=== PATIENT | female | born 1965 | race Caucasian/White ===

== ENCOUNTER 2019-03-03 09:45 | Inpatient (IN) ==
[2019-03-03] MEDS ORDERED: ACETAMINOPHEN 1,000 MG/100 ML VIAL IV STA (09:51)
[2019-03-03] MEDS ORDERED: SODIUM CHLORIDE 0.9% 1000ML 1,000 ML IV SCH (10:00)
[2019-03-03 10:19] LABS: Mean Corpuscular Hgb Conc 33.3 g/dL (32-36); Mean Corpuscular Volume 96.8 fL (80-100); Mean Platelet Volume 9.8 fL (7.4-10.4); Platelet Count 191 K/uL (130-400); RDW Coefficient of Variation 13.1 % (11.5-14.5); RDW Standard Deviation 46.7 fL (36.4-46.3); Red Blood Count 3.72 M/uL (4.2-5.4); White Blood Count 16.94 K/uL (4.8-10.8)
[2019-03-03 10:31] LABS: INR 1.3 (0.9-1.1); Partial Thromboplastin Ratio 1.2; Partial Thromboplastin Time 32.2 Seconds (21.0-31.0); Prothrombin Time 12.7 Seconds (9.0-12.0)
[2019-03-03 10:36] LABS: Alanine Aminotransferase 17 U/L (12-78); Albumin Level 2.4 gm/dl (3.4-5.0); Aspartate Aminotransferase 14 U/L (15-37); BUN Creatinine Ratio 18.4 (10-20); Blood Urea Nitrogen 23 mg/dl (7-18); Calcium 7.7 mg/dl (8.5-10.1); Carbon Dioxide 23 mmol/L (21-32); Chloride 109 mmol/L (98-107); Est GFR (African American) 55.4; Est GFR (Non-African American) 47.8; Glucose 107 mg/dl (70-99); Potassium 3.4 mmol/L (3.5-5.1); Sodium 139 mmol/L (136-145)
[2019-03-03 10:39] LABS: Albumin Globulin Ratio 0.6 (0.9-2); Alkaline Phosphatase 67 U/L (45-117); Bilirubin,Total 0.6 mg/dl (0.2-1); Globulin 3.9 gm/dl (2.5-4.0); Total Protein 6.3 gm/dl (6.4-8.2)
--- NOTE | 2019-03-03 10:41 | XRay Report ---
XR chest 1V portable HISTORY: Sepsis COMPARISON: None. FINDINGS: There are low lung volumes. The heart is mildly enlarged. Mild central pulmonary vascular c ongestion without overt edema. No focal lung consolidations to suggest pneumonia. No pleural effusion s. No pneumothorax. Linear density within the right midlung zone may represent atelectasis. IMPRESSION: Cardiomegaly with mild central pulmonary vascular congestion. Electronically signed by: Jayson Adams M.D. 03/03/2019 10:40 AM
[2019-03-03 10:47] LABS: Basophils # (auto) 0.01 K/uL (0-0.2); Basophils % (auto) 0.1 %; Immature Granulocytes # (auto) 0.08 K/uL (0.00-0.02); Immature Granulocytes % (auto) 0.5 %; Lymphocytes # (auto) 0.92 K/uL (1.2-3.4); Lymphocytes % (auto) 5.4 %; Monocytes # (auto) 1.12 K/uL (0.11-0.59); Monocytes % (auto) 6.6 %; Neutrophils # (auto) 14.81 K/uL (1.4-6.5); Neutrophils % (auto) 87.4 %; Toxic Vacuolation 1+
--- NOTE | 2019-03-03 11:15 | CT Scan Report ---
CT SCAN OF THE ABDOMEN AND PELVIS WITHOUT IV CONTRAST CLINICAL HISTORY: Upper abdominal pain. COMPARISON STUDY: No priors. TECHNIQUE: CT scan of the abdomen and pelvis is performed from the lung bases to the proximal femora. Images are reviewed in the axial, sagittal, and coronal planes. IV contrast was not administered for this examination as per the referring clinician. The examination is degraded by streak artifact fro m the arms which cannot elevated above the abdomen as well as by motion. A dose lowering technique wa s utilized adhering to the principles of ALARA. CT DOSE: 1046.34 mGycm FINDINGS: Lung bases: The heart is normal in size and without pericardial effusion. There are trace pleural eff usions with bibasilar atelectasis. There is a small hiatal hernia. Liver: Evaluation of the liver is significantly degraded by streak artifact. The unenhanced liver is normal in size, contour, and attenuation. There is no intrahepatic biliary ductal dilatation. Gallbladder: There are large calcified gallstones, with no CT evidence of acute cholecystitis. Spleen: Normal in size and attenuation. Pancreas: The unenhanced pancreas is mildly atrophic and grossly unremarkable. Adrenal glands: Unremarkable. Kidneys: The unenhanced kidneys demonstrate mild cortical atrophy. There is a 15 mm obstructing calcu kerry in the right proximal ureter just below the ureteropelvic junction. This is seen on image #194 an d is located at the level of L2. This causes mild right hydronephrosis. There is mild associated righ t-sided perinephric and periureteric stranding. A 2.2 cm calculus/cluster of calculi is seen in the r ight renal pelvis on image #184. There are numerous additional nonobstructing calculi throughout the right kidney. No left renal calculi are clearly identified and there is no left-sided hydronephrosis. There is no evidence of contour deforming renal mass lesion. Abdominal vasculature: The abdominal aorta is normal in course and caliber. Bowel: There is no bowel obstruction. The appendix is normal as visualized. Peritoneum: There is no intraperitoneal free air or abdominal ascites. There is a large complex fat-c ontaining umbilical/periumbilical hernia. Lymphadenopathy: None. Pelvic viscera: The bladder, uterus, and adnexa are normal as visualized. Skeletal structures: The skeletal structures are osteopenic. Mild lumbosacral spondylosis is observed . No lytic or blastic lesions are seen. There are healed right-sided rib fractures. Sclerotic degener ative change is noted in the sacroiliac joints. IMPRESSION: 1. There is a 15 mm obstructing calculus in the right proximal ureter located just below the ureterop elvic junction. This causes mild right hydronephrosis. 2. There are numerous additional nonobstructing right renal calculi as above. 3. There is mild right-sided perinephric and periureteric stranding. This may be related to obstructi on/hydronephrosis. Correlate clinically and with urinalysis for evidence of superimposed infection. 4. No left renal calculi are identified. 5. Cholelithiasis without CT evidence of acute cholecystitis. 6. Trace pleural effusions. 7. Additional findings as above. Electronically signed by: Alen Ang M.D. 03/03/2019 11:14 AM
[2019-03-03 11:36] LABS: Appearance Urine Turbid (Clear); Bacteria Urine Automated 4+ (Negative); Blood Urine 1+ (Negative); Color Urine Dark Yellow; Epithelial Cell Urine Auto >30 /lpf (0-5); Glucose Urine UA Negative (Negative); Ketones Urine 1+ (Negative); Leukocyte Esterase Urine 3+ (Negative); Nitrite Urine Negative (Negative); RBC Urine Automated 0-4 /hpf (0-4); Specific Gravity Urine 1.023 (1.000-1.030); Urobilinogen Urine Negative (Negative); WBC Urine Automated >30 /hpf (0-5); pH Urine 8.5 (4.5-7.5)
[2019-03-03 11:45] LABS: Protein Urine 3+ (Negative)
[2019-03-03] MEDS ORDERED: AZTREONAM 2,000 MG in DEXTROSE 5% 100 ML IV SCH (11:45)
[2019-03-03 11:53] LABS: Ictotest Urine Negative (Negative)
[2019-03-03 11:56] LABS: Bilirubin Urine Negative (Negative)
--- NOTE | 2019-03-03 12:05 | Urology Consultation ---
Date of Consultation March 03, 2019 Assessment & Plan (1) Obstructive uropathy: (2) Sepsis: 54yo F with hx of cerebral palsy and schizophrenia presents with 15mm obstructing Right prox ureteral stone, sepsis. Of note she also has a large 2.2cm cluster of calculi to right renal pelvis and multiple other small stones to right kidney. No family members at bedside, pt is unable to sign consent due to cognitive status, presumed consent. Attempting to reach next of kin via [facility]. Will proceed emergent given potentially fatality if left untreated. Findings reviewed with Dr. Plummer. Will proceed to OR for cysto, right Retrograde pyelogram and right stent placement. Risks and benefits are unable to be reviewed given patient cognitive status. OR notified. Preoperative CXR and EKG completed. Covered with Azactam IV in ED. Attending: Emergent consent. Discussed with Sister Tiera Hurst. Will proceed to OR for stent on right. History of Present Illness Reason for Consultation: septic stone Requesting Physician: Dr Kong Attending Physician: Dr Kong History of Present Illness 54yo F with hx of cerebral palsy and schizophrenia presents from [facility] after complaining of upper abdominal pain x3days, then developed fever of 103F per [facility] staff. Tachycardic and hypotensive upon admission as well. We were consulted by ED physician urgently given febrile illness and CT imaging findings. She has a 15mm obs Right proximal ureter below UPJ with mild hydro, perinephric stranding. She is obtunded on exam, unable to give any information. Garbled speech, no family present at bedside. Leukocytosis 16.94 upon admission, Cr 1.27. Baseline cognition - garbled speech, essentially non-verbal and does not walk. Allergies Allergy/AdvReac Type Severity Reaction Status Date / Time Penicillins AdvReac Intermediate Unknown Unverified 03/03/19 12:37 codeine AdvReac Mild Unknown Unverified 03/03/19 12:37 Home Medications Home Medications Medication Instructions Recorded Confirmed Type acetaminophen 650 mg PO DIRECTED PRN MDD 03/03/19 03/03/19 History 3gm/24h acetaminophen 650 mg PO Q8H PRN MDD 3gm/24h 03/03/19 03/03/19 History aripiprazole 20 mg PO HS 03/03/19 03/03/19 History aripiprazole 400 mg IM MONTHLY 03/03/19 03/03/19 History bisacodyl [Dulcolax (bisacodyl)] 10 mg RI DIRECTED PRN 03/03/19 03/03/19 History cholecalciferol (vitamin D3) 1,000 unit PO DAILY 03/03/19 03/03/19 History [Vitamin D3] clotrimazole 1 applic TOPICAL BID 03/03/19 03/03/19 History guaifenesin 200 mg PO Q8H PRN 03/03/19 03/03/19 History ipratropium-albuterol 3 ml INHALATION Q8H PRN 03/03/19 03/03/19 History levothyroxine [Synthroid] 100 mcg PO QAM 03/03/19 03/03/19 History magnesium hydroxide [Milk of 15 ml PO HS PRN 03/03/19 03/03/19 History Magnesia] medroxyprogesterone 150 mg IM .EVERY 90 DAYS 03/03/19 03/03/19 History miconazole nitrate [Antifungal 1 applic TOPICAL BID 03/03/19 03/03/19 History Cream (miconazole)] multivitamin with minerals 1 tab PO QAM 03/03/19 03/03/19 History ondansetron HCl 4 mg PO Q6H PRN 03/03/19 03/03/19 History oxybutynin chloride 10 mg PO HS 03/03/19 03/03/19 History pantoprazole [Protonix] 20 mg PO QAM 03/03/19 03/03/19 History perphenazine 4 mg PO Q12H 03/03/19 03/03/19 History perphenazine 8 mg PO Q12H 03/03/19 03/03/19 History ranitidine HCl 150 mg PO HS 03/03/19 03/03/19 History simvastatin 20 mg PO HS 03/03/19 03/03/19 History sodium phosphates [Enema] 118 ml RI QAM PRN 03/03/19 03/03/19 History temazepam 22.5 mg PO HS 03/03/19 03/03/19 History Patient History Medical History Cerebral palsy (Chronic) Schizophrenia (Chronic) Social History Current Living Situation: Jail Feels Safe at Home: Yes Smoking Status: Never smoker Review of Systems Review of Systems: Unobtainable due to cognitive status Physical Exam Physical Exam: A&Ox O RR - labored, rapid generalized edema NC intact abd soft Results & Data Vital Signs (Past 12 Hours) Vital Signs Temp Pulse Pulse Resp BP BP Pulse Ox 03/03/19 11:55 36.9 C 92 H 18 104/69 96 03/03/19 11:04 101 H 20 102/55 L 97 03/03/19 10:30 107 H 22 99/62 L 95 03/03/19 10:10 36.9 C 121 H 22 129/66 95 (1) Sepsis Sepsis type: sepsis due to unspecified organism Qualified Code(s): A41.9 - Sepsis, unspecified organism
[2019-03-03] MEDS ORDERED: FUROSEMIDE 40 MG/4 ML VIAL IV ONE (12:12)
[2019-03-03] MEDS ORDERED: LIDOCAINE HCL 2% 2 ML VIAL/AMP(20MG/ML) INFIL ONE (12:13)
[2019-03-03] MEDS ORDERED: DEXAMETHASONE SOD INJ 4 MG/ML VIAL ONE (12:13)
[2019-03-03] MEDS ORDERED: ONDANSETRON INJ 2 MG/ML 2 ML VIAL ONE (12:13)
[2019-03-03] MEDS ORDERED: PROPOFOL IV EMULSION 10 MG/ML 20 ML VIAL IV ONE (12:13)
[2019-03-03] MEDS ORDERED: FUROSEMIDE 20 MG in SYRINGE 0 ML IV STA (12:13)
[2019-03-03] MEDS ORDERED: fentaNYL citrate 100 MCG/2 ML VIAL ONE (12:13)
[2019-03-03] MEDS ORDERED: MIDAZOLAM HCL 1 MG/ML 2ML VIAL ONE (12:13)
--- NOTE | 2019-03-03 12:27 | History & Physical Report ---
Date of Service March 03, 2019 Assessment & Plan (1) Sepsis: tachycardia, fever, leukocytosis likely due to urosepsis 2/2 obstruction uropathy. Plan for emergent urological procedure. continue with IV abx aztreonam . follow up blood and urine cultures case discussed with patient's family member Present on Admission?: Yes (2) Obstructive uropathy: Urology consulted for emergent procedure due to 15mm obstructive calculi with hydronephrosis Present on Admission?: Yes (3) Pyelonephritis: continue IV antibiotics, pain control and supportive therapy Present on Admission?: Yes (4) Tachycardia: 2/2 sepsis; monitor on telemetry Present on Admission?: Yes (5) Upper abdominal pain: h/o Cholelithiasis continue with pain control Present on Admission?: Yes (6) Schizophrenia: continue with current outpatient medications Present on Admission?: Yes (7) Pulmonary vascular congestion: caution with IV fluid hydration. monitor pulse oximetry and respiratory status closely. gentle lasix IV as tolerated by Blood pressure. continue oxygen supplement to keep pulse Ox > 90% Present on Admission?: Yes History of Present Illness Chief Complaint: fever, Tachycardia, abdominal pain Primary Care Provider: [facility] Patient is nonverbal and unable to give any history. Most of the history is obtained from chart review and ER records and nursing information. In summary, patient is a 54y/o Female PmHX Schizophrenia ( nonverbal), Cerebral palsy who was brought to the ED for evaluation of fever (Tmax 103 prior to ED visit), tachycardia and abdominal pain. Patient was found to have a Tmax of 36.9C and HR 92, BP 104/[address] scan of abd/ pelvis showed 15mm obstructing calculi at the right proximal ureter below the ureteropelvic junction, mild right hydronephrosis and mild right perinephric stranding with santhosh-ureteric stranding. Chest xray showed cardiomegaly and central pulmonary vascular congestion. LABS significant for WBC 16.9, Hgb 12, K- 3.4 and BUN / CR - 23/ 1.27. She was given Aztreonam 1gm IV due to PCN allergy. Urology was consulted and plan for emergent lithotripsy / possible stent placement. Allergies Allergy/AdvReac Type Severity Reaction Status Date / Time Penicillins AdvReac Intermediate Unknown Unverified 03/03/19 12:37 codeine AdvReac Mild Unknown Unverified 03/03/19 12:37 Home Medications Home Medications Medication Instructions Recorded Confirmed Type acetaminophen 650 mg PO DIRECTED PRN MDD 03/03/19 03/03/19 History 3gm/24h acetaminophen 650 mg PO Q8H PRN MDD 3gm/24h 03/03/19 03/03/19 History aripiprazole 20 mg PO HS 03/03/19 03/03/19 History aripiprazole 400 mg IM MONTHLY 03/03/19 03/03/19 History bisacodyl [Dulcolax (bisacodyl)] 10 mg [place] DIRECTED PRN 03/03/19 03/03/19 History cholecalciferol (vitamin D3) 1,000 unit PO DAILY 03/03/19 03/03/19 History [Vitamin D3] clotrimazole 1 applic TOPICAL BID 03/03/19 03/03/19 History guaifenesin 200 mg PO Q8H PRN 03/03/19 03/03/19 History ipratropium-albuterol 3 ml INHALATION Q8H PRN 03/03/19 03/03/19 History levothyroxine [Synthroid] 100 mcg PO QAM 03/03/19 03/03/19 History magnesium hydroxide [Milk of 15 ml PO HS PRN 03/03/19 03/03/19 History Magnesia] medroxyprogesterone 150 mg IM .EVERY 90 DAYS 03/03/19 03/03/19 History miconazole nitrate [Antifungal 1 applic TOPICAL BID 03/03/19 03/03/19 History Cream (miconazole)] multivitamin with minerals 1 tab PO QAM 03/03/19 03/03/19 History ondansetron HCl 4 mg PO Q6H PRN 03/03/19 03/03/19 History oxybutynin chloride 10 mg PO HS 03/03/19 03/03/19 History pantoprazole [Protonix] 20 mg PO QAM 03/03/19 03/03/19 History perphenazine 4 mg PO Q12H 03/03/19 03/03/19 History perphenazine 8 mg PO Q12H 03/03/19 03/03/19 History ranitidine HCl 150 mg PO HS 03/03/19 03/03/19 History simvastatin 20 mg PO HS 03/03/19 03/03/19 History sodium phosphates [Enema] 118 ml [place] QAM PRN 03/03/19 03/03/19 History temazepam 22.5 mg PO HS 03/03/19 03/03/19 History Past Med/Surg History Medical History Cerebral palsy (Chronic) Schizophrenia (Chronic) Social History Current Living Situation: [facility] Feels Safe at Home: Yes Smoking Status: Never smoker Review of Systems Review of Systems: Unobtainable due to mental health condition and Unobtainable due to cognitive status Physical Exam Constitutional: + altered mental status and + behavioral limitations non cooperative, non verbal, appear comfortable, but difficult to arouse. Moans and groans to pinching and sternal rub Eyes: PERRL and EOM intact bilaterally ENMT: external ear and nose normal, oropharynx normal Neck: supple Respiratory: normal respiratory effort, lungs clear to auscultation poor inspiratory effort Cardiovascular: Rate/Rhythm: regular rate Heart Sounds: normal S1 and normal S2 Extremities: + pedal edema and + edema Gastrointestinal (Abdomen): Inspection/Auscultation: + abdomen distended and normal bowel sounds Percussion/Palpation: + abdomen tender and abdomen soft Musculoskeletal: no movement of lower extremities Skin: no rashes, warm and dry Neurologic: + confused Speech / Cognition: + abnormal speech Motor/Sensory: + abnormal movement Cranial Nerves: PERRL non responsive / nonverbal Psychiatric: bizaare affect / schizophrenic Genitourinary: bronson catheter in place with concentrate urine Results & Data Vital Signs (Past 12 Hours) Vital Signs Temp Pulse Pulse Resp BP BP Pulse Ox 03/03/19 11:55 36.9 C 92 H 18 104/69 96 03/03/19 11:04 101 H 20 102/55 L 97 03/03/19 10:30 107 H 22 99/62 L 95 03/03/19 10:10 36.9 C 121 H 22 129/66 95 Laboratory Results 03/03/19 10:02 03/03/19 10:[address] SCAN OF THE ABDOMEN AND PELVIS WITHOUT IV CONTRAST CLINICAL HISTORY: Upper abdominal pain. COMPARISON STUDY: No priors. TECHNIQUE: CT scan of the abdomen and pelvis is performed from the lung bases to the proximal femora. Images are reviewed in the axial, sagittal, and coronal planes. IV contrast was not administered for this examination as per the referring clinician. The examination is degraded by streak artifact from the arms which cannot elevated above the abdomen as well as by motion. A dose lowering technique was utilized adhering to the principles of ALARA. CT DOSE: 1046.34 mGycm FINDINGS: Lung bases: The heart is normal in size and without pericardial effusion. There are trace pleural effusions with bibasilar atelectasis. There is a small hiatal hernia. Liver: Evaluation of the liver is significantly degraded by streak artifact. The unenhanced liver is normal in size, contour, and attenuation. There is no intrahepatic biliary ductal dilatation. Gallbladder: There are large calcified gallstones, with no CT evidence of acute cholecystitis. Spleen: Normal in size and attenuation. Pancreas: The unenhanced pancreas is mildly atrophic and grossly unremarkable. Adrenal glands: Unremarkable. Kidneys: The unenhanced kidneys demonstrate mild cortical atrophy. There is a 15 mm obstructing calculus in the right proximal ureter just below the ureteropelvic junction. This is seen on image #194 and is located at the level of L2. This causes mild right hydronephrosis. There is mild associated right- sided perinephric and periureteric stranding. A 2.2 cm calculus/cluster of calculi is seen in the right renal pelvis on image #184. There are numerous additional nonobstructing calculi throughout the right kidney. No left renal calculi are clearly identified and there is no left-sided hydronephrosis. There is no evidence of contour deforming renal mass lesion. Abdominal vasculature: The abdominal aorta is normal in course and caliber. Bowel: There is no bowel obstruction. The appendix is normal as visualized. Peritoneum: There is no intraperitoneal free air or abdominal ascites. There is a large complex fat-containing umbilical/periumbilical hernia. Lymphadenopathy: None. Pelvic viscera: The bladder, uterus, and adnexa are normal as visualized. Skeletal structures: The skeletal structures are osteopenic. Mild lumbosacral spondylosis is observed. No lytic or blastic lesions are seen. There are healed right-sided rib fractures. Sclerotic degenerative change is noted in the s acroiliac joints. IMPRESSION: 1. There is a 15 mm obstructing calculus in the right proximal ureter located just below the ureteropelvic junction. This causes mild right hydronephrosis. 2. There are numerous additional nonobstructing right renal calculi as above. 3. There is mild right-sided perinephric and periureteric stranding. This may be related to obstruction/hydronephrosis. Correlate clinically and with urinalysis for evidence of superimposed infection. 4. No left renal calculi are identified. 5. Cholelithiasis without CT evidence of acute cholecystitis. 6. Trace pleural effusions. 7. Additional findings as above Medications Administered lasix/ aztreonam, IV fluids Code Status & VTE Plan VTE Prophylaxis Plan VTE Prophylaxis will be ordered: Yes PG Care Time/CCT Total # of Minutes Spent Total Time Spent with Patient: Total time spent is greater than 50% in coordination of care (as documented) at patient's floor/unit and/or counseling patient: (1) Sepsis Sepsis type: sepsis due to unspecified organism Qualified Code(s): A41.9 - Sepsis, unspecified organism
--- NOTE | 2019-03-03 12:38 | Anesthesiology Consultation ---
Date of Service March 03, 2019 Assessment & Plan Chart Review Chart Review: Acceptable Risk for Surgery Consults Requested none History Surgery Operation Date: 03/03/19 12:15 Proposed Procedures p Cystoscopy, Right Retrograde, Right Stent Placement - Quincy Plummer II, DO Height/Weight Weight: 93.7 kg Allergies Allergy/AdvReac Type Severity Reaction Status Date / Time Penicillins AdvReac Intermediate Unknown Unverified 03/03/19 12:37 codeine AdvReac Mild Unknown Unverified 03/03/19 12:37 Medications Home Medications Medication Instructions Recorded Confirmed Last Taken acetaminophen 650 mg PO DIRECTED PRN MDD 03/03/19 03/03/19 02/25/19 05:24 3gm/24h acetaminophen 650 mg PO Q8H PRN MDD 3gm/24h 03/03/19 03/03/19 Unknown aripiprazole 20 mg PO HS 03/03/19 03/03/19 03/02/19 20:00 aripiprazole 400 mg IM MONTHLY 03/03/19 03/03/19 02/28/19 08:00 bisacodyl [Dulcolax (bisacodyl)] 10 mg CO DIRECTED PRN 03/03/19 03/03/19 Unknown cholecalciferol (vitamin D3) 1,000 unit PO DAILY 03/03/19 03/03/19 03/03/19 08:00 [Vitamin D3] clotrimazole 1 applic TOPICAL BID 03/03/19 03/03/19 03/02/19 09:00 guaifenesin 200 mg PO Q8H PRN 03/03/19 03/03/19 Unknown ipratropium-albuterol 3 ml INHALATION Q8H PRN 03/03/19 03/03/19 Unknown levothyroxine [Synthroid] 100 mcg PO QAM 03/03/19 03/03/19 03/03/19 08:00 magnesium hydroxide [Milk of 15 ml PO HS PRN 03/03/19 03/03/19 Unknown Magnesia] medroxyprogesterone 150 mg IM .EVERY 90 DAYS 03/03/19 03/03/19 Unknown miconazole nitrate [Antifungal 1 applic TOPICAL BID 03/03/19 03/03/19 03/02/19 09:00 Cream (miconazole)] multivitamin with minerals 1 tab PO QAM 0703/03/19 03/03/19 08:00 ondansetron HCl 4 mg PO Q6H PRN 03/03/19 03/03/19 03/02/19 11:38 oxybutynin chloride 10 mg PO HS 03/03/19 03/03/19 03/02/19 21:00 pantoprazole [Protonix] 20 mg PO QAM 03/03/19 03/03/19 03/03/19 07:00 perphenazine 4 mg PO Q12H 03/03/19 03/03/19 03/03/19 09:00 perphenazine 8 mg PO Q12H 03/03/19 03/03/19 03/03/19 09:00 ranitidine HCl 150 mg PO 03/03/19 03/03/19 03/02/19 21:00 simvastatin 20 mg PO 03/03/19 03/03/19 03/02/19 21:00 sodium phosphates [Enema] 118 ml CO QAM PRN 03/03/19 03/03/19 Unknown temazepam 22.5 mg PO 03/03/19 03/03/19 03/02/19 20:00 Active Medications Generic Name Dose Route Start Last Admin Trade Name Freq PRN Reason Stop Dose Admin Aztreonam 2,000 mg/ Dextrose 110 mls @ 100 mls/hr 03/03/19 11:45 03/03/19 11:54 IV 03/05/19 11:44 100 mls/hr Q8H NOE Administration Protocol Past Medical History Medical History Cerebral palsy (Chronic) Schizophrenia (Chronic) Social History Smoking Status: Never smoker Physical Exam Vital Signs Last Vital Signs Temp 36.9 C 03/03/19 11:55 Pulse 118 H 03/03/19 12:27 Resp 20 03/03/19 12:27 BP 112/67 03/03/19 12:27 Pulse Ox 93 03/03/19 12:27 Testing Laboratory Results 03/03/19 10:02 03/03/19 10:02 PT 12.7 Seconds (9.0-12.0) H 03/03/19 10:02 INR 1.3 (0.9-1.1) H 03/03/19 10:02 APTT 32.2 Seconds (21.0-31.0) H 03/03/19 10:02 Urine Color Dark Yellow 03/03/19 11:18 Urine Appearance Turbid (Clear) A 03/03/19 11:18 Urine pH 8.5 (4.5-7.5) H 03/03/19 11:18 Ur Specific [place] 1.023 (1.000-1.030) 03/03/19 11:18 Urine Protein 3+ (Negative) H 03/03/19 11:18 Urine Glucose (UA) Negative (Negative) 03/03/19 11:18 Urine Ketones 1+ (Negative) H 03/03/19 11:18 Urine Nitrite Negative (Negative) 03/03/19 11:18 Ur Leukocyte Esterase 3+ (Negative) H 03/03/19 11:18 Urine WBC (Auto) >30 /hpf (0-5) H 03/03/19 11:18 Urine RBC (Auto) 0-4 /hpf (0-4) 03/03/19 11:18 U Hyaline Cast (Auto) 10-30 /lpf (0-5) H 03/03/19 11:18 U Epithel Cells (Auto) >30 /lpf (0-5) H 03/03/19 11:18 Urine Bacteria (Auto) 4+ (Negative) H 03/03/19 11:18
[2019-03-03] MEDS ORDERED: HYDROmorphone INJ 2 MG/ML SYR/VIAL IV PRN (12:43)
[2019-03-03] MEDS ORDERED: ATROPINE SULFATE 0.1 MG/ML 10ML SYR IV PRN (12:43)
[2019-03-03] MEDS ORDERED: fentaNYL citrate 100 MCG/2 ML VIAL IV PRN (12:43)
[2019-03-03] MEDS ORDERED: ePHEDrine sulfate 50 MG/ML AMP IV PRN (12:43)
[2019-03-03] MEDS ORDERED: IOTHALAMATE MEGLUMINE II 17.2% 250 ML VIAL ONE (12:57)
--- NOTE | 2019-03-03 13:37 | Operative Report ---
Post Operative Report Pre & Post Diagnosis Sepsis, Lethargy, Obstructing Right Stone Same Operation Date: 03/03/19 12:15 <No data on this case meets the specified criteria> Procedure Operation Date: 03/03/19 12:15 Actual Procedures p Cystoscopy, Right Retrograde pyelogram, urine aspiration, and Right Stent Placement(Right) - Quincy Plummer II, DO Surgeon Quincy Plummer, II, DO Process Operator None Estimated Blood Loss 1 Findings Consistent with Post-Op Diagnosis Large purulent discharge from right renal pelvis. Severely obstructed stone. Specimens 1 Purulent Urine Right Kidney Drains 6 Fr Multilength. Anesthesia Type MAC Complications none Disposition Disposition: Recovery Room Indications Patient with obstructing stone and sepsis with lethargy, tachycardia, and hypotension and fever. Risks and benefits discussed with family on phone. Emergent stent placement. Description of Procedure Patient was consented and brought back to the operating room. Patient was placed under anesthesia in the supine position and moved to the dorsal lithotomy position. Patient was prepped and draped in the regular sterile fashion. A time out was completed. A 30degree Cystoscope was placed into the bladder and the entire bladder was examined. The UO's were identified. The right was cannulized with a catheter and advanced. This proved difficult to bypass the stone. A wire was placed and the catheter was able to enter the pelvis. An aspiration found extremely thick and purulent urine/fluid. This was sent for analysis. A retrograde pyelogram was completed. A wire was then placed. With the wire in place, a 6 Fr Double J stent was placed. It was confirmed with fluoroscopy. With the stent in place, the bladder was emptied. The scope was removed. The patient was cleaned, aroused from anesthesia, and transferred to the pacu in stable condition having tolerated the procedure well with no complications. I was present and participated in all aspects of the procedure. The patient will be monitored in the PACU until transferred. Will be monitored closely. I attest to the content of the Intraoperative Record and any orders documented therein. Any exceptions are noted below.
--- NOTE | 2019-03-03 13:41 | Fluoroscopy Report ---
FL retrograde includes kub CLINICAL HISTORY: RIGHT CYSTO STENT COMPARISON STUDY: CT of the abdomen and pelvis March 03, 2019. FLUOROSCOPY TIME: 1 minute and 33 seconds. FLUOROSCOPIC IMAGES: 2. FINDINGS: These images demonstrate placement of a right ureteral stent. Stent appears appropriately p ositioned. Calculi within the right kidney are noted as well as suspected calculi within the right re nal pelvis and a possible right ureteropelvic junction calculus. IMPRESSION: Fluoroscopic images demonstrating placement of a right ureteral stent. Electronically signed by: Ousmane Mcmillan M.D. 03/03/2019 1:39 PM
--- NOTE | 2019-03-03 13:54 | Communication Note ---
Date of Service: March 03, 2019 HAI, Sister Tiera Hurst [phone]
--- NOTE | 2019-03-03 14:15 | Anesthesiology Progress Note ---
Date of Service March 03, 2019 Anesthesia Post Procedure Vital Signs Vital Signs: Temp Pulse Pulse Resp BP BP BP 03/03/19 14:00 98 H 14 110/67 03/03/19 13:50 101 H 16 103/55 L 03/03/19 13:41 36.0 C L 108 H 20 103/53 L 03/03/19 12:48 36.3 C L 105 H 20 107/67 03/03/19 12:27 118 H 20 112/67 03/03/19 11:55 36.9 C 92 H 18 104/69 03/03/19 11:04 101 H 20 102/55 L 03/03/19 10:30 107 H 22 99/62 L 03/03/19 10:10 36.9 C 121 H 22 129/66 Pulse Ox 03/03/19 14:00 99 03/03/19 13:50 96 03/03/19 13:41 95 03/03/19 12:48 94 03/03/19 12:27 93 03/03/19 11:55 96 03/03/19 11:04 97 03/03/19 10:30 95 03/03/19 10:10 95 Transfer of Care Handoff Completed per policy Notes Mental Status: alert / awake / arousable and participated in evaluation Patient Amnestic to Procedure: Yes Nausea / Vomiting: adequately controlled Pain: adequately controlled Airway Patency, RR, SpO2: stable & adequate BP & HR: stable & adequate Hydration State: stable & adequate Anesthetic Complications: no major complications apparent
[2019-03-03] MEDS ORDERED: LORazepam 2 MG/4 ML VIAL ONE (15:03)
[2019-03-03] MEDS ORDERED: RACEPINEPHRINE 2.25% NEBU SOLN 0.5 ML VIAL NEB STA (15:07)
[2019-03-03] MEDS ORDERED: LORazepam 0.5 MG/1 ML VIAL IV STA ×2 (15:07→15:20)
--- NOTE | 2019-03-03 16:13 | Anesthesiology Progress Note ---
Date of Service March 03, 2019 Subjective After signout from PACU but prior to physical transfer from unit, patient became tachycardic to 170s, hypertensive, and agitated. On arrival, she was moderately tachypneic with mildly stridorous breath sounds. She was somewhat septic appearing and in mild respiratory distress. Critical Care medicine had been consulted as well and was at bedside. The patient was given a treatment with racemic epinephrine and BiPap was initiated, as well as a bolus of crystalloid. She was also treated with a small dose of ativan given her history of schizophrenia and prison benzodiazepine use. The patient did improve significantly, she was sleepy, breathing comfortably with good air movement on BiPAP. She was still moderately tachycardic in the 140s and BPs in the 90-100s/50-60s. The ICU has decieded to accept the patient overnight for management of sepsis 2ndary to UTI. The case was discussed fully with the ICU physician account assistant, who has been in close contact with the attending. Physical Exam Vital Signs: Last Vital Signs Temp 36.3 C L 03/03/19 15:45 Pulse 143 H 03/03/19 15:55 Resp 24 03/03/19 15:55 BP 103/60 03/03/19 15:55 Pulse Ox 97 03/03/19 15:55 Results & Data Medications Administered Aztreonam 2,000 mg/ Dextrose 110 mls @ 100 mls/hr IV Q[facility]H [facility]; Protocol Stop: 03/05/19 11:44 Last Infusion: 03/03/19 12:56 Dose: 0 mls/hr Documented by: [id number] Admin: 03/03/19 11:54 Dose: 100 mls/hr Documented by: [id number]
--- NOTE | 2019-03-03 16:39 | Emergency Department Note ---
Entered by Rosa Sweet acting as a scribe for Alex Kong MD History of Present Illness General Chief complaint: Tachycardia Source: EMS Limitations: altered mental status History of Present Illness Provider complaint: tachycardia Onset (ago): hour(s) (today) Location: chest Quality: + other (tachycardia) Associated symptoms: + fever/chills (febrile at 103) and + other (abdominal pain) The patient is a 54 year old female who presents to the Emergency Department with complaints of tachycardia today. Per EMS, the patient is from [facility] and was febrile at 103 today and was tachycardic. EMS states that the patient has a history of cerebral palsy and schizophrenia. Per nursing staff, the patient has had right upper quadrant abdominal pain and has not eaten for 3 days. Limited HPI secondary to AMS. Home Medications Home Medications Medication Instructions Recorded Confirmed Type acetaminophen 650 mg PO DIRECTED PRN MDD 03/03/19 03/03/19 History 3gm/24h acetaminophen 650 mg PO Q8H PRN MDD 3gm/24h 03/03/19 03/03/19 History aripiprazole 20 mg PO HS 03/03/19 03/03/19 History aripiprazole 400 mg IM MONTHLY 03/03/19 03/03/19 History bisacodyl [Dulcolax (bisacodyl)] 10 mg MO DIRECTED PRN 03/03/19 03/03/19 History cholecalciferol (vitamin D3) 1,000 unit PO DAILY 03/03/19 03/03/19 History [Vitamin D3] clotrimazole 1 applic TOPICAL BID 03/03/19 03/03/19 History guaifenesin 200 mg PO Q8H PRN 03/03/19 03/03/19 History ipratropium-albuterol 3 ml INHALATION Q8H PRN 03/03/19 03/03/19 History levothyroxine [Synthroid] 100 mcg PO QAM 03/03/19 03/03/19 History magnesium hydroxide [Milk of 15 ml PO HS PRN 03/03/19 03/03/19 History Magnesia] medroxyprogesterone 150 mg IM .EVERY 90 DAYS 03/03/19 03/03/19 History miconazole nitrate [Antifungal 1 applic TOPICAL BID 03/03/19 03/03/19 History Cream (miconazole)] multivitamin with minerals 1 tab PO QAM 03/03/19 03/03/19 History ondansetron HCl 4 mg PO Q6H PRN 03/03/19 03/03/19 History oxybutynin chloride 10 mg PO HS 03/03/19 03/03/19 History pantoprazole [Protonix] 20 mg PO QAM 03/03/19 03/03/19 History perphenazine 4 mg PO Q12H 03/03/19 03/03/19 History perphenazine 8 mg PO Q12H 03/03/19 03/03/19 History ranitidine HCl 150 mg PO HS 03/03/19 03/03/19 History simvastatin 20 mg PO HS 03/03/19 03/03/19 History sodium phosphates [Enema] 118 ml MO QAM PRN 03/03/19 03/03/19 History temazepam 22.5 mg PO HS 03/03/19 03/03/19 History Allergies Allergy/AdvReac Type Severity Reaction Status Date / Time Penicillins AdvReac Intermediate Unknown Unverified 03/03/19 12:37 codeine AdvReac Mild Unknown Unverified 03/03/19 12:37 Past Med/Surg History Medical History Cerebral palsy (Chronic) Schizophrenia (Chronic) Social History Current Living Situation: Correction Feels Safe at Home: Yes Smoking Status: Never smoker Review of Systems Limited ROS secondary to AMS. Physical Exam Vital Signs Vital Signs - 24 hr 03/03/19 10:10 03/03/19 10:30 03/03/19 11:04 Temperature 36.9 C Temperature Source Oral Sepsis Recent Fever Within 48 Hours Yes Sepsis Action Taken by Nursing Physician Notified Pulse Rate 121 H Pulse Rate [Apical] 107 H 101 H Pulse Rhythm [Apical] Pulse Strength [Apical] Respiratory Rate 22 22 20 Respiratory Effort / Characteristics Respiratory Depth Normal Respiratory Pattern Blood Pressure 129/66 Blood Pressure [Left Arm] 99/62 L 102/55 L Blood Pressure [Right Arm] Blood Pressure Mean 87 Blood Pressure Mean [Left Arm] 74 70 Blood Pressure Mean [Right Arm] Blood Pressure Position Lying Blood Pressure Position [Left Arm] Blood Pressure Position [Right Arm] Pulse Oximetry 95 95 97 Oxygen Delivery Method Nasal Cannula Nasal Cannula Nasal Cannula Oxygen Flow Rate 2 2 2 Fraction of Inspired Oxygen SaO2/FiO2 Ratio 03/03/19 11:55 03/03/19 12:27 03/03/19 12:48 Temperature 36.9 C 36.3 C L Temperature Source Oral Oral Sepsis Recent Fever Within 48 Hours Sepsis Action Taken by Nursing Pulse Rate Pulse Rate [Apical] 92 H 118 H 105 H Pulse Rhythm [Apical] Regular Regular Pulse Strength [Apical] Normal Respiratory Rate 18 20 20 Respiratory Effort / Characteristics Non-Labored Spontaneous Respiratory Depth Normal Respiratory Pattern Regular Blood Pressure Blood Pressure [Left Arm] 104/69 112/67 107/67 Blood Pressure [Right Arm] Blood Pressure Mean Blood Pressure Mean [Left Arm] 80 82 80 Blood Pressure Mean [Right Arm] Blood Pressure Position Blood Pressure Position [Left Arm] Sitting Blood Pressure Position [Right Arm] Pulse Oximetry 96 93 94 Oxygen Delivery Method Nasal Cannula Nasal Cannula Room Air Oxygen Flow Rate 2 2 Fraction of Inspired Oxygen SaO2/FiO2 Ratio 03/03/19 13:41 03/03/19 13:50 03/03/19 14:00 Temperature 36.0 C L Temperature Source Temporal Artery Scan Sepsis Recent Fever Within 48 Hours Sepsis Action Taken by Nursing Pulse Rate Pulse Rate [Apical] 108 H 101 H 98 H Pulse Rhythm [Apical] Regular Regular Regular Pulse Strength [Apical] Respiratory Rate 20 16 14 Respiratory Effort / Characteristics Non-Labored Non-Labored Non-Labored Respiratory Depth Normal Normal Normal Respiratory Pattern Regular Regular Regular Blood Pressure Blood Pressure [Left Arm] Blood Pressure [Right Arm] 103/53 L 103/55 L 110/67 Blood Pressure Mean Blood Pressure Mean [Left Arm] Blood Pressure Mean [Right Arm] 69 71 81 Blood Pressure Position Blood Pressure Position [Left Arm] Blood Pressure Position [Right Arm] Semi-fowlers Semi-fowlers Semi-fowlers Pulse Oximetry 95 96 99 Oxygen Delivery Method Oxymask Oxymask Oxymask Oxygen Flow Rate 5 5 5 Fraction of Inspired Oxygen SaO2/FiO2 Ratio 03/03/19 14:15 03/03/19 14:30 03/03/19 14:45 Temperature 36.4 C L Temperature Source Temporal Artery Scan Sepsis Recent Fever Within 48 Hours Sepsis Action Taken by Nursing Pulse Rate Pulse Rate [Apical] 95 H 95 H 119 H Pulse Rhythm [Apical] Regular Regular Regular Pulse Strength [Apical] Respiratory Rate 14 14 20 Respiratory Effort / Characteristics Non-Labored Non-Labored Non-Labored Respiratory Depth Normal Normal Normal Respiratory Pattern Regular Regular Regular Blood Pressure Blood Pressure [Left Arm] Blood Pressure [Right Arm] 91/59 L 98/59 L 110/90 Blood Pressure Mean Blood Pressure Mean [Left Arm] Blood Pressure Mean [Right Arm] 69 72 96 Blood Pressure Position Blood Pressure Position [Left Arm] Blood Pressure Position [Right Arm] Semi-fowlers Semi-fowlers Semi-fowlers Pulse Oximetry 98 96 96 Oxygen Delivery Method Oxymask Room Air Room Air Oxygen Flow Rate 2 Fraction of Inspired Oxygen SaO2/FiO2 Ratio 03/03/19 14:55 03/03/19 15:05 03/03/19 15:15 Temperature Temperature Source Sepsis Recent Fever Within 48 Hours Sepsis Action Taken by Nursing Pulse Rate Pulse Rate [Apical] 153 H 174 H 156 H Pulse Rhythm [Apical] Regular Regular Regular Pulse Strength [Apical] Respiratory Rate 23 24 32 H Respiratory Effort / Characteristics Non-Labored Spontaneous Non-Labored Respiratory Depth Normal Normal Normal Respiratory Pattern Regular Regular Regular Blood Pressure Blood Pressure [Left Arm] Blood Pressure [Right Arm] 140/118 H Blood Pressure Mean Blood Pressure Mean [Left Arm] Blood Pressure Mean [Right Arm] 125 Blood Pressure Position Blood Pressure Position [Left Arm] Blood Pressure Position [Right Arm] Semi-fowlers Semi-fowlers Semi-fowlers Pulse Oximetry 93 94 100 Oxygen Delivery Method Oxymask Oxymask Nebulizer Oxygen Flow Rate 10 15 10 Fraction of Inspired Oxygen SaO2/FiO2 Ratio 03/03/19 15:20 03/03/19 15:25 03/03/19 15:35 Temperature Temperature Source Sepsis Recent Fever Within 48 Hours Sepsis Action Taken by Nursing Pulse Rate 176 H Pulse Rate [Apical] 178 H 155 H Pulse Rhythm [Apical] Regular Regular Pulse Strength [Apical] Respiratory Rate 28 H 25 H 24 Respiratory Effort / Characteristics Spontaneous Non-Labored Non-Labored Respiratory Depth Deep Normal Normal Respiratory Pattern Tachypnea Regular Regular Blood Pressure Blood Pressure [Left Arm] Blood Pressure [Right Arm] 106/77 117/64 Blood Pressure Mean Blood Pressure Mean [Left Arm] Blood Pressure Mean [Right Arm] 86 81 Blood Pressure Position Blood Pressure Position [Left Arm] Blood Pressure Position [Right Arm] Semi-fowlers Semi-fowlers Pulse Oximetry 99 99 100 Oxygen Delivery Method BiPAP BiPAP Oxygen Flow Rate 10 Fraction of Inspired Oxygen 50 50 SaO2/FiO2 Ratio 200 03/03/19 15:45 Temperature 36.3 C L Temperature Source Temporal Artery Scan Sepsis Recent Fever Within 48 Hours Sepsis Action Taken by Nursing Pulse Rate Pulse Rate [Apical] 146 H Pulse Rhythm [Apical] Regular Pulse Strength [Apical] Respiratory Rate 24 Respiratory Effort / Characteristics Non-Labored Respiratory Depth Normal Respiratory Pattern Regular Blood Pressure Blood Pressure [Left Arm] Blood Pressure [Right Arm] 109/61 Blood Pressure Mean Blood Pressure Mean [Left Arm] Blood Pressure Mean [Right Arm] 77 Blood Pressure Position Blood Pressure Position [Left Arm] Blood Pressure Position [Right Arm] Semi-fowlers Pulse Oximetry 98 Oxygen Delivery Method BiPAP Oxygen Flow Rate Fraction of Inspired Oxygen 40 SaO2/FiO2 Ratio 245 Constitutional: Vital signs reviewed. Eyes: Pupils are equal round reactive to light. Conjunctiva are noninjected. ENT: Pharynx is clear without erythema or exudate. Mucous membranes are dry. Neck supple without meningeal signs. Respiratory: Clear to auscultation bilaterally. Breath sounds are equal bilatera lly. Cardiovascular: Regular rate and tachycardic rhythm. No rubs or gallops. GI: Soft, nondistended. Bilateral upper abdominal tenderness. No guarding. Bowel sounds are present. Musculoskeletal: No peripheral edema. No lower extremity tenderness. Integumentary: No cyanosis. Neurological: The patient follows some commands, does not answer questions. Psychiatric: Unable to assess. Course 0946: The patient was evaluated in room A10. A history and physical were performed. 1108: I checked on the patient. She was sleeping. She is still tachycardic. Her blood pressure is stable. 1144: I discussed the test results with the patient but she was very drowsy and did not appear to understand what I was saying. 1147: I discussed the patient's case with [facility] who will come see the patient. 1149: I discussed the patient's case with Dr. Aviles-Sheri who will evaluate the patient for further management. Consultations Consultation #1: [facility] Time: 11:47 Consultation #2: Dr. Aviles-Sheri Time: 11:49 Administered Medications Aztreonam 2,000 mg/ Dextrose 110 mls @ 100 mls/hr IV Q8H [facility]; Protocol Stop: 03/05/19 11:44 Last Infusion: 03/03/19 12:56 Dose: 0 mls/hr Documented by: [id number] Admin: 03/03/19 11:54 Dose: 100 mls/hr Documented by: [id number] Discontinued Medications Epinephrine (Raccemic Epinephrine 2.25% 0.5ml) 0.5 ml NEB NOW STA Stop: 03/03/19 15:08 Last Admin: 03/03/19 15:05 Dose: 0.5 ml Documented by: [id number] Furosemide (Lasix) Confirm Administered Dose 40 mg IV .STK-MED ONE Stop: 03/03/19 12:13 Last Admin: 03/03/19 12:13 Dose: 20 mg Documented by: [id number] Acetaminophen (Ofirmev) 1,000 mg in 100 mls @ 400 mls/hr IV NOW STA Stop: 03/03/19 10:05 Last Infusion: 03/03/19 10:55 Dose: 0 mls/hr Documented by: [id number] Admin: 03/03/19 10:24 Dose: 400 mls/hr Documented by: [id number] Sodium Chloride (Nss 1000ml) 1,000 mls @ 999 mls/hr IV .Q1H1M NOE Stop: 03/03/19 10:30 Last Infusion: 03/03/19 11:19 Dose: 0 mls/hr Documented by: [id number] Admin: 03/03/19 10:25 Dose: 999 mls/hr Documented by: [id number] Furosemide 20 mg/ Syringe 2 mls @ 4 mls/min IV ONE STA Stop: 03/03/19 12:14 Last Admin: 03/03/19 12:53 Dose: Not Given Documented by: [id number] Lorazepam (Ativan) 0.5 mg in 1 mls @ 1 mls/min IV NOW STA Stop: 03/03/19 15:08 Last Admin: 03/03/19 15:05 Dose: 0.5 mls/min Documented by: [id number] Lorazepam (Ativan) 0.5 mg in 1 mls @ 1 mls/min IV NOW STA Stop: 03/03/19 15:21 Last Admin: 03/03/19 15:22 Dose: 1 mls/min Documented by: [id number] Iothalamate Meglumine (Cysto-Conray Ii) Confirm Administered Dose 250 ml .ROUTE .IQR Consulting-Kerecis ONE Stop: 03/03/19 12:58 Last Admin: 03/03/19 13:34 Dose: 20 ml Documented by: [id number] Medical Decision Making Differential Diagnosis Differentials include sepsis, pneumonia, UTI, septic shock, cholangitis, c holecystitis, and pancreatitis. Medical Records Attestation: I reviewed the patient's medical records. I did perform a limited focused review of portions of the patient's old chart on the electronic medical record. The patient has had no prior visits. Home Medications Current Medication List: was personally reviewed by me Laboratory Data Attestation: I reviewed the patient's lab results. Result diagrams: 03/03/19 10:02 03/03/19 10:02 Lab Results 03/03/19 03/03/19 03/03/19 Range/Units 10:02 10:02 10:02 WBC 16.94 H (4.8-10.8) K/uL RBC 3.72 L (4.2-5.4) M/uL Hgb 12.0 (12.0-16.0) g/dL Hct 36.0 L (37-47) % MCV 96.8 (80-100) fL MCH 32.3 (25-34) pg MCHC 33.3 (32-36) g/dL RDW Std Deviation 46.7 H (36.4-46.3) fL RDW Coeff of Roberto 13.1 (11.5-14.5) % Plt Count 191 (130-400) K/uL MPV 9.8 (7.4-10.4) fL Immature Gran % (Auto) 0.5 % Neut % (Auto) 87.4 % Lymph % (Auto) 5.4 % Bennett % (Auto) 6.6 % Eos % (Auto) 0.0 % Baso % (Auto) 0.1 % Immature Gran # (Auto) 0.08 H (0.00-0.02) K/uL Neut # (Auto) 14.81 H (1.4-6.5) K/uL Lymph # (Auto) 0.92 L (1.2-3.4) K/uL Bennett # (Auto) 1.12 H (0.11-0.59) K/uL Eos # (Auto) 0.00 (0-0.5) K/uL Baso # (Auto) 0.01 (0-0.2) K/uL Toxic Vacuolation 1+ PT 12.7 H (9.0-12.0) Seconds INR 1.3 H (0.9-1.1) APTT 32.2 H (21.0-31.0) Seconds PTT Ratio 1.2 Sodium 139 (136-145) mmol/L Potassium 3.4 L (3.5-5.1) mmol/L Chloride 109 H (98-107) mmol/L Carbon Dioxide 23 (21-32) mmol/L Anion Gap 7.0 (3-11) BUN 23 H (7-18) mg/dl Creatinine 1.27 H (0.6-1.2) mg/dl Est Cr Clr Drug Dosing Not Reportable Est GFR ( Amer) 55.4 Est GFR (Non-Af Amer) 47.8 BUN/Creatinine Ratio 18.4 (10-20) Glucose 107 H (70-99) mg/dl POC Lactic Acid Merlin (0.90-1.70) mmol/L Calcium 7.7 L (8.5-10.1) mg/dl Total Bilirubin 0.6 (0.2-1) mg/dl AST 14 L (15-37) U/L ALT 17 (12-78) U/L Alkaline Phosphatase 67 (45-117) U/L Total Protein 6.3 L (6.4-8.2) gm/dl Albumin 2.4 L (3.4-5.0) gm/dl Globulin 3.9 (2.5-4.0) gm/dl Albumin/Globulin Ratio 0.6 L (0.9-2) Lipase 35 L (73-393) U/L Urine Color Urine Appearance (Clear) Urine pH (4.5-7.5) Ur Specific [place] (1.000-1.030) Urine Protein (Negative) Urine Glucose (UA) (Negative) Urine Ketones (Negative) Urine Blood (Negative) Urine Nitrite (Negative) Urine Bilirubin (Negative) Urine Urobilinogen (Negative) Ur Leukocyte Esterase (Negative) Urine WBC (Auto) (0-5) /hpf Urine RBC (Auto) (0-4) /hpf U Hyaline Cast (Auto) (0-5) /lpf U Epithel Cells (Auto) (0-5) /lpf Urine Bacteria (Auto) (Negative) Ur Renal Epithelial Cell Urine Crystals Other Crystals (None Prsent) Granular Casts (0) /lpf Urine Yeast POC Ur Test (NEG) 03/03/19 03/03/19 03/03/19 Range/Units 10:10 11:18 12:42 WBC (4.8-10.8) K/uL RBC (4.2-5.4) M/uL Hgb (12.0-16.0) g/dL Hct (37-47) % MCV (80-100) fL MCH (25-34) pg MCHC (32-36) g/dL RDW Std Deviation (36.4-46.3) fL RDW Coeff of Roberto (11.5-14.5) % Plt Count (130-400) K/uL MPV (7.4-10.4) fL Immature Gran % (Auto) % Neut % (Auto) % Lymph % (Auto) % Bennett % (Auto) % Eos % (Auto) % Baso % (Auto) % Immature Gran # (Auto) (0.00-0.02) K/uL Neut # (Auto) (1.4-6.5) K/uL Lymph # (Auto) (1.2-3.4) K/uL Bennett # (Auto) (0.11-0.59) K/uL Eos # (Auto) (0-0.5) K/uL Baso # (Auto) (0-0.2) K/uL Toxic Vacuolation PT (9.0-12.0) Seconds INR (0.9-1.1) APTT (21.0-31.0) Seconds PTT Ratio Sodium (136-145) mmol/L Potassium (3.5-5.1) mmol/L Chloride (98-107) mmol/L Carbon Dioxide (21-32) mmol/L Anion Gap (3-11) BUN (7-18) mg/dl Creatinine (0.6-1.2) mg/dl Est Cr Clr Drug Dosing Est GFR ( Amer) Est GFR (Non-Af Amer) BUN/Creatinine Ratio (10-20) Glucose (70-99) mg/dl POC Lactic Acid Merlin 0.81 L (0.90-1.70) mmol/L Calcium (8.5-10.1) mg/dl Total Bilirubin (0.2-1) mg/dl AST (15-37) U/L ALT (12-78) U/L Alkaline Phosphatase (45-117) U/L Total Protein (6.4-8.2) gm/dl Albumin (3.4-5.0) gm/dl Globulin (2.5-4.0) gm/dl Albumin/Globulin Ratio (0.9-2) Lipase (73-393) U/L Urine Color Dark Yellow Urine Appearance Turbid A (Clear) Urine pH 8.5 H (4.5-7.5) Ur Specific [place] 1.023 (1.000-1.030) Urine Protein 3+ H (Negative) Urine Glucose (UA) Negative (Negative) Urine Ketones 1+ H (Negative) Urine Blood 1+ H (Negative) Urine Nitrite Negative (Negative) Urine Bilirubin Negative (Negative) Urine Urobilinogen Negative (Negative) Ur Leukocyte Esterase 3+ H (Negative) Urine WBC (Auto) >30 H (0-5) /hpf Urine RBC (Auto) 0-4 (0-4) /hpf U Hyaline Cast (Auto) 10-30 H (0-5) /lpf U Epithel Cells (Auto) >30 H (0-5) /lpf Urine Bacteria (Auto) 4+ H (Negative) Ur Renal Epithelial Cell Not Reportable Urine Crystals Not Reportable Other Crystals Sulfa A (None Prsent) Granular Casts 1-5 H (0) /lpf Urine Yeast Not Reportable POC Ur Test NEG (NEG) Imaging Data Radiologist's Impression: Radiology results as stated below per my review and the radiologist's interpretation: XR chest 1V portable HISTORY: Sepsis COMPARISON: None. FINDINGS: There are low lung volumes. The heart is mildly enlarged. Mild central pulmonary vascular congestion without overt edema. No focal lung consolidations to suggest pneumonia. No pleural effusions. No pneumothorax. Linear density within the right midlung zone may represent atelectasis. IMPRESSION: Cardiomegaly with mild central pulmonary vascular congestion. Electronically signed by: Jayson Adams M.D. 03/03/2019 10:[address] SCAN OF THE ABDOMEN AND PELVIS WITHOUT IV CONTRAST CLINICAL HISTORY: Upper abdominal pain. COMPARISON STUDY: No priors. TECHNIQUE: CT scan of the abdomen and pelvis is performed from the lung bases to the proximal femora. Images are reviewed in the axial, sagittal, and coronal planes. IV contrast was not administered for this examination as per the referring clinician. The examination is degraded by streak artifact from the arms which cannot elevated above the abdomen as well as by motion. A dose lowering technique was utilized adhering to the principles of ALARA. CT DOSE: 1046.34 mGycm FINDINGS: Lung bases: The heart is normal in size and without pericardial effusion. There are trace pleural effusions with bibasilar atelectasis. There is a small hiatal hernia. Liver: Evaluation of the liver is significantly degraded by streak artifact. The unenhanced liver is normal in size, contour, and attenuation. There is no intrahepatic biliary ductal dilatation. Gallbladder: There are large calcified gallstones, with no CT evidence of acute cholecystitis. Spleen: Normal in size and attenuation. Pancreas: The unenhanced pancreas is mildly atrophic and grossly unremarkable. Adrenal glands: Unremarkable. Kidneys: The unenhanced kidneys demonstrate mild cortical atrophy. There is a 15 mm obstructing calculus in the right proximal ureter just below the ureteropelvic junction. This is seen on image #194 and is located at the level of L2. This causes mild right hydronephrosis. There is mild associated right-ziggy ed perinephric and periureteric stranding. A 2.2 cm calculus/cluster of calculi is seen in the right renal pelvis on image #184. There are numerous additional nonobstructing calculi throughout the right kidney. No left renal calculi are clearly identified and there is no left-sided hydronephrosis. There is no evidence of contour deforming renal mass lesion. Abdominal vasculature: The abdominal aorta is normal in course and caliber. Bowel: There is no bowel obstruction. The appendix is normal as visualized. Peritoneum: There is no intraperitoneal free air or abdominal ascites. There is a large complex fat-containing umbilical/periumbilical hernia. Lymphadenopathy: None. Pelvic viscera: The bladder, uterus, and adnexa are normal as visualized. Skeletal structures: The skeletal structures are osteopenic. Mild lumbosacral spondylosis is observed. No lytic or blastic lesions are seen. There are healed right-sided rib fractures. Sclerotic degenerative change is noted in the sacroiliac joints. IMPRESSION: 1. There is a 15 mm obstructing calculus in the right proximal ureter located just below the ureteropelvic junction. This causes mild right hydronephrosis. 2. There are numerous additional nonobstructing right renal calculi as above. 3. There is mild right-sided perinephric and periureteric stranding. This may be related to obstruction/hydronephrosis. Correlate clinically and with urinalysis for evidence of superimposed infection. 4. No left renal calculi are identified. 5. Cholelithiasis without CT evidence of acute cholecystitis. 6. Trace pleural effusions. 7. Additional findings as above. Electronically signed by: Alen Ang M.D. 03/03/2019 11:14 AM Blood Pressure Blood Pressure Findings: Normal blood pressure MDM Narrative I did evaluate the patient as noted above. I did obtain history from the nurse and die assembler due to the patient's condition. She is altered and tachycardic. According to paramedics she was hypotensive prior to arrival but responded to IV fluids. I did give her an additional liter of normal saline IV as she remains hypotensive here. The patient was placed on a continuous monitor technician. I did order and personally reviewed the images of the patient's chest x-ray as described above. She has cardiomegaly without mile pulmonary edema. I did order a urine analysis. She does have evidence of infection. A urine culture was sent. Blood cultures were obtained. I did order and review the patient's blood work as noted in the electronic medical record. Lactic acid is elevated. Her white count is almost 17,000. Creatinine is 1.2. Potassium is 3.4. I did order a CT of the abdomen and pelvis. I did review the images myself as well as the radiology report as described above. Patient has a 15 mm right proximal ureteral stone with hydronephrosis and perinephric stranding. The patient has urosepsis and obstructive uropathy. I did treat her with IV daptomycin and aztreonam. Her blood pressure improved significantly but she remains tachycardic. I did discuss the case with the urologic service. She was taken to the OR for stent. I also discussed case with the hospitalist and rn case management. Impression & Plan Sepsis, Obstructive uropathy, Pyelonephritis, Hypotension, Tachycardia, Upper abdominal pain, Altered mental status Critical Care Time Critical Care Time: Yes Total Critical Care Time: 35 I have personally spent approximately 35 minutes of critical care time in the direct management of this patient. This includes bedside care, interpretation of diagnostic studies, and testing, discussion with consultants, patient, and family members, and other required patient management activities. This approximate 35 minutes is in excess of all separately billable procedures. Discharge Plan Visit Data *Final* Discharge Date/Time: 03/03/19 12:32 Chief Complaint: Tachycardia Other Complaint: Shortness of Breath/Dyspnea ED Provider: Alex Kong Discharge Problem: Sepsis, Obstructive uropathy, Pyelonephritis, Hypotension, Tachycardia, Upper abdominal pain, Altered mental status Patient Disposition: Still a Patient Discharge Instructions Interventions: ED Discharge Assessment Last Done: 03/03/19 12:32 Discharge Problem: Sepsis Qualifiers: Sepsis type: sepsis due to unspecified organism Qualified Code(s): A41.9 - Sepsis, unspecified organism Hypotension Qualifiers: Hypotension type: unspecified hypotension type Qualified Code(s): I95.9 - Hypotension, unspecified Altered mental status Qualifiers: Altered mental status type: unspecified Qualified Code(s): R41.82 - Altered mental status, unspecified The scribe's documentation has been prepared under my direction and personally reviewed by me in its entirety. I confirm that the note above accurately reflects all work, treatment, procedures, and medical decision making performed by me.
--- NOTE | 2019-03-03 17:26 | Critical Care Consultation ---
Date of Consultation March 03, 2019 Assessment & Plan (1) Admitted to intensive care unit: Reason Critically Ill: Requiring BiPAP for respiratory support and management of urosepsis 2/2 obstruction uropathy. PLAN: NEURO -Schizophrenia- cont outpt medication regimen. Family working to obtain perphenazine from group home as we do not carry here. CARDIO Tachy- likely 2/2 sepsis. Cont monitor tele PULM -Acute Resp Failure- breathing comfortably with good air movement on Oxymask now. Weaned off BiPAP GI -mild upper abd pain- CT Abd- Cholelithiasis without CT evidence of acute cholecystitis. Will cont with current prn pain regimen -NPO, will advance likely tomorrow as wean of BiPAP RENAL/ -s/p cysto, right Retrograde pyelogram and right stent placement for 15mm obstructive calculi with hydronephrosis -tachycardia, fever, leukocytosis likely due to urosepsis 2/2 obstruction uropathy. Will cont IV aztreonam -Cr stable ID -Pyelonephritis- continue IV Aztreonam (PCN Allergy). Cx pending -Cont trend fever curve. Afebrile at present HEME -Stable H/H. Cont trend -No other acute concerns ENDO -Hyperglycemia ICU Protocol -Hypothyroidism- cont levothyroxine 100 mcg LINES: PIV x2, Sanchez DVT Prophylaxis: SCD's Full Code DISPO: ICU Supervising Physician Co-Signing Physician Notes Dr. Eason was resident physician during care of patient. I separately evaluated patient for casey portions of the history and the exam. I was present during the critical portion of medical decision making, and I discussed the case with the resident. I generally agree with the findings and plan. Hemodynamic instabilities status post stent placement for pyelonephritis with retained stone. I have personally spent 40 minutes of critical care time in the direct management of this patient. This is a life/limb threatening event. This includes time spent evaluating patient, direct bedside care, chart review, placing orders, interpretation of diagnostic studies, discussion with consultants, patient, and/or family members regarding treatment decisions, as well as other required patient management activities. This time is exclusive of all separately billable procedures, and teaching time and separate from and in addition to any other critical care service time. History of Present Illness Attending Physician: Tiffanie Aviles MD 54cy/o F with PMH Schizophrenia (nonverbal), Cerebral Palsy who was brought to the ED for evaluation of fever (Tmax 103 [employer]), tachycardia and abdominal pain. Patient was found to have a Tmax of 36.9C and HR 92, BP 104/[address] scan of abd/ pelvis showed 15mm obstructing calculi at the right proximal ureter below the ureteropelvic junction, mild right hydronephrosis and mild right perinephric stranding with santhosh-ureteric stranding. Of note she also has a large 2.2cm cluster of calculi to right renal pelvis and multiple other small stones to right kidney. Pt was given Aztreonam 1gm IV due to PCN allergy. Urology was consulted proceeded to OR for cysto, right Retrograde pyelogram and right stent placement. After procedure in the PACU, patient became tachycardic to 170s, hypertensive, and agitated. Noted to be moderately tachypneic with mildly stridorous breath sounds. ICU team was consulted and pt was given a treatment with racemic epinephrine and BiPAP was initiated, as well as a bolus of crystalloid. She was also treated with a small dose of ativan given her history of schizophrenia and fpc benzodiazepine use. Afterwards, pt noted to improve significantly, she was sleepy, breathing comfortably with good air movement on BiPAP. She was still moderately tachycardic in the 140s and BPs in the 90-100s/50-60s. Pt transferred to ICU for further management. Allergies Allergy/AdvReac Type Severity Reaction Status Date / Time Penicillins AdvReac Intermediate Unknown Unverified 03/03/19 12:37 codeine AdvReac Mild Unknown Unverified 03/03/19 12:37 Home Medications Home Medications Medication Instructions Recorded Confirmed Type acetaminophen 650 mg PO DIRECTED PRN MDD 03/03/19 03/03/19 History 3gm/24h acetaminophen 650 mg PO Q8H PRN MDD 3gm/24h 03/03/19 03/03/19 History aripiprazole 20 mg PO HS 03/03/19 03/03/19 History aripiprazole 400 mg IM MONTHLY 03/03/19 03/03/19 History bisacodyl [Dulcolax (bisacodyl)] 10 mg [place] DIRECTED PRN 03/03/19 03/03/19 History cholecalciferol (vitamin D3) 1,000 unit PO DAILY 03/03/19 03/03/19 History [Vitamin D3] clotrimazole 1 applic TOPICAL BID 03/03/19 03/03/19 History guaifenesin 200 mg PO Q8H PRN 03/03/19 03/03/19 History ipratropium-albuterol 3 ml INHALATION Q8H PRN 03/03/19 03/03/19 History levothyroxine [Synthroid] 100 mcg PO QAM 03/03/19 03/03/19 History magnesium hydroxide [Milk of 15 ml PO HS PRN 03/03/19 03/03/19 History Magnesia] medroxyprogesterone 150 mg IM .EVERY 90 DAYS 03/03/19 03/03/19 History miconazole nitrate [Antifungal 1 applic TOPICAL BID 03/03/19 03/03/19 History Cream (miconazole)] multivitamin with minerals 1 tab PO QAM 03/03/19 03/03/19 History ondansetron HCl 4 mg PO Q6H PRN 03/03/19 03/03/19 History oxybutynin chloride 10 mg PO HS 03/03/19 03/03/19 History pantoprazole [Protonix] 20 mg PO QAM 03/03/19 03/03/19 History perphenazine 4 mg PO Q12H 03/03/19 03/03/19 History perphenazine 8 mg PO Q12H 03/03/19 03/03/19 History ranitidine HCl 150 mg PO HS 03/03/19 03/03/19 History simvastatin 20 mg PO HS 03/03/19 03/03/19 History sodium phosphates [Enema] 118 ml [place] QAM PRN 03/03/19 03/03/19 History temazepam 22.5 mg PO HS 03/03/19 03/03/19 History Patient History Medical History Cerebral palsy (Chronic) Schizophrenia (Chronic) Social History Preferred Language: Turkmen Communication Ability: Effective Communication Ability Comment: Hard of hearing Hospice Care Consultant Required: No Current Living Situation: Half-Way Current Living Situation Comment: Joe Feels Safe at Home: Yes Smoking Status: Never smoker Do You Dip or Chew Tobacco: No Second Hand Exposure: No Tobacco Cessation Education Requested by Patient: No Hx Alcohol Use: No Hx Substance Use: No Review of Systems Review of Systems: A 10 pt ROS was reviewed and is unremarkable except as noted in HPI and below. Physical Exam Constitutional: + obese and + behavioral limitations Nonverbal. Appears comfortable. ENMT: external ear and nose normal, oropharynx normal Respiratory: normal respiratory effort, lungs clear to auscultation On BiPAP Cardiovascular: RRR, no murmur, no edema Gastrointestinal (Abdomen): normal bowel sounds, soft, nontender, no hepatosplenomegaly Distended abd Psychiatric: Schizophrenic Results & Data Vital Signs (Past 12 Hours) Vital Signs Temp Pulse Pulse Resp BP BP BP 03/03/19 16:54 36.7 C 130 H 24 89/50 L 03/03/19 16:10 143 H 24 100/57 L 03/03/19 15:55 143 H 24 103/60 03/03/19 15:45 36.3 C L 146 H 24 109/61 03/03/19 15:35 155 H 24 117/64 03/03/19 15:25 178 H 25 H 106/77 03/03/19 15:20 176 H 28 H 03/03/19 15:15 156 H 32 H 03/03/19 15:05 174 H 24 140/118 H 03/03/19 14:55 153 H 23 03/03/19 14:45 119 H 20 110/90 03/03/19 14:30 95 H 14 98/59 L 03/03/19 14:15 36.4 C L 95 H 14 91/59 L 03/03/19 14:00 98 H 14 110/67 03/03/19 13:50 101 H 16 103/55 L 03/03/19 13:41 36.0 C L 108 H 20 103/53 L 03/03/19 12:48 36.3 C L 105 H 20 107/67 03/03/19 12:27 118 H 20 112/67 03/03/19 11:55 36.9 C 92 H 18 104/69 03/03/19 11:04 101 H 20 102/55 L 03/03/19 10:30 107 H 22 99/62 L 03/03/19 10:10 36.9 C 121 H 22 129/66 Pulse Ox 03/03/19 16:54 97 03/03/19 16:10 97 03/03/19 15:55 97 03/03/19 15:45 98 03/03/19 15:35 100 03/03/19 15:25 99 03/03/19 15:20 99 03/03/19 15:15 100 03/03/19 15:05 94 03/03/19 14:55 93 03/03/19 14:45 96 03/03/19 14:30 96 03/03/19 14:15 98 03/03/19 14:00 99 03/03/19 13:50 96 03/03/19 13:41 95 03/03/19 12:48 94 03/03/19 12:27 93 03/03/19 11:55 96 03/03/19 11:04 97 03/03/19 10:30 95 03/03/19 10:10 95 Laboratory Results Laboratory Results - last 24 hr 03/03/19 03/03/19 03/03/19 10:02 10:02 10:02 WBC 16.94 H RBC 3.72 L Hgb 12.0 Hct 36.0 L MCV 96.8 MCH 32.3 MCHC 33.3 RDW Std Deviation 46.7 H RDW Coeff of Roberto 13.1 Plt Count 191 MPV 9.8 Immature Gran % (Auto) 0.5 Neut % (Auto) 87.4 Lymph % (Auto) 5.4 Lane % (Auto) 6.6 Eos % (Auto) 0.0 Baso % (Auto) 0.1 Immature Gran # (Auto) 0.08 H Neut # (Auto) 14.81 H Lymph # (Auto) 0.[address] # (Auto) 1.12 H Eos # (Auto) 0.00 Baso # (Auto) 0.01 Toxic Vacuolation 1+ PT 12.7 H INR 1.3 H APTT 32.2 H PTT Ratio 1.2 Sodium 139 Potassium 3.4 L Chloride 109 H Carbon Dioxide 23 Anion Gap 7.0 BUN 23 H Creatinine 1.27 H Est Cr Clr Drug Dosing Not Reportable Est GFR ( Amer) 55.4 Est GFR (Non-Af Amer) 47.8 BUN/Creatinine Ratio 18.4 Glucose 107 H POC Lactic Acid Merlin Calcium 7.7 L Total Bilirubin 0.6 AST 14 L ALT 17 Alkaline Phosphatase 67 Total Protein 6.3 L Albumin 2.4 L Globulin 3.9 Albumin/Globulin Ratio 0.6 L Lipase 35 L Urine Color Urine Appearance Urine pH Ur Specific [place] Urine Protein Urine Glucose (UA) Urine Ketones Urine Blood Urine Nitrite Urine Bilirubin Urine Urobilinogen Ur Leukocyte Esterase Urine WBC (Auto) Urine RBC (Auto) U Hyaline Cast (Auto) U Epithel Cells (Auto) Urine Bacteria (Auto) Ur Renal Epithelial Cell Urine Crystals Other Crystals Granular Casts Urine Yeast POC Ur Test 03/03/19 03/03/19 03/03/19 10:10 11:18 12:42 WBC RBC Hgb Hct MCV MCH MCHC RDW Std Deviation RDW Coeff of Roberto Plt Count MPV Immature Gran % (Auto) Neut % (Auto) Lymph % (Auto) Lane % (Auto) Eos % (Auto) Baso % (Auto) Immature Gran # (Auto) Neut # (Auto) Lymph # (Auto) Lane # (Auto) Eos # (Auto) Baso # (Auto) Toxic Vacuolation PT INR APTT PTT Ratio Sodium Potassium Chloride Carbon Dioxide Anion Gap BUN Creatinine Est Cr Clr Drug Dosing Est GFR ( Amer) Est GFR (Non-Af Amer) BUN/Creatinine Ratio Glucose POC Lactic Acid Merlin 0.81 L Calcium Total Bilirubin AST ALT Alkaline Phosphatase Total Protein Albumin Globulin Albumin/Globulin Ratio Lipase Urine Color Dark Yellow Urine Appearance Turbid A Urine pH 8.5 H Ur Specific [place] 1.023 Urine Protein 3+ H Urine Glucose (UA) Negative Urine Ketones 1+ H Urine Blood 1+ H Urine Nitrite Negative Urine Bilirubin Negative Urine Urobilinogen Negative Ur Leukocyte Esterase 3+ H Urine WBC (Auto) >30 H Urine RBC (Auto) 0-4 U Hyaline Cast (Auto) 10-30 H U Epithel Cells (Auto) >30 H Urine Bacteria (Auto) 4+ H Ur Renal Epithelial Cell Not Reportable Urine Crystals Not Reportable Other Crystals Sulfa A Granular Casts 1-5 H Urine Yeast Not Reportable POC Ur Test NEG Medications Administered Current Inpatient Medications Acetaminophen (Tylenol) 650 mg PO DIRECTED PRN PRN Reason: Pain Stop: 04/02/19 17:37 Acetaminophen (Tylenol) 650 mg PO Q8H PRN PRN Reason: Fever Stop: 04/02/19 17:37 Acetaminophen (Tylenol) 650 mg PO DIRECTED PRN PRN Reason: Pain Stop: 04/02/19 17:37 Acetaminophen (Tylenol) 650 mg PO Q4H PRN PRN Reason: Pain or Fever Stop: 04/02/19 17:37 Al Hydrox/Mg Hydrox/Simethicone (Maalox) 15 ml PO Q4H PRN PRN Reason: Dyspepsia Stop: 04/02/19 17:37 Albuterol (Duoneb) 3 ml INH Q8R PRN PRN Reason: wheezing or sob Stop: 04/02/19 17:37 Aripiprazole (Abilify Maintena Kit) 400 mg IM MONTHLY NOE Stop: 04/02/19 17:37 Aripiprazole (Abilify) 20 mg PO HS NOE Stop: 04/02/19 20:59 Bisacodyl (Dulcolax) 10 mg [place] DIRECTED PRN PRN Reason: Constipation Stop: 04/02/19 17:37 Clotrimazole (Lotrimin 1%) 1 appln TOP BID NOE Stop: 04/02/19 20:59 Guaifenesin (Robitussin Sugar Free Syrup) 200 mg PO Q8H PRN PRN Reason: Cough Stop: 04/02/19 17:37 Daptomycin / Syringe 0 mls @ 1 mls/min IV Q24H STA; Protocol Stop: 03/03/19 11:36 Aztreonam 2,000 mg/ Dextrose 110 mls @ 100 mls/hr IV Q8H NOE; Protocol Stop: 03/05/19 11:44 Last Infusion: 03/03/19 12:56 Dose: Infused Documented by: Parenteral Electrolytes (Normosol-R) 1,000 mls @ 100 mls/hr IV .Q10H NOE Stop: 04/02/19 17:37 Potassium Chloride/Sodium Chloride (Normal Saline W/20 Meq Kcl) 20 meq in 1,000 mls @ 125 mls/hr IV .Q8H NOE Stop: 04/02/19 17:37 Levothyroxine Sodium (Synthroid) 100 mcg PO QAM NOE Stop: 04/03/19 08:59 Magnesium Hydroxide (Milk Of Magnesia) 15 ml PO HS PRN PRN Reason: constipation Stop: 04/02/19 17:37 Medroxyprogesterone Acetate (Depo-Provera Contraceptive) 150 mg IM .EVERY 90 DAYS NOE Stop: 04/02/19 17:37 Miconazole Nitrate (Monistat Derm) 1 appln TOP BID [facility] Stop: 04/02/19 20:59 Miscellaneous (Icu Protocol For Hyperglycemia) 1 ea N/A PRN PRN; Protocol PRN Reason: Hyperglycemia Protocol Stop: 03/05/19 17:37 Morphine Sulfate (Morphine Sulfate) 2 mg IV Q4H PRN PRN Reason: Chest Pain Stop: 03/17/19 17:37 Non-Formulary Medication (Multivitamin With Minerals) 1 tab PO QAM [facility] Stop: 04/03/19 08:59 Non-Formulary Medication (Perphenazine) 4 mg PO Q12H [facility] Stop: 04/02/19 17:37 Non-Formulary Medication (Perphenazine) 8 mg PO Q12H [facility] Stop: 04/02/19 17:37 Non-Formulary Medication (Multivitamin With Minerals) 1 tab PO QAM [facility] Stop: 04/03/19 08:59 Non-Formulary Medication (Perphenazine) 4 mg PO Q12H [facility] Stop: 04/02/19 17:37 Non-Formulary Medication (Perphenazine) 8 mg PO Q12H [facility] Stop: 04/02/19 17:37 Ondansetron HCl (Zofran Tab) 4 mg PO Q6H PRN PRN Reason: Nausea And Vomiting Stop: 04/02/19 17:37 Ondansetron HCl (Zofran) 4 mg IV Q6H PRN PRN Reason: Nausea Stop: 04/02/19 17:37 Oxybutynin Chloride (Ditropan Xl) 10 mg PO HS [facility] Stop: 04/02/19 20:59 Pantoprazole Sodium (Protonix) 20 mg PO QAM [facility] Stop: 04/03/19 08:59 Ranitidine HCl (Zantac) 150 mg PO HS [facility] Stop: 04/02/19 20:59 Sodium Biphosphate/Sodium Phosphate (Fleet Enema) 118 ml [place] QAM PRN PRN Reason: Constipation Stop: 04/02/19 17:37 Temazepam (Restoril) 22.5 mg PO HS [facility] Stop: 04/02/19 20:59 Vitamin D (Vitamin D3) 1,000 units PO DAILY [facility] Stop: 04/03/19 08:59 PG Care Time/CCT Total # of Minutes Spent Total Time Spent: 40 Total Time Spent with Patient: Total time spent is greater than 50% in coordination of care (as documented) at patient's floor/unit and/or counseling patient: Critical Care Time: Yes Total Critical Care Time: 40
[2019-03-03] MEDS ORDERED: MAGNESIUM HYDROXIDE SUSP 30 ML UDC PO PRN ×2 (17:38)
[2019-03-03] MEDS ORDERED: ONDANSETRON 4 MG TAB PO PRN ×2 (17:38)
[2019-03-03] MEDS ORDERED: SOD PHOSPHATE/SOD BIPHOSPHATE ENEMA 132 ML BTL PR PRN ×2 (17:38→17:49)
[2019-03-03] MEDS ORDERED: ALBUT/IPRATROP 3MG/0.5MG NEB 3 ML VIAL INH PRN ×2 (17:38)
[2019-03-03] MEDS ORDERED: BISACODYL 10 MG SUPP PR PRN ×2 (17:38)
[2019-03-03] MEDS ORDERED: ACETAMINOPHEN 325 MG TAB PO PRN ×5 (17:38)
[2019-03-03] MEDS ORDERED: MEDROXYPROGESTERONE ACETATE 150 MG/ML VIAL IM SCH (17:38)
[2019-03-03] MEDS ORDERED: ARIPIPRAZOLE 400 MG KIT IM SCH (17:38)
[2019-03-03] MEDS ORDERED: PERPHENAZINE 4 MG PO SCH (17:38)
[2019-03-03] MEDS ORDERED: guaiFENesin SUGAR FREE 100 MG/5 ML UDC PO PRN ×2 (17:38)
[2019-03-03] MEDS ORDERED: ONDANSETRON INJ 2 MG/ML 2 ML VIAL IV PRN (17:38)
[2019-03-03] MEDS ORDERED: MoRPHine SULFATE 2 MG/ML CARP IV PRN (17:38)
[2019-03-03] MEDS ORDERED: ICU PROTOCOL FOR HYPERGLYCEMIA PRN (17:38)
[2019-03-03] MEDS ORDERED: NSS + 20MEQ KCL 20 MEQ/1,000 ML BAG IV SCH (17:38)
[2019-03-03] MEDS ORDERED: PERPHENAZINE 8 MG PO SCH ×2 (17:38)
[2019-03-03] MEDS ORDERED: ALUMINUM/MAGNESIUM SUSP 30 ML UDC PO PRN (17:38)
[2019-03-03] MEDS: NORMOSOL-R 1,000 ML IV SCH (18:16)
[2019-03-03] MEDS ORDERED: METOPROLOL TARTRATE 1 MG/ML VIAL IV ONE (18:36)
[2019-03-03] MEDS ORDERED: METOPROLOL TARTRATE 1 MG/ML VIAL IV STA (18:37)
[2019-03-03] MEDS ORDERED: ACETAMINOPHEN 65 ML IV PRN (19:45)
[2019-03-03] MEDS ORDERED: DAPTOmycin 400 MG in SYRINGE 0 ML IV SCH (20:00)
[2019-03-03] MEDS: AZTREONAM 2,000 MG in DEXTROSE 5% 100 ML IV SCH (20:43)
[2019-03-03] MEDS ORDERED: OXYBUTYNIN CHLORIDE XL 5 MG TABCR PO SCH ×2 (21:00)
[2019-03-03] MEDS ORDERED: PERPHENAZINE 2 MG TABLET PO SCH (21:00)
[2019-03-03] MEDS ORDERED: ARIPiprazole 10 MG TAB PO SCH ×2 (21:00)
[2019-03-03] MEDS ORDERED: MICONAZOLE NITRATE 2% CR 30 GM TUBE TOP SCH (21:00)
[2019-03-03] MEDS ORDERED: CLOTRIMAZOLE 1% CR 15 GM TUBE TOP SCH (21:00)
[2019-03-03] MEDS ORDERED: TEMAZEPAM 7.5 MG CAPSULE PO SCH ×2 (21:00)
[2019-03-03] MEDS: CLOTRIMAZOLE 1% CR 15 GM TUBE TOP SCH (21:40)
[2019-03-03] MEDS: MICONAZOLE NITRATE 2% CR 30 GM TUBE TOP SCH (21:40)
[2019-03-03] MEDS: PERPHENAZINE 4 MG PO SCH (21:42)
[2019-03-03] MEDS: PERPHENAZINE 8 MG PO SCH (21:43)
[2019-03-04] MEDS: AZTREONAM 2,000 MG in DEXTROSE 5% 100 ML IV SCH ×3 (03:52→20:43)
[2019-03-04] MEDS: NORMOSOL-R 1,000 ML IV SCH (05:16)
[2019-03-04] MEDS ORDERED: LEVOTHYROXINE SODIUM 100 MCG TABLET PO SCH ×2 (06:30→09:00)
--- NOTE | 2019-03-04 07:41 | Critical Care Progress Note ---
Date of Service March 04, 2019 Assessment & Plan (1) Admitted to intensive care unit: Reason Critically Ill: Requiring BiPAP for respiratory support and management of urosepsis 2/2 obstruction uropathy. PLAN: NEURO -Schizophrenia- cont outpt medication regimen. Family working to obtain perp henazine from intermediate as we do not carry here. -Cerebral palsy: Will attempt to elucidate exact ambulatory status, patient is chronically bedridden less indication for systemic DVT prophylaxis CARDIO Tachy- likely 2/2 sepsis. Improved PULM -Acute Resp Failure- breathing comfortably with good air movement on Oxymask now. Weaned off BiPAP GI -mild upper abd pain- CT Abd- Cholelithiasis without CT evidence of acute cholecystitis. Will cont with current prn pain regimen -Clear liquids advance diet as tolerated RENAL/ -s/p cysto, right Retrograde pyelogram and right stent placement for 15mm obstructive calculi with hydronephrosis -tachycardia, fever, leukocytosis likely due to urosepsis 2/2 obstruction uropathy. Will cont IV aztreonam -Cr stable ID -Pyelonephritis- continue IV Aztreonam (PCN Allergy). Cx pending -I suspect patient will be able to be de-escalated from aztreonam in the next 24 hours HEME -Stable H/H. Cont trend - ENDO -Hyperglycemia ICU Protocol -Hypothyroidism- cont levothyroxine 100 mcg LINES: PIV x2, Sanchez DVT Prophylaxis: SCD's Full Code DISPO: Critical care needs have largely improved, stable for downgrade out of ICU today Supervising Physician Co-Signing Physician Notes Dr. Eason was resident physician during care of patient. I separately evaluated patient for casey portions of the history and the exam. I was present during the critical portion of medical decision making, and I discussed the case with the resident. I generally agree with the findings and plan. Patient was discussed in multidisciplinary round Lactic acid to confirm that she is not hypoperfused I suspect her baseline is borderline low, lactic acid negative Repeat blood cultures Subjective Subjective history not obtainable due to verbal/cognitive status. Responds to painful stimuli. Review of Systems Review of Systems: All systems reviewed & are unremarkable except as noted in HPI & below Physical Exam Constitutional: + obese and + behavioral limitations ENMT: external ear and nose normal, oropharynx normal Respiratory: normal respiratory effort, lungs clear to auscultation Cardiovascular: RRR, no murmur, no edema Gastrointestinal (Abdomen): normal bowel sounds, soft, nontender, no hepatosplenomegaly distended abd Psychiatric: schizophrenic Results & Data Vital Signs (Past 12 Hours) Vital Signs Temp Pulse Resp BP Pulse Ox Pulse Ox 03/04/19 06:00 78 16 93/49 L 96 03/04/19 04:00 36.8 C 79 12 94/58 L 94 03/04/19 02:00 78 H 88/47 L 97 03/04/19 00:00 36.8 C 85 15 92/52 L 98 03/03/19 22:00 94 H 17 82/50 L 95 03/03/19 20:00 38.2 C H 122 H 20 82/50 L 97 97 Laboratory Results Laboratory Results - last 24 hr 03/03/19 03/03/19 03/04/19 17:45 20:46 06:05 WBC RBC Hgb Hct MCV MCH MCHC RDW Std Deviation RDW Coeff of Roberto Plt Count MPV Immature Gran % (Auto) Neut % (Auto) Lymph % (Auto) [place] % (Auto) Eos % (Auto) Baso % (Auto) Immature Gran # (Auto) Neut # (Auto) Lymph # (Auto) [place] # (Auto) Eos # (Auto) Baso # (Auto) Absolute Nucleated RBC Nucleated RBC % (auto) Neutrophils % (Manual) Band Neutrophils % Lymphocytes % (Manual) Prolymphocyte % Reactive Lymphs % (Man) Monocytes % (Manual) Eosinophils % (Manual) Basophils % (Manual) Metamyelocytes % (Man) Myelocytes % (Man) Promyelocytes % (Man) Blast Cells % (Manual) Plasma Cell % (Manual) Other Cells % Nucleated RBC % Neutrophils # (Manual) Band Neutrophils # Total Absolute Neuts Lymphocytes # (Manual) Prolymphocyte # Reactive Lymphs # Total Abs Lymphocytes Monocytes # (Manual) Eosinophils # (Manual) Basophils # (Manual) Metamyelocytes # (Man) Myelocytes # (Manual) Promyelocytes # (Man) Blast Cells # (Man) Plasma Cell # (Manual) Other Cells # Nucleated RBCs # (Man) Hypersegmented Neuts Hyposegmented Neuts Hypogranular Neuts Large Granular Lymphs # Lrg Granular Lymphs Hairy Cells Smudge Cells Toxic Granulation Toxic Vacuolation Dohle Bodies Galen Rods Platelet Estimate Hypogranular Platelets Clumped Platelets Giant Platelets Platelet Satelliting RBC Morphology Polychromasia Hypochromasia Poikilocytosis Basophilic Stippling Anisocytosis Microcytosis Macrocytosis Spherocytes Pappenheimer Bodies Sickle Cells Target Cells Tear Drop Cells Ovalocytes Stomatocytes [place]-Uncertain Bodies Echinocytes Acanthocytes (Spur) Rouleaux RBC Agglutinates Schistocytes RBC Morph Comment Sezary Cell ABG pH ABG pCO2 ABG pO2 ABG HCO3 ABG O2 Saturation ABG Base Excess Dany Test Barometric Pressure Oxygen Given Sodium Potassium Chloride Carbon Dioxide Anion Gap BUN Creatinine Est Cr Clr Drug Dosing Est GFR ( Amer) Est GFR (Non-Af Amer) BUN/Creatinine Ratio Glucose POC Glucose 119 H 115 H Lactate Calcium Total Bilirubin AST ALT Alkaline Phosphatase Total Protein Albumin Globulin Albumin/Globulin Ratio Specimen Hemolysis Nasal Screen MRSA (PCR) Negative 03/04/19 03/04/19 03/04/19 07:11 07:11 08:26 WBC Cancelled 20.52 H RBC Cancelled 3.51 L Hgb Cancelled 11.7 L Hct Cancelled 35.0 L MCV Cancelled 99.7 MCH Cancelled 33.3 MCHC Cancelled 33.4 RDW Std Deviation Cancelled 48.7 H RDW Coeff of Roberto Cancelled 13.6 Plt Count Cancelled 156 MPV Cancelled 10.0 Immature Gran % (Auto) Cancelled 0.9 Neut % (Auto) Cancelled 85.8 Lymph % (Auto) Cancelled 6.8 [place] % (Auto) Cancelled 6.3 Eos % (Auto) Cancelled 0.1 Baso % (Auto) Cancelled 0.1 Immature Gran # (Auto) Cancelled 0.18 H Neut # (Auto) Cancelled 17.61 H Lymph # (Auto) Cancelled 1.39 [place] # (Auto) Cancelled 1.30 H Eos # (Auto) Cancelled 0.02 Baso # (Auto) Cancelled 0.02 Absolute Nucleated RBC Cancelled Nucleated RBC % (auto) Cancelled Neutrophils % (Manual) Cancelled Band Neutrophils % Cancelled Lymphocytes % (Manual) Cancelled Prolymphocyte % Cancelled Reactive Lymphs % (Man) Cancelled Monocytes % (Manual) Cancelled Eosinophils % (Manual) Cancelled Basophils % (Manual) Cancelled Metamyelocytes % (Man) Cancelled Myelocytes % (Man) Cancelled Promyelocytes % (Man) Cancelled Blast Cells % (Manual) Cancelled Plasma Cell % (Manual) Cancelled Other Cells % Cancelled Nucleated RBC % Cancelled Neutrophils # (Manual) Cancelled Band Neutrophils # Cancelled Total Absolute Neuts Cancelled Lymphocytes # (Manual) Cancelled Prolymphocyte # Cancelled Reactive Lymphs # Cancelled Total Abs Lymphocytes Cancelled Monocytes # (Manual) Cancelled Eosinophils # (Manual) Cancelled Basophils # (Manual) Cancelled Metamyelocytes # (Man) Cancelled Myelocytes # (Manual) Cancelled Promyelocytes # (Man) Cancelled Blast Cells # (Man) Cancelled Plasma Cell # (Manual) Cancelled Other Cells # Cancelled Nucleated RBCs # (Man) Cancelled Hypersegmented Neuts Cancelled Hyposegmented Neuts Cancelled Hypogranular Neuts Cancelled Large Granular Lymphs Cancelled # Lrg Granular Lymphs Cancelled Hairy Cells Cancelled Smudge Cells Cancelled Toxic Granulation Cancelled Toxic Vacuolation Cancelled Dohle Bodies Cancelled Galen Rods Cancelled Platelet Estimate Cancelled Hypogranular Platelets Cancelled Clumped Platelets Cancelled Giant Platelets Cancelled Platelet Satelliting Cancelled RBC Morphology Cancelled Polychromasia Cancelled Hypochromasia Cancelled Poikilocytosis Cancelled Basophilic Stippling Cancelled Anisocytosis Cancelled Microcytosis Cancelled Macrocytosis Cancelled Spherocytes Cancelled Pappenheimer Bodies Cancelled Sickle Cells Cancelled Target Cells Cancelled Tear Drop Cells Cancelled Ovalocytes Cancelled Stomatocytes Cancelled [place]-Uncertain Bodies Cancelled Echinocytes Cancelled Acanthocytes (Spur) Cancelled Rouleaux Cancelled RBC Agglutinates Cancelled Schistocytes Cancelled RBC Morph Comment Cancelled Sezary Cell Cancelled ABG pH ABG pCO2 ABG pO2 ABG HCO3 ABG O2 Saturation ABG Base Excess Dany Test Barometric Pressure Oxygen Given Sodium 141 Potassium 4.2 D Chloride 109 H Carbon Dioxide 26 Anion Gap 6.0 BUN 27 H Creatinine 1.37 H Est Cr Clr Drug Dosing Not Reportable Est GFR ( Amer) 50.6 Est GFR (Non-Af Amer) 43.6 BUN/Creatinine Ratio 19.7 Glucose 100 H POC Glucose Lactate Calcium 8.0 L Total Bilirubin 0.3 AST 26 ALT 24 Alkaline Phosphatase 60 Total Protein 6.2 L Albumin 2.2 L Globulin 4.0 Albumin/Globulin Ratio 0.6 L Specimen Hemolysis Nasal Screen MRSA (PCR) 03/04/19 03/04/19 09:32 10:12 WBC RBC Hgb Hct MCV MCH MCHC RDW Std Deviation RDW Coeff of Roberto Plt Count MPV Immature Gran % (Auto) Neut % (Auto) Lymph % (Auto) [place] % (Auto) Eos % (Auto) Baso % (Auto) Immature Gran # (Auto) Neut # (Auto) Lymph # (Auto) [place] # (Auto) Eos # (Auto) Baso # (Auto) Absolute Nucleated RBC Nucleated RBC % (auto) Neutrophils % (Manual) Band Neutrophils % Lymphocytes % (Manual) Prolymphocyte % Reactive Lymphs % (Man) Monocytes % (Manual) Eosinophils % (Manual) Basophils % (Manual) Metamyelocytes % (Man) Myelocytes % (Man) Promyelocytes % (Man) Blast Cells % (Manual) Plasma Cell % (Manual) Other Cells % Nucleated RBC % Neutrophils # (Manual) Band Neutrophils # Total Absolute Neuts Lymphocytes # (Manual) Prolymphocyte # Reactive Lymphs # Total Abs Lymphocytes Monocytes # (Manual) Eosinophils # (Manual) Basophils # (Manual) Metamyelocytes # (Man) Myelocytes # (Manual) Promyelocytes # (Man) Blast Cells # (Man) Plasma Cell # (Manual) Other Cells # Nucleated RBCs # (Man) Hypersegmented Neuts Hyposegmented Neuts Hypogranular Neuts Large Granular Lymphs # Lrg Granular Lymphs Hairy Cells Smudge Cells Toxic Granulation Toxic Vacuolation Dohle Bodies Galen Rods Platelet Estimate Hypogranular Platelets Clumped Platelets Giant Platelets Platelet Satelliting RBC Morphology Polychromasia Hypochromasia Poikilocytosis Basophilic Stippling Anisocytosis Microcytosis Macrocytosis Spherocytes Pappenheimer Bodies Sickle Cells Target Cells Tear Drop Cells Ovalocytes Stomatocytes [place]-Uncertain Bodies Echinocytes Acanthocytes (Spur) Rouleaux RBC Agglutinates Schistocytes RBC Morph Comment Sezary Cell ABG pH 7.38 ABG pCO2 40 ABG pO2 82 ABG HCO3 23 ABG O2 Saturation 96.1 H ABG Base Excess -2.2 Dany Test Pos Barometric Pressure 729.4 Oxygen Given RA Sodium Potassium Chloride Carbon Dioxide Anion Gap BUN Creatinine Est Cr Clr Drug Dosing Est GFR ( Amer) Est GFR (Non-Af Amer) BUN/Creatinine Ratio Glucose POC Glucose Lactate 1.7 Calcium Total Bilirubin AST ALT Alkaline Phosphatase Total Protein Albumin Globulin Albumin/Globulin Ratio Specimen Hemolysis Nasal Screen MRSA (PCR) Medications Administered Current Inpatient Medications Acetaminophen (Tylenol) 650 mg PO Q4H PRN PRN Reason: Pain or Fever Stop: 04/02/19 17:37 Al Hydrox/Mg Hydrox/Simethicone (Maalox) 15 ml PO Q4H PRN PRN Reason: Dyspepsia Stop: 04/02/19 17:37 Albuterol (Duoneb) 3 ml INH Q8R PRN PRN Reason: wheezing or sob Stop: 04/02/19 17:37 Aripiprazole (Abilify) 20 mg PO HS NOE Stop: 04/02/19 20:59 Last Admin: 03/03/19 21:42 Dose: 20 mg Documented by: Bisacodyl (Dulcolax) 10 mg MT UD PRN PRN Reason: Constipation Stop: 04/02/19 17:37 Clotrimazole (Lotrimin 1%) 1 appln TOP BID NOE Stop: 04/02/19 20:59 Last Admin: 03/04/19 09:31 Dose: 1 appln Documented by: Guaifenesin (Robitussin Sugar Free Syrup) 200 mg PO Q8H PRN PRN Reason: Cough Stop: 04/02/19 17:37 Acetaminophen (Ofirmev) 65 mls @ 200 mls/hr IV Q4H PRN; Protocol PRN Reason: Pain or Fever Stop: 04/02/19 19:44 Last Infusion: 03/03/19 21:00 Dose: Infused Documented by: Aztreonam 2,000 mg/ Dextrose 110 mls @ 100 mls/hr IV Q8H NOE; Protocol Stop: 03/05/19 11:59 Last Infusion: 03/04/19 13:15 Dose: Infused Documented by: Ciprofloxacin (Cipro) 400 mg in 200 mls @ 100 mls/hr IV Q12H NOE; Protocol Stop: 03/18/19 14:14 Last Infusion: 03/04/19 18:31 Dose: Infused Documented by: Levothyroxine Sodium (Synthroid) 100 mcg PO DAILYBB NOE Stop: 04/03/19 06:29 Last Admin: 03/04/19 11:49 Dose: 100 mcg Documented by: Magnesium Hydroxide (Milk Of Magnesia) 30 ml PO UD PRN PRN Reason: constipation Stop: 04/02/19 17:37 Medroxyprogesterone Acetate (Depo-Provera Contraceptive) 150 mg IM Q90D [facility] Stop: 04/09/19 08:59 Miconazole Nitrate (Monistat Derm) 1 appln TOP BID NOE Stop: 04/02/19 20:59 Last Admin: 03/04/19 09:32 Dose: 1 appln Documented by: Miscellaneous (Icu Protocol For Hyperglycemia) 1 ea N/A PRN PRN; Protocol PRN Reason: Hyperglycemia Protocol Stop: 03/05/19 17:37 Multivitamins/Minerals (Multivitamin W/ Minerals Tab) 1 tab PO QAM [facility] Stop: 04/03/19 08:59 Last Admin: 03/04/19 11:51 Dose: 1 tab Documented by: Perphenazine 8 Mg: Non-Formulary Patient's Own Med 1 ea PO Q12H [facility]; Protocol Stop: 04/02/19 20:59 Last Admin: 03/04/19 11:49 Dose: 8 mg Documented by: Perphenazine 4 Mg: Non-Formulary Patient's Own Med 1 ea PO Q12H [facility]; Protocol Stop: 04/02/19 20:59 Last Admin: 03/04/19 11:50 Dose: 4 mg Documented by: Ondansetron HCl (Zofran Tab) 4 mg PO Q6H PRN PRN Reason: Nausea And Vomiting Stop: 04/02/19 17:37 Ondansetron HCl (Zofran) 4 mg IV Q6H PRN PRN Reason: Nausea Stop: 04/02/19 17:37 Oxybutynin Chloride (Ditropan Xl) [address] [facility] Stop: 04/02/19 20:59 Last Admin: 03/03/19 21:41 Dose: 10 mg Documented by: Pantoprazole Sodium (Protonix) 40 mg PO QAM NOE; Protocol Stop: 04/03/19 08:59 Last Admin: 03/04/19 11:51 Dose: 40 mg Documented by: Ranitidine HCl (Zantac) [address] [facility] Stop: 04/02/19 20:59 Last Admin: 03/03/19 21:44 Dose: 150 mg Documented by: Sodium Biphosphate/Sodium Phosphate (Fleet Enema) 118 ml MT QAM PRN PRN Reason: Constipation Stop: 04/02/19 17:48 Temazepam (Restoril) 22.5 mg PO HS NOE Stop: 04/02/19 20:59 Last Admin: 03/03/19 22:01 Dose: Not Given Documented by: Vitamin D (Vitamin D3) 1,000 units PO DAILY NOE Stop: 04/03/19 08:59 Last Admin: 03/04/19 11:51 Dose: 1,000 units Documented by:
[2019-03-04 08:00] LABS: Alanine Aminotransferase 24 U/L (12-78); Albumin Globulin Ratio 0.6 (0.9-2); Albumin Level 2.2 gm/dl (3.4-5.0); Alkaline Phosphatase 60 U/L (45-117); Aspartate Aminotransferase 26 U/L (15-37); BUN Creatinine Ratio 19.7 (10-20); Bilirubin,Total 0.3 mg/dl (0.2-1); Blood Urea Nitrogen 27 mg/dl (7-18); Carbon Dioxide 26 mmol/L (21-32); Chloride 109 mmol/L (98-107); Est GFR (African American) 50.6; Est GFR (Non-African American) 43.6; Glucose 100 mg/dl (70-99); Sodium 141 mmol/L (136-145); Total Protein 6.2 gm/dl (6.4-8.2)
[2019-03-04 08:06] LABS: Potassium 4.2 mmol/L (3.5-5.1)
--- NOTE | 2019-03-04 08:10 | Anesthesiology Progress Note ---
Date of Service March 04, 2019 Anesthesia Post Procedure Vital Signs Vital Signs: Temp Pulse Pulse Resp BP BP BP 03/04/19 06:00 78 16 93/49 L 03/04/19 04:00 36.8 C 79 12 94/58 L 03/04/19 02:00 78 H 88/47 L 03/04/19 00:00 36.8 C 85 15 92/52 L 03/03/19 22:00 94 H 17 82/50 L 03/03/19 20:00 38.2 C H 122 H 20 82/50 L 03/03/19 19:03 110 H 20 03/03/19 19:00 106 H 23 03/03/19 18:45 85 19 03/03/19 18:44 134 H 87/55 L 03/03/19 18:30 136 H 24 03/03/19 18:15 132 H 16 03/03/19 18:01 127 H 18 87/55 L 03/03/19 18:00 127 H 17 03/03/19 17:45 134 H 17 03/03/19 17:30 134 H 18 03/03/19 17:15 134 H 19 03/03/19 17:00 128 H 20 96/58 L 03/03/19 16:54 36.7 C 130 H 24 89/50 L 03/03/19 16:10 143 H 24 100/57 L 03/03/19 15:55 143 H 24 103/60 03/03/19 15:45 36.3 C L 146 H 24 109/61 03/03/19 15:35 155 H 24 117/64 03/03/19 15:25 178 H 25 H 106/77 03/03/19 15:20 176 H 28 H 03/03/19 15:15 156 H 32 H 03/03/19 15:05 174 H 24 140/118 H 03/03/19 14:55 153 H 23 03/03/19 14:45 119 H 20 110/90 03/03/19 14:30 95 H 14 98/59 L 03/03/19 14:15 36.4 C L 95 H 14 91/59 L 03/03/19 14:00 98 H 14 110/67 03/03/19 13:50 101 H 16 103/55 L 03/03/19 13:41 36.0 C L 108 H 20 103/53 L 03/03/19 12:48 36.3 C L 105 H 20 107/67 03/03/19 12:27 118 H 20 112/67 03/03/19 11:55 36.9 C 92 H 18 104/69 03/03/19 11:04 101 H 20 102/55 L 03/03/19 10:30 107 H 22 99/62 L 03/03/19 10:10 36.9 C 121 H 22 129/66 Pulse Ox Pulse Ox 03/04/19 06:00 96 03/04/19 04:00 94 03/04/19 02:00 97 03/04/19 00:00 98 03/03/19 22:00 95 03/03/19 20:00 97 97 03/03/19 19:03 99 03/03/19 19:00 100 03/03/19 18:45 80 L 03/03/19 18:44 03/03/19 18:30 100 03/03/19 18:15 100 03/03/19 18:01 100 03/03/19 18:00 99 03/03/19 17:45 97 03/03/19 17:30 98 03/03/19 17:15 98 03/03/19 17:00 98 03/03/19 16:54 97 03/03/19 16:10 97 03/03/19 15:55 97 03/03/19 15:45 98 03/03/19 15:35 100 03/03/19 15:25 99 03/03/19 15:20 99 03/03/19 15:15 100 03/03/19 15:05 94 03/03/19 14:55 93 03/03/19 14:45 96 03/03/19 14:30 96 03/03/19 14:15 98 03/03/19 14:00 99 03/03/19 13:50 96 03/03/19 13:41 95 03/03/19 12:48 94 03/03/19 12:27 93 03/03/19 11:55 96 03/03/19 11:04 97 03/03/19 10:30 95 03/03/19 10:10 95 Notes Mental Status: alert / awake / arousable and participated in evaluation Nausea / Vomiting: adequately controlled Pain: adequately controlled Airway Patency, RR, SpO2: stable & adequate BP & HR: stable & adequate Hydration State: stable & adequate
[2019-03-04 08:41] LABS: Basophils # (auto) 0.02 K/uL (0-0.2); Basophils % (auto) 0.1 %; Eosinophils # (auto) 0.02 K/uL (0-0.5); Eosinophils % (auto) 0.1 %; Hemoglobin 11.7 g/dL (12.0-16.0); Immature Granulocytes # (auto) 0.18 K/uL (0.00-0.02); Immature Granulocytes % (auto) 0.9 %; Lymphocytes # (auto) 1.39 K/uL (1.2-3.4); Lymphocytes % (auto) 6.8 %; Mean Corpuscular Hgb Conc 33.4 g/dL (32-36); Mean Corpuscular Volume 99.7 fL (80-100); Monocytes % (auto) 6.3 %; Neutrophils # (auto) 17.61 K/uL (1.4-6.5); Neutrophils % (auto) 85.8 %; Platelet Count 156 K/uL (130-400); RDW Coefficient of Variation 13.6 % (11.5-14.5); RDW Standard Deviation 48.7 fL (36.4-46.3); Red Blood Count 3.51 M/uL (4.2-5.4); White Blood Count 20.52 K/uL (4.8-10.8)
[2019-03-04] MEDS ORDERED: CEROVITE ADV FORMULA TAB PO SCH (09:00)
[2019-03-04] MEDS ORDERED: MULTIVITAMIN WITH MINERALS PO SCH (09:00)
[2019-03-04] MEDS ORDERED: PANTOprazole 40 MG TAB PO SCH ×2 (09:00)
[2019-03-04] MEDS ORDERED: CHOLECALCIFEROL 1,000 UNITS TAB PO SCH ×2 (09:00)
--- NOTE | 2019-03-04 09:02 | Family Medicine Progress Note ---
Date of Service March 04, 2019 Assessment & Plan (1) Pyelonephritis: Cary Yin is a 54-year-old female with a past medical history of nonverbal schizophrenia and cerebral palsy who presented with high fever to 103 F and he was found to have a 2.2 cm cluster of nephrolithiases on CTA and is now as/P cystoscopy and retrograde pyelogram with stent placement. She was tachycardic with reported stridor following procedure and was transferred to the ICU for further care. Septic pyelonephritis 2/2 obstructive uropathy On presentation was tachycardic, mildly hypotensive, and febrile with leukocytosis s/p cystoscopy/retrograde pyelogram/right ureteral stent placement Treated empirically with aztreonam due to penicillin allergy Blood cultures positive for gram-negative bacilli, pending speciation Residual urine cultures pending Leukocytosis uptrending Continue IV aztreonam pending culture sensitivities - Concerned for possible proteus/b-lactam resistant GNR, will add short term double coverage pending sensitivites and speciation. +Cipro 400mg IV Q12H and reassess in AM Sepsis Suspect urosepsis, improving Mildly hypotensive (93/49) disease, no tachycardia today 5.1 L and, 701 mL out Continue Normosol 100 cc/h ESTELLE 2/2 urosepsis Baseline creatinine appears normal, increased to 1.37 from 1.27 today Antibiotic and fluid treatment as above Acute respiratory failure/stridor, improved No stridor appreciated this morning. Lungs CTAB SPO2 > 94% on room air today Schizophrenia Previously well controlled on perphenazine which is not on formulary Family attempting to bring home meds for verification Continue [employer] aripiprazole 20 mg nightly ? Aripiprazole 400 mg IM monthly. Will clarify last dose with outpatient records. Temazepam 22.5 mg p.o. nightly scheduled DVT prophylaxis: SCDs Dispo: Downgrade from ICU today CODE STATUS: Full code (2) Sepsis: (3) Schizophrenia: (4) Admitted to intensive care unit: Supervising Physician Co-Signing Physician Notes I personally examined the patient and verified all casey points of history and exam, discussed case, and agree with decision making with Dr Bautista. No meaningful HPI review of systems obtainable. Patient is verbal but very incoherent. Nursing notes that she is doing better overall. Vitals noted, in general she is awake and alert difficult to gauge mentation but does not appear to be in distress does appear fatigued. HEENT normocephalic atraumatic mucous members moist. Breathing unlabored no accessory muscle use good effort. Skin shows no rashes no pallor or icterus. Neuro shows no focal deficits. Urinary tract infection/pyelonephritis/stone/sepsis/bacteremiaclinically seems overall to be improved. Definitely stable for transfer out of the ICU, it is a little worrisome that her white count went up, she is growing 2 different strains of gram-negative's and comes from a long-term care facility. She is currently on aztreonam, its uncertain if she got better due to opening up the obstruction and allowing the pus to drain versus if the antibiotics are actually helping. Until we have final sensitivities, we will double cover for gram negatives given the severity of her illness/bacteremia. Once cultures are final we can streamline antibiotics appropriately. Subjective Patient seen at bedside. Objective history not obtainable due to verbal/co gnitive status. Patient extremely somnolent, responds transiently to vigorous/painful stimuli. Review of Systems Review of Systems: Unobtainable due to cognitive status Physical Exam Physical Exam: General: Somnolent. Arouses transiently to vigorous/painful stimuli but is nonverbal. HEENT: Atraumatic, normocephalic. Pulm: CTAB A&P. -wheezes, -rales, -rhonchi. Symmetrical chest rise. No increase work of breathing. No respiratory distress. Cardiac: RRR, -mrg. Radial pulses intact and symmetrical. Abdominal: Nontender, nondistended, soft. BS present. Results & Data Vital Signs (Past 12 Hours) Vital Signs Temp Pulse Resp BP Pulse Ox 03/04/19 06:00 78 16 93/49 L 96 03/04/19 04:00 36.8 C 79 12 94/58 L 94 03/04/19 02:00 78 H 88/47 L 97 03/04/19 00:00 36.8 C 85 15 92/52 L 98 03/03/19 22:00 94 H 17 82/50 L 95 PG Care Time/CCT Total # of Minutes Spent Total Time Spent with Patient: Total time spent is greater than 50% in coordination of care (as documented) at patient's floor/unit and/or counseling patient: Resident Activity Tracking Resident Involvement: Resident Care Provided Care Provided: Adult Hospital Medicine (1) Sepsis Sepsis type: sepsis due to unspecified organism Qualified Code(s): A41.9 - Sepsis, unspecified organism
[2019-03-04] MEDS: CLOTRIMAZOLE 1% CR 15 GM TUBE TOP SCH (09:31)
[2019-03-04] MEDS: MICONAZOLE NITRATE 2% CR 30 GM TUBE TOP SCH (09:32)
[2019-03-04 10:28] LABS: Base Excess ABG -2.2 mEq/L (-9-1.8); HCO3 ABG 23 mmol/L (19-24); Oxygen Saturation ABG 96.1 % (90-95); PCO2 ABG 40 mmHg (35-46); PO2 ABG 82 mm/Hg (80-95); pH ABG 7.38 (7.35-7.45)
[2019-03-04 10:31] LABS: Allen Test Pos (Pos)
--- NOTE | 2019-03-04 11:29 | Urology Progress Note ---
Date of Service March 04, 2019 Assessment & Plan (1) Pyelonephritis: (2) Obstructive uropathy: 54yo F with hx of CP and schizophrenia, resides at [facility]; POD #1 s/p emergent right ureteral stent placement for sepsis in context of obstructing 15mm obs right prox ureteral stone. Unable to assess pt's tolerability of stent due to pt's obtunded state. Kidney UC&S prelim gram neg bacilli. Continue Aztreonam IV until sensitivities available. Stone management will be determined once patient clinically stable. No further intervention at this time. Will continue to monitor peripherally while inpatient. Subjective 54yo F POD #1 s/p emergent Right ureteral stent placement due to obstructing stone in the setting of sepsis. Subjectively unable to obtain any information from patient due to cognitive status. Obtunded on exam. Few garbled words with short period of eye contact with physical stimulation. No response to verbal stimulation. Unable to follow commands. No family members at bedside at this time. Urine draining clear yellow. Afebrile, remains hypotensive with sbp 80-90s. Review of Systems Review of Systems: Unobtainable due to cognitive status Physical Exam Physical Exam: obtunded skin is warm, pink NSR on library monitor bronson - urine draining clear yellow Results & Data Vital Signs (Past 12 Hours) Vital Signs Temp Pulse Resp BP Pulse Ox 03/04/19 06:00 78 16 93/49 L 96 03/04/19 04:00 36.8 C 79 12 94/58 L 94 03/04/19 02:00 78 H 88/47 L 97 03/04/19 00:00 36.8 C 85 15 92/52 L 98 Laboratory Results Laboratory Results - last 48 hr 03/03/19 03/03/19 03/03/19 10:02 10:02 10:02 WBC 16.94 H RBC 3.72 L Hgb 12.0 Hct 36.0 L MCV 96.8 MCH 32.3 MCHC 33.3 RDW Std Deviation 46.7 H RDW Coeff of Roberto 13.1 Plt Count 191 MPV 9.8 Immature Gran % (Auto) 0.5 Neut % (Auto) 87.4 Lymph % (Auto) 5.4 Grundy % (Auto) 6.6 Eos % (Auto) 0.0 Baso % (Auto) 0.1 Immature Gran # (Auto) 0.08 H Neut # (Auto) 14.81 H Lymph # (Auto) 0.92 L Grundy # (Auto) 1.12 H Eos # (Auto) 0.00 Baso # (Auto) 0.01 Absolute Nucleated RBC Nucleated RBC % (auto) Neutrophils % (Manual) Band Neutrophils % Lymphocytes % (Manual) Prolymphocyte % Reactive Lymphs % (Man) Monocytes % (Manual) Eosinophils % (Manual) Basophils % (Manual) Metamyelocytes % (Man) Myelocytes % (Man) Promyelocytes % (Man) Blast Cells % (Manual) Plasma Cell % (Manual) Other Cells % Nucleated RBC % Neutrophils # (Manual) Band Neutrophils # Total Absolute Neuts Lymphocytes # (Manual) Prolymphocyte # Reactive Lymphs # Total Abs Lymphocytes Monocytes # (Manual) Eosinophils # (Manual) Basophils # (Manual) Metamyelocytes # (Man) Myelocytes # (Manual) Promyelocytes # (Man) Blast Cells # (Man) Plasma Cell # (Manual) Other Cells # Nucleated RBCs # (Man) Hypersegmented Neuts Hyposegmented Neuts Hypogranular Neuts Large Granular Lymphs # Lrg Granular Lymphs Hairy Cells Smudge Cells Toxic Granulation Toxic Vacuolation 1+ Dohle Bodies Galen Rods Platelet Estimate Hypogranular Platelets Clumped Platelets Giant Platelets Platelet Satelliting RBC Morphology Polychromasia Hypochromasia Poikilocytosis Basophilic Stippling Anisocytosis Microcytosis Macrocytosis Spherocytes Pappenheimer Bodies Sickle Cells Target Cells Tear Drop Cells Ovalocytes Stomatocytes [place] Bodies Echinocytes Acanthocytes (Spur) Rouleaux RBC Agglutinates Schistocytes RBC Morph Comment Sezary Cell PT 12.7 H INR 1.3 H APTT 32.2 H PTT Ratio 1.2 ABG pH ABG pCO2 ABG pO2 ABG HCO3 ABG O2 Saturation ABG Base Excess Dany Test Barometric Pressure Oxygen Given Sodium 139 Potassium 3.4 L Chloride 109 H Carbon Dioxide 23 Anion Gap 7.0 BUN 23 H Creatinine 1.27 H Est Cr Clr Drug Dosing Not Reportable Est GFR ( Amer) 55.4 Est GFR (Non-Af Amer) 47.8 BUN/Creatinine Ratio 18.4 Glucose 107 H POC Glucose POC Lactic Acid Merlin Lactate Calcium 7.7 L Total Bilirubin 0.6 AST 14 L ALT 17 Alkaline Phosphatase 67 Total Protein 6.3 L Albumin 2.4 L Globulin 3.9 Albumin/Globulin Ratio 0.6 L Lipase 35 L Specimen Hemolysis Urine Color Urine Appearance Urine pH Ur Specific [place] Urine Protein Urine Glucose (UA) Urine Ketones Urine Blood Urine Nitrite Urine Bilirubin Urine Urobilinogen Ur Leukocyte Esterase Urine WBC (Auto) Urine RBC (Auto) U Hyaline Cast (Auto) U Epithel Cells (Auto) Urine Bacteria (Auto) Ur Renal Epithelial Cell Urine Crystals Other Crystals Granular Casts Urine Yeast POC Ur Test Nasal Screen MRSA (PCR) 03/03/19 03/03/19 03/03/19 10:10 11:18 12:42 WBC RBC Hgb Hct MCV MCH MCHC RDW Std Deviation RDW Coeff of Roberto Plt Count MPV Immature Gran % (Auto) Neut % (Auto) Lymph % (Auto) [place] % (Auto) Eos % (Auto) Baso % (Auto) Immature Gran # (Auto) Neut # (Auto) Lymph # (Auto) [place] # (Auto) Eos # (Auto) Baso # (Auto) Absolute Nucleated RBC Nucleated RBC % (auto) Neutrophils % (Manual) Band Neutrophils % Lymphocytes % (Manual) Prolymphocyte % Reactive Lymphs % (Man) Monocytes % (Manual) Eosinophils % (Manual) Basophils % (Manual) Metamyelocytes % (Man) Myelocytes % (Man) Promyelocytes % (Man) Blast Cells % (Manual) Plasma Cell % (Manual) Other Cells % Nucleated RBC % Neutrophils # (Manual) Band Neutrophils # Total Absolute Neuts Lymphocytes # (Manual) Prolymphocyte # Reactive Lymphs # Total Abs Lymphocytes Monocytes # (Manual) Eosinophils # (Manual) Basophils # (Manual) Metamyelocytes # (Man) Myelocytes # (Manual) Promyelocytes # (Man) Blast Cells # (Man) Plasma Cell # (Manual) Other Cells # Nucleated RBCs # (Man) Hypersegmented Neuts Hyposegmented Neuts Hypogranular Neuts Large Granular Lymphs # Lrg Granular Lymphs Hairy Cells Smudge Cells Toxic Granulation Toxic Vacuolation Dohle Bodies Galen Rods Platelet Estimate Hypogranular Platelets Clumped Platelets Giant Platelets Platelet Satelliting RBC Morphology Polychromasia Hypochromasia Poikilocytosis Basophilic Stippling Anisocytosis Microcytosis Macrocytosis Spherocytes Pappenheimer Bodies Sickle Cells Target Cells Tear Drop Cells Ovalocytes Stomatocytes [place] Bodies Echinocytes Acanthocytes (Spur) Rouleaux RBC Agglutinates Schistocytes RBC Morph Comment Sezary Cell PT INR APTT PTT Ratio ABG pH ABG pCO2 ABG pO2 ABG HCO3 ABG O2 Saturation ABG Base Excess Dany Test Barometric Pressure Oxygen Given Sodium Potassium Chloride Carbon Dioxide Anion Gap BUN Creatinine Est Cr Clr Drug Dosing Est GFR ( Amer) Est GFR (Non-Af Amer) BUN/Creatinine Ratio Glucose POC Glucose POC Lactic Acid Merlin 0.81 L Lactate Calcium Total Bilirubin AST ALT Alkaline Phosphatase Total Protein Albumin Globulin Albumin/Globulin Ratio Lipase Specimen Hemolysis Urine Color Dark Yellow Urine Appearance Turbid A Urine pH 8.5 H Ur Specific [place] 1.023 Urine Protein 3+ H Urine Glucose (UA) Negative Urine Ketones 1+ H Urine Blood 1+ H Urine Nitrite Negative Urine Bilirubin Negative Urine Urobilinogen Negative Ur Leukocyte Esterase 3+ H Urine WBC (Auto) >30 H Urine RBC (Auto) 0-4 U Hyaline Cast (Auto) 10-30 H U Epithel Cells (Auto) >30 H Urine Bacteria (Auto) 4+ H Ur Renal Epithelial Cell Not Reportable Urine Crystals Not Reportable Other Crystals Sulfa A Granular Casts 1-5 H Urine Yeast Not Reportable POC Ur Test NEG Nasal Screen MRSA (PCR) 03/03/19 03/03/19 03/04/19 17:45 20:46 06:05 WBC RBC Hgb Hct MCV MCH MCHC RDW Std Deviation RDW Coeff of Roberto Plt Count MPV Immature Gran % (Auto) Neut % (Auto) Lymph % (Auto) [place] % (Auto) Eos % (Auto) Baso % (Auto) Immature Gran # (Auto) Neut # (Auto) Lymph # (Auto) [place] # (Auto) Eos # (Auto) Baso # (Auto) Absolute Nucleated RBC Nucleated RBC % (auto) Neutrophils % (Manual) Band Neutrophils % Lymphocytes % (Manual) Prolymphocyte % Reactive Lymphs % (Man) Monocytes % (Manual) Eosinophils % (Manual) Basophils % (Manual) Metamyelocytes % (Man) Myelocytes % (Man) Promyelocytes % (Man) Blast Cells % (Manual) Plasma Cell % (Manual) Other Cells % Nucleated RBC % Neutrophils # (Manual) Band Neutrophils # Total Absolute Neuts Lymphocytes # (Manual) Prolymphocyte # Reactive Lymphs # Total Abs Lymphocytes Monocytes # (Manual) Eosinophils # (Manual) Basophils # (Manual) Metamyelocytes # (Man) Myelocytes # (Manual) Promyelocytes # (Man) Blast Cells # (Man) Plasma Cell # (Manual) Other Cells # Nucleated RBCs # (Man) Hypersegmented Neuts Hyposegmented Neuts Hypogranular Neuts Large Granular Lymphs # Lrg Granular Lymphs Hairy Cells Smudge Cells Toxic Granulation Toxic Vacuolation Dohle Bodies Galen Rods Platelet Estimate Hypogranular Platelets Clumped Platelets Giant Platelets Platelet Satelliting RBC Morphology Polychromasia Hypochromasia Poikilocytosis Basophilic Stippling Anisocytosis Microcytosis Macrocytosis Spherocytes Pappenheimer Bodies Sickle Cells Target Cells Tear Drop Cells Ovalocytes Stomatocytes [place] Bodies Echinocytes Acanthocytes (Spur) Rouleaux RBC Agglutinates Schistocytes RBC Morph Comment Sezary Cell PT INR APTT PTT Ratio ABG pH ABG pCO2 ABG pO2 ABG HCO3 ABG O2 Saturation ABG Base Excess Dany Test Barometric Pressure Oxygen Given Sodium Potassium Chloride Carbon Dioxide Anion Gap BUN Creatinine Est Cr Clr Drug Dosing Est GFR ( Amer) Est GFR (Non-Af Amer) BUN/Creatinine Ratio Glucose POC Glucose 119 H 115 H POC Lactic Acid Merlin Lactate Calcium Total Bilirubin AST ALT Alkaline Phosphatase Total Protein Albumin Globulin Albumin/Globulin Ratio Lipase Specimen Hemolysis Urine Color Urine Appearance Urine pH Ur Specific [place] Urine Protein Urine Glucose (UA) Urine Ketones Urine Blood Urine Nitrite Urine Bilirubin Urine Urobilinogen Ur Leukocyte Esterase Urine WBC (Auto) Urine RBC (Auto) U Hyaline Cast (Auto) U Epithel Cells (Auto) Urine Bacteria (Auto) Ur Renal Epithelial Cell Urine Crystals Other Crystals Granular Casts Urine Yeast POC Ur Test Nasal Screen MRSA (PCR) Negative 03/04/19 03/04/19 03/04/19 07:11 07:11 08:26 WBC Cancelled 20.52 H RBC Cancelled 3.51 L Hgb Cancelled 11.7 L Hct Cancelled 35.0 L MCV Cancelled 99.7 MCH Cancelled 33.3 MCHC Cancelled 33.4 RDW Std Deviation Cancelled 48.7 H RDW Coeff of Roberto Cancelled 13.6 Plt Count Cancelled 156 MPV Cancelled 10.0 Immature Gran % (Auto) Cancelled 0.9 Neut % (Auto) Cancelled 85.8 Lymph % (Auto) Cancelled 6.8 [place] % (Auto) Cancelled 6.3 Eos % (Auto) Cancelled 0.1 Baso % (Auto) Cancelled 0.1 Immature Gran # (Auto) Cancelled 0.18 H Neut # (Auto) Cancelled 17.61 H Lymph # (Auto) Cancelled 1.39 [place] # (Auto) Cancelled 1.30 H Eos # (Auto) Cancelled 0.02 Baso # (Auto) Cancelled 0.02 Absolute Nucleated RBC Cancelled Nucleated RBC % (auto) Cancelled Neutrophils % (Manual) Cancelled Band Neutrophils % Cancelled Lymphocytes % (Manual) Cancelled Prolymphocyte % Cancelled Reactive Lymphs % (Man) Cancelled Monocytes % (Manual) Cancelled Eosinophils % (Manual) Cancelled Basophils % (Manual) Cancelled Metamyelocytes % (Man) Cancelled Myelocytes % (Man) Cancelled Promyelocytes % (Man) Cancelled Blast Cells % (Manual) Cancelled Plasma Cell % (Manual) Cancelled Other Cells % Cancelled Nucleated RBC % Cancelled Neutrophils # (Manual) Cancelled Band Neutrophils # Cancelled Total Absolute Neuts Cancelled Lymphocytes # (Manual) Cancelled Prolymphocyte # Cancelled Reactive Lymphs # Cancelled Total Abs Lymphocytes Cancelled Monocytes # (Manual) Cancelled Eosinophils # (Manual) Cancelled Basophils # (Manual) Cancelled Metamyelocytes # (Man) Cancelled Myelocytes # (Manual) Cancelled Promyelocytes # (Man) Cancelled Blast Cells # (Man) Cancelled Plasma Cell # (Manual) Cancelled Other Cells # Cancelled Nucleated RBCs # (Man) Cancelled Hypersegmented Neuts Cancelled Hyposegmented Neuts Cancelled Hypogranular Neuts Cancelled Large Granular Lymphs Cancelled # Lrg Granular Lymphs Cancelled Hairy Cells Cancelled Smudge Cells Cancelled Toxic Granulation Cancelled Toxic Vacuolation Cancelled Dohle Bodies Cancelled Galen Rods Cancelled Platelet Estimate Cancelled Hypogranular Platelets Cancelled Clumped Platelets Cancelled Giant Platelets Cancelled Platelet Satelliting Cancelled RBC Morphology Cancelled Polychromasia Cancelled Hypochromasia Cancelled Poikilocytosis Cancelled Basophilic Stippling Cancelled Anisocytosis Cancelled Microcytosis Cancelled Macrocytosis Cancelled Spherocytes Cancelled Pappenheimer Bodies Cancelled Sickle Cells Cancelled Target Cells Cancelled Tear Drop Cells Cancelled Ovalocytes Cancelled Stomatocytes Cancelled [place] Bodies Cancelled Echinocytes Cancelled Acanthocytes (Spur) Cancelled Rouleaux Cancelled RBC Agglutinates Cancelled Schistocytes Cancelled RBC Morph Comment Cancelled Sezary Cell Cancelled PT INR APTT PTT Ratio ABG pH ABG pCO2 ABG pO2 ABG HCO3 ABG O2 Saturation ABG Base Excess Dany Test Barometric Pressure Oxygen Given Sodium 141 Potassium 4.2 D Chloride 109 H Carbon Dioxide 26 Anion Gap 6.0 BUN 27 H Creatinine 1.37 H Est Cr Clr Drug Dosing Not Reportable Est GFR ( Amer) 50.6 Est GFR (Non-Af Amer) 43.6 BUN/Creatinine Ratio 19.7 Glucose 100 H POC Glucose POC Lactic Acid Merlin Lactate Calcium 8.0 L Total Bilirubin 0.3 AST 26 ALT 24 Alkaline Phosphatase 60 Total Protein 6.2 L Albumin 2.2 L Globulin 4.0 Albumin/Globulin Ratio 0.6 L Lipase Specimen Hemolysis Urine Color Urine Appearance Urine pH Ur Specific [place] Urine Protein Urine Glucose (UA) Urine Ketones Urine Blood Urine Nitrite Urine Bilirubin Urine Urobilinogen Ur Leukocyte Esterase Urine WBC (Auto) Urine RBC (Auto) U Hyaline Cast (Auto) U Epithel Cells (Auto) Urine Bacteria (Auto) Ur Renal Epithelial Cell Urine Crystals Other Crystals Granular Casts Urine Yeast POC Ur Test Nasal Screen MRSA (PCR) 03/04/19 03/04/19 09:32 10:12 WBC RBC Hgb Hct MCV MCH MCHC RDW Std Deviation RDW Coeff of Roberto Plt Count MPV Immature Gran % (Auto) Neut % (Auto) Lymph % (Auto) [place] % (Auto) Eos % (Auto) Baso % (Auto) Immature Gran # (Auto) Neut # (Auto) Lymph # (Auto) [place] # (Auto) Eos # (Auto) Baso # (Auto) Absolute Nucleated RBC Nucleated RBC % (auto) Neutrophils % (Manual) Band Neutrophils % Lymphocytes % (Manual) Prolymphocyte % Reactive Lymphs % (Man) Monocytes % (Manual) Eosinophils % (Manual) Basophils % (Manual) Metamyelocytes % (Man) Myelocytes % (Man) Promyelocytes % (Man) Blast Cells % (Manual) Plasma Cell % (Manual) Other Cells % Nucleated RBC % Neutrophils # (Manual) Band Neutrophils # Total Absolute Neuts Lymphocytes # (Manual) Prolymphocyte # Reactive Lymphs # Total Abs Lymphocytes Monocytes # (Manual) Eosinophils # (Manual) Basophils # (Manual) Metamyelocytes # (Man) Myelocytes # (Manual) Promyelocytes # (Man) Blast Cells # (Man) Plasma Cell # (Manual) Other Cells # Nucleated RBCs # (Man) Hypersegmented Neuts Hyposegmented Neuts Hypogranular Neuts Large Granular Lymphs # Lrg Granular Lymphs Hairy Cells Smudge Cells Toxic Granulation Toxic Vacuolation Dohle Bodies Galen Rods Platelet Estimate Hypogranular Platelets Clumped Platelets Giant Platelets Platelet Satelliting RBC Morphology Polychromasia Hypochromasia Poikilocytosis Basophilic Stippling Anisocytosis Microcytosis Macrocytosis Spherocytes Pappenheimer Bodies Sickle Cells Target Cells Tear Drop Cells Ovalocytes Stomatocytes [place] Bodies Echinocytes Acanthocytes (Spur) Rouleaux RBC Agglutinates Schistocytes RBC Morph Comment Sezary Cell PT INR APTT PTT Ratio ABG pH 7.38 ABG pCO2 40 ABG pO2 82 ABG HCO3 23 ABG O2 Saturation 96.1 H ABG Base Excess -2.2 Dany Test Pos Barometric Pressure 729.4 Oxygen Given RA Sodium Potassium Chloride Carbon Dioxide Anion Gap BUN Creatinine Est Cr Clr Drug Dosing Est GFR ( Amer) Est GFR (Non-Af Amer) BUN/Creatinine Ratio Glucose POC Glucose POC Lactic Acid Merlin Lactate 1.7 Calcium Total Bilirubin AST ALT Alkaline Phosphatase Total Protein Albumin Globulin Albumin/Globulin Ratio Lipase Specimen Hemolysis Urine Color Urine Appearance Urine pH Ur Specific [place] Urine Protein Urine Glucose (UA) Urine Ketones Urine Blood Urine Nitrite Urine Bilirubin Urine Urobilinogen Ur Leukocyte Esterase Urine WBC (Auto) Urine RBC (Auto) U Hyaline Cast (Auto) U Epithel Cells (Auto) Urine Bacteria (Auto) Ur Renal Epithelial Cell Urine Crystals Other Crystals Granular Casts Urine Yeast POC Ur Test Nasal Screen MRSA (PCR)
[2019-03-04] MEDS: PERPHENAZINE 8 MG PO SCH ×2 (11:49→20:52)
[2019-03-04] MEDS: PERPHENAZINE 4 MG PO SCH ×2 (11:50→20:51)
[2019-03-04] MEDS: CIPROFLOXACIN 400 MG/200 ML BAG IV SCH (16:31)
[2019-03-04] MEDS ORDERED: PERPHENAZINE 2 MG TABLET PO SCH ×2 (19:45)
[2019-03-04] MEDS: ARIPiprazole 10 MG TAB PO SCH (20:50)
[2019-03-04] MEDS: CLOTRIMAZOLE 1% CR 15 GM TUBE EXT SCH (20:51)
[2019-03-04] MEDS: TEMAZEPAM 7.5 MG CAPSULE PO SCH (21:03)
[2019-03-05] MEDS: AZTREONAM 2,000 MG in DEXTROSE 5% 100 ML IV SCH (04:38)
[2019-03-05] MEDS: CIPROFLOXACIN 400 MG/200 ML BAG IV SCH (04:38)
[2019-03-05] MEDS: LEVOTHYROXINE SODIUM 100 MCG TABLET PO SCH (05:41)
[2019-03-05] MEDS ORDERED: cefTRIAXone SODIUM 1,000 MG in DEXTROSE 5% 50 ML IV SCH (08:15)
[2019-03-05 08:16] LABS: Basophils # (auto) 0.03 K/uL (0-0.2); Basophils % (auto) 0.2 %; Eosinophils # (auto) 0.19 K/uL (0-0.5); Eosinophils % (auto) 1.2 %; Hematocrit (blood only) 32.4 % (37-47); Hemoglobin 10.8 g/dL (12.0-16.0); Immature Granulocytes # (auto) 0.17 K/uL (0.00-0.02); Immature Granulocytes % (auto) 1.1 %; Lymphocytes # (auto) 1.19 K/uL (1.2-3.4); Lymphocytes % (auto) 7.4 %; Mean Corpuscular Hgb Conc 33.3 g/dL (32-36); Mean Corpuscular Volume 96.7 fL (80-100); Mean Platelet Volume 10.2 fL (7.4-10.4); Monocytes # (auto) 1.23 K/uL (0.11-0.59); Monocytes % (auto) 7.7 %; Neutrophils # (auto) 13.25 K/uL (1.4-6.5); Neutrophils % (auto) 82.4 %; Platelet Count 184 K/uL (130-400); RDW Coefficient of Variation 13.6 % (11.5-14.5); RDW Standard Deviation 48.1 fL (36.4-46.3); Red Blood Count 3.35 M/uL (4.2-5.4); White Blood Count 16.06 K/uL (4.8-10.8)
[2019-03-05 08:31] LABS: BUN Creatinine Ratio 26.6 (10-20); Blood Urea Nitrogen 21 mg/dl (7-18); Calcium 8.5 mg/dl (8.5-10.1); Carbon Dioxide 26 mmol/L (21-32); Chloride 110 mmol/L (98-107); Est GFR (African American) 98.4; Est GFR (Non-African American) 84.9; Glucose 91 mg/dl (70-99); Potassium 3.2 mmol/L (3.5-5.1); Sodium 142 mmol/L (136-145)
[2019-03-05] MEDS: CLOTRIMAZOLE 1% CR 15 GM TUBE EXT SCH ×2 (09:01→20:56)
[2019-03-05] MEDS: PANTOprazole 40 MG TAB PO SCH (09:01)
[2019-03-05] MEDS: PERPHENAZINE 8 MG PO SCH ×2 (09:02→20:58)
[2019-03-05] MEDS: PERPHENAZINE 4 MG PO SCH ×2 (09:02→20:59)
[2019-03-05] MEDS: cefTRIAXone SODIUM 2,000 MG in DEXTROSE 5% 50 ML IV SCH (09:19)
--- NOTE | 2019-03-05 14:23 | Family Medicine Progress Note ---
Date of Service March 05, 2019 Assessment & Plan (1) Pyelonephritis: Cary Yin is a 54-year-old female with a past medical history of nonverbal schizophrenia and cerebral palsy who presented with high fever to 103 F and he was found to have a 2.2 cm cluster of nephrolithiases on CTA and is now as/P cystoscopy and retrograde pyelogram with stent placement. She was tachycardic with reported stridor following procedure and was transferred to the ICU for further care. Septic pyelonephritis 2/2 obstructive uropathy On presentation was tachycardic, mildly hypotensive, and febrile with leukocytosis s/p cystoscopy/retrograde pyelogram/right ureteral stent placement Treated empirically with aztreonam due to penicillin allergy Leukocytosis now downtrending, 16.06 today - BC positive for proteus, repeat cultures negative at 24 hours - UC positive for proteus cipro resistant. Discontinue aztreonam and cipro - + Rocephin 2g IV Q24H. Will require 2 weeks of therapy for gram negative bacteremia. Anticipate placement of ultrasound guided peripheral line vs Mid line. Sepsis Suspect urosepsis, improving Bp improving, no tachycardia today - tolerating good PO, IVFM discontinued ESTELLE 2/2 urosepsis Baseline creatinine appears normal, increased to 1.37 and has since normalized Antibiotic and fluid treatment as above Acute respiratory failure/stridor, improved No stridor appreciated this morning. Lungs CTAB SPO2 > 94% on 2LNC. - If continuing to have increased O2 requirements CT-C tomorrow. Schizophrenia Previously well controlled on perphenazine which is not on formulary 4mg/8mg perphenazine home dosing, home med brought and verified Continue [employer] aripiprazole 20 mg nightly ? Aripiprazole 400 mg IM monthly. Will clarify last dose with outpatient records. Temazepam 22.5 mg p.o. nightly scheduled DVT prophylaxis: SCDs Dispo: Downgrade from ICU today CODE STATUS: Full code Supervising Physician Co-Signing Physician Notes I personally examined the patient and verified all casey points of history and exam, discussed case, and agree with decision making with Dr Bautista. No meaningful HPI review of systems obtainable. however she is more awake and conversive and seems to at least understand that she has an infection and is getting better. Vitals noted, in general she is awake and alert difficult to gauge mentation but does not appear to be in distress does appear fatigued, much more alert and interactive than yesterday. HEENT normocephalic atraumatic mucous members moist. Breathing unlabored no accessory muscle use good effort no r/r/w. Skin shows no rashes no pallor or icterus. Neuro shows no focal deficits. Urinary tract infection/pyelonephritis/stone/sepsis/bacteremiaclinically seems overall to be improved. sensitivities noted - change to rocephin. continue supportive care. likely to need 14 days total, but can have IV rocephin at SNF once better overall status hypoxia - uncertain etiology but improving. givne this, most likely realted to sepsis and overall severity of illness. nonspecific findings, reassuring exam - ?even a degree of DAVI/OHS exacerbated by sepsis mediated weakness? if fails to improve then chest CT but if ongoing improvement continue to wean O2 and follow metabolic encephlopathy present on admission - improving. unclear baseline mentation but is showing good and clear day to day improvemeent dispo - is bed hold at [facility]. anticipate return there in ?24-48hrs to finish course of IV rocephin if ongoing improvement. Subjective Cary is awake, alert, and eating breakfast at time of visit this morning. She has limited communication, but is able to gesture and indicate basic needs/wants an answer very simple language questions. Indicates that she is in some discomfort in her back and abdomen, but that is not getting in the way of her moving or eating. Denies other symptoms. Review of Systems Review of Systems: Unobtainable due to cognitive status Physical Exam Physical Exam: General: Responds to name. Is not able to verbalize date or place. Eating breakfast, no acute distress. HEENT: Atraumatic, normocephalic. Pulm: CTAB A&P. -wheezes, -rales, -rhonchi. Symmetrical chest rise. No increase work of breathing. No respiratory distress. Cardiac: RRR, -mrg. Radial pulses intact and symmetrical. Abdominal: Nontender, nondistended, soft. BS present. Results & Data Vital Signs (Past 12 Hours) Vital Signs Temp Pulse Pulse Resp BP BP BP 03/05/19 12:06 36.8 C 81 18 108/64 03/05/19 08:00 86 03/05/19 07:19 37.3 C 82 20 113/72 03/05/19 04:50 37.7 C H 88 18 101/69 Pulse Ox 03/05/19 12:06 96 03/05/19 08:00 03/05/19 07:19 95 03/05/19 04:50 96 PG Care Time/CCT Total # of Minutes Spent Total Time Spent with Patient: Total time spent is greater than 50% in coordination of care (as documented) at patient's floor/unit and/or counseling patient: Resident Activity Tracking Resident Involvement: Resident Care Provided Care Provided: Adult Hospital Medicine
[2019-03-05] MEDS: ACETAMINOPHEN 325 MG TAB PO PRN (16:54)
[2019-03-05] MEDS ORDERED: POTASSIUM CHLORIDE 10 MEQ TABCR PO ONE (18:30)
[2019-03-05] MEDS: ARIPiprazole 10 MG TAB PO SCH (20:57)
[2019-03-05] MEDS: TEMAZEPAM 7.5 MG CAPSULE PO SCH (21:04)
[2019-03-06] MEDS ORDERED: PROMETHAZINE HCL 6.25 MG in SODIUM CHLORIDE 0.9% 50 ML IV PRN (00:26)
[2019-03-06] MEDS: LEVOTHYROXINE SODIUM 100 MCG TABLET PO SCH (06:27)
[2019-03-06] MEDS: cefTRIAXone SODIUM 2,000 MG in DEXTROSE 5% 50 ML IV SCH (08:26)
[2019-03-06] MEDS: PANTOprazole 40 MG TAB PO SCH (08:31)
[2019-03-06 08:34] LABS: Basophils # (auto) 0.03 K/uL (0-0.2); Basophils % (auto) 0.3 %; Eosinophils # (auto) 0.13 K/uL (0-0.5); Eosinophils % (auto) 1.2 %; Hematocrit (blood only) 31.6 % (37-47); Hemoglobin 10.5 g/dL (12.0-16.0); Immature Granulocytes # (auto) 0.07 K/uL (0.00-0.02); Immature Granulocytes % (auto) 0.6 %; Lymphocytes % (auto) 12.7 %; Mean Corpuscular Hgb Conc 33.2 g/dL (32-36); Mean Corpuscular Volume 97.8 fL (80-100); Mean Platelet Volume 9.8 fL (7.4-10.4); Monocytes # (auto) 0.83 K/uL (0.11-0.59); Monocytes % (auto) 7.5 %; Neutrophils # (auto) 8.58 K/uL (1.4-6.5); Neutrophils % (auto) 77.7 %; Platelet Count 206 K/uL (130-400); RDW Coefficient of Variation 13.9 % (11.5-14.5); RDW Standard Deviation 49.8 fL (36.4-46.3); Red Blood Count 3.23 M/uL (4.2-5.4); White Blood Count 11.04 K/uL (4.8-10.8)
[2019-03-06] MEDS: PERPHENAZINE 8 MG PO SCH ×2 (08:34→20:09)
[2019-03-06] MEDS: PERPHENAZINE 4 MG PO SCH ×2 (08:34→20:09)
[2019-03-06] MEDS: CLOTRIMAZOLE 1% CR 15 GM TUBE EXT SCH ×2 (08:35→20:08)
[2019-03-06 08:57] LABS: BUN Creatinine Ratio 21.9 (10-20); Blood Urea Nitrogen 15 mg/dl (7-18); Calcium 8.6 mg/dl (8.5-10.1); Carbon Dioxide 29 mmol/L (21-32); Chloride 112 mmol/L (98-107); Est GFR (African American) 113.8; Est GFR (Non-African American) 98.2; Glucose 90 mg/dl (70-99); Potassium 3.2 mmol/L (3.5-5.1); Sodium 145 mmol/L (136-145)
[2019-03-06] MEDS ORDERED: POTASSIUM CHLORIDE 20 MEQ TABCR PO SCH (09:00)
[2019-03-06] MEDS: TEMAZEPAM 7.5 MG CAPSULE PO SCH (20:07)
[2019-03-06] MEDS: ACETAMINOPHEN 325 MG TAB PO PRN (20:07)
[2019-03-06] MEDS: ARIPiprazole 10 MG TAB PO SCH (20:10)
[2019-03-06] MEDS: POTASSIUM CHLORIDE 20 MEQ TABCR PO SCH (20:11)
[2019-03-07 06:22] LABS: Basophils # (auto) 0.04 K/uL (0-0.2); Basophils % (auto) 0.3 %; Eosinophils # (auto) 0.15 K/uL (0-0.5); Eosinophils % (auto) 1.3 %; Hematocrit (blood only) 34.1 % (37-47); Hemoglobin 11.4 g/dL (12.0-16.0); Immature Granulocytes # (auto) 0.12 K/uL (0.00-0.02); Lymphocytes # (auto) 1.47 K/uL (1.2-3.4); Lymphocytes % (auto) 12.6 %; Mean Corpuscular Hgb Conc 33.4 g/dL (32-36); Mean Corpuscular Volume 96.1 fL (80-100); Mean Platelet Volume 9.5 fL (7.4-10.4); Monocytes # (auto) 1.02 K/uL (0.11-0.59); Monocytes % (auto) 8.7 %; Neutrophils # (auto) 8.88 K/uL (1.4-6.5); Neutrophils % (auto) 76.1 %; Platelet Count 254 K/uL (130-400); RDW Standard Deviation 49.4 fL (36.4-46.3); Red Blood Count 3.55 M/uL (4.2-5.4); White Blood Count 11.68 K/uL (4.8-10.8)
[2019-03-07] MEDS: LEVOTHYROXINE SODIUM 100 MCG TABLET PO SCH (06:24)
[2019-03-07 06:52] LABS: Blood Urea Nitrogen 11 mg/dl (7-18); Carbon Dioxide 30 mmol/L (21-32); Chloride 109 mmol/L (98-107); Est GFR (African American) 119.8; Est GFR (Non-African American) 103.3; Glucose 86 mg/dl (70-99); Potassium 3.2 mmol/L (3.5-5.1); Sodium 144 mmol/L (136-145)
[2019-03-07] MEDS: POTASSIUM CHLORIDE 20 MEQ TABCR PO SCH (08:03)
[2019-03-07] MEDS: PANTOprazole 40 MG TAB PO SCH (08:03)
[2019-03-07] MEDS: CLOTRIMAZOLE 1% CR 15 GM TUBE EXT SCH (08:04)
[2019-03-07] MEDS: PERPHENAZINE 8 MG PO SCH (08:04)
[2019-03-07] MEDS: PERPHENAZINE 4 MG PO SCH (08:05)
[2019-03-07] MEDS: cefTRIAXone SODIUM 2,000 MG in DEXTROSE 5% 50 ML IV SCH (08:16)
--- NOTE | 2019-03-07 09:28 | Family Medicine Progress Note ---
Date of Service March 06, 2019 Assessment & Plan (1) Obstructive uropathy: Cary Yin is a 54-year-old female with a past medical history of nonverbal schizophrenia and cerebral palsy who presented with high fever to 103 F and he was found to have a 2.2 cm cluster of nephrolithiases on CTA and is now as/P cystoscopy and retrograde pyelogram with stent placement. She was tachycardic with reported stridor following procedure and was transferred to the ICU for further care. Septic pyelonephritis 2/2 obstructive uropathy On presentation was tachycardic, mildly hypotensive, and febrile with leukocytosis s/p cystoscopy/retrograde pyelogram/right ureteral stent placement Treated empirically with aztreonam due to penicillin allergy Leukocytosis now downtrending, 16.06 today - BC positive for proteus, repeat cultures negative at 24 hours - UC positive for proteus cipro resistant. Discontinue aztreonam and cipro - + Rocephin 2g IV Q24H. Will require 2 weeks of therapy for gram negative bacteremia. US peripheral placed. - Bronson removed, OK per uro. 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 Sepsis Suspect urosepsis, improving Bp improving, no tachycardia today - tolerating good PO, IVFM discontinued ESTELLE 2/2 urosepsis Baseline creatinine appears normal, increased to 1.37 and has since normalized Antibiotic and fluid treatment as above Acute respiratory failure/stridor, improved No stridor appreciated this morning. Lungs CTAB off supplemantal oxygen - Weaned to room air. Tolerating well. 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 Not due until ~03/10 Temazepam 22.5 mg p.o. nightly scheduled DVT prophylaxis: SCDs Dispo: To [facility] once O2 requirements stable and able to void CODE STATUS: Full code Supervising Physician Co-Signing Physician Notes I personally examined the patient and verified all casey points of history and ex am, discussed case, and agree with decision making with Dr Bautista. Urinary tract infection/pyelonephritis/stone/sepsis/bacteremiaclinically seems overall to be improved. sensitivities noted - continue on rocephin. continue supportive care. likely to need 14 days total, but can have IV rocephin at SNF once better overall status hypoxia - uncertain etiology. Improved. Off nasal cannula metabolic encephlopathy present on admission - improved dispo - is bed hold [facility]. anticipate return there in ?24-48hrs to finish course of IV rocephin if ongoing improvement. Subjective Cary is awake, alert, and laying in bed at time of visit. She has limited communication, but is able to gesture and indicate basic needs/wants an answer very simple language questions. Endorses some abdominal discomfort/nausea with medications, but no pain today. Is curious about the smelter charger pack, but voices no other questions or concerns. Review of Systems Review of Systems: Unobtainable due to cognitive status Physical Exam Physical Exam: General: Responds to name. Is not able to verbalize date or place. NAD, laying in bed. HEENT: Atraumatic, normocephalic. Pulm: CTAB A&P. -wheezes, -rales, -rhonchi. Symmetrical chest rise. No increase work of breathing. No respiratory distress. Cardiac: RRR, -mrg. Radial pulses intact and symmetrical. Abdominal: Obese, Nontender to palpation, nondistended, soft. BS present. Results & Data Vital Signs (Past 12 Hours) Vital Signs Temp Pulse Pulse Resp BP BP Pulse Ox 03/07/19 07:24 84 03/07/19 07:18 36.7 C 83 18 145/79 H 95 03/07/19 03:37 36.7 C 84 22 93/55 L 97 03/07/19 00:44 81 03/06/19 23:12 36.9 C 72 20 107/60 90 PG Care Time/CCT Total # of Minutes Spent Total Time Spent with Patient: Total time spent is greater than 50% in coordination of care (as documented) at patient's floor/unit and/or counseling patient: Resident Activity Tracking Resident Involvement: Resident Care Provided Care Provided: Adult Hospital Medicine
[2019-03-07] MEDS ORDERED: POTASSIUM CHLORIDE 10 MEQ TABCR PO ONE (12:00)
--- NOTE | 2019-03-07 13:39 | Discharge Summary ---
Date of Service March 07, 2019 Admission HPI Per Admitting Provider Patient is nonverbal and unable to give any history. Most of the history is obtained from chart review and ER records and nursing information. In summary, patient is a 54y/o Female PmHX Schizophrenia ( nonverbal), Cerebral palsy who was brought to the ED for evaluation of fever (Tmax 103 prior to ED visit), tachycardia and abdominal pain. Patient was found to have a Tmax of 36.9C and HR 92, BP 104/[address] scan of abd/ pelvis showed 15mm obstructing calculi at the right proximal ureter below the ureteropelvic junction, mild right hydronephrosis and mild right perinephric stranding with santhosh-ureteric stranding. Chest xray showed cardiomegaly and central pulmonary vascular congestion. LABS significant for WBC 16.9, Hgb 12, K- 3.4 and BUN / CR - 23/ 1.27. She was given Aztreonam 1gm IV due to PCN allergy. Urology was consulted and plan for emergent lithotripsy / possible stent placement. Admission Exam Per Admitting Provider Constitutional: + altered mental status and + behavioral limitations non cooperative, non verbal, appear comfortable, but difficult to arouse. Moans and groans to pinching and sternal rub Eyes: PERRL and EOM intact bilaterally ENMT: external ear and nose normal, oropharynx normal Neck: supple Respiratory: normal respiratory effort, lungs clear to auscultation poor inspiratory effort Cardiovascular: Rate/Rhythm: regular rate Heart Sounds: normal S1 and normal S2 Extremities: + pedal edema and + edema Gastrointestinal (Abdomen): Inspection/Auscultation: + abdomen distended and normal bowel sounds Percussion/Palpation: + abdomen tender and abdomen soft Musculoskeletal: no movement of lower extremities Skin: no rashes, warm and dry Neurologic: + confused Speech / Cognition: + abnormal speech Motor/Sensory: + abnormal movement Cranial Nerves: PERRL non responsive / nonverbal Psychiatric: bizaare affect / schizophrenic Genitourinary: bronson catheter in place with concentrate urine Principal Diagnosis R obstructive ureteral calculus with septic obstructive uropathy/pyelonephritis Discharge Exam General: Responds to name. Is not able to verbalize date. Verbalizes place (hospital). NAD, laying in bed. Skin: No ulcers, pressure wounds, bruising, or lesions present. HEENT: Atraumatic, normocephalic. Pulm: CTAB A&P. -wheezes, -rales, -rhonchi. Symmetrical chest rise. No increase work of breathing. No respiratory distress. Cardiac: RRR, -mrg. Radial pulses intact and symmetrical. Abdominal: Nontender to palpation, nondistended, soft. BS present. Discharge Data Allergies Allergy/AdvReac Type Severity Reaction Status Date / Time Penicillins AdvReac Intermediate Unknown Unverified 03/03/19 12:37 codeine AdvReac Mild Unknown Unverified 03/03/19 12:37 Consultations 03/03/19 11:56 ED Decision to Admit Stat 03/03/19 17:38 Consult Case Management - Discharge Planning Routine Consult Slot Operations Manager Routine Consult Urology Routine Consult Urology Routine Procedures Performed Operation Date: 03/03/19 12:15 Actual Procedures p Cystoscopy, Right Retrograde, Right Stent Placement(Right) - Quincy Plummer II, DO Ordered Studies 03/03/19 [place] retrograde includes kub Routine 03/03/19 09:51 CT abd pelvis wo con Stat Hospital Course (1) Obstructive uropathy: Cary Yin is a 54-year-old female with a past medical history of seminonverbal schizophrenia and cerebral palsy who presented with high fever to 103 F and he was found to have a 2.2 cm cluster of nephrolithiases on CTA for which she underwent cystoscopy and retrograde pyelogram with stent placement. She was tachycardic with reported stridor following procedure and was transferred transiently to the ICU. To do after discharge: 1. Complete 11 doses of ceftriaxone for 14-day total course 2. Complete 3 days of calcium chloride 20MeQ repletion twice daily 3. Recheck BMP (potassium) in 1 week 4. Recheck CBC with differential in 1-2 weeks 5. Follow-up with urology for stone management in 1-2 weeks Septic pyelonephritis secondary to obstructive uropathy On presentation Cary was tachycardic, mildly hypotensive, and febrile with leukocytosis. CT showed nephrolithiasis and an obstructing ureteral stone as noted below. She was treated empirically with aztreonam with due to penicillin allergy. Urology was consulted with stone management as noted below. Urine cultures were sent following purulent drainage after stent placement. She remained febrile and adjunct ciprofloxacin was added pending final cultures. Urine cultures returned positive for ciprofloxacin resistant Proteus and aztreonam/Cipro were discontinued and Rocephin 2 g IV every 24 hours was started. Her leukocytosis down trended, and her vital signs normalized. An ultrasound-guided peripheral IV was placed and she was discharged back to [facility] to complete a total 2-week course of Rocephin IV with follow-up to her primary care doctor and urology. Obstructive uropathy 2/2 right ureteral calculi On presentation Cary was septic as noted above. CT showed a 2.2 cm cluster of stones with an obstructing ureteral stone. Urology was consulted and performed an emergent cystoscopy with retrograde pyelogram and stent placement. Purulent urine was returned and sent for culture. She was treated with antibiotics as noted above and recovered well. Her Bronson was removed and she was able to void without pain. She was discharged to complete antibiotics as noted above with follow-up to urology for further stone management once clinically stable and her pyelonephritis had improved. Acute hypoxic respiratory failure Following admission and cystoscopy as noted above had a increased oxygen requirement to 2 L. There were also postprocedural concerns for wheezing/stridorous airway sounds so she was transferred to the ICU. She did not require pressors and was clinically stable, she was downgraded and weaned to room air over the next day. She is tolerating room air for 36 hours with adequate saturation by time of discharge. ESTELLE 2/2 urosepsis On admission Cary had a increase in her creatinine from a normal baseline to 1.37 which normalized following fluid therapy, antibiotic therapy, and stone management as noted above. Hypokalemia Following admission Cary's potassium fell from normal to 3.2 in the setting of poor oral intake. Her magnesium was normal. She was repleted with oral potassium, but remained hypokalemic. Oral repletion of potassium was increased, and she was discharged to complete an additional 20Meqs of potassium chloride twice daily for 3 days (6 doses). She should have a BMP recheck in about 1 week. Schizophrenia Cary has a history of schizophrenia treated with aripiprazole, perphenazine, and temazepam. Her prior to admission doses of these medications were continued. She did experience any hallucinations during admission, and was not found to be responding to any internal stimuli. (2) Pyelonephritis: Total Time Total Time Spent Total Time Spent (In Minutes): 30 Discharge Plan Discharge Items Patient Disposition: Transfer Snf Fac Reason For Visit: FEVER,SEPSIS,NEPHROLITHIASIS Discharge Diagnosis: Septic pyelonephritis secondary to obstructive nephrolithiasis Discharge Goals: Therapeutic intervention Activity: Resume your previous activity Non-emergency contact: Primary Care Provider Call non-emergency contact if: you have any medication questions, your symptoms worsen, your pain is not controlled, your pain is worsening, your pain is unusual for you, your pain is concerning for you, you have a fever and your temperature is above 100.5 Follow-up/Referrals: [facility] [Primary Care Provider] - Diet: Regular Addtl Provider Instructions: Cary was seen in the hospital for high fever and was found to have a cluster of nephrolithiases (kidney stones) on imaging. She had a procedure called a cystoscopy performed and a stent was placed to help alleviate urinary obstruction. She was found to have a UTI extending up to the kidney called pyelonephritis and has been placed on antibiotics. She will have follow-up with urology for further management of her stone after antibiotic treatment and clinical improvement. Cary has been prescribed an antibiotic, Rocephin. Please give Rocephin (ceftriaxone) 2 g IV every 24 hours for 11 days to complete a total 14-day course of treatment. A ultrasound-guided peripheral line has been placed through which she may receive this antibiotic. This line should be removed once the antibiotic course is completed. Cary has not had other medication changes. A follow-up appointment will be arranged for Cary with her primary care provider at [facility] once she is transferred back to their care. An appointment is being scheduled for Cary with urology for both follow-up 1-2 weeks and evaluation for further stone management. You should receive a call to confirm this appointment. If you do not receive a call, or need to change this appointment, please call [facility] at [phone]. Schedule a followup with PCP in 1-2 weeks. Please recheck a complete blood count with differential and a BMP at that time. If Cary develops any new or worsening symptoms, including inability to void/pass urine, worsening abdominal pain, bloody urine, worsening back or abdominal pain, fevers, chills, night sweats, confusion, lightheadedness, dizziness, rash, shortness of breath, wheezing, throat swelling, or other symptoms please contact her primary care physician at [facility] for evaluation, or call 911 for transport to the emergency department if you are very concerned. Prescriptions: New ceftriaxone 2 gram recon soln 2 gm IV DAILY 11 Days Qty: 11 RF: 0 potassium chloride 20 mEq tablet extended release 20 meq PO BID 3 Days Qty: 6 RF: 0 Continued acetaminophen 325 mg Tablet 650 mg PO Q8H MDD 3gm/24h PRN (Reason: Fever) RF: 0 acetaminophen 325 mg Tablet 650 mg PO DIRECTED MDD 3gm/24h PRN (Reason: Pain) RF: 0 ipratropium-albuterol 0.5 mg-3 mg(2.5 mg base)/3 mL Solution For Nebulization 3 ml INHALATION Q8H PRN (Reason: wheezing or sob) RF: 0 oxybutynin chloride 10 mg Tablet Extended Release 24hr 10 mg PO HS RF: 0 miconazole nitrate [Antifungal Cream (miconazole)] 2 % Cream 1 applic TOPICAL BID RF: 0 ondansetron HCl 4 mg Tablet 4 mg PO Q6H PRN (Reason: Nausea And Vomiting) RF: 0 guaifenesin 100 mg/5 mL Liquid 200 mg PO Q8H PRN (Reason: Cough) RF: 0 pantoprazole [Protonix] 20 mg Tablet,Delayed Release (Dr/Ec) 20 mg PO QAM RF: 0 levothyroxine [Synthroid] 100 mcg Tablet 100 mcg PO QAM RF: 0 magnesium hydroxide [Milk of Magnesia] 400 mg/5 mL Suspension 15 ml PO HS PRN (Reason: constipation ) RF: 0 ranitidine HCl 75 mg Tablet 150 mg PO HS RF: 0 bisacodyl [Dulcolax (bisacodyl)] 10 mg Suppository 10 mg AR DIRECTED PRN (Reason: Constipation) RF: 0 simvastatin 20 mg Tablet 20 mg PO HS RF: 0 perphenazine 4 mg Tablet 4 mg PO Q12H RF: 0 Enema 19-7 gram/118 mL Enema 118 ml AR QAM PRN (Reason: Constipation) RF: 0 multivitamin with minerals Tablet 1 tab PO QAM RF: 0 perphenazine 8 mg Tablet 8 mg PO Q12H RF: 0 clotrimazole 1 % Cream 1 applic TOPICAL BID RF: 0 medroxyprogesterone 150 mg/mL Suspension 150 mg IM .EVERY 90 DAYS RF: 0 aripiprazole 20 mg Tablet 20 mg PO HS RF: 0 temazepam 22.5 mg Capsule 22.5 mg PO HS RF: 0 cholecalciferol (vitamin D3) [Vitamin D3] 1,000 unit Tablet 1,000 unit PO DAILY RF: 0 aripiprazole 400 mg Suspension,Extended Rel Recon 400 mg IM MONTHLY RF: 0 Stand-Alone Forms: [facility] Discharge Orders: Discharge Order (Routine); Ordered 03/07/19 Ordered By: Pravin Bautista Skilled Items Patient informed of condition?: Yes DNR: No Discharge Level of Care: Skilled Communicable Disease: No Discharge Prognosis: Improving Admission Data Admit Date/Time: 03/03/19 15:54 Attending Provider: Shayne San Admit Provider: Tiffanie Aviles Primary Care Provider: [facility] Other Providers: Quincy Plummer II ; Tiffanie Aviles ; Armadno Casas Service: Telemetry Medical Other Interventions: Discharge Summary Assessment (RN) Last Done: 03/07/19 12:54 DC Date/Time DO NOT enter until pt leaves facility: 03/07/19 17:27 Supervising Physician Co-Signing Physician Notes I personally examined the patient and verified all casey points of history and exam, discussed case, and agree with decision making with Dr Bautista. Urinary tract infection/pyelonephritis/stone/sepsis/bacteremiaclinically seems overall to be improved. sensitivities noted - continue on rocephin. continue supportive care. will complete 14 days at SNF. hypoxia - uncertain etiology. resolved metabolic encephlopathy present on admission - improved dispo -will be discharged today.. Resident Activity Tracking Resident Involvement: Resident Care Provided Care Provided: Adult Hospital Medicine
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
[2019-03-10] MEDS ORDERED: MEDROXYPROGESTERONE ACETATE 150 MG/ML VIAL IM SCH (09:00)
[2019-03-10] MEDS ORDERED: ARIPIPRAZOLE 400 MG KIT IM SCH (09:00)
[2019-03-30] MEDS ORDERED: ARIPIPRAZOLE 400 MG KIT IM SCH (09:00)
== END 2019-03-07 17:27 | DRG 853 ==
LOC: ED 09:45 → ASU 12:32 → SUATTDRO 15:54 → 1E 15:54 → 2N 03-04 19:36
DX: Z88.5 Allergy status to narcotic agent; A41.9 Sepsis, unspecified organism; G80.9 Cerebral palsy, unspecified; Z88.0 Allergy status to penicillin; N13.9 Obstructive and reflux uropathy, unspecified; N20.1 Calculus of ureter; N17.9 Acute kidney failure, unspecified; F20.9 Schizophrenia, unspecified; J96.00 Acute respiratory failure, unspecified whether with hypoxia or hypercapnia; G93.41 Metabolic encephalopathy

== ENCOUNTER 2020-07-19 16:28 | Inpatient (IN) ==
[2020-07-19] MEDS ORDERED: SODIUM CHLORIDE 0.9% 1000ML 500 ML IV ONE (17:12)
[2020-07-19] MEDS ORDERED: SODIUM CHLORIDE 0.9% 1000ML 1,000 ML IV STA (17:12)
[2020-07-19 18:14] LABS: Basophils # (auto) 0.03 K/uL (0-0.2); Basophils % (auto) 0.4 %; Eosinophils # (auto) 0.24 K/uL (0-0.5); Eosinophils % (auto) 3.6 %; Hemoglobin 12.5 g/dL (12.0-16.0); Immature Granulocytes # (auto) 0.01 K/uL (0.00-0.02); Immature Granulocytes % (auto) 0.1 %; Lymphocytes # (auto) 2.15 K/uL (1.2-3.4); Lymphocytes % (auto) 32.1 %; Mean Corpuscular Hgb Conc 32.9 g/dL (32-36); Mean Corpuscular Volume 97.2 fL (80-100); Mean Platelet Volume 9.8 fL (7.4-10.4); Monocytes # (auto) 0.46 K/uL (0.11-0.59); Monocytes % (auto) 6.9 %; Neutrophils % (auto) 56.9 %; Platelet Count 322 K/uL (130-400); RDW Standard Deviation 48.5 fL (36.4-46.3); Red Blood Count 3.91 M/uL (4.2-5.4); White Blood Count 6.69 K/uL (4.8-10.8)
[2020-07-19 18:33] LABS: Albumin Level 2.9 gm/dl (3.4-5.0); BUN Creatinine Ratio 26.5 (10-20); Calcium 9.2 mg/dl (8.5-10.1); Creatinine Clr Calc Pharmacy 124.3 ml/min; Est GFR (African American) 126.3; Potassium 3.4 mmol/L (3.5-5.1)
[2020-07-19 18:36] LABS: Albumin Globulin Ratio 0.6 (0.9-2); Bilirubin,Total 0.2 mg/dl (0.2-1); Globulin 4.6 gm/dl (2.5-4.0); Total Protein 7.5 gm/dl (6.4-8.2)
--- NOTE | 2020-07-19 18:54 | CT Scan Report ---
CT SCAN OF THE ABDOMEN AND PELVIS WITHOUT CONTRAST CLINICAL HISTORY: Vomiting. History of kidney stones. Nonverbal patient. COMPARISON STUDY: 11/29/2019 TECHNIQUE: CT scan of the abdomen and pelvis was performed from the lung bases to the proximal femurs . Images are reviewed in the axial, sagittal, and coronal planes. IV contrast was not administered fo r this examination. A dose lowering technique was utilized adhering to the principles of ALARA. CT DOSE: 1176.44 mGy.cm FINDINGS: Lower chest: There are groundglass pulmonary opacities within the right middle lobe. The findings are suspicious for a pneumonitis. Correlation with Covid testing is recommended. Liver: The unenhanced liver is normal in size, contour, and attenuation. There is no intrahepatic akash iary ductal dilatation. Gallbladder: Cholelithiasis Spleen: Normal in size and attenuation. Pancreas: Unremarkable. Adrenal glands: Unremarkable. Kidneys: There are multiple bilateral renal calculi including staghorn calculi on the right. There is mild left-sided hydronephrosis. There is a 4 mm proximal left ureteral calculus. Bowel: There are no transition zones to indicate bowel obstruction. There is a moderate amount stool within the rectum. There is no evidence of acute diverticulitis. There is no evidence of acute append icitis. Peritoneum: There is no intraperitoneal free air or abdominal ascites. There is a moderate fat-contai norm umbilical hernia Vasculature: The abdominal aorta is normal in course and caliber. Adenopathy: None. Pelvic viscera: There is a small left-sided bladder calculus. Skeletal structures: No destructive osseous lesions are seen. IMPRESSION: 1. Right middle lobe airspace opacity suspicious for pneumonia. Correlation with Covid 19 testing is recommended 2. No evidence of bowel obstruction. No evidence of free air 3. Bilateral nephrolithiasis including right renal staghorn calculi 4. 4 mm proximal left ureteral calculus with secondary obstructive changes 5. Small left-sided bladder calculus 6. Cholelithiasis ACT 112: Negative or not required by law. Electronically signed by: Fausto Pederson M.D. 07/19/2020 6:53 PM
--- NOTE | 2020-07-19 19:31 | Emergency Department Note ---
Impression & Plan Ureterolithiasis, Staghorn calculus, Vomiting, Right middle lobe pneumonia ED Provider Note INFORMANT: Patient ED PROVIDER(S): Santana Garcia MD CHIEF COMPLAINT: Vomiting PLAN: Disposition: Admit Condition: Good MEDICAL DECISION MAKING: Patient presented for evaluation of vomiting and known history of kidney stone. She underwent a work-up which revealed an unremarkable CBC and chemistry panel. The scan a.m. and pelvis was performed and this showed a right-sided pneumonia as well as the left sided obstructing ureteral stone. The staghorn was unchanged from prior. Urinalysis is concerning for infection. The patient is difficult to examine and interview as she has significant disability. Given the findings treatment in the hospital was felt to be warranted. Broad-spectrum antibiotics were administered. She did receive fluids. The patient's case was discussed with Dr. Lu of urology. He will consult on the patient as she is not septic at this point no emergent intervention was recommended. I did discuss the case with Dr. [facility] Patient was evaluated in the ER and admitted. Triage Nursing notes reviewed and agree them. Additional history obtained from nursing solar panel installation supervisor at [facility]. Prior medical records reviewed regarding prior urology treatment. Vital Signs: reviewed and remarkable for no significant abnormalities Differential diagnosis: Renal colic, UTI, appendicitis, diverticulitis, mesenteric ischemia, aortic pathology, infections, inflammatory bowel disease, PUD, biliary pathology, as well as other pathologies. Diagnostics interpreted by me: Cardiac Monitoring: Cardiac monitoring ordered by me: The patient was placed on continuous cardiac monitoring and observed. It revealed a normal sinus rhythm at 88 beats per minute without ectopy or evidence of dysrhythmia. Imaging studies: CT scan of the abdomen pelvis as noted above. I refer to the EMR for further details Consultation(s): Allergy and internal medicine HPI: The patient is a 55 year old female with CP and developmental disability who presents to the Emergency Room with reports of intermittent vomiting. The patient apparently has had a known staghorn calculus that was to have a repeat CT scan performed but due to Covid issues this could not be completed. The nursing solar panel installation supervisor noted that the patient has been having intermittent vomiting over the last week. There has not been any reports of fever. The patient is minimally verbal due to her disabilities and therefore the history is limited. ROS: Limited secondary to disability PAST MEDICAL HISTORY:See Below, kidney stones, schizophrenia, cerebral palsy PAST SURGICAL HISTORY:See Below, FAMILY HISTORY:See Below SOCIAL HISTORY:See Below, resides at [facility] HOME MEDICATIONS:See Below ALLERGIES:See Below VITALS:See Below PHYSICAL EXAMINATION: GENERAL: Awake, alert, nontalk appearing, in no distress HENT: Normocephalic, atraumatic. Oropharynx unremarkable. EYES: Normal conjunctiva. Sclera non-icteric. NECK: Inspection normal. Non-tender. Supple. No nuchal rigidity. FROM. No masses. RESPIRATORY: Clear to auscultation. No wheezes. No rales. Normal respiratory effort. CARDIAC: Normal rate. Normal rhythm. No murmurs. No rubs. Extremities warm and well perfused. Pulses equal. No JVD. GI: Soft, non-distended. Mild left flank tenderness to palpation. No rebound or guarding. No masses. RECTAL: Deferred. MUSCULOSKELETAL: Atraumatic. Chest examination reveals no tenderness. The back is symmetrical on inspection without obvious abnormality. There is left CVA tenderness to palpation. No joint edema. LOWER EXTREMITIES: Calves are equal size bilaterally and non-tender. No edema. No discoloration. NEURO: Normal sensorium. No sensory or motor deficits noted. SKIN: No rash or jaundice noted. Santana Garcia MD Past Med/Surg History Medical History (Updated 07/19/20 @ 19:29 by Santana Garcia MD) Cerebral palsy Depression GERD (gastroesophageal reflux disease) Hyperlipidemia Hypokalemia Hypotension Hypothyroidism Insomnia Intermittent explosive disorder Kidney stone Obstructive uropathy Schizophrenia non-verbal Sepsis urosepsis 02/2019 s/p abx/cysto+ stent at [facility] Urinary incontinence Surgical History History of cystoscopy S/P ureteral stent placement cysto + right RPG + stent: 03/03/19: MAC sedation Social History Smoking Status: Unknown if ever smoked Second Hand Exposure: No; Hx Alcohol Use: No Hx Substance Use: No Preferred Language: Bahraini Communication Ability: Impaired Cis Coordinator Required: No Current Living Situation: Intermediate Current Living Situation Comment: [facility] Feels Safe at Home: Yes Assistive Devices: Glasses Allergies Allergies Allergy/AdvReac Type Severity Reaction Status Date / Time Penicillins Allergy Intermediate Unknown Verified 07/19/20 21:15 codeine Allergy Mild Unknown Verified 07/19/20 21:15 Home Meds Home Medications Medication Instructions Recorded Confirmed Enema 118 ml MT QAM PRN 03/03/19 07/19/20 acetaminophen 650 mg PO Q8H PRN MDD 3 GMS 03/03/19 07/19/20 APAP/24 HOURS bisacodyl [Dulcolax (bisacodyl)] 10 mg MT DIRECTED PRN 03/03/19 07/19/20 ondansetron HCl 4 mg PO Q6H PRN 03/03/19 07/19/20 magnesium hydroxide [Milk of 30 ml PO DAILY PRN 07/19/20 07/19/20 Magnesia] omeprazole 20 mg PO QAM 07/19/20 07/19/20 Results & Data (ED) Vital Signs Vital Signs - 24 hr 07/19/20 16:43 07/19/20 17:58 07/19/20 19:08 Temperature 36.8 C Temperature Source Oral Pulse Rate 85 91 H Pulse Rate [Right Finger] 87 Pulse Rate from SpO2 Sensor 90 Respiratory Rate 16 19 Respiratory Effort / Characteristics Respiratory Depth Respiratory Pattern Blood Pressure 141/94 H 109/83 Blood Pressure [Right Arm] 109/83 Blood Pressure Mean 109 99 Blood Pressure Mean [Right Arm] 91 Blood Pressure Position [Right Arm] Pulse Oximetry 98 98 97 Oxygen Delivery Method Room Air Room Air Room Air Sepsis Recent Fever Within 48 Hours No Sepsis New/Unexplained Change in Mental Status Yes Sepsis Action Taken by Nursing No Action Required 07/19/20 20:51 07/19/20 21:36 Temperature Temperature Source Pulse Rate Pulse Rate [Right Finger] 84 89 Pulse Rate from SpO2 Sensor Respiratory Rate 20 16 Respiratory Effort / Characteristics Non-Labored Spontaneous Non-Labored Spontaneous Respiratory Depth Normal Normal Respiratory Pattern Regular Regular Blood Pressure Blood Pressure [Right Arm] 133/98 151/93 H Blood Pressure Mean Blood Pressure Mean [Right Arm] 109 112 Blood Pressure Position [Right Arm] Lying Lying Pulse Oximetry 99 98 Oxygen Delivery Method Room Air Room Air Sepsis Recent Fever Within 48 Hours Sepsis New/Unexplained Change in Mental Status Sepsis Action Taken by Nursing Laboratory Data Result diagrams: 07/19/20 17:53 07/19/20 17:53 Lab Results 07/19/20 07/19/2007/19/20 Range/Units 17:53 17:53 19:38 WBC 6.69 (4.8-10.8) K/uL RBC 3.91 L (4.2-5.4) M/uL Hgb 12.5 (12.0-16.0) g/dL Hct 38.0 (37-47) % MCV 97.2 (80-100) fL MCH 32.0 (25-34) pg MCHC 32.9 (32-36) g/dL RDW Std Deviation 48.5 H (36.4-46.3) fL RDW Coeff of Roberto 14.0 (11.5-14.5) % Plt Count 322 (130-400) K/uL MPV 9.8 (7.4-10.4) fL Immature Gran % (Auto) 0.1 % Neut % (Auto) 56.9 % Lymph % (Auto) 32.1 % [place] % (Auto) 6.9 % Eos % (Auto) 3.6 % Baso % (Auto) 0.4 % Neut # (Auto) 3.80 (1.4-6.5) K/uL Lymph # (Auto) 2.15 (1.2-3.4) K/uL [place] # (Auto) 0.46 (0.11-0.59) K/uL Eos # (Auto) 0.24 (0-0.5) K/uL Baso # (Auto) 0.03 (0-0.2) K/uL Immature Gran # (Auto) 0.01 (0.00-0.02) K/uL Sodium 142 (136-145) mmol/L Potassium 3.4 L (3.5-5.1) mmol/L Chloride 108 H (98-107) mmol/L Carbon Dioxide 29 (21-32) mmol/L Anion Gap 5.0 (3-11) BUN 13 (7-18) mg/dl Creatinine 0.50 L (0.6-1.2) mg/dl Est Cr Clr Drug Dosing 124.3 ml/min Est GFR ( Amer) 126.3 Est GFR (Non-Af Amer) 109.0 BUN/Creatinine Ratio 26.5 H (10-20) Glucose 97 (70-99) mg/dl Calcium 9.2 (8.5-10.1) mg/dl Total Bilirubin 0.2 (0.2-1) mg/dl AST 26 (15-37) U/L ALT 27 (12-78) U/L Alkaline Phosphatase 64 (45-117) U/L Total Protein 7.5 (6.4-8.2) gm/dl Albumin 2.9 L (3.4-5.0) gm/dl Globulin 4.6 H (2.5-4.0) gm/dl Albumin/Globulin Ratio 0.6 L (0.9-2) Lipase 130 (73-393) U/L Urine Color Yellow Urine Appearance Slightly Cloudy (Clear) Urine pH 6.0 (4.5-7.5) Ur Specific [place] 1.025 (1.000-1.030) Urine Protein Trace H (Negative) Urine Glucose (UA) Negative (Negative) Urine Ketones Trace H (Negative) Urine Blood 1+ H (Negative) Urine Nitrite Positive A (Negative) Urine Bilirubin Negative (Negative) Urine Urobilinogen Negative (Negative) Ur Leukocyte Esterase 2+ H (Negative) Urine RBC 10-30 H (0-4) /hpf Urine WBC >30 H (0-5) /hpf Ur Epithelial Cells 5-10 H (0-5) /lpf Urine Bacteria 4+ H (Negative) Urine Mucus Present A (None Prsent) COVID-19 Eval Order SARS-CoV-2, RNA, NAAT (NEGATIVE) 07/19/20 07/19/20 Range/Units 19:42 19:42 WBC (4.8-10.8) K/uL RBC (4.2-5.4) M/uL Hgb (12.0-16.0) g/dL Hct (37-47) % MCV (80-100) fL MCH (25-34) pg MCHC (32-36) g/dL RDW Std Deviation (36.4-46.3) fL RDW Coeff of Roberto (11.5-14.5) % Plt Count (130-400) K/uL MPV (7.4-10.4) fL Immature Gran % (Auto) % Neut % (Auto) % Lymph % (Auto) % [place] % (Auto) % Eos % (Auto) % Baso % (Auto) % Neut # (Auto) (1.4-6.5) K/uL Lymph # (Auto) (1.2-3.4) K/uL [place] # (Auto) (0.11-0.59) K/uL Eos # (Auto) (0-0.5) K/uL Baso # (Auto) (0-0.2) K/uL Immature Gran # (Auto) (0.00-0.02) K/uL Sodium (136-145) mmol/L Potassium (3.5-5.1) mmol/L Chloride (98-107) mmol/L Carbon Dioxide (21-32) mmol/L Anion Gap (3-11) BUN (7-18) mg/dl Creatinine (0.6-1.2) mg/dl Est Cr Clr Drug Dosing ml/min Est GFR ( Amer) Est GFR (Non-Af Amer) BUN/Creatinine Ratio (10-20) Glucose (70-99) mg/dl Calcium (8.5-10.1) mg/dl Total Bilirubin (0.2-1) mg/dl AST (15-37) U/L ALT (12-78) U/L Alkaline Phosphatase (45-117) U/L Total Protein (6.4-8.2) gm/dl Albumin (3.4-5.0) gm/dl Globulin (2.5-4.0) gm/dl Albumin/Globulin Ratio (0.9-2) Lipase (73-393) U/L Urine Color Urine Appearance (Clear) Urine pH (4.5-7.5) Ur Specific [place] (1.000-1.030) Urine Protein (Negative) Urine Glucose (UA) (Negative) Urine Ketones (Negative) Urine Blood (Negative) Urine Nitrite (Negative) Urine Bilirubin (Negative) Urine Urobilinogen (Negative) Ur Leukocyte Esterase (Negative) Urine RBC (0-4) /hpf Urine WBC (0-5) /hpf Ur Epithelial Cells (0-5) /lpf Urine Bacteria (Negative) Urine Mucus (None Prsent) COVID-19 Eval Order Covid19 IDNow [facility] SARS-CoV-2, RNA, NAAT NEGATIVE (NEGATIVE) Administered Medications Sodium Chloride (Nss 1000ml) 1,000 mls @ 125 mls/hr IV .Q8H STA Stop: 11/26/20 01:11 Last Admin: 07/19/20 18:22 Dose: 125 mls/hr Documented by: [id number] Vancomycin HCl 1,500 mg/ (Sodium Chloride) 530 mls @ 200 mls/hr IV NOW ONE Stop: 07/19/20 23:46 Last Admin: 07/19/20 21:33 Dose: 200 mls/hr Documented by: [id number] Miscellaneous Information (Vancomycin Consult Active) 1 ea N/A UD PRN PRN Reason: Consult Stop: 08/18/20 21:07 Last Admin: 07/19/20 21:22 Dose: 1 ea Documented by: [id number] Discontinued Medications Sodium Chloride (Nss 1000ml) 500 mls @ 999 mls/hr IV .Q31M ONE Stop: 07/19/20 17:42 Last Infusion: 07/19/20 18:22 Dose: 0 mls/hr Documented by: [id number] Admin: 07/19/20 17:55 Dose: 999 mls/hr Documented by: [id number] Cefepime HCl (Maxipime) 2,000 mg in 20 mls @ 5 mls/min IV NOW STA; Protocol Stop: 07/19/20 21:11 Last Admin: 07/19/20 21:21 Dose: 5 mls/min Documented by: [id number] Discharge Plan Visit Data Chief Complaint: GI Assessment Stated Complaint: PT SENT FOR EVAL, STAFF DIDN'T GIVE EMS A REPORT ED Provider: Santana Garcia Discharge Problem: Ureterolithiasis, Staghorn calculus, Vomiting, Right middle lobe pneumonia Forms Stand Alone Forms: [facility] Prescriptions Prescriptions: No Action acetaminophen 325 mg Tablet 650 mg PO Q8H MDD 3 GMS APAP/24 HOURS PRN (Reason: Fever Or Pain) RF: 0 ondansetron HCl 4 mg Tablet 4 mg PO Q6H PRN (Reason: Nausea And Vomiting) RF: 0 bisacodyl [Dulcolax (bisacodyl)] 10 mg Suppository 10 mg MT DIRECTED PRN (Reason: Constipation) RF: 0 Enema 19-7 gram/118 mL Enema 118 ml MT QAM PRN (Reason: Constipation) RF: 0 omeprazole 20 mg capsule,delayed release(DR/EC) 20 mg PO QAM RF: 0 magnesium hydroxide [Milk of Magnesia] 400 mg/5 mL Suspension 30 ml PO DAILY PRN (Reason: Constipation) RF: 0
[2020-07-19 19:52] LABS: Appearance Urine Slightly Cloudy (Clear); Bilirubin Urine Negative (Negative); Blood Urine 1+ (Negative); Color Urine Yellow; Glucose Urine UA Negative (Negative); Ketones Urine Trace (Negative); Leukocyte Esterase Urine 2+ (Negative); Nitrite Urine Positive (Negative); Protein Urine Trace (Negative); Specific Gravity Urine 1.025 (1.000-1.030); Urobilinogen Urine Negative (Negative)
[2020-07-19 20:07] LABS: Bacteria Urine 4+ (Negative); Mucus Urine Present (None Prsent); WBC Urine >30 /hpf (0-5)
[2020-07-19] MEDS ORDERED: SODIUM CHLORIDE 0.9% 1000ML 1,000 ML IV ONE (21:03)
[2020-07-19] MEDS ORDERED: VANCOMYCIN HCL 1,500 MG in SODIUM CHLORIDE 0.9% 500 ML IV ONE (21:08)
[2020-07-19] MEDS ORDERED: CEFEPIME 2,000 MG/20 ML VIAL IV STA (21:08)
[2020-07-19] MEDS ORDERED: VANCOMYCIN CONSULT ACTIVE PRN (21:08)
--- NOTE | 2020-07-19 23:48 | History & Physical Report ---
Date of Service July 19, 2020 Assessment & Plan (1) Left ureteral calculus: 4 mm proximal left ureteral calculus with obstructive signs- N.p.o. Follow urine culture and sensitivity Cefepime 1 g IV every 12 hours NSS plus KCl 20 mEq at 100 mils per hour Consult urology Present on Admission?: Yes (2) Right middle lobe pneumonia: Continue vancomycin IV and cefepime IV as begun in the ED Present on Admission?: Yes (3) Schizophrenia: At baseline is nonverbal, unable to contribute to HPI or ROS, or related symptomatology Present on Admission?: Yes (4) Obstructive uropathy: As noted above Present on Admission?: Yes (5) Vomiting: Treat symptomatically with Zofran IV Present on Admission?: Yes (6) GERD (gastroesophageal reflux disease): Omeprazole 20 mg p.o. every morning or substitute pantoprazole 40 mg p.o. every morning Present on Admission?: Yes History of Present Illness Chief Complaint: The patient was sent to the emergency department from [facility] due to concern regarding intractable vomiting. Primary Care Provider: Eli Diaz The patient is a 55-year-old female resident of [facility], with past medical history including staghorn calculus, schizophrenia, obstructive uropathy, GERD, constipation and history of confusion. The patient was not able to contribute to her HPI or review of systems due to her underlying disability. She presented as a transfer due to intractable vomiting. Work-up in the emergency department included a urinalysis suggestive of UTI. CT abdomen and pelvis with a right middle lobe pneumonia, and 4 mm proximal left ureteral calculus with obstruction. In the emergency department the patient received vancomycin IV, cefepime IV and normal saline 1 L bolus, then 500 mL bolus and then normal saline at high 25 mils per hour. Allergies Allergy/AdvReac Type Severity Reaction Status Date / Time Penicillins Allergy Intermediate Unknown Verified 07/19/20 21:15 codeine Allergy Mild Unknown Verified 07/19/20 21:15 Home Medications Medication Instructions Recorded Confirmed Type Enema 118 ml WI QAM PRN 03/03/19 07/19/20 History acetaminophen 650 mg PO Q8H PRN MDD 3 GMS 03/03/19 07/19/20 History APAP/24 HOURS bisacodyl [Dulcolax (bisacodyl)] 10 mg WI DIRECTED PRN 03/03/19 07/19/20 History ondansetron HCl 4 mg PO Q6H PRN 03/03/19 07/19/20 History magnesium hydroxide [Milk of 30 ml PO DAILY PRN 07/19/20 07/19/20 History Magnesia] omeprazole 20 mg PO QAM 07/19/20 07/19/20 History Past Med/Surg History Medical History (Updated 07/20/20 @ 03:32 by Damian Kirkland MD) Cerebral palsy Depression GERD (gastroesophageal reflux disease) Hyperlipidemia Hypokalemia Hypotension Hypothyroidism Insomnia Intermittent explosive disorder Kidney stone Obstructive uropathy Schizophrenia non-verbal Sepsis urosepsis 02/2019 s/p abx/cysto+ stent at [facility] Urinary incontinence Surgical History History of cystoscopy S/P ureteral stent placement cysto + right RPG + stent: 03/03/19: MAC sedation Social History Smoking Status: Unknown if ever smoked Second Hand Exposure: No; Hx Alcohol Use: No Hx Substance Use: No Preferred Language: Serbian Communication Ability: Impaired Returns Supervisor Required: No Beliefs That Will Affect Care: None Current Living Situation: [facility] Current Living Situation Comment: [facility] Other Information That Helps Us Care for You: No Feels Safe at Home: Declines to Answer Assistive Devices: Glasses Review of Systems Review of Systems: Unobtainable due to mental health condition and Unobtainable due to cognitive status Physical Exam Physical Exam: The patient is awake, with baseline unresponsiveness, well developed and well nourished, normocephalic and atraumatic, lying in bed and in no acute distress. HEENT--PERRL, EOMI, mucous membranes and oropharynx dry. Neck--supple. No JVD. No bruits. Thyroid normal, trachea midline, no adenopathy. Heart--normal S1 and S2. No murmurs, rubs or gallops. Lungs--clear bilaterally, no respiratory distress, no accessory muscle use. Abdomen--normal bowel sounds and soft. Nontender. Nondistended. Extremities--no cyanosis or clubbing. No edema. Dermatologic--normal skin turgor, normal color, no abnormal lymph nodes, no rash. Neurologic--cranial nerves II through XII grossly intact. Rheumatologic--normal range of motion. Psychiatric--noted to be at baseline responsiveness Results & Data Results & Data ([facility]) Vital Signs (Past 12 Hours) Vital Signs Temp Pulse Pulse Resp BP BP Pulse Ox 07/19/20 23:38 93 H 20 151/99 H 99 07/19/20 21:36 89 16 151/93 H 98 07/19/20 20:51 84 20 133/98 99 07/19/20 19:08 91 H 87 19 109/83 109/83 97 07/19/20 17:58 98 07/19/20 16:43 98.2 F 85 16 141/94 H 98 Laboratory Results Laboratory Results WBC 6.69 K/uL (4.8-10.8) 07/19/20 17:53 RBC 3.91 M/uL (4.2-5.4) L 07/19/20 17:53 Hgb 12.5 g/dL (12.0-16.0) 07/19/20 17:53 Hct 38.0 % (37-47) 07/19/20 17:53 MCV 97.2 fL (80-100) 07/19/20 17:53 MCH 32.0 pg (25-34) 07/19/20 17:53 MCHC 32.9 g/dL (32-36) 07/19/20 17:53 RDW Std Deviation 48.5 fL (36.4-46.3) H 07/19/20 17:53 RDW Coeff of Roberto 14.0 % (11.5-14.5) 07/19/20 17:53 Plt Count 322 K/uL (130-400) 07/19/20 17:53 MPV 9.8 fL (7.4-10.4) 07/19/20 17:53 Immature Gran % (Auto) 0.1 % 07/19/20 17:53 Neut % (Auto) 56.9 % 07/19/20 17:53 Lymph % (Auto) 32.1 % 07/19/20 17:53 [place] % (Auto) 6.9 % 07/19/20 17:53 Eos % (Auto) 3.6 % 07/19/20 17:53 Baso % (Auto) 0.4 % 07/19/20 17:53 Neut # (Auto) 3.80 K/uL (1.4-6.5) 07/19/20 17:53 Lymph # (Auto) 2.15 K/uL (1.2-3.4) 07/19/20 17:53 [place] # (Auto) 0.46 K/uL (0.11-0.59) 07/19/20 17:53 Eos # (Auto) 0.24 K/uL (0-0.5) 07/19/20 17:53 Baso # (Auto) 0.03 K/uL (0-0.2) 07/19/20 17:53 Immature Gran # (Auto) 0.01 K/uL (0.00-0.02) 07/19/20 17:53 Sodium 142 mmol/L (136-145) 07/19/20 17:53 Potassium 3.4 mmol/L (3.5-5.1) L 07/19/20 17:53 Chloride 108 mmol/L (98-107) H 07/19/20 17:53 Carbon Dioxide 29 mmol/L (21-32) 07/19/20 17:53 Anion Gap 5.0 (3-11) 07/19/20 17:53 BUN 13 mg/dl (7-18) 07/19/20 17:53 Creatinine 0.50 mg/dl (0.6-1.2) L 07/19/20 17:53 Est Cr Clr Drug Dosing 124.3 ml/min 07/19/20 17:53 Est GFR ( Amer) 126.3 07/19/20 17:53 Est GFR (Non-Af Amer) 109.0 07/19/20 17:53 BUN/Creatinine Ratio 26.5 (10-20) H 07/19/20 17:53 Glucose 97 mg/dl (70-99) 07/19/20 17:53 Calcium 9.2 mg/dl (8.5-10.1) 07/19/20 17:53 Total Bilirubin 0.2 mg/dl (0.2-1) 07/19/20 17:53 AST 26 U/L (15-37) 07/19/20 17:53 ALT 27 U/L (12-78) 07/19/20 17:53 Alkaline Phosphatase 64 U/L (45-117) 07/19/20 17:53 Total Protein 7.5 gm/dl (6.4-8.2) 07/19/20 17:53 Albumin 2.9 gm/dl (3.4-5.0) L 07/19/20 17:53 Globulin 4.6 gm/dl (2.5-4.0) H 07/19/20 17:53 Albumin/Globulin Ratio 0.6 (0.9-2) L 07/19/20 17:53 Lipase 130 U/L (73-393) 07/19/20 17:53 Urine Color Yellow 07/19/20 19:38 Urine Appearance Slightly Cloudy (Clear) 07/19/20 19:38 Urine pH 6.0 (4.5-7.5) 07/19/20 19:38 Ur Specific [place] 1.025 (1.000-1.030) 07/19/20 19:38 Urine Protein Trace (Negative) H 07/19/20 19:38 Urine Glucose (UA) Negative (Negative) 07/19/20 19:38 Urine Ketones Trace (Negative) H 07/19/20 19:38 Urine Blood 1+ (Negative) H 07/19/20 19:38 Urine Nitrite Positive (Negative) A 07/19/20 19:38 Urine Bilirubin Negative (Negative) 07/19/20 19:38 Urine Urobilinogen Negative (Negative) 07/19/20 19:38 Ur Leukocyte Esterase 2+ (Negative) H 07/19/20 19:38 Urine RBC 10-30 /hpf (0-4) H 07/19/20 19:38 Urine WBC >30 /hpf (0-5) H 07/19/20 19:38 Ur Epithelial Cells 5-10 /lpf (0-5) H 07/19/20 19:38 Urine Bacteria 4+ (Negative) H 07/19/20 19:38 Urine Mucus Present (None Prsent) A 07/19/20 19:38 COVID-19 Eval [facility] 07/19/20 19:42 SARS-CoV-2, RNA, NAAT NEGATIVE (NEGATIVE) 07/19/20 19:42 Diagnostic Findings [facility], [phone] CT Scan Report Patient: KIN CRAIG AAdmit Date: 07/19/20#: [id number]: [id number] DRAcct ID:[id number]: HEARTHSIDEBirth Date: 1965City Zip: [place], [place] [address]Sfv: 55Location: EDSex: FRoom/Bed:Att Phy:Diagnosis: PT SENT FOR EVAL, STAFF DIDN'T GIVE EMS A REPORTPri Phy: Joe NittanyService Date: 07/19/20Fam Phy:Interpreting Phy: Fausto Pederson MDAdmit Phy: Ordering Phy: Santana Garcia MD cc: ~ CT SCAN OF THE ABDOMEN AND PELVIS WITHOUT CONTRAST CLINICAL HISTORY: Vomiting. History of kidney stones. Nonverbal patient. COMPARISON STUDY: 11/29/2019 TECHNIQUE: CT scan of the abdomen and pelvis was performed from the lung bases to the proximal femurs. Images are reviewed in the axial, sagittal, and coronal planes. IV contrast was not administered for this examination. A dose lowering technique was utilized adhering to the principles of ALARA. CT DOSE: 1176.44 mGy.cm FINDINGS: Lower chest: There are groundglass pulmonary opacities within the right middle lobe. The findings are suspicious for a pneumonitis. Correlation with Covid testing is recommended. Liver: The unenhanced liver is normal in size, contour, and attenuation. There is no intrahepatic biliary ductal dilatation. Gallbladder: Cholelithiasis Spleen: Normal in size and attenuation. Pancreas: Unremarkable. Adrenal glands: Unremarkable. Kidneys: There are multiple bilateral renal calculi including staghorn calculi on the right. There is mild left-sided hydronephrosis. There is a 4 mm proximal left ureteral calculus. Bowel: There are no transition zones to indicate bowel obstruction. There is a moderate amount stool within the rectum. There is no evidence of acute diverticulitis. There is no evidence of acute appendicitis. Peritoneum: There is no intraperitoneal free air or abdominal ascites. There is a moderate fat-containing umbilical hernia Vasculature: The abdominal aorta is normal in course and caliber. Adenopathy: None. Pelvic viscera: There is a small left-sided bladder calculus. Skeletal structures: No destructive osseous lesions are seen. IMPRESSION: 1. Right middle lobe airspace opacity suspicious for pneumonia. Correlation with Covid 19 testing is recommended 2. No evidence of bowel obstruction. No evidence of free air 3. Bilateral nephrolithiasis including right renal staghorn calculi 4. 4 mm proximal left ureteral calculus with secondary obstructive changes 5. Small left-sided bladder calculus 6. Cholelithiasis ACT 112: Negative or not required by law. Electronically signed by: Fausto Pederson M.D. 07/19/2020 6:53 PM Dictated: 07/19/201847Transcribed: 07/19/201847 Code Status & VTE Plan Code Status Full code VTE Prophylaxis Plan VTE Prophylaxis will be ordered: Yes PG Care Time/CCT Total # of Minutes Spent Total Time Spent with Patient: Total time spent is greater than 50% in coordination of care (as documented) at patient's floor/unit and/or counseling patient: Coding Level of Care Code 61260 Initial Inpt Care Lvl 2 Diagnoses Left ureteral calculus N20.1 Right middle lobe pneumonia J18.9 Schizophrenia F20.9 Schizophrenia type: unspecified Obstructive uropathy N13.9 Vomiting R11.10 GERD (gastroesophageal reflux disease) K21.9 (1) Schizophrenia Schizophrenia type: unspecified Qualified Code(s): F20.9 - Schizophrenia, unspecified
[2020-07-20] MEDS ORDERED: VANCOMYCIN CONSULT ACTIVE PRN (01:01)
[2020-07-20] MEDS ORDERED: CEFEPIME 1,000 MG in SYRINGE 0 ML IV SCH (01:01)
[2020-07-20] MEDS ORDERED: ACETAMINOPHEN 325 MG TAB PO PRN (01:01)
[2020-07-20] MEDS ORDERED: KETOROLAC TROMETHAMINE 15 MG/ML VIAL IV PRN (01:09)
[2020-07-20] MEDS: HYDROmorphone INJ 0.5 MG/0.5 ML SYR IV PRN ×4 (01:28→16:53)
[2020-07-20] MEDS: NSS + 20MEQ KCL 20 MEQ/1,000 ML BAG IV SCH ×3 (01:29→22:01)
[2020-07-20] MEDS: ACETAMINOPHEN 1,000 MG/100 ML VIAL IV PRN ×3 (02:56→23:46)
[2020-07-20] MEDS: VANCOMYCIN HCL 1,000 MG in SODIUM CHLORIDE 0.9% 250 ML IV SCH ×3 (04:57→22:02)
[2020-07-20] MEDS: CEFEPIME 2,000 MG in SYRINGE 0 ML IV SCH ×2 (08:04→20:31)
[2020-07-20 09:05] LABS: Hematocrit (blood only) 35.4 % (37-47); Hemoglobin 11.6 g/dL (12.0-16.0); Mean Corpuscular Hemoglobin 31.9 pg (25-34); Mean Corpuscular Hgb Conc 32.8 g/dL (32-36); Mean Corpuscular Volume 97.3 fL (80-100); Mean Platelet Volume 9.4 fL (7.4-10.4); Platelet Count 256 K/uL (130-400); RDW Standard Deviation 49.5 fL (36.4-46.3); Red Blood Count 3.64 M/uL (4.2-5.4); White Blood Count 6.72 K/uL (4.8-10.8)
[2020-07-20 09:49] LABS: BUN Creatinine Ratio 28.2 (10-20); Calcium 8.8 mg/dl (8.5-10.1); Creatinine Clr Calc Pharmacy 168.1 ml/min; Est GFR (African American) 139.4; Est GFR (Non-African American) 120.3; Potassium 3.3 mmol/L (3.5-5.1)
[2020-07-20 10:20] LABS: Folate (Folic Acid) 9.7 ng/ml (>5.38)
--- NOTE | 2020-07-20 10:58 | Pharmacy Report ---
Pharmacy Abx Dose Short Note - Date of Service July 20, 2020 - Assessment & Plan Assessment * Ms Yin is a 55 year old F receiving Vancomycin/Cefepime for treatment of PNA/UTI. * PMH is significant for obstructive uropathy, cerebral palsy. Pt is a resident at a ex[facility] supervisor care facility. Plan Vancomycin * Vancomycin 1500mg IV x1 dose in ED, then * Vanc 1000mg IV q8h * Patient's estimated p'kinetic parameters (based on CrCl 124mL/min): * Vd ~ 0.7L/kg Ke ~ 0.107/hr t1/2 ~ 6.5hr * Trough level ordered prior to the 4th overall dose. Cefepime 2gm IV q12h Pharmacy will continue to follow and will adjust dose/frequency as necessary. Thank you.
[2020-07-20] MEDS ORDERED: POTASSIUM ACETATE 10 MEQ in 0.9 % SODIUM CHLORIDE 100 ML IV SCH (11:30)
--- NOTE | 2020-07-20 11:30 | Urology Consultation ---
Date of Consultation July 20, 2020 Assessment & Plan (1) Nephrolithiasis: Assessment Bilateral renal stones and a 4 mm left ureterovesical junction stone. Currently the patient seems comfortable Showing no signs of sepsis We will check a KUB in the morning Stone is small enough to pass on its own We will make n.p.o. after midnight in case she needs to have a stent placed I did speak with the patient's sister who is able to sign consents for her I did talk to her about cystoscopy and stent placement if needed Consent is in the chart Sister did give verbal consent History of Present Illness Attending Physician: Ori Hurd History of Present Illness Patient is a 55-year-old white female with a history of cerebral palsy who is nonverbal who was sent to the emergency room from the home she lives in with nausea and vomiting. I am unable to get any history from the patient. She does have a history of nephrolithiasis having a ureteroscopy done in 2019. In the emergency room she had a CT scan done showing a 4 mm proximal left ureteral pelvic junction stone. Currently she is not complaining of any pain. She has had no fevers since she has been here. She has no signs of sepsis. She is on antibiotics currently for pneumonia. Allergies Allergy/AdvReac Type Severity Reaction Status Date / Time Penicillins Allergy Intermediate Unknown Verified 07/19/20 21:15 codeine Allergy Mild Unknown Verified 07/19/20 21:15 Home Medications Medication Instructions Recorded Confirmed Type Enema 118 ml DC QAM PRN 03/03/19 07/19/20 History acetaminophen 650 mg PO Q8H PRN MDD 3 GMS 03/03/19 07/19/20 History APAP/24 HOURS bisacodyl [Dulcolax (bisacodyl)] 10 mg DC DIRECTED PRN 03/03/19 07/19/20 History ondansetron HCl 4 mg PO Q6H PRN 03/03/19 07/19/20 History magnesium hydroxide [Milk of 30 ml PO DAILY PRN 07/19/20 07/19/20 History Magnesia] omeprazole 20 mg PO QAM 07/19/20 07/19/20 History Patient History Medical History (Updated 07/20/20 @ 11:36 by David Toth MD) Cerebral palsy Depression GERD (gastroesophageal reflux disease) Hyperlipidemia Hypokalemia Hypotension Hypothyroidism Insomnia Intermittent explosive disorder Kidney stone Nephrolithiasis Obstructive uropathy Schizophrenia non-verbal Sepsis urosepsis 02/2019 s/p abx/cysto+ stent at [facility] Urinary incontinence Surgical History History of cystoscopy S/P ureteral stent placement cysto + right RPG + stent: 03/03/19: MAC sedation Social History Smoking Status: Unknown if ever smoked Second Hand Exposure: No; Hx Alcohol Use: No Hx Substance Use: No Preferred Language: Arabic Communication Ability: Impaired 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: No Beliefs That Will Affect Care: None Current Living Situation: Group Home Current Living Situation Comment: [facility] Other Information That Helps Us Care for You: No Feels Safe at Home: Declines to Answer Assistive Devices: Glasses Physical Exam Physical Exam: Patient currently resting in bed in no acute distress Temperature 36.5 C Respiratory rate 18 Pulse a 67 Blood pressure 136/84 Lungs are clear to auscultation Cardiac shows regular rate and rhythm without murmur Abdomen soft nontender there is no masses or hepatosplenomegaly Extremities are without clubbing cyanosis or edema Back she has no flank tenderness Results & Data ([facility]) Vital Signs (Past 12 Hours) Vital Signs Temp Pulse Pulse Resp BP BP Pulse Ox 07/20/20 07:37 36.5 C 67 18 136/84 100 07/20/20 03:16 97 07/20/20 00:51 96 07/20/20 00:50 36.6 C 86 16 118/74 88 L 07/20/20 00:43 91 H 16 125/90 97 07/19/20 23:38 93 H 20 151/99 H 99 Laboratory Results Laboratory Results - last 24 hr 07/19/20 07/19/20 07/19/20 17:53 17:53 19:38 WBC 6.69 RBC 3.91 L Hgb 12.5 Hct 38.0 MCV 97.2 MCH 32.0 MCHC 32.9 RDW Std Deviation 48.5 H RDW Coeff of Roberto 14.0 Plt Count 322 MPV 9.8 Immature Gran % (Auto) 0.1 Neut % (Auto) 56.9 Lymph % (Auto) 32.1 [place] % (Auto) 6.9 Eos % (Auto) 3.6 Baso % (Auto) 0.4 Neut # (Auto) 3.80 Lymph # (Auto) 2.15 [place] # (Auto) 0.46 Eos # (Auto) 0.24 Baso # (Auto) 0.03 Immature Gran # (Auto) 0.01 Sodium 142 Potassium 3.4 L Chloride 108 H Carbon Dioxide 29 Anion Gap 5.0 BUN 13 Creatinine 0.50 L Est Cr Clr Drug Dosing 124.3 Est GFR ( Amer) 126.3 Est GFR (Non-Af Amer) 109.0 BUN/Creatinine Ratio 26.5 H Glucose 97 Calcium 9.2 Magnesium Total Bilirubin 0.2 AST 26 ALT 27 Alkaline Phosphatase 64 Total Protein 7.5 Albumin 2.9 L Globulin 4.6 H Albumin/Globulin Ratio 0.6 L Lipase 130 Vitamin B12 Folate Urine Color Yellow Urine Appearance Slightly Cloudy Urine pH 6.0 Ur Specific [place] 1.025 Urine Protein Trace H Urine Glucose (UA) Negative Urine Ketones Trace H Urine Blood 1+ H Urine Nitrite Positive A Urine Bilirubin Negative Urine Urobilinogen Negative Ur Leukocyte Esterase 2+ H Urine RBC 10-30 H Urine WBC >30 H Ur Epithelial Cells 5-10 H Urine Bacteria 4+ H Urine Mucus Present A Nasal Screen MRSA (PCR) COVID-19 Eval Order SARS-CoV-2, RNA, NAAT 07/19/20 07/19/20 07/20/20 19:42 19:42 05:13 WBC RBC Hgb Hct MCV MCH MCHC RDW Std Deviation RDW Coeff of Roberto Plt Count MPV Immature Gran % (Auto) Neut % (Auto) Lymph % (Auto) [place] % (Auto) Eos % (Auto) Baso % (Auto) Neut # (Auto) Lymph # (Auto) [place] # (Auto) Eos # (Auto) Baso # (Auto) Immature Gran # (Auto) Sodium Potassium Chloride Carbon Dioxide Anion Gap BUN Creatinine Est Cr Clr Drug Dosing Est GFR ( Amer) Est GFR (Non-Af Amer) BUN/Creatinine Ratio Glucose Calcium Magnesium Total Bilirubin AST ALT Alkaline Phosphatase Total Protein Albumin Globulin Albumin/Globulin Ratio Lipase Vitamin B12 Folate Urine Color Urine Appearance Urine pH Ur Specific [place] Urine Protein Urine Glucose (UA) Urine Ketones Urine Blood Urine Nitrite Urine Bilirubin Urine Urobilinogen Ur Leukocyte Esterase Urine RBC Urine WBC Ur Epithelial Cells Urine Bacteria Urine Mucus Nasal Screen MRSA (PCR) Negative COVID-19 Eval [facility] SARS-CoV-2, RNA, NAAT NEGATIVE 07/20/20 07/20/20 07/20/20 08:53 08:53 08:53 WBC 6.72 RBC 3.64 L Hgb 11.6 L Hct 35.4 L MCV 97.3 MCH 31.9 MCHC 32.8 RDW Std Deviation 49.5 H RDW Coeff of Roberto 14.0 Plt Count 256 MPV 9.4 Immature Gran % (Auto) Neut % (Auto) Lymph % (Auto) [place] % (Auto) Eos % (Auto) Baso % (Auto) Neut # (Auto) Lymph # (Auto) [place] # (Auto) Eos # (Auto) Baso # (Auto) Immature Gran # (Auto) Sodium 143 Potassium 3.3 L Chloride 113 H Carbon Dioxide 27 Anion Gap 3.0 BUN 10 Creatinine 0.37 L Est Cr Clr Drug Dosing 168.1 Est GFR ( Amer) 139.4 Est GFR (Non-Af Amer) 120.3 BUN/Creatinine Ratio 28.2 H Glucose 87 Calcium 8.8 Magnesium Total Bilirubin AST ALT Alkaline Phosphatase Total Protein Albumin Globulin Albumin/Globulin Ratio Lipase Vitamin B12 576 Folate 9.70 Urine Color Urine Appearance Urine pH Ur Specific [place] Urine Protein Urine Glucose (UA) Urine Ketones Urine Blood Urine Nitrite Urine Bilirubin Urine Urobilinogen Ur Leukocyte Esterase Urine RBC Urine WBC Ur Epithelial Cells Urine Bacteria Urine Mucus Nasal Screen MRSA (PCR) COVID-19 Eval Order SARS-CoV-2, RNA, NAAT 07/20/20 08:53 WBC RBC Hgb Hct MCV MCH MCHC RDW Std Deviation RDW Coeff of Roberto Plt Count MPV Immature Gran % (Auto) Neut % (Auto) Lymph % (Auto) [place] % (Auto) Eos % (Auto) Baso % (Auto) Neut # (Auto) Lymph # (Auto) [place] # (Auto) Eos # (Auto) Baso # (Auto) Immature Gran # (Auto) Sodium Potassium Chloride Carbon Dioxide Anion Gap BUN Creatinine Est Cr Clr Drug Dosing Est GFR ( Amer) Est GFR (Non-Af Amer) BUN/Creatinine Ratio Glucose Calcium Magnesium 1.9 Total Bilirubin AST ALT Alkaline Phosphatase Total Protein Albumin Globulin Albumin/Globulin Ratio Lipase Vitamin B12 Folate Urine Color Urine Appearance Urine pH Ur Specific [place] Urine Protein Urine Glucose (UA) Urine Ketones Urine Blood Urine Nitrite Urine Bilirubin Urine Urobilinogen Ur Leukocyte Esterase Urine RBC Urine WBC Ur Epithelial Cells Urine Bacteria Urine Mucus Nasal Screen MRSA (PCR) COVID-19 Eval Order SARS-CoV-2, RNA, NAAT Diagnostic Findings I reviewed her CAT scan she has bilateral renal stones and a 4 mm stone at the left ureteral pelvic junction PG Care Time/CCT Total # of Minutes Spent Total Time Spent with Patient: Total time spent is greater than 50% in coordination of care (as documented) at patient's floor/unit and/or counseling patient: Coding Level of Care Code 42980 Inpt Consult Level 3 Diagnoses Nephrolithiasis N20.0
--- NOTE | 2020-07-20 11:50 | Hospitalist Progress Note ---
Date of Service July 20, 2020 Assessment & Plan (1) Left ureteral calculus: * 4 mm proximal left ureteral calculus with obstructive signs- * N.p.o. for possible OR with Urology -- if no intervention, could order diet * Follow urine cx/s -- UA with positive nitrite, 2+ leuk esterase, 10-30 RBC, >30 WBC, 5-10 epi, 4+ bacteria * Continue cefepime IV for now * NSS + 20K @ 100cc/hr as patient * Urology consulted -- appreciate assistance * Continue supportive treatment and replace electrolytes as needed (2) Right middle lobe pneumonia: * See on CTA/P * Continue vancomycin IV and cefepime IV as begun in the ED * COVID 19 NEGATIVE * Supplemental O2 as needed -- 100% on 2L NC and will wean as tolerated * CXR in AM (3) Schizophrenia: * At baseline is nonverbal, unable to contribute to HPI or ROS, or related symptomatology * Not on any medications EDUCATION RN (4) Obstructive uropathy: * As noted above (5) Vomiting: * Treat symptomatically with Zofran IV (6) GERD (gastroesophageal reflux disease): * Utilizing protonix 40mg while inpatient (7) Hypokalemia: * K 3.4 and ordered IV replacement. Repeat 3.3 and will order additional replacement and repeat as needed * Mag 1.9 * BMP in AM Of note, recent Lyme testing with IgG positive no IgM. Unclear if ever with history of Lyme and will reach out to [facility] to see if she has ever been treated. If not, would treat with Doxy x30 days Dispo: awaiting Urology consultation -- may be able to pass stone by herself. Continue to treat for pneumonia. Patient from [facility]. CM following Admission and Anticipated Discharge Date Admission Date: July 19, 2020 Supervising Physician Co-Signing Physician Notes Attending Attestation- Chart reviewed, care plan d/w JARVIS Lopez. I agree w/ the casey components of her documentation. Ms Lopez and I discussed recent lyme testing. Lyme IgG SCREEN was positive. However, on western blot, both the IgG and IgM total antibodies were negative. 4 IgG bands likely old from previous infection. No Rx needed. Ori Hurd MD Subjective Patient evaluated this morning. Appears uncomfortable and states she has a hard time hearing. Will ask nursing to obtain language board for easier communication. Denies pain at this time or shortness of breath, chest pain, or nausea. No other issues reported at this time. Awaiting urology consultation regarding stone treatment today but if no intervention will feed. Review of Systems Review of Systems: All systems reviewed & are unremarkable except as noted in HPI & below and Unobtainable due to mental health condition Physical Exam Constitutional: WD/WN, vitals as above no acute distress and + uncomfortable Eyes: + anicteric sclerae and PERRL Neck: normal visual inspection and trachea midline Respiratory: normal respiratory effort, lungs clear to auscultation no labored breathing Auscultation: + diminished lung sounds and + crackles (RML); no rales and no wheezes Cardiovascular: RRR, no murmur, no edema Gastrointestinal (Abdomen): normal bowel sounds, soft, nontender, no hepatosplenomegaly Musculoskeletal: pain with movement -- patient states she is unable to move by herself at baseline Skin: warm, dry Neurologic: patellar DTR's 2+ bilat, sensation intact Psychiatric: Orientation: alert Genitourinary: no CVA tenderness appreciated Results & Data Results & Data ([facility]) Vital Signs (Past 12 Hours) Vital Signs Temp Pulse Pulse Resp BP BP Pulse Ox 07/20/20 07:37 36.5 C 67 18 136/84 100 07/20/20 03:16 97 07/20/20 00:51 96 07/20/20 00:50 36.6 C 86 16 118/74 88 L 07/20/20 00:43 91 H 16 125/90 97 Laboratory Results 07/20/20 07/20/20 07/20/20 Range/Units 08:53 08:53 08:53 WBC (4.8-10.8) K/uL RBC (4.2-5.4) M/uL Hgb (12.0-16.0) g/dL Hct (37-47) % MCV (80-100) fL MCH (25-34) pg MCHC (32-36) g/dL RDW Std Deviation (36.4-46.3) fL RDW Coeff of Roberto (11.5-14.5) % Plt Count (130-400) K/uL MPV (7.4-10.4) fL Immature Gran % (Auto) % Neut % (Auto) % Lymph % (Auto) % [place] % (Auto) % Eos % (Auto) % Baso % (Auto) % Neut # (Auto) (1.4-6.5) K/uL Lymph # (Auto) (1.2-3.4) K/uL [place] # (Auto) (0.11-0.59) K/uL Eos # (Auto) (0-0.5) K/uL Baso # (Auto) (0-0.2) K/uL Immature Gran # (Auto) (0.00-0.02) K/uL Sodium 143 (136-145) mmol/L Potassium 3.3 L (3.5-5.1) mmol/L Chloride 113 H (98-107) mmol/L Carbon Dioxide 27 (21-32) mmol/L Anion Gap 3.0 (3-11) BUN 10 (7-18) mg/dl Creatinine 0.37 L (0.6-1.2) mg/dl Est Cr Clr Drug Dosing 168.1 ml/min Est GFR ( Amer) 139.4 Est GFR (Non-Af Amer) 120.3 BUN/Creatinine Ratio 28.2 H (10-20) Glucose 87 (70-99) mg/dl Calcium 8.8 (8.5-10.1) mg/dl Magnesium 1.9 (1.8-2.4) mg/dl Total Bilirubin (0.2-1) mg/dl AST (15-37) U/L ALT (12-78) U/L Alkaline Phosphatase (45-117) U/L Total Protein (6.4-8.2) gm/dl Albumin (3.4-5.0) gm/dl Globulin (2.5-4.0) gm/dl Albumin/Globulin Ratio (0.9-2) Lipase (73-393) U/L Vitamin B12 576 (193-986) pg/ml Folate 9.70 (>5.38) ng/ml Urine Color Urine Appearance (Clear) Urine pH (4.5-7.5) Ur Specific [place] (1.000-1.030) Urine Protein (Negative) Urine Glucose (UA) (Negative) Urine Ketones (Negative) Urine Blood (Negative) Urine Nitrite (Negative) Urine Bilirubin (Negative) Urine Urobilinogen (Negative) Ur Leukocyte Esterase (Negative) Urine RBC (0-4) /hpf Urine WBC (0-5) /hpf Ur Epithelial Cells (0-5) /lpf Urine Bacteria (Negative) Urine Mucus (None Prsent) Nasal Screen MRSA (PCR) (Negative) COVID-19 Eval Order SARS-CoV-2, RNA, NAAT (NEGATIVE) 07/20/20 07/20/20 07/19/20 Range/Units 08:53 05:13 19:42 WBC 6.72 (4.8-10.8) K/uL RBC 3.64 L (4.2-5.4) M/uL Hgb 11.6 L (12.0-16.0) g/dL Hct 35.4 L (37-47) % MCV 97.3 (80-100) fL MCH 31.9 (25-34) pg MCHC 32.8 (32-36) g/dL RDW Std Deviation 49.5 H (36.4-46.3) fL RDW Coeff of Roberto 14.0 (11.5-14.5) % Plt Count 256 (130-400) K/uL MPV 9.4 (7.4-10.4) fL Immature Gran % (Auto) % Neut % (Auto) % Lymph % (Auto) % [place] % (Auto) % Eos % (Auto) % Baso % (Auto) % Neut # (Auto) (1.4-6.5) K/uL Lymph # (Auto) (1.2-3.4) K/uL [place] # (Auto) (0.11-0.59) K/uL Eos # (Auto) (0-0.5) K/uL Baso # (Auto) (0-0.2) K/uL Immature Gran # (Auto) (0.00-0.02) K/uL Sodium (136-145) mmol/L Potassium (3.5-5.1) mmol/L Chloride (98-107) mmol/L Carbon Dioxide (21-32) mmol/L Anion Gap (3-11) BUN (7-18) mg/dl Creatinine (0.6-1.2) mg/dl Est Cr Clr Drug Dosing ml/min Est GFR ( Amer) Est GFR (Non-Af Amer) BUN/Creatinine Ratio (10-20) Glucose (70-99) mg/dl Calcium (8.5-10.1) mg/dl Magnesium (1.8-2.4) mg/dl Total Bilirubin (0.2-1) mg/dl AST (15-37) U/L ALT (12-78) U/L Alkaline Phosphatase (45-117) U/L Total Protein (6.4-8.2) gm/dl Albumin (3.4-5.0) gm/dl Globulin (2.5-4.0) gm/dl Albumin/Globulin Ratio (0.9-2) Lipase (73-393) U/L Vitamin B12 (193-986) pg/ml Folate (>5.38) ng/ml Urine Color Urine Appearance (Clear) Urine pH (4.5-7.5) Ur Specific [place] (1.000-1.030) Urine Protein (Negative) Urine Glucose (UA) (Negative) Urine Ketones (Negative) Urine Blood (Negative) Urine Nitrite (Negative) Urine Bilirubin (Negative) Urine Urobilinogen (Negative) Ur Leukocyte Esterase (Negative) Urine RBC (0-4) /hpf Urine WBC (0-5) /hpf Ur Epithelial Cells (0-5) /lpf Urine Bacteria (Negative) Urine Mucus (None Prsent) Nasal Screen MRSA (PCR) Negative (Negative) COVID-19 Eval Order SARS-CoV-2, RNA, NAAT NEGATIVE (NEGATIVE) 07/19/20 07/19/20 07/19/20 Range/Units 19:42 19:38 17:53 WBC (4.8-10.8) K/uL RBC (4.2-5.4) M/uL Hgb (12.0-16.0) g/dL Hct (37-47) % MCV (80-100) fL MCH (25-34) pg MCHC (32-36) g/dL RDW Std Deviation (36.4-46.3) fL RDW Coeff of Roberto (11.5-14.5) % Plt Count (130-400) K/uL MPV (7.4-10.4) fL Immature Gran % (Auto) % Neut % (Auto) % Lymph % (Auto) % [place] % (Auto) % Eos % (Auto) % Baso % (Auto) % Neut # (Auto) (1.4-6.5) K/uL Lymph # (Auto) (1.2-3.4) K/uL [place] # (Auto) (0.11-0.59) K/uL Eos # (Auto) (0-0.5) K/uL Baso # (Auto) (0-0.2) K/uL Immature Gran # (Auto) (0.00-0.02) K/uL Sodium 142 (136-145) mmol/L Potassium 3.4 L (3.5-5.1) mmol/L Chloride 108 H (98-107) mmol/L Carbon Dioxide 29 (21-32) mmol/L Anion Gap 5.0 (3-11) BUN 13 (7-18) mg/dl Creatinine 0.50 L (0.6-1.2) mg/dl Est Cr Clr Drug Dosing 124.3 ml/min Est GFR ( Amer) 126.3 Est GFR (Non-Af Amer) 109.0 BUN/Creatinine Ratio 26.5 H (10-20) Glucose 97 (70-99) mg/dl Calcium 9.2 (8.5-10.1) mg/dl Magnesium (1.8-2.4) mg/dl Total Bilirubin 0.2 (0.2-1) mg/dl AST 26 (15-37) U/L ALT 27 (12-78) U/L Alkaline Phosphatase 64 (45-117) U/L Total Protein 7.5 (6.4-8.2) gm/dl Albumin 2.9 L (3.4-5.0) gm/dl Globulin 4.6 H (2.5-4.0) gm/dl Albumin/Globulin Ratio 0.6 L (0.9-2) Lipase 130 (73-393) U/L Vitamin B12 (193-986) pg/ml Folate (>5.38) ng/ml Urine Color Yellow Urine Appearance Slightly Cloudy (Clear) Urine pH 6.0 (4.5-7.5) Ur Specific [place] 1.025 (1.000-1.030) Urine Protein Trace H (Negative) Urine Glucose (UA) Negative (Negative) Urine Ketones Trace H (Negative) Urine Blood 1+ H (Negative) Urine Nitrite Positive A (Negative) Urine Bilirubin Negative (Negative) Urine Urobilinogen Negative (Negative) Ur Leukocyte Esterase 2+ H (Negative) Urine RBC 10-30 H (0-4) /hpf Urine WBC >30 H (0-5) /hpf Ur Epithelial Cells 5-10 H (0-5) /lpf Urine Bacteria 4+ H (Negative) Urine Mucus Present A (None Prsent) Nasal Screen MRSA (PCR) (Negative) COVID-19 Eval [facility] SARS-CoV-2, RNA, NAAT (NEGATIVE) 07/19/20 Range/Units 17:53 WBC 6.69 (4.8-10.8) K/uL RBC 3.91 L (4.2-5.4) M/uL Hgb 12.5 (12.0-16.0) g/dL Hct 38.0 (37-47) % MCV 97.2 (80-100) fL MCH 32.0 (25-34) pg MCHC 32.9 (32-36) g/dL RDW Std Deviation 48.5 H (36.4-46.3) fL RDW Coeff of Roberto 14.0 (11.5-14.5) % Plt Count 322 (130-400) K/uL MPV 9.8 (7.4-10.4) fL Immature Gran % (Auto) 0.1 % Neut % (Auto) 56.9 % Lymph % (Auto) 32.1 % [place] % (Auto) 6.9 % Eos % (Auto) 3.6 % Baso % (Auto) 0.4 % Neut # (Auto) 3.80 (1.4-6.5) K/uL Lymph # (Auto) 2.15 (1.2-3.4) K/uL [place] # (Auto) 0.46 (0.11-0.59) K/uL Eos # (Auto) 0.24 (0-0.5) K/uL Baso # (Auto) 0.03 (0-0.2) K/uL Immature Gran # (Auto) 0.01 (0.00-0.02) K/uL Sodium (136-145) mmol/L Potassium (3.5-5.1) mmol/L Chloride (98-107) mmol/L Carbon Dioxide (21-32) mmol/L Anion Gap (3-11) BUN (7-18) mg/dl Creatinine (0.6-1.2) mg/dl Est Cr Clr Drug Dosing ml/min Est GFR ( Amer) Est GFR (Non-Af Amer) BUN/Creatinine Ratio (10-20) Glucose (70-99) mg/dl Calcium (8.5-10.1) mg/dl Magnesium (1.8-2.4) mg/dl Total Bilirubin (0.2-1) mg/dl AST (15-37) U/L ALT (12-78) U/L Alkaline Phosphatase (45-117) U/L Total Protein (6.4-8.2) gm/dl Albumin (3.4-5.0) gm/dl Globulin (2.5-4.0) gm/dl Albumin/Globulin Ratio (0.9-2) Lipase (73-393) U/L Vitamin B12 (193-986) pg/ml Folate (>5.38) ng/ml Urine Color Urine Appearance (Clear) Urine pH (4.5-7.5) Ur Specific [place] (1.000-1.030) Urine Protein (Negative) Urine Glucose (UA) (Negative) Urine Ketones (Negative) Urine Blood (Negative) Urine Nitrite (Negative) Urine Bilirubin (Negative) Urine Urobilinogen (Negative) Ur Leukocyte Esterase (Negative) Urine RBC (0-4) /hpf Urine WBC (0-5) /hpf Ur Epithelial Cells (0-5) /lpf Urine Bacteria (Negative) Urine Mucus (None Prsent) Nasal Screen MRSA (PCR) (Negative) COVID-19 Eval Order SARS-CoV-2, RNA, NAAT (NEGATIVE) Diagnostic Findings CT Abdomen/Pelvis IMPRESSION: 1. Right middle lobe airspace opacity suspicious for pneumonia. Correlation with Covid 19 testing is recommended 2. No evidence of bowel obstruction. No evidence of free air 3. Bilateral nephrolithiasis including right renal staghorn calculi 4. 4 mm proximal left ureteral calculus with secondary obstructive changes 5. Small left-sided bladder calculus 6. Cholelithiasis PG Care Time/CCT Total # of Minutes Spent Total Time Spent with Patient: Total time spent is greater than 50% in coordination of care (as documented) at patient's floor/unit and/or counseling patient: Coding Level of Care Code 55079 Subseq Hosp Care Lvl 2 Diagnoses Left ureteral calculus N20.1 Right middle lobe pneumonia J18.9 Schizophrenia F20.9 Schizophrenia type: unspecified Obstructive uropathy N13.9 Vomiting R11.10 GERD (gastroesophageal reflux disease) K21.9 Hypokalemia E87.6 (1) Schizophrenia Schizophrenia type: unspecified Qualified Code(s): F20.9 - Schizophrenia, unspecified
[2020-07-20] MEDS: POTASSIUM CHLORIDE / WTR 10 MEQ/100 ML PLCT IV SCH ×2 (13:10→14:19)
[2020-07-20] MEDS: PANTOprazole 40 MG TAB PO SCH (13:17)
[2020-07-20] MEDS ORDERED: DOXYCYCLINE HYCLATE 100 MG in DEXTROSE 5% 100 ML IV SCH (14:15)
[2020-07-20] MEDS: ONDANSETRON INJ 2 MG/ML 2 ML VIAL IV PRN ×2 (16:53→23:43)
[2020-07-20] MEDS ORDERED: PROMETHAZINE HCL 6.25 MG in SODIUM CHLORIDE 0.9% 50 ML IV PRN (18:25)
[2020-07-20] MEDS ORDERED: VANCOMYCIN TROUGH ONE (21:30)
[2020-07-21] MEDS: HYDROmorphone INJ 0.5 MG/0.5 ML SYR IV PRN ×3 (02:43→12:45)
--- NOTE | 2020-07-21 04:42 | Urology Progress Note ---
Date of Service July 21, 2020 Assessment & Plan (1) Nephrolithiasis: Assessment Left ureteral calculus Since the patient continues to have persistent symptoms will need to go to the OR today for a cystoscopy and left ureteral stent placement I have discussed the procedure risks and benefits with the patient's sister who has given her consent verbally for the procedure. Admission and Anticipated Discharge Date Admission Date: July 19, 2020 Subjective Patient currently resting in bed Had several episodes of vomiting earlier this morning He was medicated with Dilaudid for flank pain Vital signs Temp 36.5/pulse 98/respiratory rate 16/blood pressure 130/81 KUB is pending Results & Data ([facility]) Vital Signs (Past 12 Hours) Vital Signs Temp Pulse Pulse Resp BP Pulse Ox Pulse Ox 07/21/20 02:35 98 H 97 07/20/20 23:12 36.5 C 90 16 130/81 98 07/20/20 20:45 86 99 PG Care Time/CCT Total # of Minutes Spent Total Time Spent with Patient: Total time spent is greater than 50% in coordination of care (as documented) at patient's floor/unit and/or counseling patient: Coding Level of Care Code 12873 Subseq Hosp Care Lvl 1 Diagnoses Nephrolithiasis N20.0
[2020-07-21] MEDS: VANCOMYCIN HCL 1,000 MG in SODIUM CHLORIDE 0.9% 250 ML IV SCH (06:10)
[2020-07-21] MEDS: NSS + 20MEQ KCL 20 MEQ/1,000 ML BAG IV SCH ×2 (07:14→19:41)
[2020-07-21 07:42] LABS: Basophils # (auto) 0.04 K/uL (0-0.2); Basophils % (auto) 0.6 %; Eosinophils # (auto) 0.27 K/uL (0-0.5); Eosinophils % (auto) 3.9 %; Hematocrit (blood only) 35.2 % (37-47); Hemoglobin 11.4 g/dL (12.0-16.0); Immature Granulocytes # (auto) 0.01 K/uL (0.00-0.02); Immature Granulocytes % (auto) 0.1 %; Lymphocytes # (auto) 1.52 K/uL (1.2-3.4); Lymphocytes % (auto) 21.9 %; Mean Corpuscular Hemoglobin 31.7 pg (25-34); Mean Corpuscular Hgb Conc 32.4 g/dL (32-36); Mean Corpuscular Volume 97.8 fL (80-100); Mean Platelet Volume 9.4 fL (7.4-10.4); Monocytes # (auto) 0.54 K/uL (0.11-0.59); Monocytes % (auto) 7.8 %; Neutrophils # (auto) 4.55 K/uL (1.4-6.5); Neutrophils % (auto) 65.7 %; Platelet Count 274 K/uL (130-400); RDW Coefficient of Variation 13.9 % (11.5-14.5); RDW Standard Deviation 49.4 fL (36.4-46.3); White Blood Count 6.93 K/uL (4.8-10.8)
--- NOTE | 2020-07-21 07:54 | Hospitalist Progress Note ---
Date of Service July 21, 2020 Assessment & Plan (1) Left ureteral calculus: * 4 mm proximal left ureteral calculus with obstructive signs- * Follow urine cx/s -- UA with positive nitrite, 2+ leuk esterase, 10-30 RBC, >30 WBC, 5-10 epi, 4+ bacteria * Continue cefepime IV for now. Cx with pin-point growth, re-incubating -- follow * NSS + 20K @ 100cc/hr * Zofran, Phenergan for nausea * Urology consulted -- appreciate assistance * KUB with no change in 4mm stone proximal L ureter, b/l nephrolithiasis (hx struvite and urate stones 2019) * US Renal with mild L hydro, extensive nephrolithiasis * CXR with faint opacity RML -- atelectasis vs pneumonia. Continue incentive * NPO for OR today with Urology for persistent symptoms (2) Right middle lobe pneumonia: * See on CTA/P * Continue vancomycin IV and cefepime IV as begun in the ED * COVID 19 NEGATIVE * Supplemental O2 as needed -- 97% on RA * CXR with atelectasis vs pneumonia. Continue cefepime as above given negative nasal swab for MRSA. 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 Unclear if ever with history of Lyme and will reach out to [facility] to see if she has ever been treated * --> positive on screening but NEGATIVE on WESTERN BLOT Hypothyroidism * Hx noted although not on supplementation. TSH elevated 7.940 although T4 wnl 1.16 -- likely reactive but would have patient recheck outpatient given elevated levels in the past Vitamin D deficiency * Hx of but not on supplementations * Vit D level low low at 26.8 and will give 50,000 weekly for 4 weeks and have patient repeat levels outpatient Dispo: OR today for stone Continue to treat for pneumonia. Patient from [facility]. CM following -- will need repeat COVID testing prior to discharge Admission and Anticipated Discharge Date Admission Date: July 19, 2020 Subjective Patient evaluated this morning. Several episodes of emesis last night (150 + 500cc) after consuming apple juice. Nothing since this morning reported. Patient does mention something about a condition that causes her to vomit and also conveyed similar to nursing staff. Pain to abdomen, left sided primarily but denies need for pain medication at this time. Plans for OR this morning with Urology for treatment of L calculi. Review of Systems Review of Systems: All systems reviewed & are unremarkable except as noted in HPI & below Physical Exam Constitutional: WD/WN, vitals as above no acute distress and + uncomfortable using Rezee board for communication, non-verbal at baseline per records Eyes: + anicteric sclerae and PERRL ENMT: mmm, no erythema no thrush noted hard of hearing -- utilizing white board Neck: normal visual inspection and trachea midline Respiratory: normal respiratory effort, lungs clear to auscultation no labored breathing Auscultation: + diminished lung sounds and + crackles (RML); no rales and no wheezes Cardiovascular: RRR, no murmur, no edema Gastrointestinal (Abdomen): normal bowel sounds, soft, nontender, no hepatosplenomegaly Musculoskeletal: Head/Neck/Chest: normocephalic and head atraumatic Skin: warm, dry Neurologic: patellar DTR's 2+ bilat, sensation intact Psychiatric: Orientation: alert Genitourinary: bronson draining clear yellow urine Results & Data Results & Data ([facility]) Vital Signs (Past 12 Hours) Vital Signs Temp Pulse Pulse Resp BP Pulse Ox Pulse Ox 07/21/20 07:38 36.9 C 78 16 138/84 98 07/21/20 02:35 98 H 97 07/20/20 23:12 36.5 C 90 16 130/81 98 07/20/20 20:45 86 99 Laboratory Results 07/21/20 07/21/20 07/21/20 Range/Units 07:11 07:11 07:11 WBC 6.93 (4.8-10.8) K/uL RBC 3.60 L (4.2-5.4) M/uL Hgb 11.4 L (12.0-16.0) g/dL Hct 35.2 L (37-47) % MCV 97.8 (80-100) fL MCH 31.7 (25-34) pg MCHC 32.4 (32-36) g/dL RDW Std Deviation 49.4 H (36.4-46.3) fL RDW Coeff of Roberto 13.9 (11.5-14.5) % Plt Count 274 (130-400) K/uL MPV 9.4 (7.4-10.4) fL Immature Gran % (Auto) 0.1 % Neut % (Auto) 65.7 % Lymph % (Auto) 21.9 % Gray % (Auto) 7.8 % Eos % (Auto) 3.9 % Baso % (Auto) 0.6 % Neut # (Auto) 4.55 (1.4-6.5) K/uL Lymph # (Auto) 1.52 (1.2-3.4) K/uL Gray # (Auto) 0.54 (0.11-0.59) K/uL Eos # (Auto) 0.27 (0-0.5) K/uL Baso # (Auto) 0.04 (0-0.2) K/uL Immature Gran # (Auto) 0.01 (0.00-0.02) K/uL Sodium (136-145) mmol/L Potassium (3.5-5.1) mmol/L Chloride (98-107) mmol/L Carbon Dioxide (21-32) mmol/L Anion Gap (3-11) BUN (7-18) mg/dl Creatinine (0.6-1.2) mg/dl Est Cr Clr Drug Dosing ml/min Est GFR ( Amer) Est GFR (Non-Af Amer) BUN/Creatinine Ratio (10-20) Glucose (70-99) mg/dl Calcium (8.5-10.1) mg/dl Magnesium (1.8-2.4) mg/dl Vitamin B12 (193-986) pg/ml 25-OH Vitamin D Total Pending Folate (>5.38) ng/ml TSH PTH Intact Pending Vancomycin Trough (See Comment) mcg/ml 07/21/20 07/20/20 07/20/20 Range/Units 07:11 21:47 08:53 WBC (4.8-10.8) K/uL RBC (4.2-5.4) M/uL Hgb (12.0-16.0) g/dL Hct (37-47) % MCV (80-100) fL MCH (25-34) pg MCHC (32-36) g/dL RDW Std Deviation (36.4-46.3) fL RDW Coeff of Roberto (11.5-14.5) % Plt Count (130-400) K/uL MPV (7.4-10.4) fL Immature Gran % (Auto) % Neut % (Auto) % Lymph % (Auto) % Gray % (Auto) % Eos % (Auto) % Baso % (Auto) % Neut # (Auto) (1.4-6.5) K/uL Lymph # (Auto) (1.2-3.4) K/uL Gray # (Auto) (0.11-0.59) K/uL Eos # (Auto) (0-0.5) K/uL Baso # (Auto) (0-0.2) K/uL Immature Gran # (Auto) (0.00-0.02) K/uL Sodium Pending (136-145) mmol/L Potassium Pending (3.5-5.1) mmol/L Chloride Pending (98-107) mmol/L Carbon Dioxide Pending (21-32) mmol/L Anion Gap Pending (3-11) BUN Pending (7-18) mg/dl Creatinine Pending (0.6-1.2) mg/dl Est Cr Clr Drug Dosing Pending ml/min Est GFR ( Amer) Pending Est GFR (Non-Af Amer) Pending BUN/Creatinine Ratio Pending (10-20) Glucose Pending (70-99) mg/dl Calcium Pending (8.5-10.1) mg/dl Magnesium 1.9 (1.8-2.4) mg/dl Vitamin B12 (193-986) pg/ml 25-OH Vitamin D Total Folate (>5.38) ng/ml TSH Pending PTH Intact Vancomycin Trough 22.8 (See Comment) mcg/ml 07/20/20 07/20/20 07/20/20 Range/Units 08:53 08:53 08:53 WBC 6.72 (4.8-10.8) K/uL RBC 3.64 L (4.2-5.4) M/uL Hgb 11.6 L (12.0-16.0) g/dL Hct 35.4 L (37-47) % MCV 97.3 (80-100) fL MCH 31.9 (25-34) pg MCHC 32.8 (32-36) g/dL RDW Std Deviation 49.5 H (36.4-46.3) fL RDW Coeff of Roberto 14.0 (11.5-14.5) % Plt Count 256 (130-400) K/uL MPV 9.4 (7.4-10.4) fL Immature Gran % (Auto) % Neut % (Auto) % Lymph % (Auto) % Gray % (Auto) % Eos % (Auto) % Baso % (Auto) % Neut # (Auto) (1.4-6.5) K/uL Lymph # (Auto) (1.2-3.4) K/uL Gray # (Auto) (0.11-0.59) K/uL Eos # (Auto) (0-0.5) K/uL Baso # (Auto) (0-0.2) K/uL Immature Gran # (Auto) (0.00-0.02) K/uL Sodium 143 (136-145) mmol/L Potassium 3.3 L (3.5-5.1) mmol/L Chloride 113 H (98-107) mmol/L Carbon Dioxide 27 (21-32) mmol/L Anion Gap 3.0 (3-11) BUN 10 (7-18) mg/dl Creatinine 0.37 L (0.6-1.2) mg/dl Est Cr Clr Drug Dosing 168.1 ml/min Est GFR ( Amer) 139.4 Est GFR (Non-Af Amer) 120.3 BUN/Creatinine Ratio 28.2 H (10-20) Glucose 87 (70-99) mg/dl Calcium 8.8 (8.5-10.1) mg/dl Magnesium (1.8-2.4) mg/dl Vitamin B12 576 (193-986) pg/ml 25-OH Vitamin D Total Folate 9.70 (>5.38) ng/ml TSH PTH Intact Vancomycin Trough (See Comment) mcg/ml Diagnostic Findings Renal US IMPRESSION: 1. No significant change in mild left hydronephrosis. Proximal left ureteral calculus on CT of July 19, 2020 not visualized on this exam although may be occult by sonography. 2. Extensive right-sided nephrolithiasis. Several left renal calculi. CXR IMPRESSION: Faint patchy airspace opacity within the right middle lobe which may represent atelectasis or pneumonia. KUB IMPRESSION: No change in the 4 mm stone within the proximal left ureter and bilateral n ephrolithiasis. PG Care Time/CCT Total # of Minutes Spent Total Time Spent with Patient: Total time spent is greater than 50% in coordination of care (as documented) at patient's floor/unit and/or counseling patient: Coding Level of Care Code 24060 Subseq Hosp Care Lvl 3 Diagnoses Left ureteral calculus N20.1 Right middle lobe pneumonia J18.9 Schizophrenia F20.9 Schizophrenia type: unspecified Obstructive uropathy N13.9 Vomiting R11.10 GERD (gastroesophageal reflux disease) K21.9 Hypokalemia E87.6 (1) Schizophrenia Schizophrenia type: unspecified Qualified Code(s): F20.9 - Schizophrenia, unspecified
[2020-07-21 08:05] LABS: BUN Creatinine Ratio 15.2 (10-20); Calcium 8.4 mg/dl (8.5-10.1); Creatinine Clr Calc Pharmacy 172.8 ml/min; Est GFR (African American) 140.7; Est GFR (Non-African American) 121.4; Potassium 3.6 mmol/L (3.5-5.1)
[2020-07-21 08:28] LABS: Thyroid Stimulating Hormone 7.94 uIu/ml (0.300-4.500)
--- NOTE | 2020-07-21 08:50 | Ultrasound Report ---
RENAL ULTRASOUND CLINICAL HISTORY: Obstruction. COMPARISON STUDY: CT of the abdomen and pelvis July 19, 2020. TECHNIQUE: Sonography of the kidneys and the urinary bladder was performed. FINDINGS: Right kidney measures 10.9 cm maximal dimension and the left measures 12.7 cm. Extensive ri ght-sided renal calculi are noted with staghorn configuration. Several left renal calculi are noted. There is mild left hydronephrosis. This is similar to prior CT. Ureteral calculus shown on CT of [facility] 2019 is not visualized although this may be occult given technique. Bladder is collapsed, co ntaining a Sanchez catheter. IMPRESSION: 1. No significant change in mild left hydronephrosis. Proximal left ureteral calculus on CT of [facility] 2019 not visualized on this exam although may be occult by sonography. 2. Extensive right-sided nephrolithiasis. Several left renal calculi. ACT 112: Negative or not required by law. Electronically signed by: Ousmane Mcmillan M.D. 07/21/2020 8:48 AM
[2020-07-21] MEDS ORDERED: ERGOCALCIFEROL 50,000 UNITS 1250 MCG CAP PO SCH (09:00)
[2020-07-21 09:04] LABS: T4 Free Thyroxine 1.16 ng/dl (0.8-1.6)
--- NOTE | 2020-07-21 09:04 | XRay Report ---
XR chest 2V PA/lateral HISTORY: Shortness of breath. COMPARISON: Chest 11/29/2019. FINDINGS: There are low lung volumes. The heart remains mildly enlarged. No pleural effusions. No pne umothorax. Best seen on the lateral view there is suggestion of a faint patchy airspace opacity withi n the right middle lobe. This may represent atelectasis or pneumonia. Mild diffuse interstitial thick ening, unchanged. This is likely chronic. IMPRESSION: Faint patchy airspace opacity within the right middle lobe which may represent atelectasis or pneumon ia. ACT 112: Negative or not required by law. Electronically signed by: Jayson Adams M.D. 07/21/2020 9:03 AM
--- NOTE | 2020-07-21 09:12 | XRay Report ---
KUB HISTORY: Follow-up left ureteral calculi. COMPARISON: Abdomen and pelvis CT 07/19/2020. FINDINGS: The bowel gas pattern is unremarkable. There are no dilated loops of small bowel to suggest an obstruction. No change in the 4 mm stone within the proximal left ureter at the level of the L3 transverse process. Bilateral nephrolithiasis is again noted. No pneumoperitoneum or pneumatosis. Cho lelithiasis. IMPRESSION: No change in the 4 mm stone within the proximal left ureter and bilateral nephrolithiasis. ACT 112: Negative or not required by law. Electronically signed by: Jayson Adams M.D. 07/21/2020 9:11 AM
[2020-07-21] MEDS ORDERED: LIDOCAINE HCL 2% 2 ML VIAL/AMP(20MG/ML) INFIL ONE (09:54)
[2020-07-21] MEDS ORDERED: KETOROLAC 30 MG/ML VIAL ONE (09:54)
[2020-07-21] MEDS ORDERED: ONDANSETRON INJ 2 MG/ML 2 ML VIAL ONE (09:54)
[2020-07-21] MEDS ORDERED: PROPOFOL IV EMULSION 10 MG/ML 20 ML VIAL IV ONE (09:54)
[2020-07-21] MEDS: CEFEPIME 2,000 MG in SYRINGE 0 ML IV SCH (09:59)
--- NOTE | 2020-07-21 10:24 | History & Physical Bridge Note ---
Date of Service July 21, 2020 History & Physical Bridge Note I have examined the patient, reviewed the History & Physical and in the interval since the performance of the History & Physical I have noted the following changes of clinical significance: no changes noted No considerable change in stone on KUB Plan for cystoscopy with left stent.
--- NOTE | 2020-07-21 10:44 | Anesthesiology Consultation ---
Date of Service July 21, 2020 Covid 19 negative on 07/19/20. Assessment & Plan (1) Encounter for pre-operative examination: Chart Review Chart Review: Acceptable Risk for Surgery and Patient NOT seen in Pre Admission Testing Consults Requested none History Surgery Operation Date: 07/21/20 08:50 Proposed Procedures p Cystoscopy, Left Stent Insertion - Quincy Plummer, Height/Weight Height: 5 ft 5 in Weight: 69.5 kg Allergies Allergy/AdvReac Type Severity Reaction Status Date / Time Penicillins Allergy Intermediate Unknown Verified 07/19/20 21:15 codeine Allergy Mild Unknown Verified 07/19/20 21:15 Medications Home Medications Medication Instructions Recorded Confirmed Last Taken Enema 118 ml IN QAM PRN 03/03/19 07/19/20 Unknown acetaminophen 650 mg PO Q8H PRN MDD 3 GMS 03/03/19 07/19/20 07/14/20 APAP/24 HOURS FOR PAIN bisacodyl [Dulcolax (bisacodyl)] 10 mg IN DIRECTED PRN 03/03/19 07/19/20 07/07/20 ondansetron HCl 4 mg PO Q6H PRN 03/03/19 07/19/20 03/26/19 magnesium hydroxide [Milk of 30 ml PO DAILY PRN 07/19/20 07/19/20 07/08/20 Magnesia] omeprazole 20 mg PO QAM 07/19/20 07/19/20 07/19/20 05:00 Active Medications Generic Name Dose Route Start Last Admin Trade Name Freq PRN Reason Stop Dose Admin Hydromorphone HCl 0.5 mg 07/20/20 01:11 07/21/20 06:18 Hydromorphone Inj 0.5 Mg/0.5 Ml Syr IV 08/03/20 01:10 0.5 mg Q3H PRN Administration Pain Potassium Chloride/Sodium Chloride 20 meq in 1,000 mls @ 100 mls/hr 07/20/20 01:01 07/21/20 07:14 Normal Saline W/20 Meq Kcl IV 08/19/20 01:00 100 mls/hr .Q10H NOE Administration Acetaminophen 1,000 mg in 100 mls @ 400 mls/hr 07/20/20 01:08 07/21/20 00:01 Ofirmev IV 07/23/20 01:07 Infused Q8H PRN Infusion As Needed for Fever or Pain Cefepime HCl 2,000 mg/ Syringe 20 mls @ 5 mls/min 07/20/20 09:00 07/21/20 09:59 IV 07/30/20 08:59 5 mls/min Q12H NOE Administration Ondansetron HCl 4 mg 07/20/20 01:01 07/20/20 23:43 Ondansetron Inj 2 Mg/Ml 2 Ml Vial IV 08/19/20 01:00 4 mg Q6H PRN Administration Nausea Pantoprazole Sodium 40 mg 07/20/20 12:15 07/20/20 13:17 Pantoprazole 40 Mg Tab PO 08/19/20 12:14 40 mg QAM NOE Administration NPO Last Intake of Fluids Comment: patient is nonverbal, per nurse on floor, NPO since midnight Past Medical History Medical History Cerebral palsy Depression GERD (gastroesophageal reflux disease) Hyperlipidemia Hypokalemia Hypotension Hypothyroidism Insomnia Intermittent explosive disorder Kidney stone Nephrolithiasis Obstructive uropathy Schizophrenia non-verbal Sepsis urosepsis 02/2019 s/p abx/cysto+ stent at [facility] Urinary incontinence Past Surgical History Surgical History History of cystoscopy S/P ureteral stent placement cysto + right RPG + stent: 03/03/19: MAC sedation Social History Smoking Status: Unknown if ever smoked Hx Alcohol Use: No Hx Substance Use: No substance use type: does not use Physical Exam Vital Signs Last Vital Signs Temp 36.8 C 07/21/20 10:33 Pulse 95 H 07/21/20 10:33 Resp 18 07/21/20 10:33 BP 122/86 07/21/20 10:33 Pulse Ox 97 07/21/20 10:33 Testing Laboratory Results 07/21/20 07:11 07/21/20 07:11 Urine Color Yellow 07/19/20 19:38 Urine Appearance Slightly Cloudy (Clear) 07/19/20 19:38 Urine pH 6.0 (4.5-7.5) 07/19/20 19:38 Ur Specific [place] 1.025 (1.000-1.030) 07/19/20 19:38 Urine Protein Trace (Negative) H 07/19/20 19:38 Urine Glucose (UA) Negative (Negative) 07/19/20 19:38 Urine Ketones Trace (Negative) H 07/19/20 19:38 Urine Nitrite Positive (Negative) A 07/19/20 19:38 Ur Leukocyte Esterase 2+ (Negative) H 07/19/20 19:38 Urine RBC 10-30 /hpf (0-4) H 07/19/20 19:38 Urine WBC >30 /hpf (0-5) H 07/19/20 19:38 Ur Epithelial Cells 5-10 /lpf (0-5) H 07/19/20 19:38 07/19/20 19:38 Urine Culture - Preliminary Urine,Straight Cath Gram negative bacilli Gram negative bacilli#2
[2020-07-21] MEDS ORDERED: ONDANSETRON INJ 2 MG/ML 2 ML VIAL IV PRN (10:47)
[2020-07-21] MEDS ORDERED: ePHEDrine sulfate 50 MG/ML AMP IV PRN (10:47)
[2020-07-21] MEDS ORDERED: PHENYLEPHRINE 100MCG/ML 5ML SYR IV PRN (10:47)
[2020-07-21] MEDS ORDERED: LABETALOL HCL IV 5 MG/ML 20ML IV PRN (10:47)
[2020-07-21] MEDS ORDERED: ATROPINE SULFATE 0.1 MG/ML 10ML SYR IV PRN (10:47)
[2020-07-21] MEDS ORDERED: fentaNYL citrate 100 MCG/2 ML VIAL IV PRN (10:47)
[2020-07-21] MEDS: PANTOprazole 40 MG TAB PO SCH (11:01)
[2020-07-21] MEDS ORDERED: fentaNYL citrate 100 MCG/2 ML VIAL ONE (11:08)
--- NOTE | 2020-07-21 11:44 | Operative Report ---
PG Post Operative Report Pre & Post Diagnosis Operation Date: 07/21/20 11:15 Pre-Op Diagnosis: LEFT URETERAL CALCULUS W/ OBSTRUCTION Post-Op Diagnosis: LEFT URETERAL CALCULUS W/ OBSTRUCTION I identified the patient and participated in the time-out.: Yes Procedure Operation Date: 07/21/20 11:15 Actual Procedures p Cystoscopy, Left Stent Insertion, Retrograde Pyelogram(Left) - Quincy Plumemr DO Surgeon Quincy Plummer, II, DO Parts Sales Manager None Estimated Blood Loss 1 Findings Consistent with Post-Op Diagnosis Stent placed in good position. Blood in vaginal vault and external genitalia . Specimens None Drains 6 Fr Multilength 16 Fr Bronson Anesthesia Type MAC Complications none Disposition Disposition: Recovery Room Indications Patient with obstruction. Risks and benefits discussed at length. Description of Procedure Patient was consented and brought back to the operating room. Patient was placed under anesthesia in the supine position and moved to the dorsal lithotomy position. Patient was prepped and draped in the regular sterile fashion. A time out was completed. A 30degree Cystoscope was placed into the bladder and the entire bladder was examined. The UO's were identified. The UO was cannulized with a catheter and a retrograde pyelogram was completed. A wire was then placed. With the wire in place, a 6 Fr Double J stent was placed. It was confirmed with fluoroscopy. With the stent in place, the bladder was emptied. The scope was removed. A 16 Fr bronson was placed. The patient was cleaned, aroused from anesthesia, and transferred to the pacu in stable condition having tolerated the procedure well with no complications. I was present and participated in all aspects of the procedure. The patient will be monitored in the PACU until transferred. I attest to the content of the Intraoperative Record and any orders documented therein. Any exceptions are noted below.
--- NOTE | 2020-07-21 12:04 | Anesthesiology Progress Note ---
Date of Service July 21, 2020 Anesthesia Post Procedure Vital Signs Vital Signs: Temp Pulse Pulse Pulse Resp BP Pulse Ox 07/21/20 12:00 36.4 C L 80 16 153/81 H 99 07/21/20 11:51 36.4 C L 92 H 16 163/91 H 93 07/21/20 10:33 36.8 C 95 H 18 122/86 97 07/21/20 07:38 36.9 C 78 16 138/84 98 07/21/20 02:35 98 H 07/20/20 23:12 36.5 C 90 16 130/81 98 07/20/20 20:45 86 07/20/20 15:30 36.5 C 78 16 131/84 98 Pulse Ox 07/21/20 12:00 07/21/20 11:51 07/21/20 10:33 07/21/20 07:38 07/21/20 02:35 97 07/20/20 23:12 07/20/20 20:45 99 07/20/20 15:30 Pain Intensity Left Flank: Pain Intensity: 2 Transfer of Care Handoff Completed per policy Notes Mental Status: alert / awake / arousable Patient Amnestic to Procedure: Yes Nausea / Vomiting: adequately controlled Pain: adequately controlled Airway Patency, RR, SpO2: stable & adequate BP & HR: stable & adequate Hydration State: stable & adequate Anesthetic Complications: no major complications apparent and Pt Satisfied with anesthetic care Notes: The patient is awake and stable at her baseline.
--- NOTE | 2020-07-21 12:13 | Fluoroscopy Report ---
FL retrograde includes kub CLINICAL HISTORY: Left ureteral stent placement. COMPARISON STUDY: None. FLUOROSCOPY TIME: 1 minute and 10 seconds. FINDINGS: 4 fluoroscopic spot images of the left abdomen were submitted. There is retrograde opacific ation of the left renal collecting system and left ureter. This is followed by placement of a left ur eteral stent which appears in good position. IMPRESSION: Fluoroscopy provided for left ureteral stent placement. ACT 112: Negative or not required by law. Electronically signed by: Jayson Adams M.D. 07/21/2020 12:11 PM
[2020-07-21] MEDS: LACTATED RINGER'S 1,000 ML IV SCH (12:42)
[2020-07-21] MEDS: ERTAPENEM SODIUM 1,000 MG in SODIUM CHLORIDE 0.9% 50 ML IV SCH (13:55)
[2020-07-21] MEDS ORDERED: VANCOMYCIN HCL 1,000 MG in SODIUM CHLORIDE 0.9% 250 ML IV SCH (18:00)
[2020-07-22] MEDS: NSS + 20MEQ KCL 20 MEQ/1,000 ML BAG IV SCH ×3 (04:21→16:15)
[2020-07-22 07:13] LABS: Basophils # (auto) 0.03 K/uL (0-0.2); Basophils % (auto) 0.2 %; Eosinophils # (auto) 0.11 K/uL (0-0.5); Eosinophils % (auto) 0.8 %; Hematocrit (blood only) 34.9 % (37-47); Hemoglobin 11.3 g/dL (12.0-16.0); Immature Granulocytes # (auto) 0.04 K/uL (0.00-0.02); Immature Granulocytes % (auto) 0.3 %; Lymphocytes # (auto) 1.15 K/uL (1.2-3.4); Lymphocytes % (auto) 8.4 %; Mean Corpuscular Hemoglobin 31.7 pg (25-34); Mean Corpuscular Hgb Conc 32.4 g/dL (32-36); Mean Corpuscular Volume 97.8 fL (80-100); Mean Platelet Volume 10.1 fL (7.4-10.4); Monocytes # (auto) 0.69 K/uL (0.11-0.59); Neutrophils # (auto) 11.73 K/uL (1.4-6.5); Neutrophils % (auto) 85.3 %; Platelet Count 284 K/uL (130-400); RDW Coefficient of Variation 14.3 % (11.5-14.5); Red Blood Count 3.57 M/uL (4.2-5.4); White Blood Count 13.75 K/uL (4.8-10.8)
[2020-07-22 07:30] LABS: Albumin Level 2.1 gm/dl (3.4-5.0); BUN Creatinine Ratio 7.2 (10-20); Calcium 8.4 mg/dl (8.5-10.1); Creatinine Clr Calc Pharmacy 132.4 ml/min; Est GFR (African American) 128.9; Est GFR (Non-African American) 111.2; Potassium 3.1 mmol/L (3.5-5.1)
[2020-07-22 07:33] LABS: Albumin Globulin Ratio 0.6 (0.9-2); Bilirubin,Total 0.3 mg/dl (0.2-1); Globulin 3.7 gm/dl (2.5-4.0); Total Protein 5.8 gm/dl (6.4-8.2)
[2020-07-22] MEDS: HYDROmorphone INJ 0.5 MG/0.5 ML SYR IV PRN ×2 (08:08→20:08)
[2020-07-22] MEDS: PANTOprazole 40 MG TAB PO SCH ×2 (08:10→20:22)
[2020-07-22] MEDS ORDERED: POTASSIUM CHLORIDE 20 MEQ/15 ML UDC PO STA (08:21)
[2020-07-22] MEDS: LACTATED RINGER'S 1,000 ML IV SCH (12:57)
[2020-07-22] MEDS: ERTAPENEM SODIUM 1,000 MG in SODIUM CHLORIDE 0.9% 50 ML IV SCH (13:02)
--- NOTE | 2020-07-22 17:24 | Hospitalist Progress Note ---
Date of Service July 22, 2020 Assessment & Plan (1) Left ureteral calculus: * 4 mm proximal left ureteral calculus with obstructive signs- * Follow urine cx/s -- UA with positive nitrite, 2+ leuk esterase, 10-30 RBC, >30 WBC, 5-10 epi, 4+ bacteria - growing Ecoli species x 2 * Continue Ertapenem - patient has history of E coli ESBL * NSS + 20K @ 100cc/hr * Zofran, Phenergan for nausea * Urology consulted -- appreciate assistance * KUB with no change in 4mm stone proximal L ureter, b/l nephrolithiasis (hx struvite and urate stones 2018) * US Renal with mild L hydro, extensive nephrolithiasis * CXR with faint opacity RML -- atelectasis vs pneumonia. Continue incentive * s/p left stent insertion and cystoscopy 07/21 (2) Right middle lobe pneumonia: * See on CTA/P * Continue Ertapenem * COVID 19 NEGATIVE * Supplemental O2 as needed -- 97% on RA * Given negative nasal swab for MRSA. 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 Unclear if ever with history of Lyme and will reach out to [facility] to see if she has ever been treated * --> positive on screening but NEGATIVE on WESTERN BLOT Hypothyroidism * Hx noted although not on supplementation. TSH elevated 7.940 although T4 wnl 1.16 -- likely reactive but would have patient recheck outpatient given elevated levels in the past Vitamin D deficiency * Hx of but not on supplementations * Vit D level low low at 26.8 and will give 50,000 weekly for 4 weeks and have patient repeat levels outpatient Patient from [facility]. CM following -- will need repeat COVID testing prior to discharge Admission and Anticipated Discharge Date Admission Date: July 19, 2020 Subjective Ms Yin continues to be nauseas with vomiting this morning. She indicates that she is having some difficulty swallowing with burning in her throat. She is also having pain in her left pinky toe. Sister Tiera updated over the phone Review of Systems Constitutional: no fever, no chills and no body aches Respiratory: no cough and no dyspnea Cardiovascular: no chest pain and no palpitations Gastrointestinal: as per Subjective / HPI Genitourinary: no dysuria and no urinary hesitancy Musculoskeletal: no back pain and no joint pain Integumentary: no rash Physical Exam Physical Exam: General: no distress Eyes: normal inspection, PERLL Respiratory: chest non tender, clear to auscultation, normal breath sounds, no respiratory distress, no accessory muscle use Cardiac: regular rate and rhythm, no rub or gallop, no murmur, no edema, no jvd GI/: active bowel sounds, no abd pain or tenderness, soft, non distended Extremities: normal range of motion, normal strength, non tender, left knee with mild erythema and no edema Neuro/Psych: alert and oriented x 3, normal mood and affect, deaf - communicates with short words and signs Skin: normal color, dry, thickened toenails Results & Data Results & Data ([facility]) Vital Signs (Past 12 Hours) Vital Signs Temp Pulse Resp BP Pulse Ox 07/22/20 07:10 36.6 C 108 H 18 123/72 99 PG Care Time/CCT Total # of Minutes Spent Total Time Spent with Patient: Total time spent is greater than 50% in coordination of care (as documented) at patient's floor/unit and/or counseling patient: Coding Level of Care Code 86118 Subseq Hosp Care Lvl 3 Diagnoses Left ureteral calculus N20.1 Right middle lobe pneumonia J18.9 Schizophrenia F20.9 Schizophrenia type: unspecified Obstructive uropathy N13.9 Vomiting R11.10 GERD (gastroesophageal reflux disease) K21.9 Hypokalemia E87.6 (1) Schizophrenia Schizophrenia type: unspecified Qualified Code(s): F20.9 - Schizophrenia, unspecified
[2020-07-23] MEDS: NSS + 20MEQ KCL 20 MEQ/1,000 ML BAG IV SCH ×2 (01:54→11:34)
[2020-07-23] MEDS: HYDROmorphone INJ 0.5 MG/0.5 ML SYR IV PRN (03:09)
--- NOTE | 2020-07-23 08:22 | Electrocardiogram Report ---
Test Reason : Blood Pressure : / mmHG Vent. Rate : 115 BPM Atrial Rate : 115 BPM P-R Int : 122 ms QRS Dur : 078 ms QT Int : 324 ms P-R-T Axes : 008 006 028 degrees QTc Int : 448 ms Poor data quality, interpretation may be adversely affected Sinus tachycardia Otherwise normal ECG When compared with ECG of 29-NOV-2019 17:12, No significant change was found Confirmed by Leopoldo Dey ([id number]) on 07/23/2020 8:22:10 AM Referred By: Eli Diaz Confirmed By:Leopoldo Dey
[2020-07-23] MEDS ORDERED: ENOXAPARIN INJ 40 MG/0.4 ML SYR SQ SCH (09:00)
[2020-07-23] MEDS: PANTOprazole 40 MG TAB PO SCH (09:09)
--- NOTE | 2020-07-23 09:38 | Gastrointestinal Consultation ---
Date of Consultation July 23, 2020 Supervising Physician Co-Signing Physician Notes 55 yo fm with schizophrenia, admitted through the Er 4 days ago for vomiting, found to have a left kidney stone s/p stenting also on abx for a uti. GI consulted for ? dysphagia, vomiting. At the current time, no current indication she is having difficulty swallowing though she is a poor historian. PPI daily- can increase to bid if concerns of dysphagia. Follow speech recommendations for diet. She's not clinically vomiting for me this morning - it's like her recent uti/kidney stone may have also contributed. If she has mild gastritis - ppi will help this. No plans for an egd at this time. History of Present Illness Reason for Consultation: Reported vomiting Requesting Physician: Svetlana Underwood Attending Physician: Ryan Johnson DO History of Present Illness 55 yo fm with schizophrenia, limited historian, christelle in thru the ER on 07/19/20 for reported vomiting. Work-up through the ER showed a left kidney stone, underwent stenting yesterday. GI consulted at the request of Svetlana Underwood for reports of dysphagia and vomiting. This morning no visible vomiting noted, no reports of dysphagia though she is a poor historian. She has never been seen by [facility] GI before or had any prior scopes. She appears to be recovering from her stent. No further history could be obtained. Covid - Allergies Allergy/AdvReac Type Severity Reaction Status Date / Time Penicillins Allergy Intermediate Unknown Verified 07/19/20 21:15 codeine Allergy Mild Unknown Verified 07/19/20 21:15 Home Medications Medication Instructions Recorded Confirmed Type Enema 118 ml IN QAM PRN 03/03/19 07/19/20 History acetaminophen 650 mg PO Q8H PRN MDD 3 GMS 03/03/19 07/19/20 History APAP/24 HOURS bisacodyl [Dulcolax (bisacodyl)] 10 mg IN DIRECTED PRN 03/03/19 07/19/20 History ondansetron HCl 4 mg PO Q6H PRN 03/03/19 07/19/20 History magnesium hydroxide [Milk of 30 ml PO DAILY PRN 07/19/20 07/19/20 History Magnesia] omeprazole 20 mg PO QAM 07/19/20 07/19/20 History Patient History Medical History Cerebral palsy Depression GERD (gastroesophageal reflux disease) Hyperlipidemia Hypokalemia Hypotension Hypothyroidism Insomnia Intermittent explosive disorder Kidney stone Nephrolithiasis Obstructive uropathy Schizophrenia non-verbal Sepsis urosepsis 02/2019 s/p abx/cysto+ stent at [facility] Urinary incontinence Surgical History History of cystoscopy S/P ureteral stent placement cysto + right RPG + stent: 03/03/19: MAC sedation Social History Smoking Status: Unknown if ever smoked Second Hand Exposure: No; Hx Alcohol Use: No Hx Substance Use: No Preferred Language: German Communication Ability: Impaired 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 Beliefs That Will Affect Care: None Current Living Situation: Skilled Nursing Current Living Situation Comment: [facility] Other Information That Helps Us Care for You: No Feels Safe at Home: Declines to Answer Assistive Devices: None Review of Systems Review of Systems: All systems reviewed & are unremarkable except as noted in HPI & below Physical Exam Physical Exam: Obese fm in nad, moaning in general Constitutional: WD/WN, vitals as above well developed and well nourished; no acute distress Eyes: PERRL, conjunctivae normal, anicteric sclerae Gastrointestinal (Abdomen): normal bowel sounds, soft, nontender, no hepatosplenomegaly Though she moans at times when palpating Neurologic: PERRL, EOMI, accommodation nl, no face palsy, no dysarthria Limited ability to communicate in words Results & Data ([facility]) Vital Signs (Past 12 Hours) Vital Signs Temp Pulse Resp BP Pulse Ox 07/23/20 07:04 36.9 C 105 H 18 122/82 98 07/22/20 23:30 37.1 C 108 H 20 142/[address] imaging Surgery note reviewed
[2020-07-23] MEDS: LACTATED RINGER'S 1,000 ML IV SCH (10:56)
[2020-07-23] MEDS: ERTAPENEM SODIUM 1,000 MG in SODIUM CHLORIDE 0.9% 50 ML IV SCH (13:27)
--- NOTE | 2020-07-23 13:37 | Discharge Summary ---
Date of Service July 23, 2020 Admission HPI Per Admitting Provider The patient is a 55-year-old female resident of [facility], with past medical history including staghorn calculus, schizophrenia, obstructive uropathy, GERD, constipation and history of confusion. The patient was not able to contribute to her HPI or review of systems due to her underlying disability. She presented as a transfer due to intractable vomiting. Work-up in the emergency department included a urinalysis suggestive of UTI. CT abdomen and pelvis with a right middle lobe pneumonia, and 4 mm proximal left ureteral calculus with obstruction. In the emergency department the patient received vancomycin IV, cefepime IV and normal saline 1 L bolus, then 500 mL bolus and then normal saline at high 25 mils per hour. Principal Diagnosis Kidney stone Discharge Exam Constitutional WD/WN, vitals as above Respiratory normal respiratory effort, lungs clear to auscultation Cardiovascular RRR, no murmur, no edema Gastrointestinal (Abdomen) normal bowel sounds, soft, nontender, no hepatosplenomegaly Musculoskeletal generalized weakness Skin no rashes, warm and dry Neurologic moves all extremities and awake Psychiatric Reports she does not want to talk today Discharge Data Allergies Allergy/AdvReac Type Severity Reaction Status Date / Time Penicillins Allergy Intermediate Unknown Verified 07/19/20 21:15 codeine Allergy Mild Unknown Verified 07/19/20 21:15 Consultations 07/19/20 21:03 ED Decision to Admit Stat 07/20/20 01:01 Consult Case Management - Discharge Planning Routine Consult Urology Routine 07/22/20 10:49 Consult Gastroenterology Routine Procedures Performed Operation Date: 07/21/20 11:15 Actual Procedures p Left Stent Insertion, (Left) - Quincy Plummer DO s Cystoscopy Retrograde Pyelogram(Left) - Quincy Plummer DO Operation Date: 07/21/20 11:15 Actual Procedures p Left Stent Insertion, (Left) - Quincy Plummer DO s Cystoscopy Retrograde Pyelogram(Left) - Quincy Plummer DO Ordered Studies 07/19/20 17:12 CT abd pelvis wo con Stat 07/21/20 08:00 US renal/blad retro comp Urgent 07/21/20 10:30 FL retrograde includes kub Routine Hospital Course (1) Left ureteral calculus: * 4 mm proximal left ureteral calculus with obstructive signs- * Follow urine cx/s -- E. Coli, not ESBL * Given Ertapenem - patient has history of E coli ESBL - urine culture as above * NSS + 20K @ 100cc/hr while inpatient * Zofran, Phenergan for nausea * Urology consulted -- appreciate assistance - ok with dc today, recommend 5 more days of cipro. Follow up with urology for stent removal * KUB with no change in 4mm stone proximal L ureter, b/l nephrolithiasis (hx struvite and urate stones 2018) * US Renal with mild L hydro, extensive nephrolithiasis * s/p left stent insertion and cystoscopy 07/21 (2) Leukocytosis: following cystoscopy so may just be post op demargination. Patient refused blood work today. Could repeat when willing to have blood work to ensure resolution Afebrile, no complaints today (3) Right middle lobe pneumonia: * See on CTA/P * Given Ertapenem inpatient - received 5 days treatment, can discontinue * COVID 19 NEGATIVE * Supplemental O2 as needed -- 97% on RA * Given negative nasal swab for MRSA. 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 Patient refused labwork today. Would have her recheck sometime in the next week Of note, recent Lyme testing with IgG positive no IgM. --> positive on screening but NEGATIVE on WESTERN BLOT Hypothyroidism * Hx noted although not on supplementation. TSH elevated 7.940 although T4 wnl 1.16 -- likely reactive but would have patient recheck outpatient given elevated levels in the past Vitamin D deficiency * Hx of but not on supplementations * Vit D level low low at 26.8 and will give 50,000 weekly for 4 weeks and have patient repeat levels outpatient Patient from [facility]. CM following -- will need repeat COVID testing prior to discharge Total Time Total Time Spent Total Time Spent (In Minutes): greater than 30 minutes Discharge Plan Discharge Items Patient Disposition: Transfer [facility] Reason For Visit: LEFT URETERAL CALCULUS W/ OBSTRUCTION, PNEUMONIA Discharge Diagnosis: Left ureteral calculus with obstruction Activity: Resume your previous activity Non-emergency contact: Primary Care Provider Call non-emergency contact if: you have any medication questions, your symptoms worsen, your pain is not controlled and you have a fever Follow-up/Referrals: Quincy Plummer DO [Physician] - (follow up one week ) Eli Diaz [Primary Care Provider] - Diet: Regular Diet Comment: minced and moist, slippery diet - advance as tolerated Addtl Attending Provider Instructions: (1) Left ureteral calculus: 4 mm proximal left ureteral calculus with obstructive signs- s/p left stent insertion and cystoscopy 07/21 Complete 5 more days of ciprofloxacin Follow up urology Dr. 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 --> positive on screening but NEGATIVE on WESTERN BLOT (8) Hypothyroidism Hx noted although not on supplementation. TSH elevated 7.940 although T4 wnl 1.16 -- likely reactive but would have patient recheck in a couple of weeks Vitamin D deficiency Hx of but not on supplementations Vit D level low low at 26.8 and will give 50,000 weekly for 4 weeks and have patient repeat levels outpatient Pending Studies at Discharge: No Stand-Alone Forms: My Topic Skilled Items Patient informed of condition?: Yes DNR: No Discharge Level of Care: Skilled Communicable Disease: No Discharge Prognosis: Stable Lines: None Urinary Catheter: Yes Medications and DC Order Prescriptions: New pantoprazole 40 mg Tablet,Delayed Release (Dr/Ec) 40 mg PO BID Qty: 60 RF: 0 ergocalciferol (vitamin D2) 1,250 mcg (50,000 unit) Capsule 50,000 unit PO Fr@0900 Qty: 3 RF: 0 ciprofloxacin HCl [Cipro] 500 mg tablet 500 mg PO BID Qty: 10 RF: 0 Continued acetaminophen 325 mg Tablet 650 mg PO Q8H MDD 3 GMS APAP/24 HOURS PRN (Reason: Fever Or Pain) RF: 0 ondansetron HCl 4 mg Tablet 4 mg PO Q6H PRN (Reason: Nausea And Vomiting) RF: 0 bisacodyl [Dulcolax (bisacodyl)] 10 mg Suppository 10 mg MA DIRECTED PRN (Reason: Constipation) RF: 0 Enema 19-7 gram/118 mL Enema 118 ml MA QAM PRN (Reason: Constipation) RF: 0 omeprazole 20 mg capsule,delayed release(DR/EC) 20 mg PO QAM RF: 0 magnesium hydroxide [Milk of Magnesia] 400 mg/5 mL Suspension 30 ml PO DAILY PRN (Reason: Constipation) RF: 0 Discharge Orders: Discharge Order (Routine); Ordered 07/23/20 Ordered By: Svetlana Underwood Admission Data Admit Date/Time: 07/19/20 23:47 Attending Provider: Ryan Johnson Admit Provider: Damian Kirkland Primary Care Provider: Eli Diaz Other Providers: Joe, ; Damian Kirkland ; Quincy Plummer ; Carla oWrthington Other Interventions: Discharge Summary Assessment (RN) Last Done: 07/23/20 15:58 Supervising Physician Co-Signing Physician Notes Patient seen and examined on the day of discharge. I agree with the discharge summary by Svetlana HENRY. I have reviewed the chart including labs, imaging and plans for discharge. patient doing well ever since stent placed she refused labs today, just wants to go home - Left ureteral stone, s/p ureteral stone with urology, discharge on Cipro, follow up with urology Coding Level of Care Code D/C Day Management >30 mins Diagnoses Left ureteral calculus N20.1 Leukocytosis D72.829 Right middle lobe pneumonia J18.9 Schizophrenia F20.9 Schizophrenia type: unspecified Obstructive uropathy N13.9 Vomiting R11.10 GERD (gastroesophageal reflux disease) K21.9 Hypokalemia E87.6
== END 2020-07-23 17:16 | DRG 659 ==
LOC: ED 16:28 → 3N 23:47 → SUATTDRO 23:47 → 3N 07-20 00:43

== ENCOUNTER 2022-06-26 16:07 | Inpatient (IN) ==
[2022-06-26] MEDS ORDERED: SODIUM CHLORIDE 0.9% 500 ML IV ONE (17:17)
--- NOTE | 2022-06-26 17:24 | Emergency Department Note ---
Impression & Plan Acute renal failure, Hypernatremia, Complicated urinary tract infection, Ureteral stent present, Bilateral hydronephrosis ED Provider Note NAME: KIN CRAIG AGE: 57 SEX: F ARRIVES VIA: Ambulance INFORMANT: EMS ED PROVIDER(S): Bola Kapoor MD CHIEF COMPLAINT: Dehydration, referred. PLAN: Disposition: Admit MEDICAL DECISION MAKING: The patient is a 57-year-old woman with a past medical history of cerebral palsy, intellectual disability, nonverbal at baseline, history of nephrolithiasis with indwelling ureteral stents, history of ESBL Ecoli UTI who presents to the emergency department from [facility] for IV placement in the setting of refusing to eat and drink for the past 6 days where she did have a peripheral IV in place but had ripped it out and was combative. Patient did arrive to emergency department during a time of high volume, acuity and prolonged emergency department waiting times. Saline lock and labs were drawn per nursing critical-pathways. On arrival the patient is no acute distress, afebrile heart in the 130s and vital signs otherwise stable. She appears clinically dry with dry cracked mucous membranes. She has fullness of her umbilical hernia with moderate tenderness. Generalized abdominal tenderness to palpation with voluntary guarding. WBC 13.8K with neutrophil predominance. H/H 15.4/50.3 consistent with patient's clinical dry appearance. Platelets 625K likely reactive. Chemistry demonstrates hypernatremia to 167 (~5 L free water deficit) she has acute kidney injury with creatinine of 2.3 with anion gap of 17 but bicarbonate of 21. BUN/creatinine> 30 suggestive of prerenal etiology. Calcium is elevated at 11. COVID-19 RNA, TALITA test was negative. CT of the abdomen pelvis was performed and demonstrates bilateral ureteral stents with bilateral hydroureteronephrosis and extensive nephrolithiasis with calculi also noted within bilateral ureteropelvic junctions. The patient's umbilical hernia is noted and is fat filled with 2.1 cm diastases. I did review the patient's evaluation with her sister and power of trademark attorney over the phone. She agrees with plan for admission for further management. UA pending. Patient does have history of ESBL E. coli and so blood cultures were drawn and Ertapenem given empirically. Given patient's acute renal failure 30 cc/kg of IV fluid hydration was deferred. Case was discussed with urology on-call, Dr. Currie. Patient may need exchange of her ureteral stents vs possible transfer for nephrostomy. They will evaluate the patient in the morning. However the patient will need medically stabilized and improvement in her hypernatremia prior to intervention. Case was discussed with Dr. Webber, [facility] hospitalist, who will evaluate the patient for admission. Triage Nursing notes reviewed and agree them. Prior medical records reviewed Vital Signs: reviewed and remarkable for tachycardia. Differential diagnosis: Infection, dehydration, metabolic abnormality, hypo/hyperglycemia, electrolyte disturbance, anemia, hypoxia, cardiac sources, intracerebral event, toxicologic, neurologic, as well as other pathologies. ER treatment provided: See below. Diagnostics interpreted by me: Cardiac Monitoring: An order for continuous cardiac monitoring was placed and demonstrated sinus tachycardia, 130 bpm, no ectopy. Laboratory studies: See below Imaging studies: See below Consultation(s): Dr. Currie, [place] urology Dr. Webber [facility] hospitalist. HPI: The patient is a 57-year-old woman with a past medical history of cerebral palsy, intellectual disability, nonverbal at baseline, history of nephrolithiasis with indwelling ureteral stents, history of ESBL Ecoli UTI who p resents to the emergency department from [facility] for IV placement in the setting of refusing to eat and drink for the past 6 days where she did have a peripheral IV in place but had ripped it out and was combative. Patient did arrive to emergency department during a time of high volume, acuity and prolonged emergency department waiting times. Saline lock and labs were drawn per nursing critical-pathways. ROS: See above HPI for pertinent positives & negatives. A total of 10 systems reviewed and were otherwise negative. VITALS:See Below PHYSICAL EXAMINATION: GENERAL: Awake, alert, uncomfortable-appearing, in no distress HENT: Normocephalic, atraumatic. Oropharynx dry/cracked MM. EYES: Normal conjunctiva. Sclera non-icteric. NECK: Supple. No nuchal rigidity. FROM. No JVD. RESPIRATORY: Clear to auscultation. CARDIAC: Tachycardic rate, normal rhythm. Extremities warm and well perfused. Pulses equal. ABDOMEN: Soft, non-distended. Fullness of her umbilical hernia with moderate tenderness. Generalized abdominal tenderness to palpation with voluntary guarding. RECTAL: Deferred. MUSCULOSKELETAL: Chest examination reveals no tenderness. The back is symmetrical on inspection without obvious abnormality. There is no CVA tenderness to palpation. No joint edema. LOWER EXTREMITIES: Calves are equal size bilaterally and non-tender. No edema. No discoloration. NEURO: Normal sensorium. No sensory or motor deficits noted. SKIN: No rash or jaundice noted. ED COURSE: Critical Care: I have personally spent greater than 75 minutes of critical care time in the direct management of this patient. This includes bedside care, interpretation of diagnostic studies, and testing, discussion with consultants, patient, and family members, and other required patient management activities. This 75 minutes is in excess of all separately billable procedures. Bola Kapoor MD Past Med/Surg History Medical History Anemia chronic with fluctuating hgbs in the 10-13 range Anxiety disorder Cerebral palsy Chronic hypernatremia Depression GERD (gastroesophageal reflux disease) History of COVID-19 Dx 04/2020 (unknown symptoms per [facility]) Hyperlipidemia Hypotension Hypothyroidism Insomnia Intellectual disability Intermittent explosive disorder Nephrolithiasis Obstructive uropathy Osteoarthritis Schizophrenia non-verbal Sepsis Urosepsis 02/2019 s/p abx/cysto+ stent at [facility] Admitted 06/2020 with severe sepsis related to obstructing stone Urinary incontinence Urinary tract infection hx Surgical History History of cystoscopy cystoscopy, left stent: 07/21/20: MAC sedation at [facility] History of lithotripsy Right ESWL (12/07/20): LMA#4 (x1 attempt), atraumatic, good seal at [facility] Presence of urogenital implants S/P ureteral stent placement cysto + right RPG + stent: 03/03/19: MAC sedation Family History Other No pertinent family history in first degree relatives Social History Smoking Status: Unknown if ever smoked Hx Alcohol Use: No Hx Substance Use: No Preferred Language: Tajik Communication Ability: Impaired Visual Impairment: No Limitations Hearing Ability: Hard of Hearing Pipe Foreman Required: No Beliefs That Will Affect Care: None Current Living Situation: [facility] Current Living Situation Comment: [facility] Assistive Devices: None Allergies Allergies Allergy/AdvReac Type Severity Reaction Status Date / Time Penicillins Allergy Intermediate Unknown Verified 06/26/22 19:15 codeine Allergy Mild Unknown Verified 06/26/22 19:15 Home Meds Home Medications Medication Instructions Recorded Confirmed acetaminophen 325 mg tablet 650 mg PO Q6H PRN Fever Or Pain 03/03/19 06/26/22 bisacodyl 10 mg rectal suppository 10 mg OR DIRECTED PRN 03/03/19 06/26/22 (Dulcolax (bisacodyl)) Constipation acetaminophen 650 mg rectal 650 mg OR Q6H PRN Fever 10/05/20 06/26/22 suppository magnesium hydroxide 2,400 mg/10 mL 10 ml PO DAILY PRN Constipation 11/29/20 06/26/22 oral suspension sodium phosphates 19 gram-7 118 ml OR DAILY PRN Constipation 11/29/20 06/26/22 gram/118 mL enema (Fleet Enema) diazepam 5 mg tablet (Valium) 5 mg PO DIRECTED PRN 1 HR PRIOR 06/26/22 06/26/22 TO DENTAL APPT. quetiapine 25 mg tablet (Seroquel) 25 mg PO BID 06/26/22 06/26/22 Results & Data (ED) Vital Signs Vital Signs - 24 hr 06/26/22 16:30 06/26/22 16:00 06/26/22 20:24 Temperature 36.0 C L Temperature Source Axillary Pulse Rate 130 H Pulse Rate [Finger] 86 Pulse Rhythm Regular Pulse Strength Normal Respiratory Rate 26 H 20 Respiratory Effort / Characteristics Non-Labored Spontaneous Non-Labored Spontaneous Respiratory Depth Normal Normal Respiratory Pattern Regular Regular Blood Pressure 104/80 Blood Pressure [Right Arm] 146/78 H Blood Pressure Mean 88 Blood Pressure Mean [Right Arm] 100 Blood Pressure Position [Right Arm] Lying Pulse Oximetry 96 97 Oxygen Delivery Method Room Air Room Air Sepsis Recent Fever Within 48 Hours No Sepsis New/Unexplained Change in Mental Status N/A Sepsis Action Taken by Nursing No Action Required Laboratory Data Attestation: I reviewed the patient's lab results. Result diagrams: 06/26/22 16:45 06/26/22 18:32 Lab Results 06/26/22 06/26/22 06/26/22 Range/Units 16:45 16:45 16:45 WBC 13.81 H (4.8-10.8) K/ul RBC 5.06 (3.93-5.22) M/uL Hgb 15.4 (12.0-16.0) g/dl Hct 50.3 H (34.1-44.9) % MCV 99.4 (80.0-100.0) fL MCH 30.4 (25.0-34.0) pg MCHC 30.6 L (32.0-36.0) g/dL RDW Std Deviation 53.4 H (36.4-46.3) fL RDW Coeff of Roberto 14.6 H (11.5-14.5) % Plt Count 625 H (130-400) K/uL MPV 9.9 (9.4-12.3) fL Immature Gran % (Auto) 0.4 % Neut % (Auto) 72.6 % Lymph % (Auto) 19.6 % Robertson % (Auto) 7.0 % Eos % (Auto) 0.0 % Baso % (Auto) 0.4 % Neut # (Auto) 10.02 H (1.4-6.5) K/uL Lymph # (Auto) 2.70 (1.2-3.4) K/uL Robertson # (Auto) 0.97 H (0.24-0.82) K/uL Eos # (Auto) 0.00 (0-0.50) K/uL Baso # (Auto) 0.06 (0-0.2) K/uL Immature Gran # (Auto) 0.06 H (0.00-0.02) K/uL PT Cancelled INR Cancelled Sodium Cancelled Potassium Cancelled Chloride Cancelled Carbon Dioxide Cancelled Anion Gap Cancelled BUN Cancelled Creatinine Cancelled Est Cr Clr Drug Dosing Cancelled Est GFR ( Amer) Cancelled Est GFR (Non-Af Amer) Cancelled BUN/Creatinine Ratio Cancelled Glucose Cancelled Lactate (0.4-2.0) mmol/L Calcium Cancelled Phosphorus Cancelled Magnesium Cancelled Total Bilirubin Cancelled AST Cancelled ALT Cancelled Alkaline Phosphatase Cancelled Total Protein Cancelled Albumin Cancelled Globulin Cancelled Albumin/Globulin Ratio Cancelled Lipase Cancelled Procalcitonin Urine Color Urine Appearance (Clear) Urine pH (4.5-7.5) Ur Specific [place] (1.000-1.030) Urine Protein (Negative) Urine Glucose (UA) (Negative) Urine Ketones (Negative) Urine Blood (Negative) Urine Nitrite (Negative) Urine Bilirubin (Negative) Urine Urobilinogen (Negative) Ur Leukocyte Esterase (Negative) Urine WBC (Auto) (0-5) /hpf Urine RBC (Auto) (0-4) /hpf U Hyaline Cast (Auto) U Epithel Cells (Auto) (0-5) /lpf Urine Bacteria (Auto) (Negative) Urine Yeast SARS-CoV-2, RNA, NAAT (NEGATIVE) 06/26/22 06/26/22 06/26/22 Range/Units 16:45 17:25 18:32 WBC (4.8-10.8) K/ul RBC (3.93-5.22) M/uL Hgb (12.0-16.0) g/dl Hct (34.1-44.9) % MCV (80.0-100.0) fL MCH (25.0-34.0) pg MCHC (32.0-36.0) g/dL RDW Std Deviation (36.4-46.3) fL RDW Coeff of Roberto (11.5-14.5) % Plt Count (130-400) K/uL MPV (9.4-12.3) fL Immature Gran % (Auto) % Neut % (Auto) % Lymph % (Auto) % Robertson % (Auto) % Eos % (Auto) % Baso % (Auto) % Neut # (Auto) (1.4-6.5) K/uL Lymph # (Auto) (1.2-3.4) K/uL Robertson # (Auto) (0.24-0.82) K/uL Eos # (Auto) (0-0.50) K/uL Baso # (Auto) (0-0.2) K/uL Immature Gran # (Auto) (0.00-0.02) K/uL PT INR Sodium 167 H* Potassium 4.2 D Chloride 130 H Carbon Dioxide 21 Anion Gap 16 H BUN 92 H Creatinine 2.47 H Est Cr Clr Drug Dosing 20.8 Est GFR ( Amer) 24.3 Est GFR (Non-Af Amer) 20.9 BUN/Creatinine Ratio 37.2 H Glucose 101 H Lactate (0.4-2.0) mmol/L Calcium 10.6 H Phosphorus 4.3 Magnesium 3.2 H Total Bilirubin 0.4 AST 13 ALT 10 Alkaline Phosphatase 71 Total Protein 9.8 H Albumin 4.4 Globulin 5.4 H Albumin/Globulin Ratio 0.8 L Lipase 17 Procalcitonin Cancelled Urine Color Urine Appearance (Clear) Urine pH (4.5-7.5) Ur Specific [place] (1.000-1.030) Urine Protein (Negative) Urine Glucose (UA) (Negative) Urine Ketones (Negative) Urine Blood (Negative) Urine Nitrite (Negative) Urine Bilirubin (Negative) Urine Urobilinogen (Negative) Ur Leukocyte Esterase (Negative) Urine WBC (Auto) (0-5) /hpf Urine RBC (Auto) (0-4) /hpf U Hyaline Cast (Auto) U Epithel Cells (Auto) (0-5) /lpf Urine Bacteria (Auto) (Negative) Urine Yeast SARS-CoV-2, RNA, NAAT NEGATIVE (NEGATIVE) 06/26/22 06/26/22 06/26/22 Range/Units 18:38 19:43 20:08 WBC (4.8-10.8) K/ul RBC (3.93-5.22) M/uL Hgb (12.0-16.0) g/dl Hct (34.1-44.9) % MCV (80.0-100.0) fL MCH (25.0-34.0) pg MCHC (32.0-36.0) g/dL RDW Std Deviation (36.4-46.3) fL RDW Coeff of Roberto (11.5-14.5) % Plt Count (130-400) K/uL MPV (9.4-12.3) fL Immature Gran % (Auto) % Neut % (Auto) % Lymph % (Auto) % Robertson % (Auto) % Eos % (Auto) % Baso % (Auto) % Neut # (Auto) (1.4-6.5) K/uL Lymph # (Auto) (1.2-3.4) K/uL Robertson # (Auto) (0.24-0.82) K/uL Eos # (Auto) (0-0.50) K/uL Baso # (Auto) (0-0.2) K/uL Immature Gran # (Auto) (0.00-0.02) K/uL PT 12.5 H INR 1.2 H Sodium Potassium Chloride Carbon Dioxide Anion Gap BUN Creatinine Est Cr Clr Drug Dosing Est GFR ( Amer) Est GFR (Non-Af Amer) BUN/Creatinine Ratio Glucose Lactate 1.8 (0.4-2.0) mmol/L Calcium Phosphorus Magnesium Total Bilirubin AST ALT Alkaline Phosphatase Total Protein Albumin Globulin Albumin/Globulin Ratio Lipase Procalcitonin Urine Color [place] Urine Appearance Turbid A (Clear) Urine pH 7.5 (4.5-7.5) Ur Specific [place] 1.020 (1.000-1.030) Urine Protein 3+ H (Negative) Urine Glucose (UA) Negative (Negative) Urine Ketones Negative (Negative) Urine Blood 3+ H (Negative) Urine Nitrite Negative (Negative) Urine Bilirubin Negative (Negative) Urine Urobilinogen Negative (Negative) Ur Leukocyte Esterase 3+ H (Negative) Urine WBC (Auto) >30 H (0-5) /hpf Urine RBC (Auto) 10-30 H (0-4) /hpf U Hyaline Cast (Auto) Not Reportable U Epithel Cells (Auto) >30 H (0-5) /lpf Urine Bacteria (Auto) 4+ H (Negative) Urine Yeast Not Reportable SARS-CoV-2, RNA, NAAT (NEGATIVE) Administered Medications Acetaminophen (Acetaminophen 325 Mg Tab) 650 mg PO Q6H PRN PRN Reason: Fever Or Pain Stop: 07/26/22 22:10 Last Admin: 06/26/22 23:07 Dose: 650 mg Documented By: NABIL Lactated Ringer's (Lr) 1,000 mls @ 125 mls/hr IV .Q8H NOE Stop: 06/27/22 14:10 Last Admin: 06/26/22 23:08 Dose: 125 mls/hr Documented By: NABIL Ertapenem 500 mg/ Syringe 5 mls @ 2 mls/min IV Q24H NOE Stop: 07/06/22 22:59 Last Admin: 06/26/22 23:07 Dose: 2 mls/min Documented By: NABIL Ondansetron HCl (Ondansetron Inj 2 Mg/Ml 2 Ml Vial) 4 mg IV Q6H PRN PRN Reason: Nausea Stop: 07/26/22 22:10 Last Admin: 06/26/22 23:07 Dose: 4 mg Documented By: NABIL Quetiapine Fumarate (Quetiapine Fumarate 25 Mg Tablet) 25 mg PO BID NOE Stop: 07/26/22 22:10 Last Admin: 06/26/22 23:07 Dose: 25 mg Documented By: NABIL Discontinued Medications Sodium Chloride (Nss 1000ml) 1,000 mls @ 125 mls/hr IV .Q8H NOE Stop: 07/26/22 17:29 Last Infusion: 06/26/22 22:14 Dose: 0 mls/hr Documented By: Admin: 06/26/22 17:53 Dose: 125 mls/hr Documented By: AM Sodium Chloride (Nss) 500 mls @ 999 mls/hr IV .Q31M ONE Stop: 06/26/22 17:47 Last Infusion: 06/26/22 22:14 Dose: 0 mls/hr Documented By: Admin: 06/26/22 17:53 Dose: 999 mls/hr Documented By: AM Ertapenem (Invanz) 10 mls @ 2 mls/min IV NOW STA Stop: 06/26/22 19:18 Last Admin: 06/26/22 22:14 Dose: Not Given Documented By: NABIL Famotidine (Pepcid 20mg Iv Push) 20 mg in 5 mls @ 2.5 mls/min IV NOW STA Stop: 06/26/22 19:42 Last Admin: 06/26/22 19:48 Dose: 2.5 mls/min Documented By: [facility] Imaging Data Radiologist's Impression: Abdomen/Pelvis CT 06/26/22 17:[address] WITHOUT CONTRAST CT DOSE: 297.78 mGy.cm HISTORY: Acute periumbilical abdominal pain ?incarcerated hernia TECHNIQUE: Multiaxial CT images of the abdomen and pelvis were performed without contrast. A dose lowering technique was utilized adhering to the principles of ALARA. COMPARISON STUDY: CT abdomen pelvis 10/05/2020 FINDINGS: Clear lung bases. No pneumatosis or pneumoperitoneum. The unenhanced spleen, pancreas and adrenal glands are unremarkable. Cholelithiasis without CT evidence of acute cholecystitis. A 6 mm stone is noted within the cystic duct. No biliary ductal dilation or choledocholithiasis. Unremarkable liver. Numerous large calculi/fragmented calculi of the kidneys are noted layering within the dilated collecting systems, conglomerate measuring up to approxima tely 3 cm on the right and 3.6 cm on the left. These have progressed from the prior study. Moderate left with moderate to severe right hydroureteronephrosis. Bilateral ureteral stents appear to be in satisfactory positioning. Stone fragments within the right renal pelvis and ureteropelvic junction surrounding the proximal portion of the stent measuring up to approximately 2.1 cm. Stent fragments within the left renal pelvis and ureteropelvic junction surrounding the proximal portion of the stent measure up to approximately 1.7 cm. Decompressed urinary bladder with wall thickening. Endovaginal fluid redemonstrated. Mildly heterogeneous appearance of the uterus. No adnexal mass lesions identified. Aorta is unremarkable. No lymphadenopathy identified. No bowel obstruction or bowel wall thickening. No ascites or mesenteric inflammation. Mild colonic fecal retention. Normal appendix. Fat filled umbilical hernia, diastases of 2.1 cm. No inflammatory stranding or bowel extension into the hernia sac. Degenerative changes of the spine, pelvis and hips. No acute fracture identified. Lumbar levoscoliosis. IMPRESSION: 1. No bowel obstruction or bowel wall thickening. Normal appendix. 2. Small to moderate fat filled umbilical hernia. 3. Moderate left with moderate to severe right hydroureteronephrosis with bilateral ureteral stents in place. 4. Extensive bilateral nephrolithiasis with calculi also noted within the bilateral ureteropelvic junctions. 5. Cholelithiasis without CT evidence of acute cholecystitis. Subcentimeter stone is present within the cystic duct. No biliary ductal dilation or choledocholithiasis. 6. Additional findings as above. ACT 112: Negative or not required by law. The above report was generated using voice recognition software. It may contain grammatical, syntax or spelling errors. Electronically signed by: Reji Frausto M.D. 06/26/2022 5:55 PM Discharge Plan Visit Data Chief Complaint: Illness Stated Complaint: IV REPLACEMENT ED Provider: Bola Kapoor Discharge Problem: Acute renal failure, Hypernatremia, Complicated urinary tract infection, Ureteral stent present, Bilateral hydronephrosis Patient Disposition: Admitted As Inpatient Discharge Instructions Interventions: ED Discharge Assessment Last Done: 06/26/22 23:09
[2022-06-26] MEDS ORDERED: SODIUM CHLORIDE 0.9% 1000ML 1,000 ML IV SCH (17:30)
[2022-06-26 17:38] LABS: Basophils # (auto) 0.06 K/uL (0-0.2); Basophils % (auto) 0.4 %; Hematocrit (blood only) 50.3 % (34.1-44.9); Hemoglobin 15.4 g/dl (12.0-16.0); Immature Granulocytes # (auto) 0.06 K/uL (0.00-0.02); Immature Granulocytes % (auto) 0.4 %; Lymphocytes % (auto) 19.6 %; Mean Corpuscular Hemoglobin 30.4 pg (25.0-34.0); Mean Corpuscular Hgb Conc 30.6 g/dL (32.0-36.0); Mean Corpuscular Volume 99.4 fL (80.0-100.0); Mean Platelet Volume 9.9 fL (9.4-12.3); Monocytes # (auto) 0.97 K/uL (0.24-0.82); Neutrophils # (auto) 10.02 K/uL (1.4-6.5); Neutrophils % (auto) 72.6 %; Platelet Count 625 K/uL (130-400); RDW Coefficient of Variation 14.6 % (11.5-14.5); RDW Standard Deviation 53.4 fL (36.4-46.3); Red Blood Count 5.06 M/uL (3.93-5.22); White Blood Count 13.81 K/ul (4.8-10.8)
--- NOTE | 2022-06-26 17:56 | CT Scan Report ---
ABDOMEN AND PELVIS CT WITHOUT CONTRAST CT DOSE: 297.78 mGy.cm HISTORY: Acute periumbilical abdominal pain ?incarcerated hernia TECHNIQUE: Multiaxial CT images of the abdomen and pelvis were performed without contrast. A dose lo wering technique was utilized adhering to the principles of ALARA. COMPARISON STUDY: CT abdomen pelvis 10/05/2020 FINDINGS: Clear lung bases. No pneumatosis or pneumoperitoneum. The unenhanced spleen, pancreas and a drenal glands are unremarkable. Cholelithiasis without CT evidence of acute cholecystitis. A 6 mm sto ne is noted within the cystic duct. No biliary ductal dilation or choledocholithiasis. Unremarkable l iver. Numerous large calculi/fragmented calculi of the kidneys are noted layering within the dilated collec ting systems, conglomerate measuring up to approximately 3 cm on the right and 3.6 cm on the left. Th laverne have progressed from the prior study. Moderate left with moderate to severe right hydroureteronep hrosis. Bilateral ureteral stents appear to be in satisfactory positioning. Stone fragments within th e right renal pelvis and ureteropelvic junction surrounding the proximal portion of the stent measuri ng up to approximately 2.1 cm. Stent fragments within the left renal pelvis and ureteropelvic junctio n surrounding the proximal portion of the stent measure up to approximately 1.7 cm. Decompressed urin johnny bladder with wall thickening. Endovaginal fluid redemonstrated. Mildly heterogeneous appearance o f the uterus. No adnexal mass lesions identified. Aorta is unremarkable. No lymphadenopathy identifie d. No bowel obstruction or bowel wall thickening. No ascites or mesenteric inflammation. Mild colonic fe meg retention. Normal appendix. Fat filled umbilical hernia, diastases of 2.1 cm. No inflammatory str anding or bowel extension into the hernia sac. Degenerative changes of the spine, pelvis and hips. No acute fracture identified. Lumbar levoscoliosis. IMPRESSION: 1. No bowel obstruction or bowel wall thickening. Normal appendix. 2. Small to moderate fat filled umbilical hernia. 3. Moderate left with moderate to severe right hydroureteronephrosis with bilateral ureteral stents i n place. 4. Extensive bilateral nephrolithiasis with calculi also noted within the bilateral ureteropelvic nicolas ctions. 5. Cholelithiasis without CT evidence of acute cholecystitis. Subcentimeter stone is present within t he cystic duct. No biliary ductal dilation or choledocholithiasis. 6. Additional findings as above. ACT 112: Negative or not required by law. The above report was generated using voice recognition software. It may contain grammatical, syntax o r spelling errors. Electronically signed by: Reji Frausto M.D. 06/26/2022 5:55 PM
[2022-06-26] MEDS ORDERED: ERTAPENEM SODIUM 10 ML IV STA (19:14)
[2022-06-26 19:25] LABS: INR 1.2 (0.9-1.1); Prothrombin Time 12.5 Seconds (9.0-12.0)
[2022-06-26] MEDS ORDERED: FAMOTIDINE 20MG IV PUSH 20 MG/5 ML SYR IV STA (19:41)
[2022-06-26 19:50] LABS: Albumin Globulin Ratio 0.8 (0.9-2); Albumin Level 4.4 gm/dl (3.4-5.0); BUN Creatinine Ratio 37.2 (10-20); Bilirubin,Total 0.4 mg/dl (0.2-1.0); Calcium 10.6 mg/dl (8.5-10.1); Creatinine Clr Calc Pharmacy 20.8 ml/min; Est GFR (African American) 24.3 ml/min; Est GFR (Non-African American) 20.9 ml/min; Globulin 5.4 gm/dl (2.5-4.0); Magnesium 3.2 mg/dl (1.7-2.4); Phosphorus 4.3 mg/dl (2.5-4.9); Potassium 4.2 mmol/L (3.5-5.1); Total Protein 9.8 gm/dl (6.0-8.3)
[2022-06-26 20:28] LABS: Appearance Urine Turbid (Clear); Bacteria Urine Automated 4+ (Negative); Bilirubin Urine Negative (Negative); Blood Urine 3+ (Negative); Color Urine Orange; Epithelial Cell Urine Auto >30 /lpf (0-5); Glucose Urine UA Negative (Negative); Ketones Urine Negative (Negative); Leukocyte Esterase Urine 3+ (Negative); Nitrite Urine Negative (Negative); Urobilinogen Urine Negative (Negative); WBC Urine Automated >30 /hpf (0-5); pH Urine 7.5 (4.5-7.5)
--- NOTE | 2022-06-26 20:51 | History & Physical Report ---
Date of Service June 26, 2022 Assessment & Plan (1) Hypernatremia: Plan: Free water deficit=5.7L. Patient appears very dry on exam. Na-167 -Crystalloid for now - LR at 125mL/hr x 2 liters. -Trend chemistry, adjust fluids as needed (2) Complicated urinary tract infection: Plan: History of ESBL E. coli UTI, received Ivanz in ER -Follow culture -Continue Ivanz, renal dosing as needed -Contact precautions (3) Acute renal failure: Plan: Most likely secondary to dehydration -LR as above -Trend chemistry -Avoid nephrotoxic agents -Renal dosing where needed (4) Ureteral stent present: Plan: Most likely needs to be exchanged -Urology consultation appreciated -If nephrostomy tubes needed patient will need to be transferred (5) Schizophrenia: Plan: Continue Seroquel History of Present Illness Chief Complaint: hypernatremia [facility] Cary Yin is a 57yo female with history of cerebral palsy, minimally verbal at baseline, hypernatremia, HTN, HLP, Hypothyrodism, GERD as well as chronic ureterolithiasis/staghorn calculi with stents in place. Patient has not been eating or drinking x 6 days. Patient has not had a stent exchange since November 2020. Has history of ESBL UTI [id number] Sanchez placed in ER with return of small amount of purulent urine. Allergies Allergy/AdvReac Type Severity Reaction Status Date / Time Penicillins Allergy Intermediate Unknown Verified 06/26/22 19:15 codeine Allergy Mild Unknown Verified 06/26/22 19:15 Home Medications Medication Instructions Recorded Confirmed Type acetaminophen 325 mg tablet 650 mg PO Q6H PRN Fever Or Pain 03/03/19 06/26/22 History bisacodyl 10 mg rectal suppository 10 mg MT DIRECTED PRN 03/03/19 06/26/22 History (Dulcolax (bisacodyl)) Constipation acetaminophen 650 mg rectal 650 mg MT Q6H PRN Fever 10/05/20 06/26/22 History suppository magnesium hydroxide 2,400 mg/10 mL 10 ml PO DAILY PRN Constipation 11/29/20 06/26/22 History oral suspension sodium phosphates 19 gram-7 118 ml MT DAILY PRN Constipation 11/29/20 06/26/22 History gram/118 mL enema (Fleet Enema) diazepam 5 mg tablet (Valium) 5 mg PO DIRECTED PRN 1 HR PRIOR 06/26/22 06/26/22 History TO DENTAL APPT. quetiapine 25 mg tablet (Seroquel) 25 mg PO BID 06/26/22 06/26/22 History Past Med/Surg History Medical History Anemia chronic with fluctuating hgbs in the 10-13 range Anxiety disorder Cerebral palsy Chronic hypernatremia Depression GERD (gastroesophageal reflux disease) History of COVID-19 Dx 04/2020 (unknown symptoms per [facility]) Hyperlipidemia Hypotension Hypothyroidism Insomnia Intellectual disability Intermittent explosive disorder Nephrolithiasis Obstructive uropathy Osteoarthritis Schizophrenia non-verbal Sepsis Urosepsis 02/2019 s/p abx/cysto+ stent at [facility] Admitted 06/2020 with severe sepsis related to obstructing stone Urinary incontinence Urinary tract infection hx Surgical History History of cystoscopy cystoscopy, left stent: 07/21/20: MAC sedation at [facility] History of lithotripsy Right ESWL (12/07/20): LMA#4 (x1 attempt), atraumatic, good seal at [facility] Presence of urogenital implants S/P ureteral stent placement cysto + right RPG + stent: 03/03/19: MAC sedation Family History Other No pertinent family history in first degree relatives Social History Smoking Status: Unknown if ever smoked Hx Alcohol Use: No Hx Substance Use: No Preferred Language: Korean Communication Ability: Impaired Visual Impairment: No Limitations Hearing Ability: Hard of Hearing Bottom Buffer Required: No Beliefs That Will Affect Care: None Current Living Situation: [facility] Current Living Situation Comment: [facility] Assistive Devices: None Review of Systems Review of Systems: Unobtainable due to cognitive status Physical Exam Physical Exam: General: patient chronically ill in appearance, minimally verbal Skin: warm, dry, intact, no rashes or lesions HEENT: NC/AT, PERRL, EOMI, anicteric sclera, conjunctiva without injection, external ear normal to inspection and nontender, nares patent, DRY mucus membranes, dentition intact, no oropharyngeal lesions, neck supple, trachea midline, no LAD, no thyromegaly, no JVD Heart: +S1/S2, regular, tachycardic, no m/r/g Lungs: equal air entry bilaterally, no rales/rhonchi/wheezes Abd: +BS, soft, NT/ND, no masses/organomegaly/ascites Ext: warm, 2+ pulses in UE/LE bilaterally, no clubbing/cyanosis or edema Results & Data Results & Data ([facility]) Vital Signs (Past 12 Hours) Vital Signs Temp Pulse Pulse Resp BP BP Pulse Ox 06/26/22 20:24 86 20 146/78 H 06/26/22 16:00 97 06/26/22 16:30 36.0 C L 130 H 26 H 104/80 96 O2 Del Method 06/26/22 20:24 06/26/22 16:00 Room Air 06/26/22 16:30 Room Air Laboratory Results Laboratory Results WBC 13.81 K/ul (4.8-10.8) H 06/26/22 16:45 RBC 5.06 M/uL (3.93-5.22) 06/26/22 16:45 Hgb 15.4 g/dl (12.0-16.0) 06/26/22 16:45 Hct 50.3 % (34.1-44.9) H 06/26/22 16:45 MCV 99.4 fL (80.0-100.0) 06/26/22 16:45 MCH 30.4 pg (25.0-34.0) 06/26/22 16:45 MCHC 30.6 g/dL (32.0-36.0) L 06/26/22 16:45 RDW Std Deviation 53.4 fL (36.4-46.3) H 06/26/22 16:45 RDW Coeff of Roberto 14.6 % (11.5-14.5) H 06/26/22 16:45 Plt Count 625 K/uL (130-400) H 06/26/22 16:45 MPV 9.9 fL (9.4-12.3) 06/26/22 16:45 Immature Gran % (Auto) 0.4 % 06/26/22 16:45 Neut % (Auto) 72.6 % 06/26/22 16:45 Lymph % (Auto) 19.6 % 06/26/22 16:45 [place] % (Auto) 7.0 % 06/26/22 16:45 Eos % (Auto) 0.0 % 06/26/22 16:45 Baso % (Auto) 0.4 % 06/26/22 16:45 Neut # (Auto) 10.02 K/uL (1.4-6.5) H 06/26/22 16:45 Lymph # (Auto) 2.70 K/uL (1.2-3.4) 06/26/22 16:45 [place] # (Auto) 0.97 K/uL (0.24-0.82) H 06/26/22 16:45 Eos # (Auto) 0.00 K/uL (0-0.50) 06/26/22 16:45 Baso # (Auto) 0.06 K/uL (0-0.2) 06/26/22 16:45 Immature Gran # (Auto) 0.06 K/uL (0.00-0.02) H 06/26/22 16:45 PT 12.5 Seconds (9.0-12.0) H 06/26/22 18:38 INR 1.2 (0.9-1.1) H 06/26/22 18:38 Sodium 167 mmol/L (136-145) H* 06/26/22 18:32 Potassium 4.2 mmol/L (3.5-5.1) D 06/26/22 18:32 Chloride 130 mmol/L (98-107) H 06/26/22 18:32 Carbon Dioxide 21 mmol/L (21-32) 06/26/22 18:32 Anion Gap 16 (3-11) H 06/26/22 18:32 BUN 92 mg/dl (6-23) H 06/26/22 18:32 Creatinine 2.47 mg/dl (0.6-1.2) H 06/26/22 18:32 Est Cr Clr Drug Dosing 20.8 ml/min 06/26/22 18:32 Est GFR ( Amer) 24.3 ml/min 06/26/22 18:32 Est GFR (Non-Af Amer) 20.9 ml/min 06/26/22 18:32 BUN/Creatinine Ratio 37.2 (10-20) H 06/26/22 18:32 Glucose 101 mg/dl (70-99(Fasting)) H 06/26/22 18:32 Lactate 1.8 mmol/L (0.4-2.0) 06/26/22 20:08 Calcium 10.6 mg/dl (8.5-10.1) H 06/26/22 18:32 Phosphorus 4.3 mg/dl (2.5-4.9) 06/26/22 18:32 Magnesium 3.2 mg/dl (1.7-2.4) H 06/26/22 18:32 Total Bilirubin 0.4 mg/dl (0.2-1.0) 06/26/22 18:32 AST 13 U/L (13-39) 06/26/22 18:32 ALT 10 U/L (7-52) 06/26/22 18:32 Alkaline Phosphatase 71 U/L (34-104) 06/26/22 18:32 Total Protein 9.8 gm/dl (6.0-8.3) H 06/26/22 18:32 Albumin 4.4 gm/dl (3.4-5.0) 06/26/22 18:32 Globulin 5.4 gm/dl (2.5-4.0) H 06/26/22 18:32 Albumin/Globulin Ratio 0.8 (0.9-2) L 06/26/22 18:32 Lipase 17 U/L (11-82) 06/26/22 18:32 Procalcitonin 0.09 ng/ml (0-0.5) 06/26/22 23:43 Urine Color [place] 06/26/22 19:43 Urine Appearance Turbid (Clear) A 06/26/22 19:43 Urine pH 7.5 (4.5-7.5) 06/26/22 19:43 Ur Specific [place] 1.020 (1.000-1.030) 06/26/22 19:43 Urine Protein 3+ (Negative) H 06/26/22 19:43 Urine Glucose (UA) Negative (Negative) 06/26/22 19:43 Urine Ketones Negative (Negative) 06/26/22 19:43 Urine Blood 3+ (Negative) H 06/26/22 19:43 Urine Nitrite Negative (Negative) 06/26/22 19:43 Urine Bilirubin Negative (Negative) 06/26/22 19:43 Urine Urobilinogen Negative (Negative) 06/26/22 19:43 Ur Leukocyte Esterase 3+ (Negative) H 06/26/22 19:43 Urine WBC (Auto) >30 /hpf (0-5) H 06/26/22 19:43 Urine RBC (Auto) 10-30 /hpf (0-4) H 06/26/22 19:43 U Hyaline Cast (Auto) Not Reportable 06/26/22 19:43 U Epithel Cells (Auto) >30 /lpf (0-5) H 06/26/22 19:43 Urine Bacteria (Auto) 4+ (Negative) H 06/26/22 19:43 Urine Yeast Not Reportable 06/26/22 19:43 SARS-CoV-2, RNA, NAAT NEGATIVE (NEGATIVE) 06/26/22 17:25 Impressions Abdomen/Pelvis CT 06/26/22 17:[address] WITHOUT CONTRAST CT DOSE: 297.78 mGy.cm HISTORY: Acute periumbilical abdominal pain ?incarcerated hernia TECHNIQUE: Multiaxial CT images of the abdomen and pelvis were performed without contrast. A dose lowering technique was utilized adhering to the principles of ALARA. COMPARISON STUDY: CT abdomen pelvis 10/05/2020 FINDINGS: Clear lung bases. No pneumatosis or pneumoperitoneum. The unenhanced spleen, pancreas and adrenal glands are unremarkable. Cholelithiasis without CT evidence of acute cholecystitis. A 6 mm stone is noted within the cystic duct. No biliary ductal dilation or choledocholithiasis. Unremarkable liver. Numerous large calculi/fragmented calculi of the kidneys are noted layering within the dilated collecting systems, conglomerate measuring up to approximately 3 cm on the right and 3.6 cm on the left. These have progressed from the prior study. Moderate left with moderate to severe right hydroureteronephrosis. Bilateral ureteral stents appear to be in satisfactory positioning. Stone fragments within the right renal pelvis and ureteropelvic junction surrounding the proximal portion of the stent measuring up to approximately 2.1 cm. Stent fragments within the left renal pelvis and ureteropelvic junction surrounding the proximal portion of the stent measure up to approximately 1.7 cm. Decompressed urinary bladder with wall thickening. Endovaginal fluid redemonstrated. Mildly heterogeneous appearance of the uterus. No adnexal mass lesions identified. Aorta is unremarkable. No lymphadenopathy identified. No bowel obstruction or bowel wall thickening. No ascites or mesenteric inflammation. Mild colonic fecal retention. Normal appendix. Fat filled umbilical hernia, diastases of 2.1 cm. No inflammatory stranding or bowel extension into the hernia sac. Degenerative changes of the spine, pelvis and hips. No acute fracture identified. Lumbar levoscoliosis. IMPRESSION: 1. No bowel obstruction or bowel wall thickening. Normal appendix. 2. Small to moderate fat filled umbilical hernia. 3. Moderate left with moderate to severe right hydroureteronephrosis with bilateral ureteral stents in place. 4. Extensive bilateral nephrolithiasis with calculi also noted within the bilateral ureteropelvic junctions. 5. Cholelithiasis without CT evidence of acute cholecystitis. Subcentimeter stone is present within the cystic duct. No biliary ductal dilation or choledocholithiasis. 6. Additional findings as above. ACT 112: Negative or not required by law. The above report was generated using voice recognition software. It may contain grammatical, syntax or spelling errors. Electronically signed by: Reji Frausto M.D. 06/26/2022 5:55 PM PG Care Time/CCT Total # of Minutes Spent Total Time Spent with Patient: Total time spent is greater than 50% in coordination of care (as documented) at patient's floor/unit and/or counseling patient: Coding Level of Care Code 27562 Initial Inpt Care Lvl 3 Diagnoses Hypernatremia E87.0 Complicated urinary tract infection N39.0 Acute renal failure N17.9 Ureteral stent present Z96.0 Schizophrenia F20.9 Schizophrenia type: unspecified (1) Schizophrenia Schizophrenia type: unspecified Qualified Code(s): F20.9 - Schizophrenia, unspecified
[2022-06-26 21:08] LABS: Protein Urine 3+ (Negative)
[2022-06-26] MEDS ORDERED: ACETAMINOPHEN 325 MG TAB PO PRN (22:11)
[2022-06-26] MEDS ORDERED: bisacodyL 10 MG SUPP PR PRN (22:11)
[2022-06-26] MEDS: ERTAPENEM SODIUM 500 MG in SYRINGE 0 ML IV SCH (23:07)
[2022-06-26] MEDS: QUEtiapine FUMARATE 25 MG TABLET PO SCH (23:07)
[2022-06-26] MEDS: ONDANSETRON INJ 2 MG/ML 2 ML VIAL IV PRN (23:07)
[2022-06-26] MEDS: LACTATED RINGER'S 1,000 ML IV SCH (23:08)
[2022-06-27] MEDS: LACTATED RINGER'S 1,000 ML IV SCH (06:39)
[2022-06-27] MEDS: QUEtiapine FUMARATE 25 MG TABLET PO SCH ×3 (09:35→21:50)
--- NOTE | 2022-06-27 09:51 | Urology Consultation ---
Date of Consultation June 27, 2022 Assessment & Plan (1) Acute renal failure: (2) Hypernatremia: (3) Complicated urinary tract infection: (4) Ureteral stent present: (5) Bilateral hydronephrosis: (6) Staghorn calculus: Plan 57-year-old female with a history of bilateral staghorn calculi status post numerous treatments and ureteral stent exchanges. Her stents were last exchanged in August 2020. She unfortunately was lost to follow-up after that due to cancellations of surgeries, no showing to a CT scan and then her facility not bringing her to clinic due to COVID quarantine. She presented to the hospital and was found to have a mild white count, ESTELLE, with severe hy ponatremia. She was also hypokalemic as well. UA was concerning for infection. CT scan showed bilateral staghorn calculi and significant encrustation of bilateral proximal ureteral stent coils. There was bilateral hydronephrosis. As the patient is mainly noncommunicative, I called her sister Veena, who is one of her POA's. I also talked to her other sister and mother in person. I explained that the patient was previously lost to follow-up as one of her surgeries was canceled due to fevers and then she no showed to a CT scan and then her nursing facility did not bring her to follow-up based on COVID issues. The stents have now been in place for roughly 20 to months, which is 19 months longer than usual. I reviewed the CT scan with her, which shows significant proximal encrustation of the stents which would likely make it impossible to exchange these in a retrograde fashion. I recommended transfer to a tertiary care center for bilateral nephrostomy tube placement as we do not have interventional radiology at our facility. I did discuss that one other option would be to place additional stents alongside the current stents for improved drainage, but this would not be as ideal as nephrostomy tube placement. Additionally, I think she will need percutaneous access to remove these encrusted stents in the future. She also will need to have her electrolytes stabilized as much as possible, however if her kidneys are not appropriately draining this may be somewhat impeded until the obstruction is relieved. Sister was agreeable for transfer to a tertiary care center for nephrostomy tube placement. I discussed this with medicine and they will initiate transfer. Recommend transfer to [facility] for bilateral nephrostomy tube placement. History of Present Illness Reason for Consultation: Bilateral nephrolithiasis with bilateral indwelling ureteral stents Attending Physician: Baldo Vences MD History of Present Illness 57-year-old female with a history of bilateral staghorn calculi status post numerous treatments and stent placements. Her last stent exchange was August 2020. An effort was made to get her set up for repeat procedures but 1 was canceled due to her being febrile when she arrived. Evaluation and appointments were rescheduled however patient no-show to CT scan and then a nursing facility would not bring her to clinic due to COVID quarantine. This last occurred in April 2021. It then appears that she was lost to follow-up. She presented to the emergency department yesterday and initially was noted to be tachycardic but otherwise stable vitals. This improved with resuscitation. White count was 14.7, sodium was 167, potassium was 5.4, chloride was 129, creatinine was 2.33 with a previous value of 0.6 in December 2020. Urinalysis showed 3+ leukocyte esterase, greater than 30 WBCs, 10-30 RBCs, and 4+ bacteria. She was started on ertapenem based on previous cultures. A CT scan was performed which showed bilateral large renal stone burden and severe encrustation of her proximal coils of her stents. The stents otherwise did appear to be in appropriate position. There was right greater than left hydronephrosis. She was resting comfortably this morning. Sanchez catheter was draining blood- tinged urine. Afebrile with stable vitals overnight. Labs pending this morning. Allergies Allergy/AdvReac Type Severity Reaction Status Date / Time Penicillins Allergy Intermediate Unknown Verified 06/26/22 19:15 codeine Allergy Mild Unknown Verified 06/26/22 19:15 Home Medications Medication Instructions Recorded Confirmed Type acetaminophen 325 mg tablet 650 mg PO Q6H PRN Fever Or Pain 03/03/19 06/26/22 History bisacodyl 10 mg rectal suppository 10 mg ID DIRECTED PRN 03/03/19 06/26/22 History (Dulcolax (bisacodyl)) Constipation acetaminophen 650 mg rectal 650 mg ID Q6H PRN Fever 10/05/20 06/26/22 History suppository magnesium hydroxide 2,400 mg/10 mL 10 ml PO DAILY PRN Constipation 11/29/20 06/26/22 History oral suspension sodium phosphates 19 gram-7 118 ml ID DAILY PRN Constipation 11/29/20 06/26/22 History gram/118 mL enema (Fleet Enema) diazepam 5 mg tablet (Valium) 5 mg PO DIRECTED PRN 1 HR PRIOR 06/26/22 06/26/22 History TO DENTAL APPT. quetiapine 25 mg tablet (Seroquel) 25 mg PO BID 06/26/22 06/26/22 History Patient History Medical History Anemia chronic with fluctuating hgbs in the 10-13 range Anxiety disorder Cerebral palsy Chronic hypernatremia Depression GERD (gastroesophageal reflux disease) History of COVID-19 Dx 04/2020 (unknown symptoms per [facility]) Hyperlipidemia Hypotension Hypothyroidism Insomnia Intellectual disability Intermittent explosive disorder Nephrolithiasis Obstructive uropathy Osteoarthritis Schizophrenia non-verbal Sepsis Urosepsis 02/2019 s/p abx/cysto+ stent at [facility] Admitted 06/2020 with severe sepsis related to obstructing stone Urinary incontinence Urinary tract infection hx Surgical History History of cystoscopy cystoscopy, left stent: 07/21/20: MAC sedation at [facility] History of lithotripsy Right ESWL (12/07/20): LMA#4 (x1 attempt), atraumatic, good seal at [facility] Presence of urogenital implants S/P ureteral stent placement cysto + right RPG + stent: 03/03/19: MAC sedation Family History Other No pertinent family history in first degree relatives Social History Smoking Status: Unknown if ever smoked Hx Alcohol Use: No Hx Substance Use: No Preferred Language: Botswanan Communication Ability: Impaired Visual Impairment: No Limitations Hearing Ability: Hard of Hearing Academic Advising Director Required: No Beliefs That Will Affect Care: None Current Living Situation: Long Term Current Living Situation Comment: [facility] Assistive Devices: None Review of Systems Review of Systems: 14 point review of systems negative outside of what is listed above in HPI Physical Exam Physical Exam: General: Alert and oriented, no acute distress HEENT: Normocephalic, mucous membranes moist Pulmonary: Nonlabored respirations Abdomen: Nondistended : Sanchez catheter draining blood-tinged urine Extremities: Moves all 4 spontaneously Neuro: No gross deficits Skin: Warm, dry, no rashes noted Results & Data ([facility]) Vital Signs (Past 12 Hours) Vital Signs Temp Pulse Resp BP BP Pulse Ox O2 Del Method 06/27/22 09:41 Room Air 06/27/22 07:25 36.3 C L 91 H 16 101/67 97 Room Air 06/26/22 22:08 Room Air 06/26/22 22:08 36.4 C L 118 H 17 97/65 L 95 Room Air PG Care Time/CCT Total # of Minutes Spent Total Time Spent with Patient: Total time spent is greater than 50% in coordination of care (as documented) at patient's floor/unit and/or counseling patient: Coding Level of Care Code 45080 Inpt Consult Level 5 Diagnoses Acute renal failure N17.9 Hypernatremia E87.0 Complicated urinary tract infection N39.0 Ureteral stent present Z96.0 Bilateral hydronephrosis N13.30 Staghorn calculus N20.0
[2022-06-27 11:29] LABS: BUN Creatinine Ratio 39.3 (10-20); Blood Urea Nitrogen 84 mg/dl (6-23); Calcium 9.8 mg/dl (8.5-10.1); Carbon Dioxide 21 mmol/L (21-32); Chloride 128 mmol/L (98-107); Creatinine Clr Calc Pharmacy 26.4 ml/min; Est GFR (African American) 28.9 ml/min; Est GFR (Non-African American) 24.9 ml/min; Glucose 184 mg/dl (70-99(Fasting))
[2022-06-27 12:17] LABS: Hematocrit (blood only) 43.7 % (34.1-44.9); Hemoglobin 13.1 g/dl (12.0-16.0); Mean Corpuscular Hemoglobin 30.3 pg (25.0-34.0); Mean Corpuscular Volume 100.9 fL (80.0-100.0); Mean Platelet Volume 10.2 fL (9.4-12.3); Platelet Count 356 K/uL (130-400); RDW Coefficient of Variation 14.4 % (11.5-14.5); RDW Standard Deviation 53.5 fL (36.4-46.3); Red Blood Count 4.33 M/uL (3.93-5.22); White Blood Count 13.09 K/ul (4.8-10.8)
[2022-06-27 12:30] LABS: Potassium 5.4 mmol/L (3.5-5.1)
[2022-06-27] MEDS ORDERED: OLANZapine 10 MG/2.1 ML SDV IM SCH (12:30)
[2022-06-27] MEDS ORDERED: OLANZapine 10 MG/2.1 ML SDV IM PRN (12:33)
[2022-06-27 18:03] LABS: Calcium 9.6 mg/dl (8.5-10.1); Creatinine Clr Calc Pharmacy 28.2 ml/min; Est GFR (African American) 31.3 ml/min; Potassium 4.2 mmol/L (3.5-5.1)
[2022-06-27] MEDS: SODIUM CHLORIDE 0.45 % 1,000 ML IV SCH (18:07)
[2022-06-27] MEDS: ONDANSETRON INJ 2 MG/ML 2 ML VIAL IV PRN (19:55)
[2022-06-27] MEDS: ACETAMINOPHEN 1000 MG/100 ML IV IV PRN (20:17)
--- NOTE | 2022-06-27 20:38 | Hospitalist Progress Note ---
Date of Service June 27, 2022 Assessment & Plan (1) Hypernatremia: Plan: Free water deficit=5.7L. Patient appears very dry on exam. Na-167 upon admission Patient was given LR initially for volume, switched to half-normal saline to restore free water deficit Serum sodium 160 now Systolic blood pressure in the 90s patient mentating continue to monitor vitals (2) Complicated urinary tract infection: Plan: History of ESBL E. coli UTI, received Ivanz in ER -Follow culture -Continue Ivanz, renal dosing as needed -Contact precautions (3) Acute renal failure: Plan: Most likely secondary to dehydration -LR as above -Trend chemistry -Avoid nephrotoxic agents -Renal dosing where needed (4) Ureteral stent present: Plan: -Urology consultation appreciated -If nephrostomy tubes needed patient will need to be transferred Will initiate transfer process (5) Schizophrenia: Plan: Continue Seroquel We will use Zyprexa as needed for agitation Plan Discussed with patient's family including power of county attorney sister as well as mother and after extensive discussion it was decided patient's family Do not want the patient to be resuscitated in the event of a cardiac arrest and they want DNR DNI status to be placed Admission and Anticipated Discharge Date Admission Date: June 26, 2022 Subjective Patient agitated early this a.m. and after extensive discussion with the patient's family including her sister who is the POA and the mother Decided to initiate medications to control agitation Physical Exam Physical Exam: Head and ENT no thyroid enlargement trachea midline oral mucosa dry Cardiovascular S1-S2 are normal no S3 Lungs bilateral air entry fair no wheezing Abdomen soft nondistended positive bowel sounds no rebound tenderness Extremity shows trace edema Neurologically patient moves extremities but not oriented Results & Data Results & Data ([facility]) Vital Signs (Past 12 Hours) Vital Signs Temp Pulse Resp BP Pulse Ox O2 Del Method 06/27/22 19:40 93 H 90/61 L 99 Room Air 06/27/22 15:12 36.7 C 98 H 18 88/59 L 99 Room Air 06/27/22 09:41 Room Air PG Care Time/CCT Total # of Minutes Spent Total Time Spent with Patient: Total time spent is greater than 50% in coordination of care (as documented) at patient's floor/unit and/or counseling patient: Coding Level of Care Code 06289 Subseq Hosp Care Lvl 2 Diagnoses Hypernatremia E87.0 Complicated urinary tract infection N39.0 Acute renal failure N17.9 Ureteral stent present Z96.0 Schizophrenia F20.9 Schizophrenia type: unspecified (1) Schizophrenia Schizophrenia type: unspecified Qualified Code(s): F20.9 - Schizophrenia, unspecified
[2022-06-27 23:05] LABS: BUN Creatinine Ratio 36.1 (10-20); Calcium 8.5 mg/dl (8.5-10.1); Creatinine Clr Calc Pharmacy 30.8 ml/min; Est GFR (African American) 34.9 ml/min; Est GFR (Non-African American) 30.1 ml/min; Potassium 3.8 mmol/L (3.5-5.1)
[2022-06-27] MEDS: ERTAPENEM SODIUM 500 MG in SYRINGE 0 ML IV SCH (23:17)
[2022-06-28] MEDS: ONDANSETRON INJ 2 MG/ML 2 ML VIAL IV PRN ×2 (03:02→22:00)
[2022-06-28] MEDS: ACETAMINOPHEN 1000 MG/100 ML IV IV PRN ×2 (03:18→22:02)
[2022-06-28] MEDS: SODIUM CHLORIDE 0.45 % 1,000 ML IV SCH ×2 (04:32→15:34)
--- NOTE | 2022-06-28 09:30 | Urology Progress Note ---
Date of Service June 28, 2022 Assessment & Plan (1) Bilateral hydronephrosis: (2) Ureteral stent present: (3) Complicated urinary tract infection: (4) Acute renal failure: (5) Hypernatremia: (6) Staghorn calculus: Plan 57-year-old female with a history of bilateral staghorn calculi status post numerous treatments and ureteral stent exchanges. Her stents were last exchanged in August 2020. She unfortunately was lost to follow-up after that due to cancellations of surgeries, no showing to a CT scan and then her facility not bringing her to clinic due to COVID quarantine. She presented to the hospital and was found to have a mild white count, ESTELLE, with severe hyponat remia. She was also hypokalemic as well. UA was concerning for infection. CT scan showed bilateral staghorn calculi and significant encrustation of bilateral proximal ureteral stent coils. There was bilateral hydronephrosis. -Afebrile, Labs reviewed 06/27 -creatinine downtrending, 1.83. -Urine/blood cultures pending. -On IV Ertapenem, follow cultures. -Maintain Sanchez catheter. -Continue supportive care antibiotic therapy. -Awaiting transfer to tertiary center for bilateral nephrostomy tube placement. Admission and Anticipated Discharge Date Admission Date: June 26, 2022 Subjective Pt examined at bedside this AM. Awake, resting in bed on arrival. No acute di stress. Sanchez catheter intact, draining cloudy yellow urine with sediment. No fevers. Review of Systems Constitutional: as per Subjective / HPI Genitourinary: as per Subjective / HPI Physical Exam Constitutional: no acute distress Respiratory: no respiratory distress Neurologic: awake Genitourinary: Sanchez catheter intact Results & Data ([facility]) Vital Signs (Past 12 Hours) Vital Signs Temp Pulse Resp BP Pulse Ox O2 Del Method 06/28/22 08:33 36.4 C L 83 18 89/62 L 98 Room Air 06/28/22 03:11 103/53 L 06/27/22 22:24 36.8 C 75 16 89/55 L 99 Room Air PG Care Time/CCT Total # of Minutes Spent Total Time Spent with Patient: Total time spent is greater than 50% in coordination of care (as documented) at patient's floor/unit and/or counseling patient: Coding Level of Care Code 26058 Subseq Hosp Care Lvl 2 Diagnoses Bilateral hydronephrosis N13.30 Ureteral stent present Z96.0 Complicated urinary tract infection N39.0 Acute renal failure N17.9 Hypernatremia E87.0 Staghorn calculus N20.0
[2022-06-28] MEDS: QUEtiapine FUMARATE 25 MG TABLET PO SCH ×3 (12:12→20:11)
[2022-06-28 16:20] LABS: Hematocrit (blood only) 34.4 % (34.1-44.9); Hemoglobin 10.7 g/dl (12.0-16.0); Mean Corpuscular Hgb Conc 31.1 g/dL (32.0-36.0); Mean Corpuscular Volume 96.4 fL (80.0-100.0); Mean Platelet Volume 9.6 fL (9.4-12.3); Platelet Count 302 K/uL (130-400); RDW Standard Deviation 49.4 fL (36.4-46.3); Red Blood Count 3.57 M/uL (3.93-5.22); White Blood Count 9.86 K/ul (4.8-10.8)
[2022-06-28 17:21] LABS: BUN Creatinine Ratio 32.6 (10-20); Calcium 8.5 mg/dl (8.5-10.1); Creatinine Clr Calc Pharmacy 39.2 ml/min; Est GFR (African American) 46.6 ml/min; Est GFR (Non-African American) 40.2 ml/min; Potassium 3.9 mmol/L (3.5-5.1)
--- NOTE | 2022-06-28 19:25 | Discharge Summary ---
Date of Service June 28, 2022 Admission HPI Per Admitting Provider Cary Yin is a 57yo female with history of cerebral palsy, minimally verbal at baseline, hypernatremia, HTN, HLP, Hypothyrodism, GERD as well as chronic ureterolithiasis/staghorn calculi with stents in place. Patient has not been eating or drinking x 6 days. Patient has not had a stent exchange since November 2020. Has history of ESBL UTI We=430 Sanchez placed in ER with return of small amount of purulent urine. Principal Diagnosis Obstructive uropathy, hypernatremia, ESTELLE Discharge Exam Head and ENT no thyroid enlargement trachea midline oral mucosa dry Cardiovascular S1-S2 are normal no S3 Lungs bilateral air entry fair no wheezing Abdomen soft nondistended positive bowel sounds no rebound tenderness Extremity shows trace edema Neurologically patient moves extremities but not oriented Discharge Data Allergies Allergy/AdvReac Type Severity Reaction Status Date / Time Penicillins Allergy Intermediate Unknown Verified 06/26/22 19:15 codeine Allergy Mild Unknown Verified 06/26/22 19:15 Consultations 06/26/22 19:14 ED Decision to Admit Stat 06/26/22 22:11 Consult Urology Routine 06/28/22 17:57 Burn CD for patient Routine Ordered Studies 06/26/22 17:12 CT abd pelvis wo con Stat Hospital Course (1) Hypernatremia: Free water deficit=5.7L. Patient appears very dry on exam. Na-167 upon admission Patient was given LR initially for volume, switched to half-normal saline to restore free water deficit Serum sodium 160 now Systolic blood pressure in the 90s patient mentating continue to monitor vitals (2) Complicated urinary tract infection: History of ESBL E. coli UTI, received Ivanz in ER -Follow culture -Continue Ivanz, renal dosing as needed -Contact precautions (3) Acute renal failure: Most likely secondary to dehydration -LR as above -Trend chemistry -Avoid nephrotoxic agents -Renal dosing where needed (4) Ureteral stent present: -Urology consultation appreciated -If nephrostomy tubes needed patient will need to be transferred Will initiate transfer process (5) Schizophrenia: Continue Seroquel We will use Zyprexa as needed for agitation Plan Discussed with patient's family including power of hyster driver sister as well as mother and after extensive discussion it was decided patient's family Do not want the patient to be resuscitated in the event of a cardiac arrest and they want DNR DNI status to be placed Based on urology recommendations patient ureteral stents have been calcified and hence nephrostomy tube has to be placed in a tertiary facility with advanced urology/IR And based on urologist discussion with the family patient to be transferred to [facility] and this was discussed with patient's POA who approved the transfer Total Time Total Time Spent Total Time Spent (In Minutes): 50 Discharge Plan Discharge Items Patient Disposition: Transfer Acute Care Hospital Reason For Visit: UTI, HYPERNATREMIA Discharge Diagnosis: obstructive uropathy , estelle Activity: Per Instructions section Non-emergency contact: Urologist Call non-emergency contact if: you have any medication questions Follow-up/Referrals: Karen Diaz [Primary Care Provider] - Diet: Full liquid Addtl Attending Provider Instructions[facility] Pending Studies at Discharge: No Stand-Alone Forms: My [employer] Skilled Items Patient informed of condition?: Yes DNR: Yes Discharge Level of Care: Skilled Communicable Disease: No Discharge Prognosis: Deteriorating Lines: Peripheral IV Urinary Catheter: No Medications and DC Order Prescriptions: Continued acetaminophen 325 mg Tablet 650 mg PO Q6H MDD 3 GMS APAP/24 HOURS PRN (Reason: Fever Or Pain) Rx Instructions: DIRECTED FOR ELEVATED TEMPERATURE GREATER THAN 101 F OR FOR PAIN RATED ON A "1-10" SCALE bisacodyl [Dulcolax (bisacodyl)] 10 mg Suppository 10 mg LA DIRECTED PRN (Reason: Constipation) Rx Instructions: Insert 1 suppository in the evening of the 3rd day with no bowel movement acetaminophen 650 mg Suppository 650 mg LA Q6H MDD 3 GRAMS/24 HOURS PRN (Reason: Fever) Rx Instructions: NEEDED FOR TEMP >101 F. IF UNABLE TO TAKE PO MEDS. quetiapine [Seroquel] 25 mg Tablet 25 mg PO BID Discontinued Fleet Enema 19-7 gram/118 mL Enema 118 ml LA DAILY PRN (Reason: Constipation) magnesium hydroxide 2,400 mg/10 mL Suspension 10 ml PO DAILY PRN (Reason: Constipation) diazepam [Valium] 5 mg Tablet 5 mg PO DIRECTED PRN (Reason: 1 HR PRIOR TO DENTAL APPT.) Discharge Orders: Discharge Order (Routine); Ordered 11/04/22 Ordered By: Baldo Vences Admission Data Admit Date/Time: 06/26/22 20:50 Attending Provider: Baldo Vences Admit Provider: Eve Webber Primary Care Provider: Karen Diaz Other Providers: Eve Webber ; Giuseppe Currie Other Interventions: Discharge Summary Assessment (RN) Last Done: 06/28/22 17:00 Coding Level of Care Code D/C DAY MANAGEMENT >30 MINS Diagnoses Hypernatremia E87.0 Complicated urinary tract infection N39.0 Acute renal failure N17.9 Ureteral stent present Z96.0 Schizophrenia F20.9 Schizophrenia type: unspecified
[2022-06-28] MEDS ORDERED: ERTAPENEM SODIUM 1,000 MG in SYRINGE 0 ML IV SCH (21:00)
[2022-06-29] MEDS: QUEtiapine FUMARATE 25 MG TABLET PO SCH ×2 (07:49→07:54)
[2022-06-29] MEDS: ONDANSETRON INJ 2 MG/ML 2 ML VIAL IV PRN (07:49)
--- NOTE | 2022-07-10 09:31 | Coding Query ---
CODING QUERY To promote full compliance with coding requirements relating to patient care, provider participation is requested in all cases of him coder uncertainty. Please assist us with the question(s) below: Coding Question(s): There is documentation of Complicated Urinary Tract Infection as well as significant encrustation of bilateral proximal ureteral stent coils on the Urology Consultation and documentation of, "I explained that the patient was previously lost to follow-up as one of her surgeries was canceled due to fevers and then she no showed to a CT scan and then her nursing facility did not bring her to follow-up based on COVID issues. The stents have now been in place for roughly 20 to months, which is 19 months longer than usual. I reviewed the CT scan with her, which shows significant proximal encrustation of the stents which would likely make it impossible to exchange these in a retrograde fashion", and the Discharge Summary documents, "Based on urology recommendations patient ureteral stents have been calcified and hence nephrostomy tube has to be placed in a tertiary facility with advanced urology/IR". Please specify below, in your clinical opinion, regarding both the Complicated Urinary Infection and the encrustation of bilateral ureteral stent coils. COMPLICATED URINARY TRACT INFECTION: (x ) likely caused by the Indwelling Ureteral Stents with complication of Urinary Tract Infection due to not being exchanged for 19 months longer than usual ( ) Not likely caused by the Indwelling Ureteral Stents ( ) Other: Please Specify ENCRUSTATION/CALCIFICATION OF BILATERAL URETERAL STENTS: ( x) likely a complication of the ureteral stents due to not being exchanged for 19 months longer than usual ( ) Not a complication of the ureteral stents ( ) Other: Please Specify Physician's Response(s): Thank you Keli Balderas Principal Diagnosis: "that condition established after study, to be chiefly responsible for occasioning the admission of the patient to the hospital for care." Co-Existing Principal Diagnosis: "when two or more diagnoses equally meet the criteria for principal diagnosis as determined by the circumstances of admission, diagnostic work up, and/or therapy provided, and the Alphabetic Index, Tabular List, or another coding guideline does not provide sequencing direction, any one of the diagnoses may be sequenced first." "When the physician has documented what appears to be a current diagnosis in the body of the record, but has not included the diagnosis in the final diagnostic statement, the physician should be asked whether the diagnosis should be added." (Source Coding [facility] 2 QTR90. p3-4) TIMOTHY
== END 2022-06-29 08:46 | disposition short-term general hospital (02) | DRG 699 ==
LOC: ED 16:07 → 3W 20:50 → SUATTDRO 20:50 → 3W 23:09

== ENCOUNTER 2022-07-16 19:16 | Inpatient (IN) ==
[2022-07-16] MEDS ORDERED: ERTAPENEM SODIUM 10 ML IV STA (20:05)
[2022-07-16] MEDS ORDERED: ACETAMINOPHEN 1,000 MG/100 ML VIAL IV STA (20:06)
[2022-07-16] MEDS ORDERED: SODIUM CHLORIDE 0.9% 1000ML 1,000 ML IV ONE (20:06)
--- NOTE | 2022-07-16 20:25 | XRay Report ---
XR chest 1V portable CLINICAL HISTORY: Sepsis COMPARISON STUDY: Chest radiograph October 05, 2020. FINDINGS: Lung volumes are normal. There is possible mild right lower lung opacity. There is no pneum othorax or pleural effusion. Cardiac size is stable. Mediastinal contours are normal. There is no dianne dence for pulmonary edema. IMPRESSION: Possible right lower lung opacity. Pulmonary vessels or atelectasis is favored however a focus of consolidation cannot be excluded. ACT 112: Negative or not required by law. Electronically signed by: Ousmane Mcmillan M.D. 07/16/2022 8:24 PM
[2022-07-16 21:11] LABS: Basophils # (auto) 0.04 K/uL (0-0.2); Basophils % (auto) 0.7 %; Eosinophils # (auto) 0.16 K/uL (0-0.50); Eosinophils % (auto) 2.9 %; Hematocrit (blood only) 31.8 % (34.1-44.9); Hemoglobin 9.9 g/dl (12.0-16.0); Immature Granulocytes # (auto) 0.01 K/uL (0.00-0.02); Immature Granulocytes % (auto) 0.2 %; Lymphocytes # (auto) 1.44 K/uL (1.2-3.4); Mean Corpuscular Hemoglobin 30.2 pg (25.0-34.0); Mean Corpuscular Hgb Conc 31.1 g/dL (32.0-36.0); Mean Platelet Volume 8.5 fL (9.4-12.3); Monocytes % (auto) 7.2 %; Neutrophils # (auto) 3.49 K/uL (1.4-6.5); Platelet Count 627 K/uL (130-400); RDW Coefficient of Variation 14.5 % (11.5-14.5); RDW Standard Deviation 51.2 fL (36.4-46.3); Red Blood Count 3.28 M/uL (3.93-5.22); White Blood Count 5.54 K/ul (4.8-10.8)
[2022-07-16 21:18] LABS: Influenza A virus by PCR Negative (Neg); Influenza B virus by PCR Negative (Neg); RSV by PCR Negative (Neg); SARS CoV2 RNA(COVID-19)Cepheid NEGATIVE (Negative)
[2022-07-16 21:38] LABS: Albumin Level 3.5 gm/dl (3.4-5.0); BUN Creatinine Ratio 21.9 (10-20); Bilirubin,Total 0.2 mg/dl (0.2-1.0); Calcium 8.9 mg/dl (8.5-10.1); Creatinine Clr Calc Pharmacy 100.8 ml/min; Est GFR (African American) 114.8 ml/min; Est GFR (Non-African American) 99.1 ml/min; Total Protein 7.8 gm/dl (6.0-8.3)
[2022-07-16 21:41] LABS: Troponin I High Sensitivity 4.9 pg/ml (0-14)
[2022-07-16 21:46] LABS: Appearance Urine Cloudy (Clear); Bacteria Urine Automated Negative (Negative); Bilirubin Urine Negative (Negative); Blood Urine 3+ (Negative); Color Urine Yellow; Epithelial Cell Urine Auto 0-5 /lpf (0-5); Glucose Urine UA Negative (Negative); Ketones Urine Negative (Negative); Leukocyte Esterase Urine 3+ (Negative); Nitrite Urine Negative (Negative); Protein Urine 3+ (Negative); RBC Urine Automated >30 /hpf (0-4); Specific Gravity Urine 1.014 (1.000-1.030); Urobilinogen Urine Negative (Negative); WBC Urine Automated >30 /hpf (0-5)
--- NOTE | 2022-07-16 22:28 | Emergency Department Note ---
Impression & Plan Complicated urinary tract infection, Nephrostomy status, Bilateral hydronephrosis, Cerebral palsy ED Provider Note NAME: KIN CRAIG AGE: 57 SEX: F ARRIVES VIA: Ambulance INFORMANT: Patient ED PROVIDER(S): Bola Kapoor MD CHIEF COMPLAINT: Nephrostomy decreased output PLAN: Disposition: Admit MEDICAL DECISION MAKING: The patient is a 57-year-old woman with a past medical history of cerebral palsy, intellectual disability, nonverbal at baseline, history of nephrolithiasis with indwelling ureteral stents, history of ESBL Ecoli UTI who presents to the emergency department from [facility] for evaluation of decreased drainage from the patient's right nephrostomy. The patient presents emerged department in the setting of complicated urologic history in the past month where she was transferred to [facility] [place] nephrostomy placement following prolonged indwelling bilateral ureteral stents which were encrusted, subsequently transferred again last week after she pulled her right nephrostomy out and this was replaced. The patient is unable to provide history due to nonverbal baseline status. On arrival to the emergency department the patient has a temperature of 37.9- 38.7 with heart rate in the 90s and vital signs otherwise stable. There is free-flowing drainage of the patient's left nephrostomy tube. The patient's right nephrostomy tube demonstrates urine within the tubing but does not drain into the bag. The patient also has an indwelling Sanchez catheter with scant bloody urinary drainage. EKG without overt acute ischemia. CXR with question of right lower lobe atelectasis versus consolidation. WBC within normal limits. H/H similar to prior. Platelets 600K similar to prior and likely reactive. Chemistry without metabolic acidosis. Lactic acid 1.7, within normal limits. LFTs unremarkable. High-sensitivity troponin 4.9, within normal limits. Procalcitonin is not elevated. Urine obtained from the patient's left nephrostomy is suspicious for infection with WBCs though no bacteria or nitrites. Ertapenem ordered given history of ESBL E. coli. CT of the abdomen pelvis was performed and demonstrates bilateral percutaneous nephrostomy catheters in place. Mild bilateral hydronephrosis is noted. Bilateral nonobstructing renal calyceal stones are present. Given the patient's fever with history of ESBL E. coli UTI and suspicious urinalysis we will proceed with admission for further management. Case was discussed with [place] u[facility] on-call, Dr. Diaz. Appreciate recommendations to flush nephrostomy as needed to ensure drainage. Given nephrostomies are in place no intervention required at this time. Case was discussed with Dr. Kirkland, [facility] hospitalist, who will evaluate the patient for admission. Triage Nursing notes reviewed and agree them. Prior medical records reviewed Vital Signs: reviewed and remarkable for fever. Differential diagnosis: Renal colic, UTI, appendicitis, diverticulitis, mesenteric ischemia, aortic pathology, infections, inflammatory bowel disease, PUD, biliary pathology, as well as other pathologies. ER treatment provided: See below. Diagnostics interpreted by me: ECG: Normal sinus rhythm, 94 bpm, no ectopy, nonspecific ST abnormality, no overt ST elevation, QTC 427, QRS 88. Cardiac Monitoring: An order for continuous cardiac monitoring was placed and de monstrated Normal sinus rhythm, 94 bpm, no ectopy. Laboratory studies: See below Imaging studies: See below Consultation(s): Dr. Diaz, [place] urology. Dr. Kirkland [facility] hospitalist. HPI: The patient is a 57-year-old woman with a past medical history of cerebral palsy, intellectual disability, nonverbal at baseline, history of nephrolithiasis with indwelling ureteral stents, history of ESBL Ecoli UTI who presents to the emergency department from [facility] for evaluation of decreased drainage from the patient's right nephrostomy. The patient presents emerged department in the setting of complicated urologic history in the past month where she was transferred to [facility] [place] bilateral nephrostomy placement following prolonged indwelling bilateral ureteral stents which were encrusted, subsequently transferred again last week after she pulled her right nephrostomy out and this was replaced. The patient is unable to provide history due to nonverbal baseline status. ROS: See above HPI for pertinent positives & negatives. A total of 10 systems reviewed and were otherwise negative. VITALS:See Below PHYSICAL EXAMINATION: GENERAL: Awake, alert, chronically ill-appearing, in no distress HENT: Normocephalic, atraumatic. Oropharynx with dry mucous membranes and otherwise unremarkable. EYES: Normal conjunctiva. Sclera non-icteric. NECK: Supple. No nuchal rigidity. FROM. No JVD. RESPIRATORY: Clear to auscultation. CARDIAC: Regular rate, normal rhythm. Extremities warm and well perfused. Pulses equal. ABDOMEN: Soft, non-distended. No tenderness to palpation. No rebound or guard ing. Bilateral nephrostomies present. Free-flowing drainage of the patient's left nephrostomy tube. The patient's right nephrostomy tube demonstrates urine within the tubing but does not drain into the bag. RECTAL: Deferred. : Indwelling Sanchez catheter with scant bloody urinary drainage. MUSCULOSKELETAL: Chest examination reveals no tenderness. The back is symmetrical on inspection without obvious abnormality. There is no CVA tenderness to palpation. No joint edema. LOWER EXTREMITIES: Calves are equal size bilaterally and non-tender. No edema. No discoloration. NEURO: No new sensory or motor deficits noted from baseline. Non-verbal at baseline. SKIN: No rash or jaundice noted. ED COURSE: Critical Care: I have personally spent greater than 35 minutes of critical care time in the direct management of this patient. This includes bedside care, interpretation of diagnostic studies, and testing, discussion with consultants, patient, and family members, and other required patient management activities. This 35 minutes is in excess of all separately billable procedures. Bola Kapoor MD Past Med/Surg History Medical History Anemia chronic with fluctuating hgbs in the 10-13 range Anxiety disorder Cerebral palsy Chronic hypernatremia Depression GERD (gastroesophageal reflux disease) History of COVID-19 Dx 04/2020 (unknown symptoms per [facility]) Hyperlipidemia Hypotension Hypothyroidism Insomnia Intellectual disability Intermittent explosive disorder Nephrolithiasis Obstructive uropathy Osteoarthritis Schizophrenia non-verbal Sepsis Urosepsis 02/2019 s/p abx/cysto+ stent at [facility] Admitted 06/2020 with severe sepsis related to obstructing stone Urinary incontinence Urinary tract infection hx Surgical History History of cystoscopy cystoscopy, left stent: 07/21/20: MAC sedation at [facility] History of lithotripsy Right ESWL (12/07/20): LMA#4 (x1 attempt), atraumatic, good seal at [facility] Presence of urogenital implants S/P ureteral stent placement cysto + right RPG + stent: 03/03/19: MAC sedation Family History Other No pertinent family history in first degree relatives Social History Smoking Status: Unknown if ever smoked Hx Alcohol Use: No Hx Substance Use: No Preferred Language: [place] Island[place] Communication Ability: Unable Visual Impairment: No Limitations Hearing Ability: Hard of Hearing Sales Clerk Required: No Beliefs That Will Affect Care: None Current Living Situation: Intermediate Current Living Situation Comment: [facility] Other Information That Helps Us Care for You: No Feels Safe at Home: Yes Assistive Devices: Hospital Bed and Wheelchair Allergies Allergies Allergy/AdvReac Type Severity Reaction Status Date / Time codeine Allergy Unknown Unknown Verified 07/10/22 15:55 Penicillins Allergy Unknown Unknown Verified 07/10/22 15:55 Home Meds Home Medications Medication Instructions Recorded Confirmed acetaminophen 325 mg tablet 650 mg PO Q4H PRN Fever Or Pain 03/03/19 07/10/22 bisacodyl 10 mg rectal suppository 10 mg CA DAILY PRN Constipation 03/03/19 07/10/22 (Dulcolax (bisacodyl)) apixaban 5 mg tablet (Eliquis) 5 mg PO Q12H 07/10/22 07/10/22 clindamycin HCl 150 mg capsule 300 mg PO Q6H 07/10/22 07/10/22 cyanocobalamin (vitamin B-12) 1,000 mcg PO DAILY 07/10/22 07/10/22 1,000 mcg tablet (Vitamin B-12) docusate sodium 100 mg capsule 100 mg PO BID 07/10/22 07/10/22 lidocaine 5 % topical patch 1 patch topical DAILY 07/10/22 07/10/22 losartan 25 mg tablet 25 mg PO DAILY 07/10/22 07/10/22 magnesium hydroxide 400 mg/5 mL 30 ml PO DAILY PRN Constipation 07/10/22 07/10/22 oral suspension (Milk of Magnesia) melatonin 3 mg tablet 6 mg PO HS 07/10/22 07/10/22 metoprolol succinate 25 mg 25 mg PO DAILY 07/10/22 07/10/22 tablet,extended release 24 hr multivitamin with minerals 1 tab PO DAILY 07/10/22 07/10/22 nystatin 100,000 unit/gram topical 1 applic topical BID 07/10/22 07/10/22 powder ondansetron 4 mg disintegrating 4 mg PO Q4H PRN NAUSEA/VOMITING 07/10/22 07/10/22 tablet paroxetine HCl 10 mg tablet 10 mg PO DAILY 07/10/22 07/10/22 polyethylene glycol 3350 17 17 g PO DAILY PRN Constipation 07/10/22 07/10/22 gram/dose oral powder (Miralax) sennosides 8.6 mg-docusate sodium 1 tab-cap PO QDL PRN Constipation 07/10/22 07/10/22 50 mg capsule (Senna Plus) tramadol 50 mg tablet 50 mg PO Q8H PRN Pain 07/10/22 07/10/22 Results & Data (ED) Vital Signs Vital Signs - 24 hr 07/16/22 19:12 07/16/22 20:25 07/16/22 22:00 Temperature 37.9 C H 38.7 C H Temperature Source Oral Oral Pulse Rate 97 H Pulse Rate [Apical] 87 Respiratory Rate 18 18 Respiratory Effort / Characteristics Non-Labored Spontaneous Respiratory Depth Normal Blood Pressure 107/64 Blood Pressure [Right Arm] 118/66 Blood Pressure Mean 78 Blood Pressure Mean [Right Arm] 83 Pulse Oximetry 95 96 Oxygen Delivery Method Room Air Sepsis Recent Fever Within 48 Hours Yes Sepsis New/Unexplained Change in Mental Status No Sepsis Action Taken by Nursing No Action Required 07/16/22 23:00 07/17/22 00:10 07/17/22 00:52 Temperature Temperature Source Pulse Rate Pulse Rate [Apical] 88 84 80 Respiratory Rate 13 16 16 Respiratory Effort / Characteristics Respiratory Depth Blood Pressure Blood Pressure [Right Arm] 88/64 L 101/72 90/61 L Blood Pressure Mean Blood Pressure Mean [Right Arm] 72 81 70 Pulse Oximetry 97 96 97 Oxygen Delivery Method Sepsis Recent Fever Within 48 Hours Sepsis New/Unexplained Change in Mental Status Sepsis Action Taken by Nursing Laboratory Data Attestation: I reviewed the patient's lab results. Result diagrams: 07/16/22 20:55 07/16/22 20:55 Lab Results 07/16/22 07/16/22 07/16/22 Range/Units 20:29 20:55 20:55 WBC 5.54 (4.8-10.8) K/ul RBC 3.28 L (3.93-5.22) M/uL Hgb 9.9 L (12.0-16.0) g/dl Hct 31.8 L (34.1-44.9) % MCV 97.0 (80.0-100.0) fL MCH 30.2 (25.0-34.0) pg MCHC 31.1 L (32.0-36.0) g/dL RDW Std Deviation 51.2 H (36.4-46.3) fL RDW Coeff of Roberto 14.5 (11.5-14.5) % Plt Count 627 H (130-400) K/uL MPV 8.5 L (9.4-12.3) fL Immature Gran % (Auto) 0.2 % Neut % (Auto) 63.0 % Lymph % (Auto) 26.0 % [place] % (Auto) 7.2 % Eos % (Auto) 2.9 % Baso % (Auto) 0.7 % Neut # (Auto) 3.49 (1.4-6.5) K/uL Lymph # (Auto) 1.44 (1.2-3.4) K/uL [place] # (Auto) 0.40 (0.24-0.82) K/uL Eos # (Auto) 0.16 (0-0.50) K/uL Baso # (Auto) 0.04 (0-0.2) K/uL Immature Gran # (Auto) 0.01 (0.00-0.02) K/uL Sodium 140 (136-145) mmol/L Potassium 4.0 (3.5-5.1) mmol/L Chloride 105 (98-107) mmol/L Carbon Dioxide 28 (21-32) mmol/L Anion Gap 7 (3-11) BUN 14 (6-23) mg/dl Creatinine 0.64 (0.6-1.2) mg/dl Est Cr Clr Drug Dosing 100.8 ml/min Est GFR ( Amer) 114.8 ml/min Est GFR (Non-Af Amer) 99.1 ml/min BUN/Creatinine Ratio 21.9 H (10-20) Glucose 93 (70-99(Fasting)) mg/dl Lactate (0.4-2.0) mmol/L Calcium 8.9 (8.5-10.1) mg/dl Magnesium 2.0 (1.7-2.4) mg/dl Total Bilirubin 0.2 (0.2-1.0) mg/dl Direct Bilirubin 0.0 (0-0.2) mg/dl AST 14 (13-39) U/L ALT 12 (7-52) U/L Alkaline Phosphatase 73 (34-104) U/L Troponin I High Sens 4.9 (0-14) pg/ml Total Protein 7.8 (6.0-8.3) gm/dl Albumin 3.5 (3.4-5.0) gm/dl Procalcitonin (0-0.5) ng/ml Urine Color Urine Appearance (Clear) Urine pH (4.5-7.5) Ur Specific [place] (1.000-1.030) Urine Protein (Negative) Urine Glucose (UA) (Negative) Urine Ketones (Negative) Urine Blood (Negative) Urine Nitrite (Negative) Urine Bilirubin (Negative) Urine Urobilinogen (Negative) Ur Leukocyte Esterase (Negative) Urine WBC (Auto) (0-5) /hpf Urine RBC (Auto) (0-4) /hpf U Hyaline Cast (Auto) (0-5) /lpf U Epithel Cells (Auto) (0-5) /lpf Urine Bacteria (Auto) (Negative) Urine Yeast SARS-CoV-2 (PCR) NEGATIVE (Negative) Influenza Type A (PCR) Negative (Neg) Influenza Type B (PCR) Negative (Neg) RSV (RT-PCR) Negative (Neg) 07/16/22 07/16/22 07/16/22 Range/Units 20:55 20:55 21:29 WBC (4.8-10.8) K/ul RBC (3.93-5.22) M/uL Hgb (12.0-16.0) g/dl Hct (34.1-44.9) % MCV (80.0-100.0) fL MCH (25.0-34.0) pg MCHC (32.0-36.0) g/dL RDW Std Deviation (36.4-46.3) fL RDW Coeff of Roberto (11.5-14.5) % Plt Count (130-400) K/uL MPV (9.4-12.3) fL Immature Gran % (Auto) % Neut % (Auto) % Lymph % (Auto) % [place] % (Auto) % Eos % (Auto) % Baso % (Auto) % Neut # (Auto) (1.4-6.5) K/uL Lymph # (Auto) (1.2-3.4) K/uL [place] # (Auto) (0.24-0.82) K/uL Eos # (Auto) (0-0.50) K/uL Baso # (Auto) (0-0.2) K/uL Immature Gran # (Auto) (0.00-0.02) K/uL Sodium (136-145) mmol/L Potassium (3.5-5.1) mmol/L Chloride (98-107) mmol/L Carbon Dioxide (21-32) mmol/L Anion Gap (3-11) BUN (6-23) mg/dl Creatinine (0.6-1.2) mg/dl Est Cr Clr Drug Dosing ml/min Est GFR ( Amer) ml/min Est GFR (Non-Af Amer) ml/min BUN/Creatinine Ratio (10-20) Glucose (70-99(Fasting)) mg/dl Lactate 1.7 (0.4-2.0) mmol/L Calcium (8.5-10.1) mg/dl Magnesium (1.7-2.4) mg/dl Total Bilirubin (0.2-1.0) mg/dl Direct Bilirubin (0-0.2) mg/dl AST (13-39) U/L ALT (7-52) U/L Alkaline Phosphatase (34-104) U/L Troponin I High Sens (0-14) pg/ml Total Protein (6.0-8.3) gm/dl Albumin (3.4-5.0) gm/dl Procalcitonin 0.06 (0-0.5) ng/ml Urine Color Yellow Urine Appearance Cloudy A (Clear) Urine pH 7.0 (4.5-7.5) Ur Specific [place] 1.014 (1.000-1.030) Urine Protein 3+ H (Negative) Urine Glucose (UA) Negative (Negative) Urine Ketones Negative (Negative) Urine Blood 3+ H (Negative) Urine Nitrite Negative (Negative) Urine Bilirubin Negative (Negative) Urine Urobilinogen Negative (Negative) Ur Leukocyte Esterase 3+ H (Negative) Urine WBC (Auto) >30 H (0-5) /hpf Urine RBC (Auto) >30 H (0-4) /hpf U Hyaline Cast (Auto) 1-5 (0-5) /lpf U Epithel Cells (Auto) 0-5 (0-5) /lpf Urine Bacteria (Auto) Negative (Negative) Urine Yeast Not Reportable SARS-CoV-2 (PCR) (Negative) Influenza Type A (PCR) (Neg) Influenza Type B (PCR) (Neg) RSV (RT-PCR) (Neg) Administered Medications Lactated Ringer's (Lr) 1,000 mls @ 80 mls/hr IV .[id number] NOE Stop: 07/17/22 14:48 Last Admin: 07/17/22 02:53 Dose: 80 mls/hr Documented By: MISBAH Discontinued Medications Ertapenem (Invanz) 10 mls @ 2 mls/min IV NOW STA Stop: 07/16/22 20:09 Last Admin: 07/16/22 21:23 Dose: 2 mls/min Documented By: MJ Sodium Chloride (Nss 1000ml) 1,000 mls @ 999 mls/hr IV .[id number] ONE Stop: 07/16/22 21:06 Last Infusion: 07/16/22 22:32 Dose: 0 mls/hr Documented By: Admin: 07/16/22 21:23 Dose: 999 mls/hr Documented By: MJ Acetaminophen (Ofirmev) 1,000 mg in 100 mls @ 400 mls/hr IV NOW STA Stop: 07/16/22 20:20 Last Infusion: 07/16/22 22:32 Dose: 0 mls/hr Documented By: Admin: 07/16/22 21:23 Dose: 400 mls/hr Documented By: MJ Ioversol (Optiray 350 100ml) 84 ml IV ONCE ONE Stop: 07/16/22 22:40 Last Admin: 07/16/22 22:42 Dose: 84 ml Documented By: ZAYDA Imaging Data Radiologist's Impression: Chest X-Ray 07/16/22 20:03 XR chest 1V portable CLINICAL HISTORY: Sepsis COMPARISON STUDY: Chest radiograph October 05, 2020. FINDINGS: Lung volumes are normal. There is possible mild right lower lung opacity. There is no pneumothorax or pleural effusion. Cardiac size is stable. Mediastinal contours are normal. There is no evidence for pulmonary edema. IMPRESSION: Possible right lower lung opacity. Pulmonary vessels or atelectasis is favored however a focus of consolidation cannot be excluded. ACT 112: Negative or not required by law. Electronically signed by: Ousmane Mcmillan M.D. 07/16/2022 8:24 PM [facility] Preliminary Findings Only See Final Report For Complete Findings CT ABDOMEN & PELVIS With Contrast: Percutaneous nephrostomy catheter noted bilaterally as well as 2 bilateral nephroureteral stents are in place. Mild bilateral hydronephrosis noted Bilateral nonobstructing renal calyceal stones are present Cholelithiasis noted in an otherwise normal-appearing gallbladder Normal small and large bowel Radiologist: Ryan Taveras MD Phone:D [phone] Study ready at 22:50 and initial results transmitted at 23:10 Discharge Plan Visit Data Chief Complaint: Catheter Replacement ED Provider: Bola Kapoor Discharge Problem: Complicated urinary tract infection, Nephrostomy status, Bilateral hydronephrosis, Cerebral palsy Patient Disposition: Admitted As Inpatient Discharge Instructions Interventions: ED Discharge Assessment Last Done: 07/17/22 01:55
[2022-07-16] MEDS ORDERED: OPTIRAY 350 100ml IV ONE (22:39)
--- NOTE | 2022-07-17 01:23 | History & Physical Report ---
Date of Service July 17, 2022 Assessment & Plan (1) Complicated urinary tract infection: Plan: Complicated UTI/history of ESBL/bilateral percutaneous nephrostomy tubes/bilateral nephroureteral stents/mild bilateral hydro ureteronephrosis- Follow urine culture and sensitivity Continue ertapenem 1 g IV daily begun in ED NSS x1 L given in the ED NSS + KCl 20 mEq at 80 mils per hour x1 L Consult urology Unclear why or if patient is on Eliquis, which is newly listed in her medication compared to admission of 06/26/2022, but will be held (2) Ureteral stent present: (3) Bilateral hydronephrosis: (4) HTN (hypertension): Plan: Hold metoprolol tartrate and losartan due to relatively low blood pressure (5) Schizophrenia: Plan: Schizophrenia/cerebral palsy- Nonverbal Continue supportive medications (6) Cerebral palsy: History of Present Illness Chief Complaint: The patient presents to the emergency department as a referral from [facility] due to decreased urine output from the patient's right nephrostomy tube. Primary Care Provider: Rosa Marymarcus The patient is a 57-year-old female with a past medical history including acute renal failure, hypernatremia, complicated UTIs, bilateral ureteral stent placement, bilateral nephrostomy tube placements, schizophrenia, staghorn calculus, pneumonia, hypertension, GERD, delayed gastric emptying, cerebral palsy, obstructive uropathy and GERD. She presents to the emergency department as a referral from [facility], where she was noted to have decreased urine output from her right nephrostomy tube. The patient herself is unable to contribute to her HPI or ROS due to underlying mental state. Allergies Allergy/AdvReac Type Severity Reaction Status Date / Time codeine Allergy Unknown Unknown Verified 07/10/22 15:55 Penicillins Allergy Unknown Unknown Verified 07/10/22 15:55 Home Medications Medication Instructions Recorded Confirmed Type acetaminophen 325 mg tablet 650 mg PO Q4H PRN Fever Or Pain 03/03/19 07/10/22 History bisacodyl 10 mg rectal suppository 10 mg OR DAILY PRN Constipation 03/03/19 07/10/22 History (Dulcolax (bisacodyl)) apixaban 5 mg tablet (Eliquis) 5 mg PO Q12H 07/10/22 07/10/22 History clindamycin HCl 150 mg capsule 300 mg PO Q6H 07/10/22 07/10/22 History cyanocobalamin (vitamin B-12) 1,000 mcg PO DAILY 07/10/22 07/10/22 History 1,000 mcg tablet (Vitamin B-12) docusate sodium 100 mg capsule 100 mg PO BID 07/10/22 07/10/22 History lidocaine 5 % topical patch 1 patch topical DAILY 07/10/22 07/10/22 History losartan 25 mg tablet 25 mg PO DAILY 07/10/22 07/10/22 History magnesium hydroxide 400 mg/5 mL 30 ml PO DAILY PRN Constipation 07/10/22 07/10/22 History oral suspension (Milk of Magnesia) melatonin 3 mg tablet 6 mg PO HS 07/10/22 07/10/22 History metoprolol succinate 25 mg 25 mg PO DAILY 07/10/22 07/10/22 History tablet,extended release 24 hr multivitamin with minerals 1 tab PO DAILY 07/10/22 07/10/22 History nystatin 100,000 unit/gram topical 1 applic topical BID 07/10/22 07/10/22 History powder ondansetron 4 mg disintegrating 4 mg PO Q4H PRN NAUSEA/VOMITING 07/10/22 07/10/22 History tablet paroxetine HCl 10 mg tablet 10 mg PO DAILY 07/10/22 07/10/22 History polyethylene glycol 3350 17 17 g PO DAILY PRN Constipation 07/10/22 07/10/22 History gram/dose oral powder (Miralax) sennosides 8.6 mg-docusate sodium 1 tab-cap PO QDL PRN Constipation 07/10/22 07/10/22 History 50 mg capsule (Senna Plus) tramadol 50 mg tablet 50 mg PO Q8H PRN Pain 07/10/22 07/10/22 History Past Med/Surg History Medical History Anemia chronic with fluctuating hgbs in the 10-13 range Anxiety disorder Cerebral palsy Chronic hypernatremia Depression GERD (gastroesophageal reflux disease) History of COVID-19 Dx 04/2020 (unknown symptoms per [facility]) Hyperlipidemia Hypotension Hypothyroidism Insomnia Intellectual disability Intermittent explosive disorder Nephrolithiasis Obstructive uropathy Osteoarthritis Schizophrenia non-verbal Sepsis Urosepsis 02/2019 s/p abx/cysto+ stent at [facility] Admitted 06/2020 with severe sepsis related to obstructing stone Urinary incontinence Urinary tract infection hx Surgical History History of cystoscopy cystoscopy, left stent: 07/21/20: MAC sedation at [facility] History of lithotripsy Right ESWL (12/07/20): LMA#4 (x1 attempt), atraumatic, good seal at [facility] Presence of urogenital implants S/P ureteral stent placement cysto + right RPG + stent: 03/03/19: MAC sedation Family History Other No pertinent family history in first degree relatives Social History Smoking Status: Unknown if ever smoked Hx Alcohol Use: No Hx Substance Use: No Preferred Language: Mohawk Communication Ability: Unable Visual Impairment: No Limitations Hearing Ability: Hard of Hearing Filler Operator Required: No Beliefs That Will Affect Care: None Current Living Situation: Senior Care Current Living Situation Comment: [facility] Other Information That Helps Us Care for You: No Feels Safe at Home: Yes Assistive Devices: Hospital Bed and Wheelchair Review of Systems Review of Systems: Patient is unable to contribute to ROS due to mental state. Information is as provided from review of records and from transfer information Physical Exam Physical Exam: The patient is awake, well developed and well nourished, normocephalic and atraumatic, lying in bed and in no acute distress. HEENT--PERRL, EOMI, mucous membranes and oropharynx mildly dry. Neck--supple. No JVD. No bruits. Thyroid normal, trachea midline, no adenopathy. Heart--normal S1 and S2. No murmurs, rubs or gallops. Lungs--clear bilaterally, no respiratory distress, no accessory muscle use. Abdomen--normal bowel sounds and soft. Nontender. Nondistended. Extremities--no cyanosis or clubbing. No edema. Dermatologic--normal skin turgor, normal color, no abnormal lymph nodes, no rash. Neurologic--cranial nerves II through XII grossly intact. Rheumatologic--limited exam Psychiatric--cooperative. Results & Data Results & Data ([facility]) Vital Signs (Past 12 Hours) Vital Signs Temp Pulse Pulse Resp BP BP Pulse Ox 07/17/22 00:52 80 16 90/61 L 97 07/17/22 00:10 84 16 101/72 96 07/16/22 23:00 88 13 88/64 L 97 07/16/22 22:00 87 18 118/66 96 07/16/22 20:25 38.7 C H 07/16/22 19:12 37.9 C H 97 H 18 107/64 95 O2 Del Method 07/17/22 00:52 07/17/22 00:10 07/16/22 23:00 07/16/22 22:00 07/16/22 20:25 07/16/22 19:12 Room Air Laboratory Results Laboratory Results WBC 5.54 K/ul (4.8-10.8) 07/16/22 20:55 RBC 3.28 M/uL (3.93-5.22) L 07/16/22 20:55 Hgb 9.9 g/dl (12.0-16.0) L 07/16/22 20:55 Hct 31.8 % (34.1-44.9) L 07/16/22 20:55 MCV 97.0 fL (80.0-100.0) 07/16/22 20:55 MCH 30.2 pg (25.0-34.0) 07/16/22 20:55 MCHC 31.1 g/dL (32.0-36.0) L 07/16/22 20:55 RDW Std Deviation 51.2 fL (36.4-46.3) H 07/16/22 20:55 RDW Coeff of Roberto 14.5 % (11.5-14.5) 07/16/22 20:55 Plt Count 627 K/uL (130-400) H 07/16/22 20:55 MPV 8.5 fL (9.4-12.3) L 07/16/22 20:55 Immature Gran % (Auto) 0.2 % 07/16/22 20:55 Neut % (Auto) 63.0 % 07/16/22 20:55 Lymph % (Auto) 26.0 % 07/16/22 20:55 Pierce % (Auto) 7.2 % 07/16/22 20:55 Eos % (Auto) 2.9 % 07/16/22 20:55 Baso % (Auto) 0.7 % 07/16/22 20:55 Neut # (Auto) 3.49 K/uL (1.4-6.5) 07/16/22 20:55 Lymph # (Auto) 1.44 K/uL (1.2-3.4) 07/16/22 20:55 Pierce # (Auto) 0.40 K/uL (0.24-0.82) 07/16/22 20:55 Eos # (Auto) 0.16 K/uL (0-0.50) 07/16/22 20:55 Baso # (Auto) 0.04 K/uL (0-0.2) 07/16/22 20:55 Immature Gran # (Auto) 0.01 K/uL (0.00-0.02) 07/16/22 20:55 Sodium 140 mmol/L (136-145) 07/16/22 20:55 Potassium 4.0 mmol/L (3.5-5.1) 07/16/22 20:55 Chloride 105 mmol/L (98-107) 07/16/22 20:55 Carbon Dioxide 28 mmol/L (21-32) 07/16/22 20:55 Anion Gap 7 (3-11) 07/16/22 20:55 BUN 14 mg/dl (6-23) 07/16/22 20:55 Creatinine 0.64 mg/dl (0.6-1.2) 07/16/22 20:55 Est Cr Clr Drug Dosing 100.8 ml/min 07/16/22 20:55 Est GFR ( Amer) 114.8 ml/min 07/16/22 20:55 Est GFR (Non-Af Amer) 99.1 ml/min 07/16/22 20:55 BUN/Creatinine Ratio 21.9 (10-20) H 07/16/22 20:55 Glucose 93 mg/dl (70-99(Fasting)) 07/16/22 20:55 Lactate 1.7 mmol/L (0.4-2.0) 07/16/22 20:55 Calcium 8.9 mg/dl (8.5-10.1) 07/16/22 20:55 Magnesium 2.0 mg/dl (1.7-2.4) 07/16/22 20:55 Total Bilirubin 0.2 mg/dl (0.2-1.0) 07/16/22 20:55 Direct Bilirubin 0.0 mg/dl (0-0.2) 07/16/22 20:55 AST 14 U/L (13-39) 07/16/22 20:55 ALT 12 U/L (7-52) 07/16/22 20:55 Alkaline Phosphatase 73 U/L (34-104) 07/16/22 20:55 Troponin I High Sens 4.9 pg/ml (0-14) 07/16/22 20:55 Total Protein 7.8 gm/dl (6.0-8.3) 07/16/22 20:55 Albumin 3.5 gm/dl (3.4-5.0) 07/16/22 20:55 Procalcitonin 0.06 ng/ml (0-0.5) 07/16/22 20:55 Urine Color Power 07/17/22 03:07 Urine Appearance Turbid (Clear) A 07/17/22 03:07 Urine pH 6.5 (4.5-7.5) 07/17/22 03:07 Ur Specific Sweeny > 1.045 (1.000-1.030) H 07/17/22 03:07 Urine Protein 2+ (Negative) H 07/17/22 03:07 Urine Glucose (UA) Negative (Negative) 07/17/22 03:07 Urine Ketones Negative (Negative) 07/17/22 03:07 Urine Blood 3+ (Negative) H 07/17/22 03:07 Urine Nitrite Negative (Negative) 07/17/22 03:07 Urine Bilirubin Negative (Negative) 07/17/22 03:07 Urine Urobilinogen Negative (Negative) 07/17/22 03:07 Ur Leukocyte Esterase 3+ (Negative) H 07/17/22 03:07 Urine WBC (Auto) >30 /hpf (0-5) H 07/17/22 03:07 Urine RBC (Auto) 10-30 /hpf (0-4) H 07/17/22 03:07 U Hyaline Cast (Auto) 0 /lpf (0-5) 07/17/22 03:07 U Epithel Cells (Auto) >30 /lpf (0-5) H 07/17/22 03:07 Urine Bacteria (Auto) 1+ (Negative) H 07/17/22 03:07 Urine Mucus Present (None Prsent) A 07/17/22 03:07 Urine Yeast Not Reportable 07/17/22 03:07 SARS-CoV-2 (PCR) NEGATIVE (Negative) 07/16/22 20:29 Influenza Type A (PCR) Negative (Neg) 07/16/22 20:29 Influenza Type B (PCR) Negative (Neg) 07/16/22 20:29 RSV (RT-PCR) Negative (Neg) 07/16/22 20:29 Impressions Chest X-Ray 07/16/22 20:03 XR chest 1V portable CLINICAL HISTORY: Sepsis COMPARISON STUDY: Chest radiograph October 05, 2020. FINDINGS: Lung volumes are normal. There is possible mild right lower lung opacity. There is no pneumothorax or pleural effusion. Cardiac size is stable. Mediastinal contours are normal. There is no evidence for pulmonary edema. IMPRESSION: Possible right lower lung opacity. Pulmonary vessels or atelectasis is favored however a focus of consolidation cannot be excluded. ACT 112: Negative or not required by law. Electronically signed by: Ousmane Mcmillan M.D. 07/16/2022 8:24 PM Diagnostic Findings [facility] Patient: KIN CRAIG (Female) : 65 Status: ER Date: 07/16/22 22:49 Room #: History: fever, decreased right nephrostomy output Slices: [id number] Priors: Tech: Cory Burrell @ [id number] Exams: CT ABDOMEN & PELVIS With Contrast Contrast: IV Amt: 84 Accession Numbers: [id number] Referring Physician: ROSA VALERIO Preliminary Findings Only See Final Report For Complete Findings CT ABDOMEN & PELVIS With Contrast: Percutaneous nephrostomy catheter noted bilaterally as well as 2 bilateral nephroureteral stents are in place. Mild bilateral hydronephrosis noted Bilateral nonobstructing renal calyceal stones are present Cholelithiasis noted in an otherwise normal-appearing gallbladder Normal small and large bowel Radiologist: Ryan Taveras MD Study ready at 22:50 and initial results transmitted at 23:10 *This report constitutes a preliminary interpretation only. Non-acute findings felt to be unrelated to the clinical presentation may not be discussed in this report. The study will be interpreted and a final report will be generated by the local Radiologist the following shift. To reach the [facility] radiology department call [phone]. If a discrepancy is found between the preliminary and final interpretations of this study, please notify us via our Client Portal at [email or web address] under QA Exams. You can also fax this report with a description of the discrepancy, or include the final report, to our daytime fax number [phone]. If faxing, please indicate the severity of discrepancy using one of the following categories: [ ] 1 - Agree/Informational [ ] 2 - Unlikely to Affect Management [ ] 3 - Possible Eventual Change of Management [ ] 4 - Probable Immediate Change of Management For all other patient related information, please fax us at [phone]. [id number] Code Status & VTE Plan Code Status Full code VTE Prophylaxis Plan VTE Prophylaxis will be ordered: Yes (1) HTN (hypertension) Hypertension type: essential hypertension Qualified Code(s): I10 - Essential (primary) hypertension (2) Cerebral palsy Cerebral palsy type: unspecified type Qualified Code(s): G80.9 - Cerebral palsy, unspecified
[2022-07-17] MEDS ORDERED: bisacodyL 10 MG SUPP PR PRN (02:19)
[2022-07-17] MEDS ORDERED: MAGNESIUM HYDROXIDE SUSP 30 ML UDC PO PRN (02:19)
[2022-07-17] MEDS ORDERED: ACETAMINOPHEN 325 MG TAB PO PRN (02:19)
[2022-07-17] MEDS ORDERED: POLYETHYLENE (MIRALAX) 17 GM PACK PO PRN (02:19)
[2022-07-17] MEDS ORDERED: LACTATED RINGER'S 1,000 ML IV SCH (02:19)
[2022-07-17 03:22] LABS: Appearance Urine Turbid (Clear); Bilirubin Urine Negative (Negative); Blood Urine 3+ (Negative); Color Urine Orange; Epithelial Cell Urine Auto >30 /lpf (0-5); Glucose Urine UA Negative (Negative); Ketones Urine Negative (Negative); Leukocyte Esterase Urine 3+ (Negative); Nitrite Urine Negative (Negative); Protein Urine 2+ (Negative); Specific Gravity Urine > 1.045 (1.000-1.030); Urobilinogen Urine Negative (Negative); WBC Urine Automated >30 /hpf (0-5); pH Urine 6.5 (4.5-7.5)
[2022-07-17 03:39] LABS: Cast Urine Automated 0 /lpf (0-5); Mucus Urine Present (None Prsent)
[2022-07-17 03:40] LABS: Bacteria Urine Automated 1+ (Negative)
--- NOTE | 2022-07-17 03:59 | Billing Data ---
Date of Service July 17, 2022 Coding Level of Care Code 14404 Initial Inpt Care Lvl 3
[2022-07-17] MEDS: DOCUSATE SODIUM 100 MG CAP PO SCH ×3 (07:56→19:56)
[2022-07-17] MEDS: PARoxetine HCL 10 MG TAB PO SCH ×2 (07:56→08:00)
[2022-07-17] MEDS: CYANOCOBALAMIN (B-12) 500 MCG TABLET PO SCH ×2 (07:56→08:00)
--- NOTE | 2022-07-17 08:05 | CT Scan Report ---
ABDOMEN AND PELVIS CT WITH IV CONTRAST CT DOSE: 900.33 mGy.cm HISTORY: Acute fever with bilateral ureteral stents and percutaneous nephrostomy catheters. fever, d ecreased right nephrostomy output TECHNIQUE: Multiaxial CT images of the abdomen and pelvis were performed following the IV administrat ion of 84 cc of Optiray, A dose lowering technique was utilized adhering to the principles of ALARA. COMPARISON STUDY: CT abdomen and pelvis 07/10/2022 FINDINGS: Limited exam secondary to positioning and respiratory motion artifact. Lung bases are clear . No pneumatosis or pneumoperitoneum. Unremarkable spleen, pancreas and adrenal glands. Cholelithiasi s with a 4 mm stone again noted within the cystic duct. No CT evidence of acute cholecystitis or bili johnny ductal dilation. Unremarkable liver. Mild to moderate bilateral hydronephrosis has improved from the prior study. Stable linear hypodense tract with calcifications involving the interpolar aspect of the right kidney. Extensive bilateral ne phrolithiasis with decreased calculi within the right renal pelvis compared to the prior study. Bilat eral ureteral stents are in place in addition to bilateral percutaneous nephroureteral stents. No def inite ureteral calculi are identified. Decreased bilateral perinephric and periureteral stranding. Fo mp catheter is noted within a decompressed urinary bladder. Fibroid uterus. No adnexal mass lesions are identified. Aorta and IVC are unremarkable. 8 mm periaortic lymph node on image 161 is stable. Nonspecific wall thickening of the distal esophagus. No bowel obstruction or bowel wall thickening. M oderate colonic fecal retention. No CT evidence of acute appendicitis. Fat filled umbilical hernia, d iastases of 2.5 cm. Unremarkable soft tissues. No acute fracture. IMPRESSION: 1. Extensive bilateral nephrolithiasis redemonstrated without ureteral calculi identified. There is r esolution of the previously described calculi within the right renal pelvis. Mild to moderate bilater al hydronephrosis has improved from 07/10/2022. 2. Bilateral ureteral stents with nephroureteral catheters in place. 3. Decreased perinephric and periureteral stranding compared to the prior study. 4. No bowel obstruction or bowel wall thickening. 5. Cholelithiasis with cystic duct calculus redemonstrated. No CT evidence of acute cholecystitis. 6. Additional findings as above. ACT 112: Negative or not required by law. The above report was generated using voice recognition software. It may contain grammatical, syntax o r spelling errors. Electronically signed by: Reji Frausto M.D. 07/17/2022 8:02 AM
--- NOTE | 2022-07-17 10:51 | Urology Consultation ---
Date of Consultation July 17, 2022 Assessment & Plan (1) Complicated urinary tract infection: (2) Bilateral hydronephrosis: (3) Nephrolithiasis: Plan 57-year-old female with a history of bilateral nephrolithiasis that was initially managed with stents. She was lost to follow-up and the stents became encrusted. She recently had bilateral nephroureteral drains placed. She presented due to reported decreased right nephroureteral drain output. The patient does not have nephrostomy tubes but rather nephroureteral drains. These span from her kidney down to her bladder so she may drain urine via bag in her back or may pass down to her bladder via the nephroureteral drain. This can affect where output is coming from and may represent why she had noted decreased right nephroureteral drain output. The nephroureteral drains are in appropriate position based on CT scan and hydronephrosis has improved since previous scans. Follow-up cultures and treat accordingly. Would recommend 2 weeks of total antibiotics for complicated urinary tract infection. The patient is colonized at baseline. Maintain nephroureteral drains and Sanchez catheter Urology to sign off. No urologic intervention necessary. Needs to follow up with [facility] for ultimate antegrade treatment of retained stents and bilateral nephrolithiasis. History of Present Illness Reason for Consultation: Decreased output from right nephroureteral drain Attending Physician: Armando Senior MD History of Present Illness 57-year-old female with a history of bilateral staghorn calculi status post numerous treatments and ureteral stent exchanges. Her stents were last exchanged in August 2020. She recently was admitted earlier this month for ESTELLE, electrolyte abnormalities and bilateral hydronephrosis. She ultimately was transferred to [facility] and had bilateral nephroureteral drains placed. One of them was dislodged and she required transfer back there to have it replaced. She was sent from her facility due to subjective decreased output of her right nephroureteral drain. She initially did have a temperature of 38.7 but has been afebrile. Initial blood pressures were in the 80s to 90s but now have been stable. She has been nontachycardic. Labs showed a white blood cell count of 5.5, hemoglobin of 9.9, a creatinine of 0.6 which is roughly her baseline, and a urinalysis was grossly positive which is not unexpected if she is colonized. Urine cultures are pending at this time. CT scan of the abdomen pelvis was performed which showed improved bilateral hydronephrosis. The bilateral nephroureteral drains are in appropriate position. Her stents remain in place. Perinephric stranding has decreased when compared to previous scans. She is currently on ertapenem based on previous culture data. Data gathered from chart as patient cannot provide history and no family were at the bedside. Allergies Allergy/AdvReac Type Severity Reaction Status Date / Time codeine Allergy Unknown Unknown Verified 07/10/22 15:55 Penicillins Allergy Unknown Unknown Verified 07/10/22 15:55 Home Medications Medication Instructions Recorded Confirmed Type acetaminophen 325 mg tablet 650 mg PO Q4H PRN Fever Or Pain 03/03/19 07/10/22 History bisacodyl 10 mg rectal suppository 10 mg MT DAILY PRN Constipation 03/03/19 07/10/22 History (Dulcolax (bisacodyl)) apixaban 5 mg tablet (Eliquis) 5 mg PO Q12H 07/10/22 07/10/22 History clindamycin HCl 150 mg capsule 300 mg PO Q6H 07/10/22 07/10/22 History cyanocobalamin (vitamin B-12) 1,000 mcg PO DAILY 07/10/22 07/10/22 History 1,000 mcg tablet (Vitamin B-12) docusate sodium 100 mg capsule 100 mg PO BID 07/10/22 07/10/22 History lidocaine 5 % topical patch 1 patch topical DAILY 07/10/22 07/10/22 History losartan 25 mg tablet 25 mg PO DAILY 07/10/22 07/10/22 History magnesium hydroxide 400 mg/5 mL 30 ml PO DAILY PRN Constipation 07/10/22 07/10/22 History oral suspension (Milk of Magnesia) melatonin 3 mg tablet 6 mg PO HS 07/10/22 07/10/22 History metoprolol succinate 25 mg 25 mg PO DAILY 07/10/22 07/10/22 History tablet,extended release 24 hr multivitamin with minerals 1 tab PO DAILY 07/10/22 07/10/22 History nystatin 100,000 unit/gram topical 1 applic topical BID 07/10/22 07/10/22 History powder ondansetron 4 mg disintegrating 4 mg PO Q4H PRN NAUSEA/VOMITING 07/10/22 07/10/22 History tablet paroxetine HCl 10 mg tablet 10 mg PO DAILY 07/10/22 07/10/22 History polyethylene glycol 3350 17 17 g PO DAILY PRN Constipation 07/10/22 07/10/22 History gram/dose oral powder (Miralax) sennosides 8.6 mg-docusate sodium 1 tab-cap PO QDL PRN Constipation 07/10/22 07/10/22 History 50 mg capsule (Senna Plus) tramadol 50 mg tablet 50 mg PO Q8H PRN Pain 07/10/22 07/10/22 History Patient History Medical History Anemia chronic with fluctuating hgbs in the 10-13 range Anxiety disorder Cerebral palsy Chronic hypernatremia Depression GERD (gastroesophageal reflux disease) History of COVID-19 Dx 04/2020 (unknown symptoms per [facility]) Hyperlipidemia Hypotension Hypothyroidism Insomnia Intellectual disability Intermittent explosive disorder Nephrolithiasis Obstructive uropathy Osteoarthritis Schizophrenia non-verbal Sepsis Urosepsis 02/2019 s/p abx/cysto+ stent at [facility] Admitted 06/2020 with severe sepsis related to obstructing stone Urinary incontinence Urinary tract infection hx Surgical History History of cystoscopy cystoscopy, left stent: 07/21/20: MAC sedation at [facility] History of lithotripsy Right ESWL (12/07/20): LMA#4 (x1 attempt), atraumatic, good seal at [facility] Presence of urogenital implants S/P ureteral stent placement cysto + right RPG + stent: 03/03/19: MAC sedation Family History Other No pertinent family history in first degree relatives Social History Smoking Status: Unknown if ever smoked Hx Alcohol Use: No Hx Substance Use: No Preferred Language: Tamazight Communication Ability: Unable Visual Impairment: No Limitations Hearing Ability: Hard of Hearing [place] Department Supervisor Required: No Beliefs That Will Affect Care: None Current Living Situation: Retirement Current Living Situation Comment: [facility] Other Information That Helps Us Care for You: No Feels Safe at Home: Yes Assistive Devices: Hospital Bed and Wheelchair Review of Systems Review of Systems: 14 point review of systems negative outside of what is listed above in HPI Physical Exam Physical Exam: General: Awake HEENT: Normocephalic, mucous membranes moiste Pulmonary: Nonlabored respirations Abdomen: Nondistended : Bilateral nephroureteral drains draining clear yellow urine. Sanchez catheter draining clear yellow urine. Extremities: Moves all 4 spontaneously Neuro: No gross deficits Skin: Warm, dry, no rashes noted Results & Data ([facility]) Vital Signs (Past 12 Hours) Vital Signs Temp Pulse Pulse Pulse Resp BP BP 07/17/22 10:08 07/17/22 07:33 37.1 C 84 18 105/67 07/17/22 02:10 36.6 C 78 14 113/73 07/17/22 01:55 84 16 127/39 L 07/17/22 01:45 80 16 127/38 L 07/17/22 00:52 80 16 90/61 L 07/17/22 00:10 84 16 101/72 07/16/22 23:00 88 13 88/64 L Pulse Ox O2 Del Method 07/17/22 10:08 Room Air 07/17/22 07:33 99 Room Air 07/17/22 02:10 100 Room Air 07/17/22 01:55 97 Room Air 07/17/22 01:45 97 07/17/22 00:52 97 07/17/22 00:10 96 07/16/22 23:00 97 PG Care Time/CCT Total # of Minutes Spent Total Time Spent with Patient: Total time spent is greater than 50% in coordination of care (as documented) at patient's floor/unit and/or counseling patient: Coding Level of Care Code 05372 Inpt Consult Level 4 Diagnoses Complicated urinary tract infection N39.0 Bilateral hydronephrosis N13.30 Nephrolithiasis N20.0
--- NOTE | 2022-07-17 13:52 | Hospitalist Progress Note ---
Date of Service July 17, 2022 Assessment & Plan (1) Complicated urinary tract infection: Plan: Complicated UTI/history of ESBL/bilateral nephroureteral drains Presents on account of suspected low urine output from the right drain Urology on board, dtermined that drains are in good shape seen on CT abdomen Adviced to Follow urine culture and sensitivity and continue antibiotics for at least 2 weeks Continue ertapenem 1 g IV daily begun in ED NSS + KCl 20 mEq at 80 mils per hour x1 L Outpatient follow up with urology Unclear why or if patient is on Eliquis, which is newly listed in her medication compared to admission of 06/26/2022, but will be held (2) Ureteral stent present: Plan: Bilateral nephroureteral drains (3) Bilateral hydronephrosis: (4) HTN (hypertension): Plan: Hold metoprolol tartrate and losartan due to relatively low blood pressure (5) Schizophrenia: Plan: Schizophrenia/cerebral palsy- Nonverbal Continue supportive medications (6) Cerebral palsy: Plan continue hospitalization Admission and Anticipated Discharge Date Admission Date: July 17, 2022 Subjective patient seen and examined, tough to understand her, but denies chest pain or SOB, wanted pink lemonade Review of Systems Review of Systems: All systems reviewed are negative, apart from the ones contained in the history. Physical Exam Physical Exam: The patient is awake, alert and oriented 3, well developed and well nourished, normocephalic and atraumatic, lying in bed and in no acute distress. HEENT--PERRL, EOMI, mucous membranes and oropharynx mildly dry Neck--supple. No JVD. No bruits. Thyroid normal, trachea midline, no adenopathy. Heart--normal S1 and S2. No murmurs, rubs or gallops. Lungs--clear bilaterally, no respiratory distress, no accessory muscle use. Abdomen--normal bowel sounds and soft. Mild epigastric and left sided abdominal pain Extremities--poor tone Dermatologic--normal skin turgor, normal color, no abnormal lymph nodes, no rash. Neurologic--cranial nerves II through XII grossly intact. Rheumatologic--normal range of motion. Psychiatric--normal affect. Results & Data Results & Data ([facility]) Vital Signs (Past 12 Hours) Vital Signs Temp Pulse Pulse Resp BP BP Pulse Ox 07/17/22 10:08 07/17/22 07:33 98.8 F 84 18 105/67 99 07/17/22 02:10 97.9 F 78 14 113/73 100 07/17/22 01:55 84 16 127/39 L 97 O2 Del Method 07/17/22 10:08 Room Air 07/17/22 07:33 Room Air 07/17/22 02:10 Room Air 07/17/22 01:55 Room Air PG Care Time/CCT Total # of Minutes Spent Total Time Spent with Patient: Total time spent is greater than 50% in coordination of care (as documented) at patient's floor/unit and/or counseling patient: Coding Level of Care Code 61150 Subseq Hosp Care Lvl 2 Diagnoses Complicated urinary tract infection N39.0 Ureteral stent present Z96.0 Bilateral hydronephrosis N13.30 HTN (hypertension) I10 Hypertension type: essential hypertension Schizophrenia F20.9 Cerebral palsy G80.9 Time Spent (min) 35 (1) HTN (hypertension) Hypertension type: essential hypertension Qualified Code(s): I10 - Essential (primary) hypertension
[2022-07-17] MEDS: ERTAPENEM SODIUM 1,000 MG in SYRINGE 0 ML IV SCH (19:55)
[2022-07-17] MEDS: MELATONIN 3 MG TAB PO SCH (19:56)
--- NOTE | 2022-07-18 06:42 | Electrocardiogram Report ---
Test Reason : Blood Pressure : / mmHG Vent. Rate : 094 BPM Atrial Rate : 094 BPM P-R Int : 146 ms QRS Dur : 088 ms QT Int : 342 ms P-R-T Axes : 025 034 030 degrees QTc Int : 427 ms Normal sinus rhythm Normal ECG When compared with ECG of 05-OCT-2020 14:43, ST no longer depressed in Anterior leads T wave inversion no longer evident in Inferior leads T wave inversion no longer evident in Anterolateral leads QT has shortened Confirmed by Hipolito Murrell ([id number]) on 07/18/2022 6:42:19 AM Referred By: [facility] Confirmed By:Hipolito Murrell
[2022-07-18] MEDS: CYANOCOBALAMIN (B-12) 500 MCG TABLET PO SCH (09:13)
[2022-07-18] MEDS: PARoxetine HCL 10 MG TAB PO SCH (09:13)
[2022-07-18] MEDS: DOCUSATE SODIUM 100 MG CAP PO SCH ×2 (09:13→20:09)
--- NOTE | 2022-07-18 14:23 | Hospitalist Progress Note ---
Date of Service July 18, 2022 Assessment & Plan (1) Complicated urinary tract infection: Plan: suspected Nephroureteral drain-associated UTI Complicated UTI/history of ESBL/bilateral nephroureteral drains Presents on account of suspected low urine output from the right drain Urology on board, dtermined that drains are in good shape seen on CT abdomen Adviced to Follow urine culture and sensitivity and continue antibiotics for at least 2 weeks Continue ertapenem 1 g IV daily begun in ED NSS + KCl 20 mEq at 80 mils per hour x1 L Outpatient follow up with urology Unclear why or if patient is on Eliquis, which is newly listed in her medication compared to admission of 06/26/2022, but will be held (2) Ureteral stent present: Plan: Bilateral nephroureteral drains (3) Bilateral hydronephrosis: (4) HTN (hypertension): Plan: Hold metoprolol tartrate and losartan due to relatively low blood pressure (5) Schizophrenia: Plan: Schizophrenia/cerebral palsy- Nonverbal Continue supportive medications (6) Cerebral palsy: Plan continue hospitalization, d/c in the next 24 hrs Admission and Anticipated Discharge Date Admission Date: July 17, 2022 Subjective patient seen and examined, tough to understand her, but denies chest pain or SOB, wants to eat Review of Systems Review of Systems: All systems reviewed are negative, apart from the ones contained in the history. Physical Exam Physical Exam: The patient is awake, alert and oriented 3, well developed and well nourished, normocephalic and atraumatic, lying in bed and in no acute distress. HEENT--PERRL, EOMI, mucous membranes and oropharynx mildly dry Neck--supple. No JVD. No bruits. Thyroid normal, trachea midline, no adenopathy. Heart--normal S1 and S2. No murmurs, rubs or gallops. Lungs--clear bilaterally, no respiratory distress, no accessory muscle use. Abdomen--normal bowel sounds and soft. Mild epigastric and left sided abdominal pain Extremities--poor tone Dermatologic--normal skin turgor, normal color, no abnormal lymph nodes, no rash. Neurologic--cranial nerves II through XII grossly intact. Rheumatologic--normal range of motion. Psychiatric--normal affect. Results & Data Results & Data ([facility]) Vital Signs (Past 12 Hours) Vital Signs Temp Pulse Resp BP Pulse Ox O2 Del Method 07/18/22 07:50 Room Air 07/18/22 07:29 98.4 F 71 18 114/71 99 Room Air PG Care Time/CCT Total # of Minutes Spent Total Time Spent with Patient: Total time spent is greater than 50% in coordination of care (as documented) at patient's floor/unit and/or counseling patient: Coding Level of Care Code 35778 Subseq Hosp Care Lvl 2 Diagnoses Complicated urinary tract infection N39.0 Ureteral stent present Z96.0 Bilateral hydronephrosis N13.30 HTN (hypertension) I10 Hypertension type: essential hypertension Schizophrenia F20.9 Cerebral palsy G80.9 Time Spent (min) 35 (1) HTN (hypertension) Hypertension type: essential hypertension Qualified Code(s): I10 - Essential (primary) hypertension
[2022-07-18] MEDS: ERTAPENEM SODIUM 1,000 MG in SYRINGE 0 ML IV SCH (20:09)
[2022-07-18] MEDS: MELATONIN 3 MG TAB PO SCH (20:09)
[2022-07-19 07:06] LABS: BUN Creatinine Ratio 25.3 (10-20); Calcium 8.2 mg/dl (8.5-10.1); Creatinine Clr Calc Pharmacy 70.1 ml/min; Est GFR (African American) 90.7 ml/min; Est GFR (Non-African American) 78.3 ml/min; Potassium 4.8 mmol/L (3.5-5.1)
[2022-07-19] MEDS: CYANOCOBALAMIN (B-12) 500 MCG TABLET PO SCH (07:59)
[2022-07-19] MEDS: PARoxetine HCL 10 MG TAB PO SCH (07:59)
[2022-07-19] MEDS: DOCUSATE SODIUM 100 MG CAP PO SCH ×2 (07:59→20:22)
--- NOTE | 2022-07-19 14:49 | Hospitalist Progress Note ---
Date of Service July 19, 2022 Assessment & Plan (1) Complicated urinary tract infection: Plan: suspected Nephroureteral drain-associated UTI Complicated UTI/history of ESBL/bilateral nephroureteral drains Presents on account of suspected low urine output from the right drain Urology on board, dtermined that drains are in good shape seen on CT abdomen Adviced to Follow urine culture and sensitivity and continue antibiotics for at least 2 weeks Continue ertapenem 1 g IV daily begun in ED, for 2 more weeks Will need PICC line Outpatient follow up with urology Unclear why or if patient is on Eliquis, which is newly listed in her medication compared to admission of 06/26/2022, but will be held (2) Ureteral stent present: Plan: Bilateral nephroureteral drains (3) Bilateral hydronephrosis: (4) HTN (hypertension): Plan: Hold metoprolol tartrate and losartan due to relatively low blood pressure (5) Schizophrenia: Plan: Schizophrenia/cerebral palsy- Nonverbal Continue supportive medications (6) Cerebral palsy: Plan continue hospitalization, d/c in the next 24 hrs Admission and Anticipated Discharge Date Admission Date: July 17, 2022 Subjective patient seen and examined, tough to understand her, but denies chest pain or SOB Review of Systems Review of Systems: All systems reviewed are negative, apart from the ones contained in the history. Physical Exam Physical Exam: The patient is awake, alert and oriented 3, well developed and well nourished, normocephalic and atraumatic, lying in bed and in no acute distress. HEENT--PERRL, EOMI, mucous membranes and oropharynx mildly dry Neck--supple. No JVD. No bruits. Thyroid normal, trachea midline, no adenopathy. Heart--normal S1 and S2. No murmurs, rubs or gallops. Lungs--clear bilaterally, no respiratory distress, no accessory muscle use. Abdomen--normal bowel sounds and soft. Mild epigastric and left sided abdominal pain Extremities--poor tone Dermatologic--normal skin turgor, normal color, no abnormal lymph nodes, no rash. Neurologic--cranial nerves II through XII grossly intact. Rheumatologic--normal range of motion. Psychiatric--normal affect. Results & Data Results & Data ([facility]) Vital Signs (Past 12 Hours) Vital Signs Temp Pulse Resp BP Pulse Ox O2 Del Method 07/19/22 08:30 Room Air 07/19/22 09:50 107/66 07/19/22 08:33 102 H 18 95/60 L 98 Room Air 07/19/22 07:28 98.2 F 101 H 18 92/56 L 96 Room Air PG Care Time/CCT Total # of Minutes Spent Total Time Spent with Patient: Total time spent is greater than 50% in coordination of care (as documented) at patient's floor/unit and/or counseling patient: Coding Level of Care Code 82835 Subseq Hosp Care Lvl 2 Diagnoses Complicated urinary tract infection N39.0 Ureteral stent present Z96.0 Bilateral hydronephrosis N13.30 HTN (hypertension) I10 Hypertension type: essential hypertension Schizophrenia F20.9 Cerebral palsy G80.9 Time Spent (min) 35 (1) HTN (hypertension) Hypertension type: essential hypertension Qualified Code(s): I10 - Essential (primary) hypertension
[2022-07-19] MEDS: ERTAPENEM SODIUM 1,000 MG in SYRINGE 0 ML IV SCH (19:50)
[2022-07-19] MEDS: MELATONIN 3 MG TAB PO SCH (20:58)
[2022-07-20] MEDS: PARoxetine HCL 10 MG TAB PO SCH ×2 (08:56→08:57)
[2022-07-20] MEDS: CYANOCOBALAMIN (B-12) 500 MCG TABLET PO SCH ×2 (08:56→08:57)
[2022-07-20] MEDS: DOCUSATE SODIUM 100 MG CAP PO SCH ×3 (08:56→18:56)
--- NOTE | 2022-07-20 13:52 | Discharge Summary ---
Date of Service July 20, 2022 Admission HPI Per Admitting Provider The patient is a 57-year-old female with a past medical history including acute renal failure, hypernatremia, complicated UTIs, bilateral ureteral stent placement, bilateral nephrostomy tube placements, schizophrenia, staghorn calculus, pneumonia, hypertension, GERD, delayed gastric emptying, cerebral palsy, obstructive uropathy and GERD. She presents to the emergency department as a referral from [facility], where she was noted to have decreased urine output from her right nephrostomy tube. The patient herself is unable to contribute to her HPI or ROS due to underlying mental state. Principal Diagnosis nephroureteral drain associated UTI Discharge Exam The patient is awake, alert and oriented 3, well developed and well nourished, normocephalic and atraumatic, lying in bed and in no acute distress. HEENT--PERRL, EOMI, mucous membranes and oropharynx mildly dry Neck--supple. No JVD. No bruits. Thyroid normal, trachea midline, no adenopathy. Heart--normal S1 and S2. No murmurs, rubs or gallops. Lungs--clear bilaterally, no respiratory distress, no accessory muscle use. Abdomen--normal bowel sounds and soft. Mild epigastric and left sided abdominal pain Extremities--poor tone Dermatologic--normal skin turgor, normal color, no abnormal lymph nodes, no rash. Neurologic--cranial nerves II through XII grossly intact. Rheumatologic--normal range of motion. Psychiatric--normal affect. Discharge Data Allergies Allergy/AdvReac Type Severity Reaction Status Date / Time codeine Allergy Unknown Unknown Verified 07/10/22 15:55 Penicillins Allergy Unknown Unknown Verified 07/10/22 15:55 Consultations 07/17/22 00:32 ED Decision to Admit Stat 07/17/22 04:01 Consult Urology Routine Ordered Studies 07/16/22 20:01 CT abd pelvis IV con only Urgent 07/19/22 11:02 US guide vascular access Routine Hospital Course (1) Complicated urinary tract infection: suspected Nephroureteral drain-associated UTI Complicated UTI/history of ESBL/bilateral nephroureteral drains Presents on account of suspected low urine output from the right drain Urology on board, dtermined that drains are in good shape seen on CT abdomen Adviced to Follow urine culture and sensitivity and continue antibiotics for at least 2 weeks Continue ertapenem 1 g IV daily begun in ED, for 2 more weeks Will need PICC line Outpatient follow up with urology Unclear why or if patient is on Eliquis, which is newly listed in her medication compared to admission of 06/26/2022, but will be held (2) Ureteral stent present: Bilateral nephroureteral drains (3) Bilateral hydronephrosis: (4) HTN (hypertension): Hold metoprolol tartrate and losartan due to relatively low blood pressure (5) Schizophrenia: Schizophrenia/cerebral palsy- Nonverbal Continue supportive medications (6) Cerebral palsy: Plan continue hospitalization, d/c in the next 24 hrs Total Time Total Time Spent Total Time Spent (In Minutes): 35 Discharge Plan Discharge Items Patient Disposition: Transfer [facility] Reason For Visit: FEBRILE ILLNESS, UTI Discharge Diagnosis: Complicated UTI Activity: Resume your previous activity Non-emergency contact: Primary Care Provider Call non-emergency contact if: you have any medication questions Follow-up/Referrals: Karen Diaz [Primary Care Provider] - Diet: Regular Addtl Attending Provider Instructions: please make appointment to follow up with your regular PCP Pending Studies at Discharge: No Stand-Alone Forms: My [employer] Skilled Items Patient informed of condition?: Yes DNR: No Discharge Level of Care: Skilled Communicable Disease: No Discharge Prognosis: Stable Lines: None Urinary Catheter: Yes Medications and DC Order Prescriptions: New ertapenem 1 gram recon soln 1 g IV DAILY 10 Days Qty: 10 0RF Continued acetaminophen 325 mg Tablet 650 mg PO Q4H MDD 3 GMS APAP/24 HOURS PRN (Reason: Fever Or Pain) bisacodyl [Dulcolax (bisacodyl)] 10 mg Suppository 10 mg NM DAILY PRN (Reason: Constipation) paroxetine HCl 10 mg Tablet 10 mg PO DAILY cyanocobalamin (vitamin B-12) [Vitamin B-12] 1,000 mcg Tablet 1,000 mcg PO DAILY melatonin 3 mg Tablet 6 mg PO HS tramadol 50 mg Tablet 50 mg PO Q8H PRN (Reason: Pain) magnesium hydroxide [Milk of Magnesia] 400 mg/5 mL Suspension 30 ml PO DAILY PRN (Reason: Constipation) lidocaine 5 % Adhesive Patch,Medicated 1 patch TOPICAL DAILY Rx Instructions: APPLY QAM, REMOVED QPM. losartan 25 mg Tablet 25 mg PO DAILY docusate sodium 100 mg Capsule 100 mg PO BID metoprolol succinate 25 mg Tablet Extended Release 24 Hr 25 mg PO DAILY nystatin 100,000 unit/gram Powder 1 applic TOPICAL BID multivitamin with minerals Tablet 1 tab PO DAILY polyethylene glycol 3350 [Miralax] 17 gram/dose Powder 17 g PO DAILY PRN (Reason: Constipation) ondansetron 4 mg Tablet,Disintegrating 4 mg PO Q4H PRN (Reason: NAUSEA/VOMITING) Eliquis 5 mg Tablet 5 mg PO Q12H Senna Plus 8.6-50 mg Capsule 1 tab-cap PO QDL PRN (Reason: Constipation) Discontinued clindamycin HCl 150 mg Capsule 300 mg PO Q6H Discharge Orders: Discharge Order (Routine); Ordered 07/20/22 Ordered By: Armando Senior Admission Data Admit Date/Time: 07/17/22 01:22 Attending Provider: Armando Senior Admit Provider: Damian Kirkland Primary Care Provider: Karen Diaz Other Providers: Damian Kirkland Other Interventions: Discharge Summary Assessment (RN) Last Done: 07/20/22 11:02 Coding Level of Care Code D/C DAY MANAGEMENT >30 MINS Diagnoses Complicated urinary tract infection N39.0 Ureteral stent present Z96.0 Bilateral hydronephrosis N13.30 HTN (hypertension) I10 Hypertension type: essential hypertension Schizophrenia F20.9 Cerebral palsy G80.9 Time Spent (min) 35
[2022-07-20] MEDS: ERTAPENEM SODIUM 1,000 MG in SYRINGE 0 ML IV SCH (20:34)
[2022-07-20] MEDS: MELATONIN 3 MG TAB PO SCH ×2 (20:37→20:47)
--- NOTE | 2022-07-21 07:47 | Hospitalist Progress Note ---
Date of Service July 20, 2022 Assessment & Plan (1) Complicated urinary tract infection: Plan: suspected Nephroureteral drain-associated UTI Complicated UTI/history of ESBL/bilateral nephroureteral drains Presents on account of suspected low urine output from the right drain Urology on board, dtermined that drains are in good shape seen on CT abdomen Adviced to Follow urine culture and sensitivity and continue antibiotics for at least 2 weeks Continue ertapenem 1 g IV daily begun in ED, for 2 more weeks Will need PICC line Outpatient follow up with urology Unclear why or if patient is on Eliquis, which is newly listed in her medication compared to admission of 06/26/2022, but will be held (2) Ureteral stent present: Plan: Bilateral nephroureteral drains (3) Bilateral hydronephrosis: (4) HTN (hypertension): Plan: Hold metoprolol tartrate and losartan due to relatively low blood pressure (5) Schizophrenia: Plan: Schizophrenia/cerebral palsy- Nonverbal Continue supportive medications (6) Cerebral palsy: Plan continue hospitalization, d/c in the next 24 hrs Admission and Anticipated Discharge Date Admission Date: July 17, 2022 Subjective patient seen and examined, tough to understand her, but denies chest pain or SOB Review of Systems Review of Systems: All systems reviewed are negative, apart from the ones contained in the history. Physical Exam Physical Exam: The patient is awake, alert and oriented 3, well developed and well nourished, normocephalic and atraumatic, lying in bed and in no acute distress. HEENT--PERRL, EOMI, mucous membranes and oropharynx mildly dry Neck--supple. No JVD. No bruits. Thyroid normal, trachea midline, no adenopathy. Heart--normal S1 and S2. No murmurs, rubs or gallops. Lungs--clear bilaterally, no respiratory distress, no accessory muscle use. Abdomen--normal bowel sounds and soft. Mild epigastric and left sided abdominal pain Extremities--poor tone Dermatologic--normal skin turgor, normal color, no abnormal lymph nodes, no rash. Neurologic--cranial nerves II through XII grossly intact. Rheumatologic--normal range of motion. Psychiatric--normal affect. Results & Data Results & Data ([facility]) Vital Signs (Past 12 Hours) Vital Signs Temp Pulse Resp BP Pulse Ox O2 Del Method 07/20/22 21:43 98.2 F 89 20 134/78 98 Room Air PG Care Time/CCT Total # of Minutes Spent Total Time Spent with Patient: Total time spent is greater than 50% in coordination of care (as documented) at patient's floor/unit and/or counseling patient: Coding Level of Care Code 20867 Subseq Hosp Care Lvl 2 Diagnoses Complicated urinary tract infection N39.0 Ureteral stent present Z96.0 Bilateral hydronephrosis N13.30 HTN (hypertension) I10 Hypertension type: essential hypertension Schizophrenia F20.9 Cerebral palsy G80.9 Time Spent (min) 35 (1) HTN (hypertension) Hypertension type: essential hypertension Qualified Code(s): I10 - Essential (primary) hypertension
[2022-07-21] MEDS: DOCUSATE SODIUM 100 MG CAP PO SCH ×2 (08:34→19:41)
[2022-07-21] MEDS: CYANOCOBALAMIN (B-12) 500 MCG TABLET PO SCH (08:34)
[2022-07-21] MEDS: PARoxetine HCL 10 MG TAB PO SCH (08:34)
[2022-07-21] MEDS ORDERED: ONDANSETRON INJ 2 MG/ML 2 ML VIAL IV PRN (12:42)
--- NOTE | 2022-07-21 12:46 | Hospitalist Progress Note ---
Date of Service July 21, 2022 Assessment & Plan (1) Complicated urinary tract infection: Plan: suspected Nephroureteral drain-associated UTI Complicated UTI/history of ESBL/bilateral nephroureteral drains Presents on account of suspected low urine output from the right drain Urology on board, determined that drains are in good shape as seen on CT abdomen They Adviced to Follow urine culture and sensitivity and continue antibiotics for at least 2 weeks Continue ertapenem 1 g IV daily begun in ED, for 10 more days Outpatient follow up with urology (2) Ureteral stent present: Plan: Bilateral nephroureteral drains, working well per urology (3) Bilateral hydronephrosis: Plan: chronic (4) HTN (hypertension): Plan: Hold metoprolol tartrate and losartan due to relatively low blood pressure (5) Schizophrenia: Plan: Schizophrenia/cerebral palsy- Nonverbal Continue supportive medications (6) Cerebral palsy: Plan d/c back to her facility when she is accepted, hopefully tomorrow, Friday Admission and Anticipated Discharge Date Admission Date: July 17, 2022 Subjective patient seen and examined, tough to understand her, but denies chest pain or SOB, complains of nausea Review of Systems Review of Systems: All systems reviewed are negative, apart from the ones contained in the history. Physical Exam Physical Exam: The patient is awake, alert and oriented 3, well developed and well nourished, normocephalic and atraumatic, lying in bed and in no acute distress. HEENT--PERRL, EOMI, mucous membranes and oropharynx mildly dry Neck--supple. No JVD. No bruits. Thyroid normal, trachea midline, no adenopathy. Heart--normal S1 and S2. No murmurs, rubs or gallops. Lungs--clear bilaterally, no respiratory distress, no accessory muscle use. Abdomen--normal bowel sounds and soft. Mild epigastric and left sided abdominal pain Extremities--poor tone, atrophic limbs Dermatologic--normal skin turgor, normal color, no abnormal lymph nodes, no rash. Neurologic--cranial nerves II through XII grossly intact. Rheumatologic--normal range of motion. Psychiatric--normal affect. Results & Data Results & Data ([facility]) Vital Signs (Past 12 Hours) Vital Signs Temp Pulse Resp BP Pulse Ox O2 Del Method 07/21/22 11:59 98.1 F 76 16 111/68 97 Room Air PG Care Time/CCT Total # of Minutes Spent Total Time Spent with Patient: Total time spent is greater than 50% in coordination of care (as documented) at patient's floor/unit and/or counseling patient: Coding Level of Care Code 86139 Subseq Hosp Care Lvl 2 Diagnoses Complicated urinary tract infection N39.0 Ureteral stent present Z96.0 Bilateral hydronephrosis N13.30 HTN (hypertension) I10 Hypertension type: essential hypertension Schizophrenia F20.9 Cerebral palsy G80.9 Time Spent (min) 35 (1) HTN (hypertension) Hypertension type: essential hypertension Qualified Code(s): I10 - Essential (primary) hypertension
[2022-07-21] MEDS: MELATONIN 3 MG TAB PO SCH ×2 (19:40→19:44)
[2022-07-21] MEDS: ERTAPENEM SODIUM 1,000 MG in SYRINGE 0 ML IV SCH (19:40)
--- NOTE | 2022-07-22 07:06 | Hospitalist Progress Note ---
Date of Service July 22, 2022 Assessment & Plan (1) Complicated urinary tract infection: Plan: suspected Nephroureteral drain-associated UTI Complicated UTI/history of ESBL/bilateral nephroureteral drains Presents on account of suspected low urine output from the right drain Urology on board, determined that drains are in good shape as seen on CT abdomen They Adviced to Follow urine culture and sensitivity and continue antibiotics for at least 2 weeks Continue ertapenem 1 g IV daily begun in ED, for 10 more days Outpatient follow up with urology (2) Ureteral stent present: Plan: Bilateral nephroureteral drains, working well per urology (3) Bilateral hydronephrosis: Plan: chronic (4) HTN (hypertension): Plan: Hold metoprolol tartrate and losartan due to relatively low blood pressure (5) Schizophrenia: Plan: Schizophrenia/cerebral palsy- Nonverbal Continue supportive medications (6) Cerebral palsy: Plan d/c back to her facility when she is accepted, hopefully tomorrow, Friday Admission and Anticipated Discharge Date Admission Date: July 17, 2022 Results & Data Results & Data ([facility]) Vital Signs (Past 12 Hours) Vital Signs Temp Pulse Resp BP Pulse Ox O2 Del Method 07/21/22 19:40 Room Air 07/21/22 22:21 36.5 C 79 16 121/78 97 Room Air PG Care Time/CCT Total # of Minutes Spent Total Time Spent with Patient: Total time spent is greater than 50% in coordination of care (as documented) at patient's floor/unit and/or counseling patient: Coding Diagnoses Complicated urinary tract infection N39.0 Ureteral stent present Z96.0 Bilateral hydronephrosis N13.30 HTN (hypertension) I10 Hypertension type: essential hypertension Schizophrenia F20.9 Cerebral palsy G80.9 (1) HTN (hypertension) Hypertension type: essential hypertension Qualified Code(s): I10 - Essential (primary) hypertension
[2022-07-22] MEDS: CYANOCOBALAMIN (B-12) 500 MCG TABLET PO SCH (09:42)
[2022-07-22] MEDS: DOCUSATE SODIUM 100 MG CAP PO SCH (09:42)
[2022-07-22] MEDS: PARoxetine HCL 10 MG TAB PO SCH (09:42)
--- NOTE | 2022-07-22 15:33 | Discharge Summary ---
Discharge Summary Date of Service July 22, 2022 Admission HPI Per Admitting Provider The patient is a 57-year-old female with a past medical history including acute renal failure, hypernatremia, complicated UTIs, bilateral ureteral stent placement, bilateral nephrostomy tube placements, schizophrenia, staghorn calculus, pneumonia, hypertension, GERD, delayed gastric emptying, cerebral palsy, obstructive uropathy and GERD. She presents to the emergency department as a referral from [facility], where she was noted to have decreased urine output from her right nephrostomy tube. The patient herself is unable to contribute to her HPI or ROS due to underlying mental state. Admission Exam Per Admitting Provider The patient is awake, well developed and well nourished, normocephalic and atraumatic, lying in bed and in no acute distress. HEENT--PERRL, EOMI, mucous membranes and oropharynx mildly dry. Neck--supple. No JVD. No bruits. Thyroid normal, trachea midline, no adenopathy. Heart--normal S1 and S2. No murmurs, rubs or gallops. Lungs--clear bilaterally, no respiratory distress, no accessory muscle use. Abdomen--normal bowel sounds and soft. Nontender. Nondistended. Extremities--no cyanosis or clubbing. No edema. Dermatologic--normal skin turgor, normal color, no abnormal lymph nodes, no rash. Neurologic--cranial nerves II through XII grossly intact. Rheumatologic--limited exam Psychiatric--cooperative. Principal Dx & Hospital Course #1 = Principal Diagnosis (1) Complicated urinary tract infection: (2) Ureteral stent present: (3) Bilateral hydronephrosis: (4) HTN (hypertension): (5) Schizophrenia: (6) Cerebral palsy: Plan Complicated UTI: Complicated UTI/history of ESBL/bilateral nephroureteral drains: Presented due to low urine output from the right drain. Final UCx <1000 colonies/mL. Urology on board, determined that drains are in good position as seen on CT abdomen Continue ertapenem 1 g IV daily begun in ED, to complete on 07/31/2022 per Urology. Outpatient follow up with Urology. Ureteral stent present: Bilateral nephroureteral drains, working well per urology. Bilateral hydronephrosis: chronic. HTN (hypertension): Hold metoprolol tartrate and losartan due to relatively low blood pressure, 107/71 on discharge. Schizophrenia/cerebral palsy: Nonverbal. Continue supportive medications. Plan d/c back to her facility 07/22 Discharge Exam Constitutional well developed; no acute distress and not ill appearing Respiratory normal respiratory effort, lungs clear to auscultation Cardiovascular RRR, no murmur, no edema Gastrointestinal (Abdomen) normal bowel sounds, soft, nontender, no hepatosplenomegaly Psychiatric Orientation: alert and cooperative Updated Medication List Medication Instructions Recorded Confirmed Type acetaminophen 325 mg tablet 650 mg PO Q4H PRN Fever Or Pain 03/03/19 07/10/22 History bisacodyl 10 mg rectal suppository 10 mg W[place] DAILY PRN Constipation 03/03/19 07/10/22 History (Dulcolax (bisacodyl)) apixaban 5 mg tablet (Eliquis) 5 mg PO Q12H 07/10/22 07/10/22 History cyanocobalamin (vitamin B-12) 1,000 mcg PO DAILY 07/10/22 07/10/22 History 1,000 mcg tablet (Vitamin B-12) docusate sodium 100 mg capsule 100 mg PO BID 07/10/22 07/10/22 History lidocaine 5 % topical patch 1 patch topical DAILY 07/10/22 07/10/22 History losartan 25 mg tablet 25 mg PO DAILY 07/10/22 07/10/22 History magnesium hydroxide 400 mg/5 mL 30 ml PO DAILY PRN Constipation 07/10/22 07/10/22 History oral suspension (Milk of Magnesia) melatonin 3 mg tablet 6 mg PO HS 07/10/22 07/10/22 History metoprolol succinate 25 mg 25 mg PO DAILY 07/10/22 07/10/22 History tablet,extended release 24 hr multivitamin with minerals 1 tab PO DAILY 07/10/22 07/10/22 History nystatin 100,000 unit/gram topical 1 applic topical BID 07/10/22 07/10/22 History powder ondansetron 4 mg disintegrating 4 mg PO Q4H PRN NAUSEA/VOMITING 07/10/22 07/10/22 History tablet paroxetine HCl 10 mg tablet 10 mg PO DAILY 07/10/22 07/10/22 History polyethylene glycol 3350 17 17 g PO DAILY PRN Constipation 07/10/22 07/10/22 History gram/dose oral powder (Miralax) sennosides 8.6 mg-docusate sodium 1 tab-cap PO QDL PRN Constipation 07/10/22 07/10/22 History 50 mg capsule (Senna Plus) tramadol 50 mg tablet 50 mg PO Q8H PRN Pain 07/10/22 07/10/22 History ertapenem 1 gram solution for 1 g IV DAILY 10 days #10 ea 07/20/22 Rx injection Hospital Stay Data Consultations 07/17/22 00:32 ED Decision to Admit Stat 07/17/22 04:01 Consult Urology Routine Diagnostic Imagining Performed 07/16/22 20:01 CT abd pelvis IV con only Urgent 07/19/22 11:02 US guide vascular access Routine Pending Results Patient Have Any Pending Studies at Discharge: No Discharge Instructions Given to Patient (Per Discharging Provider) suspected Nephroureteral drain-associated UTI - Complicated UTI/history of ESBL/bilateral nephroureteral drains - Presents on account of suspected low urine output from the right drain - Urology on board, determined that drains are in good shape as seen on CT abdomen - Continue ertapenem 1 g IV daily to complete on 07/31/2022 - Outpatient follow up with Urology. Ureteral stent present: Bilateral nephroureteral drains, working well per urology Bilateral hydronephrosis: chronic HTN (hypertension): Hold metoprolol tartrate and losartan due to relatively low blood pressure Schizophrenia, cerebral palsy: Schizophrenia/cerebral palsy- Nonverbal Continue supportive medications Plan d/c back to her facility today 07/22 Total Time Total Time Spent Total Time Spent (In Minutes): 40 minutes Coding Level of Care Code D/C DAY MANAGEMENT >30 MINS Diagnoses Complicated urinary tract infection N39.0 Ureteral stent present Z96.0 Bilateral hydronephrosis N13.30 HTN (hypertension) I10 Hypertension type: essential hypertension Schizophrenia F20.9 Cerebral palsy G80.9
== END 2022-07-22 13:30 | DRG 699 ==
LOC: ED 19:16 → SUATTDRO 07-17 01:22 → 3E 07-17 01:22